=== PATIENT | female | born 1955 | race Caucasian/White ===

== ENCOUNTER 2022-03-06 14:32 | Outpatient (CLI) | payer MEDICARE ==
--- NOTE | 2022-03-16 09:49 | Mammography Report ---
BILATERAL DIGITAL SCREENING MAMMOGRAM 3D/2D: 03/06/2022 CLINICAL: Routine screening. No prior exams were available for comparison. Both breasts are almost entirely fatty (category a/<25% glandular tissue). There is a 0.9 cm oval equal density asymmetry in the right breast at 11 o'clock middle depth. No other significant masses, calcifications, or other findings are seen in either breast. IMPRESSION: INCOMPLETE: NEEDS ADDITIONAL IMAGING EVALUATION The 0.9 cm oval equal density asymmetry in the right breast is indeterminate. Additional views with possible ultrasound are recommended. Based on the Tyrer Cuzick model (a risk assessment model) the patients lifetime risk is 3.6% and her 10 year risk is 2.0%. According to the ACR, ACS, and NCCN guidelines, an annual breast MRI exam jennifer g with mammogram is recommended if the patients lifetime risk is 20% or greater. This exam was interpreted at Station ID: [id number]. NOTE: For mammograms, a report in lay terms will be sent to the patient. Approximately 15% of breast malignancies will not be visualized mammographically. In the management of a palpable breast mass, a negative mammogram must not discourage biopsy of a clinically suspicious lesion. Electronically Signed By: Nixon Echevarria M.D. aty/penrad:03/16/2022 08:08:37 ACR BI-RADS Category 0: Incomplete 3340F PARENCHYMAL PATTERN: (F) - The breast(s) demonstrate(s) diffuse fatty replacement. BI-RADS CATEGORY: (0) - 0 Mammo and [place] [id number] Immediate follow-up LATERALITY: (R)
== END 2022-03-06 14:33 | disposition home or self-care (01) ==
LOC: DI.N 14:32
PROVIDERS: ATTEND Nurse Practitioner Family
DX: Z12.31 Encounter for screening mammogram for malignant neoplasm of breast (principal); R92.8 Other abnormal and inconclusive findings on diagnostic imaging of breast

== ENCOUNTER 2022-04-04 10:40 | Outpatient (CLI) | payer MEDICARE ==
--- NOTE | 2022-04-05 12:13 | Ultrasound Report ---
LIMITED ULTRASOUND OF RIGHT BREAST: 04/04/2022 CLINICAL: Patient returns today to evaluate an asymmetry in the right breast. Comparison is made to exams dated: 04/04/2022 mammogram, 03/06/2022 mammogram - [facility], 10/20/2020 mammogram, and 10/20/2020 ultrasound - [facility]. Color flow and real-time ultrasound of the right breast 11 o'clock region were performed on the areas of interest. Taylor scale images of the real-time examination were reviewed. There is an ill-defined area of echogenic fibroglandular tissue in the right breast at 11 o'clock mid dle depth which correlates with mammography findings. IMPRESSION: BENIGN There is no sonographic evidence of malignancy. The area of echogenic fibroglandular tissue in the right breast is most consistent with fat necrosis and is benign. A 1 year screening mammogram is recommended. This exam was interpreted at Station ID: [id number]. Electronically Signed By: Veronica Comer M.D. lk/:04/04/2022 11:49:29 Ultrasound BI-RADS: 2 Benign BI-RADS CATEGORY: (2) - 2 RECOMMENDATION: (ANNUAL) - Recommend routine annual screening mammography. [id number] 1 year screening LATERALITY: (B)
--- NOTE | 2022-04-05 12:13 | Mammography Report ---
UNILATERAL RIGHT DIGITAL DIAGNOSTIC MAMMOGRAM 3D/2D: 04/04/2022 CLINICAL: Patient returns today to evaluate an asymmetry in the right breast. Comparison is made to exams dated: 03/06/2022 mammogram - [facility] and 10/20/2020 mammogram - [facility]. The right breast is almost entirely fatty (category a/<25% glandular tissue). The oval equal density asymmetry in the right breast at 11 o'clock middle depth is less prominent and decreased in size on additional views. No other significant masses or calcifications are seen in the breast. IMPRESSION: INCOMPLETE: NEEDS ADDITIONAL IMAGING EVALUATION The oval equal density asymmetry in the right breast is indeterminate. A targeted ultrasound of the right breast is recommended and will be performed immediately following this exam. Based on the Tyrer Cuzick model (a risk assessment model) the patients lifetime risk is 3.6% and her 10 year risk is 2.0%. According to the ACR, ACS, and NCCN guidelines, an annual breast MRI exam jennifer g with mammogram is recommended if the patients lifetime risk is 20% or greater. This exam was interpreted at Station ID: [id number]. NOTE: For mammograms, a report in lay terms will be sent to the patient. Approximately 15% of breast malignancies will not be visualized mammographically. In the management of a palpable breast mass, a negative mammogram must not discourage biopsy of a clinically suspicious lesion. Electronically Signed By: Veronica Comer M.D. lk/:04/04/2022 11:29:40 ACR BI-RADS Category 0: Incomplete 3340F PARENCHYMAL PATTERN: (F) - The breast(s) demonstrate(s) diffuse fatty replacement. BI-RADS CATEGORY: (0) - 0 Ultrasound [id number] Immediate follow-up LATERALITY: (B)
== END 2022-04-04 10:41 | disposition home or self-care (01) ==
LOC: DI 10:40
PROVIDERS: ATTEND Nurse Practitioner Family
DX: N63.11 Unspecified lump in the right breast, upper outer quadrant (principal)

== ENCOUNTER 2022-05-25 16:14 | Emergency (ER) | payer MEDICARE ==
[2022-05-25] MEDS ORDERED: HYDROmorphone 1 MG/ML CARPUJECT IVP STA ×3 (16:34→18:39)
[2022-05-25] MEDS ORDERED: ONDANSETRON 4 MG/2 ML VIAL IVP STA (16:52)
[2022-05-25] MEDS ORDERED: PANTOPRAZOLE 40 MG VIAL IVP STA (16:58)
--- NOTE | 2022-05-25 16:58 | ED Physician Documentation ---
History of Present Illness - Stated complaint Stated Complaint: ABD PX N/V/D - Chief complaint Chief Complaint: Abd Pain - Additonal information Additional information: 66-year-old female presents emergency department for evaluation of acute epigastric abdominal pain, n/v/d that began 4 days ago. She is crying moaning and writhing on the bed. States that 2 days ago she was seen at [facility] in [place] for similar. Reportedly underwent CT imaging with no findings found. History is difficult to obtain from patient due to clinical status. She does report a chronic pain syndrome for which she takes hydromorphone 4 mg 3 times daily. Intermittently here in the ER she lapses in and out of consciousness but reports that she is merely sleeping. Review of Systems Constitutional: denies: Fever, Chills GI: reports: Abdominal Pain, Nausea, Vomiting : reports: Reviewed and negative Skin: reports: Reviewed and negative PD PAST MEDICAL HISTORY - Allergies Allergies/Adverse Reactions: Allergies Allergy/AdvReac Type Severity Reaction Status Date / Time oxycodone Allergy Hives Verified 05/25/22 16:26 Penicillins Allergy Anaphylaxis Verified 05/25/22 16:25 PD ED PE NORMAL - General General: Alert and oriented X 3. No: No acute distress (Crying actively dry heaving) - HEENT HEENT: Atraumatic, Moist mucous membranes - Neck Neck: Supple, no meningeal sign, No adenopathy - Cardiac Cardiac: RRR, No murmur - Respiratory Respiratory: No respiratory distress, Clear bilaterally - Abdomen Abdomen: Normal bowel sounds, Soft. 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 Eye Opening: Spontaneous Motor: Obeys Commands Verbal: Oriented GCS Score: 15 PD ED PE EXPANDED - General General: Alert, No acute distress Results - Vitals Vitals: Vital Signs - 24 hr 05/25/22 05/25/22 05/25/22 16:23 16:26 18:26 Temperature 37.2 C 37.2 C Heart Rate 95 95 100 Respiratory 20 20 20 Rate Blood Pressure 111/87 H 111/87 H 112/88 H O2 Saturation 96 96 99 05/25/22 20:00 Temperature Heart Rate 100 Respiratory 18 Rate Blood Pressure 114/86 H O2 Saturation 100 Oxygen O2 Source Room air - Labs Labs: Laboratory Tests 05/25/22 05/25/22 05/25/22 17:21 17:21 19:37 WBC 14.7 H RBC 5.40 Hgb 14.2 Hct 44.0 MCV 81.5 MCH 26.3 L MCHC 32.3 RDW 13.1 Plt Count 436 MPV 10.1 Neut # (Auto) 12.1 H Lymph # (Auto) 1.8 [place] # (Auto) 0.6 Eos # (Auto) 0.0 Baso # (Auto) 0.1 Absolute Nucleated RBC 0.00 Nucleated RBC % 0.0 Sodium 132 L Potassium 2.8 L Chloride 95 L Carbon Dioxide 23 Anion Gap 14.0 H BUN 57 H Creatinine 1.9 H Estimated GFR (MDRD) 26 L Glucose 171 H Calcium 9.2 Total Bilirubin 0.5 AST 25 ALT 19 Alkaline Phosphatase 139 H Total Protein 8.3 H Albumin 4.7 Globulin 3.6 Albumin/Globulin Ratio 1.3 Lipase 28 Urine Color YELLOW Urine Clarity CLEAR Urine pH 6.0 Ur Specific [place] 1.025 Urine Protein 30 H Urine Glucose (UA) NEGATIVE Urine Ketones TRACE Urine Occult Blood TRACE-INTA Urine Nitrite NEGATIVE Urine Bilirubin NEGATIVE Urine Urobilinogen 0.2 (NORMAL) Ur Leukocyte Esterase NEGATIVE Urine RBC 0-5 Urine WBC 0-3 Ur Squamous Epith Cells FEW Squamous Urine Bacteria Few Ur Microscopic Review INDICATED Urine Culture Comments NOT INDICATED 05/25/22 21:12 WBC RBC Hgb Hct MCV MCH MCHC RDW Plt Count MPV Neut # (Auto) Lymph # (Auto) [place] # (Auto) Eos # (Auto) Baso # (Auto) Absolute Nucleated RBC Nucleated RBC % Sodium 132 L Potassium 3.7 Chloride 101 Carbon Dioxide 21 Anion Gap 10.0 BUN 49 H Creatinine 1.4 H Estimated GFR (MDRD) 37 L Glucose 132 H Calcium 8.6 Total Bilirubin 0.6 AST 21 ALT 15 Alkaline Phosphatase 110 Total Protein 6.8 Albumin 4.0 Globulin 2.8 Albumin/Globulin Ratio 1.4 Lipase 26 Urine Color Urine Clarity Urine pH Ur Specific [place] Urine Protein Urine Glucose (UA) Urine Ketones Urine Occult Blood Urine Nitrite Urine Bilirubin Urine Urobilinogen Ur Leukocyte Esterase Urine RBC Urine WBC Ur Squamous Epith Cells Urine Bacteria Ur Microscopic Review Urine Culture Comments - Rads (name of study) CT abd Radiology: Final report received (No evidence of bowel obstruction. No gross abnormal bowel wall thickening or mesenteric fat stranding. No free fluid or free air. Bibasilar dependent atelectasis. Cardiomegaly no pleural effusion. Prior cholecystectomy. Small hiatal hernia small umbilical hernia.) PD Medical Decision Making - ED course Complexity details: reviewed results, re-evaluated patient, considered differential, d/w patient ED course: 66-year-old female returns to the emergency department for evaluation of epigastric abdominal pain and nausea and vomiting. She was seen at an outside clinic for this 2 days ago. I was able to gain [facility] and saw that she was seen at [facility] in [place] for similar. At that time her labs showed a modest leukocytosis of 18,000 though it was suspected to be secondary to marginalization in the acute stress response. A CT of the abdomen was unremarkable. There were able to obtain symptom control with antiemetics and she was discharged home. She presents today with similar nausea vomiting diarrhea and epigastric abdominal pain. Initially the patient was writhing in pain very difficult to obtain history due to her condition. She is also very dehydrated and we had a difficult time obtaining IV lab draw or IV access. However subsequently we did get labs and it does show a white count of just under 13,000. This is a reduction from 2 days ago at an outside hospital. I was able to evaluate her BUN and creatinine and do note some mild acute kidney injury as well as hypokalemia which I think is consistent with dehydration. The patient was administered 2 L of crystalloid here in the ER. The patient did admit to cannabis use she last used about 4 days ago before the symptoms began. She does smoke pot with some regular frequency and reports that she has been told in the past that she could have cannabis hyperemesis syndrome. Initially we did give her some Dilaudid which was repeated to achieve pain control. Given the location of the pain in the epigastrium I suspect a gastritis and administered Protonix as well as Carafate. However in order to achieve appropriate antinausea success she was finally administered droperidol which markedly improved her symptoms and she was then tolerating sips of clear liquids and p.o. I did obtain a noncontrast CT of her abdomen and there were no acute findings seen. Nothing to suggest a bowel obstruction or acute appendicitis. Her Abdominal aorta was atherosclerotic but nothing to suggest dissection. Once symptom control was achieved the patient was markedly improved. She is tolerating sips of clear liquids. I did order a repeat blood chemistry to ensure that her acute kidney injury was trending in the right direction And her BUN and creatinine had started to improve. Her initial hypokalemia had also started to improve after she had been given 60 of potassium orally Patient was discharged home in stable condition. Emergent return precautions discussed Departure - Departure Disposition: Home, Self Care Clinical Impression: Acute kidney injury, Epigastric abdominal pain, Hypokalemia due to excessive gastrointestinal loss of potassium Nausea and vomiting Qualifiers: Vomiting type: unspecified Qualified Code(s): R11.2 - Nausea with vomiting, unspecified Condition: Stable Comments: Yolis garcia came to the emergency department with upper abdominal pain and uncontrolled nausea and vomiting. You were seen at an outside hospital for similar 2 days ago. I was able to access those care records and did not find anything of acute worry on those labs or that CT imaging. You do report that you use cannabis last on Sunday. I encourage you to consider the possibility of cannabis hyperemesis syndrome as a cause for your cyclic vomiting. Here in the ER today we did obtain some labs that showed a mild white blood cell count elevation though it is reduced from what it was 2 days ago in the other ER. You were modestly dehydrated because you had some elevation of your BUN and creatinine. Here in the ER we did give you 2 L of fluid and on repeat Your kidney function has started to improve though you are still dehydrated. You can continue to use the Reglan and Zofran at home for control of your nausea. Please continue to take all your usual medications. Over the next 24 hours and want you to sip clear liquids. I like you to follow-up with your primary care provider in the next week to have your labs rechecked to ensure that your BUN and creatinine have improved. If at any point you find that your symptoms are worsening please return i mmediately to the ER for a second evaluation.
[2022-05-25] MEDS ORDERED: SUCRALFATE 1 GM/10 ML UDC PO STA (17:00)
[2022-05-25 17:28] LABS: BASOPHILS # (AUTO) 0.1 10^3/uL (0.0-0.1); BASOPHILS % (AUTO) 0.3 %; EOSINOPHILS % (AUTO) 0.1 %; HGB - HEMOGLOBIN 14.2 g/dL (12.0-16.0); LYMPHOCYTES # (AUTO) 1.8 10^3/uL (1.5-3.5); LYMPHOCYTES % (AUTO) 12.6 %; MEAN CORPUSCULAR HEMOGLOBIN 26.3 pg (27.0-31.0); MEAN CORPUSCULAR HGB CONC 32.3 g/dL (32.0-36.0); MEAN CORPUSCULAR VOLUME 81.5 fL (81.0-99.0); MEAN PLATELET VOLUME 10.1 fL (7.9-10.8); MONOCYTES # (AUTO) 0.6 10^3/uL (0.0-1.0); MONOCYTES % (AUTO) 3.8 %; NEUTROPHILS # (AUTO) 12.1 10^3/uL (1.5-6.6); NEUTROPHILS % (AUTO) 82.7 %; PLT - PLATELET COUNT 436 10^3/uL (130-450); RED CELL DISTRIBUTION WIDTH 13.1 % (12.0-15.0); WHITE BLOOD COUNT 14.7 x10^3/uL (4.8-10.8)
[2022-05-25 17:39] LABS: ALBUMIN 4.7 g/dL (3.2-5.5); ALBUMIN/GLOBULIN RATIO 1.3 (1.0-2.2); BILIRUBIN,TOTAL 0.5 mg/dL (0.2-1.0); CALCIUM 9.2 mg/dL (8.5-10.3); CREATININE 1.9 mg/dL (0.4-1.0); POTASSIUM 2.8 mmol/L (3.5-5.0); TOTAL PROTEIN 8.3 g/dL (6.7-8.2)
[2022-05-25] MEDS ORDERED: SODIUM CHLORIDE 0.9% 1,000 ML IV STA ×2 (17:52)
[2022-05-25] MEDS ORDERED: POTASSIUM CHLORIDE 20 MEQ TABLET PO STA (17:53)
[2022-05-25] MEDS ORDERED: DROPERIDOL 5 MG/2 ML VIAL IVP STA (18:29)
--- NOTE | 2022-05-25 18:33 | CT Report ---
PROCEDURE: ABDOMEN/PELVIS WO INDICATIONS: n/v/d TECHNIQUE: After oral contrast ingestion, 5 mm thick sections acquired from the diaphragms to the symphysis. 5 mm coronal and sagittal reformats were then performed. For radiation dose reduction, the following w as used: automated exposure control, adjustment of mA and/or kV according to patient size. COMPARISON: None. FINDINGS: Image quality: Excellent. ABDOMEN: Lung bases: Mild bibasilar dependent atelectasis is seen. Heart size is enlarged, no pericardial effu roseann. Pacemaker leads are seen. Solid organs: Liver and spleen are normal in size. Gallbladder is surgically absent Pancreas is no rmal in contours. No adrenal nodules. Kidneys are normal in size, without hydronephrosis or nephrol ithiasis. Peritoneum and bowel: Small hiatal hernia is seen. No evidence of bowel obstruction. Oral contrast is seen in the ascending colon and sigmoid colon. No gastric or small bowel wall thickening. No gross c olonic wall thickening. No mesenteric fat stranding. No abscess collection. No free fluid of free air . Nodes and vessels: No retroperitoneal or mesenteric adenopathy by size criteria. Aorta and inferior vena cava are normal in caliber. Moderate atherosclerotic calcifications in the abdominal aorta is seen. Miscellaneous: Small umbilical hernia is seen containing fat only. PELVIS: Genitourinary: Bladder wall thickness is normal. Miscellaneous: No inguinal hernias or adenopathy. Bones: No suspicious bony lesions. No vertebral body compression fractures. Postsurgical changes a re noted in lower lumbar spine with prior fusion at L5-S1 level. IMPRESSION: 1. No evidence of bowel obstruction. No gross abnormal bowel wall thickening or mesenteric fat strand ing. No free fluid of free air. 2. Bibasilar dependent atelectasis. Cardiomegaly, no pericardial effusion. 3. Prior cholecystectomy. 4. Small hiatal hernia and small umbilical hernia as above. 5. Postsurgical changes in lower lumbar spine from L5-S1 fusion. Reviewed by: Urbano Schaefer MD on 05/25/2022 6:32 PM PST Approved by: Urbano Schaefer MD on 05/25/2022 6:32 PM PST Station ID: [id number]
[2022-05-25 19:57] LABS: BILIRUBIN,URINE NEGATIVE (NEGATIVE); GLUCOSE, URINE (UA) NEGATIVE (NEGATIVE); KETONES,URINE (UA) TRACE mg/dL (NEGATIVE); LEUKOCYTE ESTERASE, URINE NEGATIVE (NEGATIVE); NITRITE,URINE NEGATIVE (NEGATIVE); OCCULT BLOOD,URINE TRACE-INTA (NEGATIVE); PROTEIN,URINE 30 mg/dL (NEGATIVE); UROBILINOGEN,URINE 0.2 (NORMAL) E.U./dL (NORMAL)
[2022-05-25 20:01] LABS: CLARITY,URINE CLEAR (CLEAR)
[2022-05-25 20:10] LABS: BACTERIA,URINE Few /HPF (None Seen); RBC,URINE 0-5 /HPF (0-5); SQUAMOUS EPITHELIAL CELL,UR FEW Squamous (<= Few); WBC,URINE 0-3 /HPF (0-5)
[2022-05-25 21:32] LABS: ALBUMIN/GLOBULIN RATIO 1.4 (1.0-2.2); BILIRUBIN,TOTAL 0.6 mg/dL (0.2-1.0); CALCIUM 8.6 mg/dL (8.5-10.3); CREATININE 1.4 mg/dL (0.4-1.0); POTASSIUM 3.7 mmol/L (3.5-5.0); TOTAL PROTEIN 6.8 g/dL (6.7-8.2)
[2022-05-25 21:58] VITALS: BP 116/88
== END 2022-05-25 21:56 | disposition home or self-care (01) ==
LOC: ED 16:14
DX: N17.9 Acute kidney failure, unspecified (principal); R10.13 Epigastric pain; E87.6 Hypokalemia; E86.0 Dehydration; D72.829 Elevated white blood cell count, unspecified; R11.2 Nausea with vomiting, unspecified; G89.4 Chronic pain syndrome
CPT/HCPCS: 36415; 74176; 80053; 81001; 83690; 85025; 96361; 96374; 96375; 96376; 99283; 99285; A9270; J1170; 81003; 87086

== ENCOUNTER 2022-09-22 10:48 | Outpatient (CLI) | payer MEDICARE ==
--- NOTE | 2022-09-22 12:09 | SLEEP CARE CONSULTATION ---
Information from patient questionnaire entered by Madisyn Monroy. I have reviewed and concur with the information entered by Madisyn Monroy. This document represents the service I personally performed and the decisions made by me, Jennifer Salazar ARNP. History of Present Illness Service Date and Time: 09/22/2022 1048 Reason for Visit: New patient, Previously diagnosed sleep apnea, sleep apnea on CPAP therapy Chief Complaint: reports: Other (UPDATE SUPPLIES) Date of Onset: 20+YRS Usual bedtime: 130-2AM Time it takes to fall asleep: WITH IN AN HR OF TAKING BEDTIME MEDS Snores at night: Yes Observed to quit breathing while asleep: Yes Number of times waking at night: 3-5 Reasons for waking at night: reports: Pain, Bathroom, Other (UNKNOWN ) Toss, Turn, or Twitch while sleeping: Yes Recalls having dreams: No Usually gets out of bed at: 8AM-10AM Feels refreshed in the morning: No Morning headache: No Sleepy or fatigued during the day: Yes Ever fallen asleep while driving: No Takes day naps: Yes Dreams during day naps: Yes Prior sleep studies: Yes Year and Where: 04/21/2015 [facility] [place] Type of Sleep Study: Polysomnography Additional HPI information: SANG HERMOSILLO was previously diagnosed to have moderate, AHI 27, obstructive sleep apnea-hypopnea syndrome in a study dated 04/21/2015 through [facility] [place] and comes in today to establish care for CPAP therapy. - Parasomnia Symptoms Ever been unable to move upon waking from sleep: No Walks in sleep: No Talks in sleep: Yes Ever acted out dreams in sleep: No (don't know) Ever felt weak in the knees when startled or emotional: No Bothered by creepy, crawly, restless sensations in legs: Yes Problems with memory or concentration: Yes CPAP Compliance Data - Data Reviewed with Patient Average duration of nightly device use: 4 hour 54 minutes Compliance rate %: 53 (77/90 days used) Current pressure setting (cmH2O): 5-15 (avg 12.2) Average residual AHI: 1.9 Central apnea: 0.1 Obstructive apnea: 1.5 Hypopnea: 0.3 Average large leak: 0 Compliance data discussion: She has a Resmed Airsense 10, s/u 2/ 2016. She used to use [facility] in the past but is no longer getting supplies from them. She needs to get set up for supplies. She is using a Tushar Rahel View full face mask. Subjective Missed days of use due to: reports: other (does not sleep well) Patient concerns: reports: dry mouth, nose, throat (nightly), other (headgear stretched out; hard to get mask to seal). denies: aerophagia, mask discomfort, air blowing in eyes, mask leak noise, condensation in mask/hose, nasal congestion, epistaxis Observed to snore while using device: Yes (sometimes will wake herself up snoring) Current pressure setting perceived as: comfortable On therapy, patient: reports: sleeping better, awakening more refreshed, being more awake and alert during the day, more rested overall. 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 Patient is and lives in . Have you smoked in the past 12 months: No Quit date: 2016 Alcohol use: No Caffeine use: Yes Caffeine amount and frequency: 1-16OZ IN MORNING Family History Family history of sleep disordered breathing: No Family Hx Sleep Apnea: Mother: Snoring, Father: Snoring, Sibling: Snoring Allergies and Home Medications Known drug allergies: Yes (OXYCODONE, PNC, PERCOCET, LISINOPRIL, ATENOLOL, GARLIC ) Drug allergies reviewed: Yes Home medication list reviewed: Yes Allergy and home medication list: Allergies oxycodone Allergy (Verified 09/21/22 13:50) Hives Penicillins Allergy (Verified 09/21/22 13:50) Anaphylaxis Medications: Buprenorphine Tizanidine Trazadone Metoprolol Amlodipine Aspirin EC Montelukast Pravastatin Pantoprazole Pepto Bismol Vitamin D3 Ex Strength Tylenol, prn Metoclopramide prn Nitroglycerin prn Albuterol inhaler, prin Aleve, prn Review of Systems Cardiovascular: reports: high blood pressure Respiratory: reports: wheeze Gastrointestinal: reports: heartburn, nausea, vomitting, diarrhea, abdominal pain Urinary: reports: frequency Neurological: denies: headaches Psychiatric: reports: anxiety, depression Ear/Nose/Throat: reports: dry mouth/throat, tonsillectomy, wisdom teeth removed Endocrine: reports: sluggishness. denies: thyroid disease Musculoskeletal: reports: joint pain, back pain, mobility problems Immunologic: reports: sneezing, allergies to food or environment Physical Exam Vital signs obtained and entered by: MADISYN Irby MA Blood Pressure: 124/62 (LEFT ARM) Cuff size: regular Heart Rate: 59 O2 Saturation: 96 Height: 4 ft 10 in Weight: 178 lb Body Mass Index: 37.2 BMI Classification: Obese Neck circumference: 14 Heart: regular rate and rhythm Lungs: clear bilaterally Impression and Plan 1. Obstructive Sleep Apnea-Hypopnea Syndrome, moderate, with fair treatment compliance and good apnea control. On CPAP therapy, the patient has better sleep quality and is more rested overall. Her Resmed Airsense 10 was last updated in 2016. The patients CPAP is over 5 years old and of reasonable use. Thus, the CPAP will be updated. The new CPAPs also have a better humidity system which could assist control of patients dryness symptoms. A DWO prescription will be made. Compliance guidelines for new device and follow up discussed. Patient's apnea severity and rationale for treatment to reduce apnea, improve sleep quality and reduce cardiovascular and cerebrovascular events was reviewed. I also reviewed the benefit of consistent device use of CPAP for hypertension, gastric reflux, depression, anxiety and asthma. 2. Obesity, unspecified. Currently patients BMI is 37.2. Obesity increases the risk of apnea, CPAP pressure requirements and overall health risks especially cardiovascular and diabetes. Thus patient is advised to lose weight. * Continue auto CPAP pressure at 5-15 cmH2O * Update machine * Update supplies * Notify me if snoring with mask or feeling that the pressure is too much or too little * Attempt to lose weight * Call this office if any problems using CPAP * Return for follow up one month after obtaining new device, or sooner if concerns arise Counseling Topics: Spare mask, Weight loss health impact Visit Type: In Office Time Spent with Patient (minutes): 34 Provider Statement: I spent 100% of the Face to Face Visit with the patient with greater than 50% spent counseling the patient and coordination of care.
[2022-09-22 13:02] VITALS: BP 124/62
== END 2022-09-22 10:49 | disposition home or self-care (01) ==
LOC: SC 10:48
PROVIDERS: ATTEND Nurse Practitioner Family
DX: G47.33 Obstructive sleep apnea (adult) (pediatric) (principal); E66.9 Obesity, unspecified; Z68.37 Body mass index [BMI] 37.0-37.9, adult
CPT/HCPCS: 99203; G0463; 99212

== ENCOUNTER 2022-10-18 12:55 | Outpatient (CLI) | payer MEDICARE ==
[~2022-10-18 12:55] MED LIST: GADOBUTROL 7.5 MMOL/7.5 ML VIAL ONE
[2022-10-18 13:39] LABS: CREATININE 0.7 mg/dL (0.4-1.0)
--- NOTE | 2022-10-18 16:55 | MRI Report ---
PROCEDURE: LUMBAR SPINE W/WO INDICATIONS: LUMBAR RADICULOPATHY CONTRAST: gadavist 7ml TECHNIQUE: Noncontrast sagittal T1 spin echo and T2 fast spin echo, sagittal STIR, axial T1 and T2 fast spin ech o through the lumbar spine. In cases with scoliosis, additional coronal T2 fast spin echo may be per formed. After the administration of contrast, sagittal and axial T1 spin echo with fat saturation th rough the lumbar spine. COMPARISON: None. FINDINGS: Image quality: Excellent. Alignment and curvature: Bilateral L5 pars defects. Anterolisthesis of L5 on S1 measures 8 mm. Culinary Artist ior lateral shanti and pedicle screw fixation bilaterally at L5-S1. Marrow: Marrow is of normal overall signal. No acute vertebral body compression fractures. No susp icious marrow enhancement. Spinal cord: Conus medullaris terminates at the T12-L1 level. Visualized spinal cord demonstrates n ormal signal, without suspicious enhancement. Paraspinous soft tissues: No paravertebral masses or abnormal enhancement. T12-L1: Normal in appearance. L1-L2: Normal in appearance. L2-L3: Mild facet hypertrophy. No canal stenosis. Mild bilateral foraminal stenosis. L3-L4: Disc bulge. Facet and ligamentous hypertrophy. Mild canal stenosis. Mild to moderate left fo raminal stenosis. L4-L5: Disc bulge. Facet hypertrophy. Moderate canal stenosis. Moderate to severe bilateral foramin al narrowing with a mild degree of bilateral foraminal L4 nerve root impingement. L5-S1: Bilateral L5 pars defects. Anterolisthesis of L5 on S1 measures 8 mm. Posterior lateral shanti and pedicle screw fixation at L5-S1. Epidural lipomatosis contributes to at least moderate canal sten osis. There is probably no significant foraminal narrowing at this level. IMPRESSION: 1. Bilateral L5 pars defects with 8mm anterolisthesis of L5 on S1, status post posterior lateral shanti and pedicle screw fixation at L5-S1. 2. There is mild canal stenosis at L3-L4. There is moderate canal stenosis at L4-L5. Epidural lipomat osis contributes to moderate canal stenosis at L5-S1. 3. There is moderate to severe bilateral foraminal narrowing at L4-L5. Reviewed by: Marcell Miguel MD on 10/18/2022 4:54 PM PDT Approved by: Marcell Miguel MD on 10/18/2022 4:54 PM PDT Station ID: [id number]
[2022-10-18] MEDS ORDERED: GADOBUTROL 7.5 MMOL/7.5 ML VIAL IVP ONE (18:19)
== END 2022-10-18 12:56 | disposition home or self-care (01) ==
LOC: LAB 12:55
PROVIDERS: ATTEND Family Medicine
DX: M43.17 Spondylolisthesis, lumbosacral region (principal); M54.17 Radiculopathy, lumbosacral region; M48.061 Spinal stenosis, lumbar region without neurogenic claudication; M54.16 Radiculopathy, lumbar region; M48.07 Spinal stenosis, lumbosacral region; E88.2 Lipomatosis, not elsewhere classified
CPT/HCPCS: 36415; 72158; 82565; A9585

== ENCOUNTER 2022-11-10 13:31 | Outpatient (CLI) | payer MEDICARE ==
--- NOTE | 2022-11-10 15:21 | XRAY Report ---
PROCEDURE: Lumbar Spine Complete INDICATIONS: STANDING AP AND LATERAL WITH FEXION AND EXTENSION TECHNIQUE: 4 views of the lumbar spine were acquired. COMPARISON: MRI lumbar spine 10/18/2022 FINDINGS: Bones: 5 [id number] vertebrae are present. No vertebral body compression fractures. No suspi cious bony lesions. Grade 2 anterior spinal listhesis L4-5. Approximately 3 mm of translation noted between flexion and e xtension. L5-S1 interbody fusion with posterior shanti and screw instrumentation without change between flexion and extension. Soft tissues: Overlying bowel gas pattern is normal. Atherosclerotic vascular calcification without aneurysm. IMPRESSION: Grade 2 anterior spondylolisthesis L4-5 with approximately 3 mm of translation between flexion and ex tension, suggesting an element of instability. Instrumented L5-S1 interbody fusion. No evidence of hardware failure or loosening. Reviewed by: Sheldon Rebolledo MD on 11/10/2022 2:20 PM AARON Approved by: Sheldon Rebolledo MD on 11/10/2022 2:20 PM AARON Station ID: [id number]
== END 2022-11-10 13:32 | disposition home or self-care (01) ==
LOC: DI 13:31
PROVIDERS: ATTEND Neurological Surgery
DX: M43.16 Spondylolisthesis, lumbar region (principal); Z98.1 Arthrodesis status

== ENCOUNTER 2022-11-15 10:24 | Outpatient (CLI) | payer MEDICARE ==
--- NOTE | 2022-11-15 10:53 | SLEEP CARE CONSULTATION ---
Information from patient questionnaire entered by Madisyn Monroy. I have reviewed and concur with the information entered by Madisyn Monroy. This document represents the service I personally performed and the decisions made by , Jennifer Salazar ARNP. History of Present Illness Service Date and Time: 11/15/2022 1024 Previous diagnosis: Moderate, Obstructive Sleep Apnea-Hypopnea Syndrome AHI: 27 (in 2014) Reason for follow up: first compliance after device update Equipment type: CPAP (ResMed Airsense 11) Equipment obtained from: [employer] ([employer]) Mask style: Nasal Mask brand: Resmed (AirFit N20) Backup mask available: No (will keep old mask when replaced) Last cushion change: 1 month Prior sleep studies: Yes Year and Where: 04/21/2015 [facility] [place] Type of Sleep Study: Polysomnography HPI additional information: SANG HERMOSILLO was diagnosed to have moderate, AHI 27, obstructive sleep apnea- hypopnea syndrome and returned today for CPAP therapy first compliance after updating device follow-up. Sleep Study - Results Type of Sleep Study: Polysomnography Prior sleep studies: Yes Year and Where: 04/21/2015 [facility] [place] CPAP Compliance Data - Data Reviewed with Patient Average duration of nightly device use: 8 hours 10 minutes Compliance rate %: 98 (39/40 days used) Current pressure setting (cmH2O): 5-15 Average residual AHI: 2.6 Central apnea: 0.2 Obstructive apnea: 2.2 Average large leak: 0.2 LPM Subjective Patient concerns: reports: mask leak noise (sometimes), condensation in mask/hose, nasal congestion (sometimes, in morning), dry mouth, nose, throat (sometimes, dry mouth). denies: aerophagia, mask discomfort, air blowing in eyes, epistaxis Observed to snore while using device: No Current pressure setting perceived as: comfortable On therapy, patient: reports: sleeping better, awakening more refreshed, being more awake and alert during the day, more rested overall. denies: drowsiness while driving Initial [place] Sleepiness Scale score: 6 (09/21/22) Current [place] Sleepiness Scale score: 15 Allergies and Home Medications Known drug allergies: Yes (as listed) Drug allergies reviewed: Yes Home medication list reviewed: Yes (no changes) Allergy and home medication list: Allergies garlic Allergy (Verified 11/14/22 21:44) oxycodone Allergy (Verified 11/14/22 21:44) Hives Penicillins Allergy (Verified 11/14/22 21:44) Anaphylaxis atenolol Adverse Reaction (Verified 11/14/22 21:44) lisinopril Adverse Reaction (Verified 11/14/22 21:44) Review of Systems Review of systems same as previous: Yes (no changes) Physical Exam Vital signs obtained and entered by: Jennifer Newman NP Blood Pressure: 87/43 (took meds 1 hour ago (usually lower BP)) Cuff size: wrist (right) Heart Rate: 62 O2 Saturation: 95 Height: 4 ft 10 in Weight: 178 lb 3.2 oz Body Mass Index: 37.2 BMI Classification: Obese Impression and Plan 1. Obstructive Sleep Apnea-Hypopnea Syndrome, moderate, with good treatment compliance and good apnea control. On CPAP therapy, the patient has better sleep quality and is more rested overall. Her blood pressure was a little low today but she states she normally has a lower pressure. She states she took her medication about an hour ago. She denies any dizziness today but has had some recently. I advised her to monitor her blood pressure and contact her PCP if it continues to be low and she has a return of the dizziness. She voiced understanding. Patient has significant improvement of their sleep apnea and is satisfied with current CPAP therapy. Patient has been having some minor problems with condensation in the bottom of the mask. She also gets a little bit of dry mouth and nasal congestion in the morning occasionally. We plug-in her machine and her humidity is set at 4. She would like to try it at 3 to see if this reduces the condensation. We discussed her increasing it back up if her oral dryness worsens. She may also cover the tubing to reduce condensation. She voiced understanding. Patient's apnea severity and rationale for treatment to reduce apnea, improve sleep quality and reduce cardiovascular and cerebrovascular events was reviewed. I also reviewed the benefit of consistent device use of CPAP for hypertension, gastric reflux, depression, anxiety and asthma . 2. Obesity, unspecified. Currently patients BMI is 37.2. Obesity increases the risk of apnea, CPAP pressure requirements and overall health risks especially cardiovascular and diabetes. Thus patient is advised to lose weight. * Continue auto CPAP pressure at 5-15 cmH2O * Notify me if snoring with mask or feeling that the pressure is too much or too little * Attempt to lose weight * Call this office if any problems using CPAP * Return for follow up in 1 year, or sooner if concerns arise Counseling Topics: Spare mask, Weight loss health impact Visit Type: In Office Time Spent with Patient (minutes): 25 Provider Statement: I spent 100% of the Face to Face Visit with the patient with greater than 50% spent counseling the patient and coordination of care.
[2022-11-15 10:56] VITALS: BP 87/43
== END 2022-11-15 10:25 | disposition home or self-care (01) ==
LOC: SC 10:24
PROVIDERS: ATTEND Nurse Practitioner Family
DX: G47.33 Obstructive sleep apnea (adult) (pediatric) (principal); R03.1 Nonspecific low blood-pressure reading; E66.9 Obesity, unspecified; Z68.37 Body mass index [BMI] 37.0-37.9, adult
CPT/HCPCS: 99213; G0463; 99212

== ENCOUNTER 2022-11-23 11:52 | Outpatient (CLI) | payer MEDICARE ==
--- NOTE | 2022-11-23 14:49 | CT Report ---
PROCEDURE: LUMBAR SPINE WO INDICATIONS: SP SPINAL FUSION TECHNIQUE: Noncontrast 3 mm thick sections acquired from the T12 level to the sacrum. Sagittal and coronal refo rmats were constructed. For radiation dose reduction, the following was used: automated exposure co ntrol, adjustment of mA and/or kV according to patient size. COMPARISON: None. FINDINGS: Image quality: Excellent. Bones: There is normal bony alignment. No acute vertebral body compression fractures. No suspiciou s lytic or blastic bony lesions. Central spinal caliber is of normal overall caliber. No pars defec ts. T12-L1: No disc bulge. The foramina and central canal are patent. L1-L2: No disc bulge. The foramina and central canal are patent. L2-L3: Diffuse disc bulge. Ligamentum flavum hypertrophy. The facets are hypertrophic. Moderate bi lateral foraminal stenosis. The central canal has mild stenosis. L3-L4: Diffuse disc bulge. Ligamentum flavum hypertrophy. The facets are hypertrophic. Moderate rusty ateral foraminal stenosis. The central canal has moderate to severe central canal stenosis. L4-L5: Facet arthrosis with grade 1 anterolisthesis. Diffuse disc bulge. Ligamentum flavum hypertro phy. Moderate bilateral foraminal stenosis. L5-S1: Pedicular screw and shanti fixation at this level. Grade 1 anterolisthesis. The foramina are pa tent. Laminectomy at this level. Soft tissues: No retroperitoneal masses or hematomas. Visualized aorta is normal in caliber. IMPRESSION: 1. Postoperative changes of L4-5 fusion. Alignment is similar compared to a prior CT on 05/25/2022. 2. Multilevel foraminal stenosis. Reviewed by: Edson Wellington on 11/23/2022 2:48 PM PDT Approved by: Edson Wellington on 11/23/2022 2:48 PM PDT Station ID: [id number]
== END 2022-11-23 11:53 | disposition home or self-care (01) ==
LOC: DI 11:52
PROVIDERS: ATTEND Neurological Surgery
DX: M51.36 Other intervertebral disc degeneration, lumbar region (principal); M48.061 Spinal stenosis, lumbar region without neurogenic claudication; M47.816 Spondylosis without myelopathy or radiculopathy, lumbar region; M43.17 Spondylolisthesis, lumbosacral region; Z98.1 Arthrodesis status; M43.16 Spondylolisthesis, lumbar region

== ENCOUNTER 2023-03-29 11:04 | Outpatient (CLI) | payer MEDICARE ==
--- NOTE | 2023-03-30 10:27 | Mammography Report ---
BILATERAL DIGITAL SCREENING MAMMOGRAM 3D/2D: 03/29/2023 CLINICAL: Routine screening. Comparison is made to exams dated: 04/04/2022 mammogram, 03/06/2022 mammogram - [facility], and 10/20/2020 mammogram - [facility]. Both breasts are almost entirely fatty (category a/<25% glandular tissue). No significant masses, calcifications, or other findings are seen in either breast. There has been no significant interval change. IMPRESSION: NEGATIVE There is no mammographic evidence of malignancy. A 1 year screening mammogram is recommended. Based on the Tyrer Cuzick model (a risk assessment model) the patients lifetime risk is 3.4% and her 10 year risk is 2.0%. According to the ACR, ACS, and NCCN guidelines, an annual breast MRI exam jennifer g with mammogram is recommended if the patients lifetime risk is 20% or greater. This exam was interpreted at Station ID: [id number]. NOTE: For mammograms, a report in lay terms will be sent to the patient. Approximately 15% of breast malignancies will not be visualized mammographically. In the management of a palpable breast mass, a negative mammogram must not discourage biopsy of a clinically suspicious lesion. Electronically Signed By: Nixon [email or web address]/geoff:03/30/2023 07:25:48 letter sent: No_Letter ACR BI-RADS Category 1: Negative 3341F PARENCHYMAL PATTERN: (F) - The breast(s) demonstrate(s) diffuse fatty replacement. BI-RADS CATEGORY: (1) - 1 Mammogram [id number] 1 year screening LATERALITY: (B)
== END 2023-03-29 11:05 | disposition home or self-care (01) ==
LOC: DI 11:04
PROVIDERS: ATTEND Nurse Practitioner Family
DX: Z12.31 Encounter for screening mammogram for malignant neoplasm of breast (principal)

== ENCOUNTER 2023-04-02 00:01 | Outpatient (CLI) | payer MEDICARE | END 2023-04-02 00:02 | disposition critical access hospital (66) | LOC: EMS 00:01 | DX: R07.9 Chest pain, unspecified (principal) | CPT/HCPCS: A0425; A0429 ==

== ENCOUNTER 2023-04-02 00:08 | Emergency (ER) | payer MEDICARE ==
--- NOTE | 2023-04-02 00:36 | ED Physician Documentation ---
PD HPI CHEST PAIN - Stated complaint Stated Complaint: CP - Chief complaint Chief Complaint: Cardiac - History obtained from History obtained from: Patient - Additional information Additional information: HPI from patient. Patient c/o left-sided anterior chest pain with dizziness, onset at approximately 11 PM tonight while sitting on the toilet. She had mild dyspnea, no diaphoresis. Patient said she felt like she might pass out, and family member (in ED at bedside) who witnessed the event says patient appeared very pale. Symptoms lasted less than an hour, resolved by the time of this evaluation. There were no ameliorating nor exacerbating factors. Some symptoms are reminiscent of symptoms that patient says led to diagnosis of heart attack; however, she says she did not have any stents nor cardiac angiography/stents, and was told the problem was "brought on by stress" (per patient). After further discussion, it sounds like she is describing elevated troponin levels but no intervention (such as angiography and/or stents) Review of Systems Constitutional: reports: Reviewed and negative Cardiac: reports: Chest pain / pressure. denies: Palpitations, Pedal edema, Calf pain Respiratory: reports: Dyspnea GI: reports: Reviewed and negative Musculoskeletal: denies: Extremity swelling Neurologic: reports: Generalized weakness. denies: Focal weakness, Numbness, Headache PD PAST MEDICAL HISTORY - Past Medical History Past Medical History: Yes Cardiovascular: Hypertension Respiratory: COPD - Present Medications Home Medications: Ambulatory Orders Medication Instructions Recorded Confirmed Albuterol 1 amp INH Q6HR PRN 09/22/22 04/02/23 Bismuth Subsalicylate 2 tab PO DAILY 09/22/22 04/02/23 [Pepto-Bismol] Cholecalciferol (Vitamin D3) 1 cap PO DAILY 09/22/22 04/02/23 [Vitamin D3] Metoclopramide [Reglan] 10 mg PO PRN PRN 09/22/22 04/02/23 Metoprolol Succinate 100 mg PO BID 09/22/22 04/02/23 Montelukast [Singulair] 10 mg PO HS 09/22/22 04/02/23 Acetaminophen [Acetaminophen Extra 1,000 mg PO Q6HR PRN 04/02/23 04/02/23 Strength] Ascorbic Acid [Vitamin C] 2,000 mg PO DAILY 04/02/23 04/02/23 Biotin 5,000 mcg PO DAILY 04/02/23 04/02/23 Calcium Carbonate [Calcium] 1,200 mg PO HS 04/02/23 04/02/23 DULoxetine [Cymbalta] 60 mg PO HS 04/02/23 04/02/23 Ferrous Sulfate 325 mg PO DAILY 04/02/23 04/02/23 Magnesium 500 mg PO DAILY 04/02/23 04/02/23 Nitroglycerin [Nitrostat] 0.4 mg SL [id number] 04/02/23 04/02/23 Pantoprazole [Protonix] 40 mg PO BID 04/02/23 04/02/23 Pravastatin Sodium 20 mg PO HS 04/02/23 04/02/23 amLODIPine [Norvasc] 5 mg PO BID 04/02/23 04/02/23 buprenorphine HCL [Buprenorphine 12 mg SL BID 04/02/23 04/02/23 HCl] tiZANidine [Zanaflex] 4 mg PO Q8H 04/02/23 04/02/23 traZODone [Desyrel] 50 mg PO HS 04/02/23 04/02/23 - Allergies Allergies/Adverse Reactions: Allergies Allergy/AdvReac Type Severity Reaction Status Date / Time garlic Allergy Unknown Verified 04/02/23 00:24 oxycodone Allergy Hives Verified 04/02/23 00:24 Penicillins Allergy Anaphylaxis Verified 04/02/23 00:24 atenolol AdvReac Unknown Verified 04/02/23 00:24 lisinopril AdvReac Unknown Verified 04/02/23 00:24 PD ED PE NORMAL - Vitals Vital signs reviewed: Yes - General General: Alert and oriented X 3, No acute distress, Well developed/nourished - Neck Neck: Supple, no meningeal sign - Cardiac Cardiac: RRR, No murmur - Respiratory Respiratory: No respiratory distress, Clear bilaterally - Abdomen Abdomen: Soft, Non tender - Extremities Extremities: No edema Results - Vitals Vitals: Oxygen O2 Source Room air - EKG (time done) No standard instances EKG releavant findings:: EKG personally interpreted by author of this note. Relevant findings are: Rate: Rate (enter#) (77) Rhythm: NSR [place]: Normal Intervals: Normal AL QRS: Normal Ischemia: Normal ST segments - Labs Labs: Laboratory Tests 04/02/23 04/02/23 00:40 00:40 WBC 7.4 RBC 4.80 Hgb 12.8 Hct 41.1 MCV 85.6 MCH 26.7 L MCHC 31.1 L RDW 13.4 Plt Count 220 MPV 10.8 Neut # (Auto) 4.2 Lymph # (Auto) 2.3 [place] # (Auto) 0.7 Eos # (Auto) 0.2 Baso # (Auto) 0.0 Absolute Nucleated RBC 0.00 Nucleated RBC % 0.0 Sodium 139 Potassium 3.7 Chloride 103 Carbon Dioxide 29 Anion Gap 7.0 BUN 17 Creatinine 0.9 Estimated GFR (MDRD) 62 L Glucose 122 H Calcium 8.8 Total Bilirubin 0.3 AST 16 ALT 11 Alkaline Phosphatase 92 Troponin I High Sens 2.8 Total Protein 6.1 L Albumin 4.0 Globulin 2.1 Albumin/Globulin Ratio 1.9 Lipase < 10 L - Rads (name of study) chest xray Relevant Findings:: Prelim report reviewed, See rad report PD Medical Decision Making - ED course ED course: No concerning nor diagnostic findings on tonight's tests including EKG, CXR, blood tests. hs-cTn is normal. She remains asymptomatic during ED stay. Results d/w patient, return precautions discussed. Advised to follow up with PCP, next available appointment Departure - Departure Disposition: 01 Home, Self Care Clinical Impression: Chest pain Condition: Good Instructions: ED Chest Pain Atypical Unkn Cause Comments: There were no concerning nor diagnostic findings on tonight's tests, including the EKG, chest x-ray, and blood test. The blood tests included a cardiac enzyme blood test (troponin), and the result of this test was normal. Contact your primary care provider's office to arrange for next available appointment for reevaluation. 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 Forms: PCP List Discharge Date/Time: 04/02/23 03:20
[2023-04-02 00:55] LABS: BASOPHILS % (AUTO) 0.5 %; EOSINOPHILS # (AUTO) 0.2 10^3/uL (0.0-0.7); EOSINOPHILS % (AUTO) 3.2 %; HCT - HEMATOCRIT 41.1 % (37.0-47.0); HGB - HEMOGLOBIN 12.8 g/dL (12.0-16.0); LYMPHOCYTES # (AUTO) 2.3 10^3/uL (1.5-3.5); LYMPHOCYTES % (AUTO) 30.5 %; MEAN CORPUSCULAR HEMOGLOBIN 26.7 pg (27.0-31.0); MEAN CORPUSCULAR HGB CONC 31.1 g/dL (32.0-36.0); MEAN CORPUSCULAR VOLUME 85.6 fL (81.0-99.0); MEAN PLATELET VOLUME 10.8 fL (7.9-10.8); MONOCYTES # (AUTO) 0.7 10^3/uL (0.0-1.0); MONOCYTES % (AUTO) 9.3 %; NEUTROPHILS # (AUTO) 4.2 10^3/uL (1.5-6.6); NEUTROPHILS % (AUTO) 56.2 %; PLT - PLATELET COUNT 220 10^3/uL (130-450); RED CELL DISTRIBUTION WIDTH 13.4 % (12.0-15.0); WHITE BLOOD COUNT 7.4 x10^3/uL (4.8-10.8)
--- NOTE | 2023-04-02 01:01 | XRAY Report ---
PROCEDURE: Chest 1 View X-Ray INDICATIONS: Chest pain TECHNIQUE: One view of the chest was acquired. COMPARISON: None. FINDINGS: Surgical changes and devices: None. Lungs and pleura: No pleural effusions or pneumothorax. Lungs are clear. Mediastinum: Mediastinal contours appear normal. Heart size is normal. Bones and chest wall: No suspicious bony lesions. Overlying soft tissues appear unremarkable. IMPRESSION: No acute cardiopulmonary process. Reviewed by: Michelle Garcia MD on 04/02/2023 12:59 AM PDT Approved by: Michelle Garcia MD on 04/02/2023 12:59 AM PDT Station ID: [id number]
[2023-04-02 01:07] VITALS: O2SAT 91
[2023-04-02 01:34] LABS: ALBUMIN/GLOBULIN RATIO 1.9 (1.0-2.2); ALKALINE PHOSPHATASE 92 IU/L (42-121); ALT ALANINE AMINOTRANSFERASE 11 IU/L (10-60); AST ASPARTATE AMINOTRANSFERASE 16 IU/L (10-42); BILIRUBIN,TOTAL 0.3 mg/dL (0.2-1.0); BUN - BLOOD UREA NITROGEN 17 mg/dL (6-20); CALCIUM 8.8 mg/dL (8.5-10.3); CARBON DIOXIDE - CO2 29 mmol/L (21-32); CHLORIDE 103 mmol/L (101-111); CREATININE 0.9 mg/dL (0.6-1.3); GFR - MDRD 62 (>89); GLUCOSE 122 mg/dL (74-104); POTASSIUM 3.7 mmol/L (3.5-4.5); SODIUM 139 mmol/L (135-145); TOTAL PROTEIN 6.1 g/dL (6.4-8.9)
[2023-04-02 01:44] LABS: LIPASE < 10 U/L (11-82)
[2023-04-02 02:04] LABS: TROPONIN I HIGH SENSITIVITY 2.8 ng/L (2.3-14.8)
[2023-04-02 03:21] VITALS: BP 94/68
== END 2023-04-02 03:20 | disposition home or self-care (01) ==
LOC: EDUNIT# → ED 00:08
DX: R07.89 Other chest pain (principal); I10 Essential (primary) hypertension; J44.9 Chronic obstructive pulmonary disease, unspecified; Z79.899 Other long term (current) drug therapy
CPT/HCPCS: 36415; 80053; 83690; 84484; 85025; 93005; 99283; 99284

== ENCOUNTER 2023-04-15 19:30 | Outpatient (CLI) | payer MEDICARE | END 2023-04-15 19:31 | disposition critical access hospital (66) | LOC: EMS 19:30 | DX: R10.84 Generalized abdominal pain (principal) | CPT/HCPCS: A0425; A0429 ==

== ENCOUNTER 2023-04-15 19:35 | Emergency (ER) | payer MEDICARE ==
--- NOTE | 2023-04-15 19:45 | ED Physician Documentation ---
PD HPI ABD PAIN - Stated complaint Stated Complaint: ABD PAIN - Chief complaint Chief Complaint: Abd Pain - History obtained from History obtained from: Patient, EMS - History of Present Illness Timing - onset: How many hours ago (1), Today Timing - duration: Hours (1) Timing - details: Abrupt onset, Still present Quality: Cramping, Aching, Pain Location: RUQ, Periumbilical Radiation: No: Lower back, Upper back Improved by: No: Laying still, Vomiting Worsened by: Palpation. No: Moving Associated symptoms: Nausea, Vomiting. No: Fever Similar symptoms before: No diagnosis (similar episdoes in the past few times, without diagnosis.) Recently seen: Emergency Dept (few weeks ago for chest pain, without certain diagnosis.) Review of Systems Constitutional: denies: Fever Nose: denies: Rhinorrhea / runny nose, Congestion Throat: denies: Sore throat Respiratory: denies: Cough GI: reports: Abdominal Pain, Nausea Musculoskeletal: denies: Back pain Neurologic: reports: Generalized weakness. 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 HEENT: Tonsil/Adenoidectomy - Present Medications Home Medications: Ambulatory Orders Medication Instructions Recorded Confirmed Albuterol 1 amp INH Q6HR PRN 09/22/22 04/15/23 Bismuth Subsalicylate 2 tab PO DAILY 09/22/22 04/15/23 [Pepto-Bismol] Cholecalciferol (Vitamin D3) 1 cap PO DAILY 09/22/22 04/15/23 [Vitamin D3] Metoclopramide [Reglan] 10 mg PO PRN PRN 09/22/22 04/15/23 Metoprolol Succinate 100 mg PO BID 09/22/22 04/15/23 Montelukast [Singulair] 10 mg PO HS 09/22/22 04/15/23 Acetaminophen [Acetaminophen Extra 1,000 mg PO Q6HR PRN 04/02/23 04/15/23 Strength] Ascorbic Acid [Vitamin C] 2,000 mg PO DAILY 04/02/23 04/15/23 Biotin 5,000 mcg PO DAILY 04/02/23 04/15/23 Calcium Carbonate [Calcium] 1,200 mg PO HS 04/02/23 04/15/23 DULoxetine [Cymbalta] 60 mg PO HS 04/02/23 04/15/23 Ferrous Sulfate 325 mg PO DAILY 04/02/23 04/15/23 Magnesium 500 mg PO DAILY 04/02/23 04/15/23 Nitroglycerin [Nitrostat] 0.4 mg SL [id number] 04/02/23 04/15/23 Pantoprazole [Protonix] 40 mg PO BID 04/02/23 04/15/23 Pravastatin Sodium 20 mg PO HS 04/02/23 04/15/23 amLODIPine [Norvasc] 5 mg PO BID 04/02/23 04/15/23 buprenorphine HCL [Buprenorphine 12 mg SL BID 04/02/23 04/15/23 HCl] tiZANidine [Zanaflex] 4 mg PO Q8H 04/02/23 04/15/23 traZODone [Desyrel] 50 mg PO HS 04/02/23 04/15/23 Dicyclomine [Bentyl] 10 mg PO BID PRN #10 cap 04/15/23 Ondansetron Odt [Zofran] 4 mg TL Q6H PRN #10 tablet 04/15/23 - Allergies Allergies/Adverse Reactions: Allergies Allergy/AdvReac Type Severity Reaction Status Date / Time garlic Allergy Unknown Verified 04/15/23 19:46 oxycodone Allergy Hives Verified 04/15/23 19:46 Penicillins Allergy Anaphylaxis Verified 04/15/23 19:46 atenolol AdvReac Unknown Verified 04/15/23 19:46 lisinopril AdvReac Unknown Verified 04/15/23 19:46 - Social History Does the pt smoke?: No Smoking Status: Never smoker Does the pt drink ETOH?: No - Immunizations Immunizations are current?: Yes - POLST Patient has POLST: Yes PD ED PE NORMAL - Vitals Vital signs reviewed: Yes - General General: Alert and oriented X 3, Well developed/nourished, Other (appears in pain, moaning.) - Neck Neck: Supple, no meningeal sign, No adenopathy - Cardiac Cardiac: RRR, No murmur - Respiratory Respiratory: No respiratory distress, Clear bilaterally - Abdomen Abdomen: Soft, Non distended, No organomegaly, Other (elevated BMI. Has tenderness upper abd to palpation and percussion. She pushes my hand away due to discomfort. ) - Back Back: No CVA TTP - Derm Derm: Normal color, Warm and dry Results - Vitals Vitals: Vital Signs - 24 hr 04/15/23 04/15/23 04/15/23 19:35 21:29 23:00 Temperature 36.7 C Heart Rate 93 96 106 H Respiratory 22 16 18 Rate Blood Pressure 183/91 H 135/65 H 156/76 H O2 Saturation 100 96 94 Oxygen O2 Source Room air - Labs Labs: Laboratory Tests 04/15/23 04/15/23 04/15/23 19:46 20:12 22:15 WBC 15.2 H RBC 5.71 H Hgb 15.3 Hct 48.1 H MCV 84.2 MCH 26.8 L MCHC 31.8 L RDW 13.2 Plt Count 291 MPV 10.5 Neut # (Auto) 12.9 H Lymph # (Auto) 1.6 [place] # (Auto) 0.6 Eos # (Auto) 0.0 Baso # (Auto) 0.1 Absolute Nucleated RBC 0.00 Nucleated RBC % 0.0 Sodium Potassium Chloride Carbon Dioxide Anion Gap BUN Creatinine Estimated GFR (MDRD) Glucose Lactic Acid Calcium Magnesium Total Bilirubin AST ALT Alkaline Phosphatase Total Protein Albumin Globulin Albumin/Globulin Ratio Lipase Urine Color YELLOW Urine Clarity CLEAR Urine pH 7.0 Ur Specific [place] 1.015 Urine Protein 30 H Urine Glucose (UA) NEGATIVE Urine Ketones NEGATIVE Urine Occult Blood NEGATIVE Urine Nitrite NEGATIVE Urine Bilirubin NEGATIVE Urine Urobilinogen 0.2 (NORMAL) Ur Leukocyte Esterase NEGATIVE Urine RBC 0-5 Urine WBC 0-3 Ur Squamous Epith Cells FEW Squamous Urine Bacteria None Seen Urine Casts 3-5 Hyaline Casts Urine Mucus Few Strands Ur Microscopic Review INDICATED Urine Culture Comments NOT INDICATED Urine Opiates Screen NEGATIVE Ur Oxycodone Screen NEGATIVE Urine Methadone Screen NEGATIVE Ur Propoxyphene Screen NEGATIVE Ur Barbiturates Screen NEGATIVE Ur Tricyclics Screen NEGATIVE Ur Phencyclidine Scrn NEGATIVE Ur Amphetamine Screen NEGATIVE U Methamphetamines Scrn NEGATIVE U Benzodiazepines Scrn NEGATIVE Urine Cocaine Screen NEGATIVE U Cannabinoids Screen POSITIVE H Ethyl Alcohol 04/15/23 04/15/23 22:15 22:15 WBC RBC Hgb Hct MCV MCH MCHC RDW Plt Count MPV Neut # (Auto) Lymph # (Auto) [place] # (Auto) Eos # (Auto) Baso # (Auto) Absolute Nucleated RBC Nucleated RBC % Sodium 137 Potassium 3.2 L Chloride 99 L Carbon Dioxide 26 Anion Gap 12.0 BUN 12 Creatinine 0.7 Estimated GFR (MDRD) 83 L Glucose 164 H Lactic Acid 1.7 Calcium 9.3 Magnesium 1.7 Total Bilirubin 0.4 AST 23 ALT 15 Alkaline Phosphatase 129 H Total Protein 7.6 Albumin 5.1 Globulin 2.5 Albumin/Globulin Ratio 2.0 Lipase < 10 L Urine Color Urine Clarity Urine pH Ur Specific [place] Urine Protein Urine Glucose (UA) Urine Ketones Urine Occult Blood Urine Nitrite Urine Bilirubin Urine Urobilinogen Ur Leukocyte Esterase Urine RBC Urine WBC Ur Squamous Epith Cells Urine Bacteria Urine Casts Urine Mucus Ur Microscopic Review Urine Culture Comments Urine Opiates Screen Ur Oxycodone Screen Urine Methadone Screen Ur Propoxyphene Screen Ur Barbiturates Screen Ur Tricyclics Screen Ur Phencyclidine Scrn Ur Amphetamine Screen U Methamphetamines Scrn U Benzodiazepines Scrn Urine Cocaine Screen U Cannabinoids Screen Ethyl Alcohol < 10.0 - Rads (name of study) abd/pelvic CT Relevant Findings:: Prelim report reviewed (no acute process), EMP independent interpretation of test PD Medical Decision Making - ED course Complexity details: re-evaluated patient (pain improved with IV fluids, toradol, zofran and dilaudid to moderately better. Much more improved to about gone with inapsine and dilaudid. ), considered differential, d/w patient ED course: abrupt pain with vomiting and upper cramping pain. Moaning and crying. Labs were unremarkalbe and CT did not show acute process. Consider cannibis hyperemesis, gastroparesis, IBS, or other process. Departure - Departure Disposition: 01 Home, Self Care Clinical Impression: Acute abdominal pain, Nausea & vomiting Condition: Stable Record reviewed to determine appropriate education?: Yes Instructions: ED Nausea Vomiting Prescriptions: Dicyclomine [Bentyl] 10 mg PO BID PRN #10 cap PRN Reason: Abdominal Pain Ondansetron Odt [Zofran] 4 mg TL Q6H PRN #10 tablet PRN Reason: Nausea / Vomiting Comments: Your CT scan does not show any visible acute cause for your symptoms. Your blood test showed normal pancreatic and liver enzymes. Your electrolytes and blood sugar were okay. Urine test was without any signs of infection. At this point presumption for your symptoms could possibly be spasming of the intestines such as irritable bowel syndrome. Other terms for this can be gastroparesis. One of the causes can potentially be cannabis use that will sporadically cause an episode of abdominal pain and vomiting with intestinal spasms like this. It would be good to avoid cannabis use. Continue your other usual medicines. If you have subsequent episodes, he can try combination of ondansetron for nausea and dicyclomine for spasms and cramps and see if those help. Liquids only for the rest of this evening and liquids and bland food initially in the morning and progress diet to regular as able. Return as needed. Forms: PCP List Discharge Date/Time: 04/15/23 23:55
[2023-04-15 20:15] LABS: MUDS CUTOFF CONCENTRATIONS CUTOFF CONC BELOW:
[2023-04-15 20:18] LABS: BILIRUBIN,URINE NEGATIVE (NEGATIVE); GLUCOSE, URINE (UA) NEGATIVE (NEGATIVE); KETONES,URINE (UA) NEGATIVE (NEGATIVE); LEUKOCYTE ESTERASE, URINE NEGATIVE (NEGATIVE); NITRITE,URINE NEGATIVE (NEGATIVE); OCCULT BLOOD,URINE NEGATIVE (NEGATIVE); PROTEIN,URINE 30 mg/dL (NEGATIVE); UROBILINOGEN,URINE 0.2 (NORMAL) E.U./dL (NORMAL)
[2023-04-15 20:27] LABS: AMPHETAMINE SCREEN,URINE NEGATIVE (NEGATIVE); BARBITURATE SCREEN,UR NEGATIVE (NEGATIVE); BENZODIAZEPINES SCREEN, URINE NEGATIVE (NEGATIVE); COCAINE SCREEN URINE NEGATIVE (NEGATIVE); METHADONE SCREEN, URINE NEGATIVE (NEGATIVE); METHAMPHETAMINES SCREEN, URINE NEGATIVE (NEGATIVE); OPIATE SCREEN, URINE NEGATIVE (NEGATIVE); OXYCODONE SCREEN, URINE NEGATIVE (NEGATIVE); PROPOXYPHENE SCREEN, URINE NEGATIVE (NEGATIVE); THC CANNABINOID SCREEN, URINE POSITIVE (NEGATIVE); TRICYCLIC ANTIDEPRESSANT,URINE NEGATIVE (NEGATIVE)
[2023-04-15 20:27] LABS: CLARITY,URINE CLEAR (CLEAR)
[2023-04-15 20:29] LABS: BACTERIA,URINE None Seen /HPF (None Seen); RBC,URINE 0-5 /HPF (0-5); SQUAMOUS EPITHELIAL CELL,UR FEW Squamous (<= Few); WBC,URINE 0-3 /HPF (0-5)
[2023-04-15 20:30] LABS: CASTS, URINE 3-5 Hyaline Casts /LPF; MUCUS,URINE Few Strands
[2023-04-15] MEDS: ONDANSETRON 4 MG/2 ML VIAL IVP STA (20:39)
[2023-04-15] MEDS: KETOROLAC 15 MG/ML VIAL IVP STA (20:39)
[2023-04-15] MEDS: HYDROmorphone 1 MG/ML CARPUJECT IVP STA ×2 (21:29→21:51)
[2023-04-15] MEDS: SODIUM CHLORIDE 0.9% 1,000 ML IV STA (21:33)
--- NOTE | 2023-04-15 21:46 | CT Report ---
PROCEDURE: ABDOMEN/PELVIS WO INDICATIONS: onset abd pain this evening TECHNIQUE: A CT scan of the abdomen and pelvis was performed without the use of intravenous contrast. Images we re recorded and evaluated at appropriate window settings. Reformats: coronal and sagittal. For radiat ion dose reduction, the following was used: automated exposure control, adjustment of mA and/or kV ac cording to patient size. COMPARISON: None. FINDINGS: Image quality: Excellent. Lung bases and heart: Small hiatal hernia. Liver: No solid mass. Gallbladder and biliary tree: No radiopaque stones or wall thickening. No biliary dilation. Spleen: No splenomegaly. Pancreas: No pancreatic ductal dilation. Adrenals: No adrenal nodule. Kidneys and ureters: No hydronephrosis. No renal cystic lesion which requires follow up. No solid mas s. Bowel and peritoneum: No bowel distension. No pathologic free fluid. Lymph nodes: No central or retroperitoneal adenopathy. Vessels: No infrarenal aortic aneurysm. PELVIS Reproductive organs: Unremarkable. Bladder: No wall thickness, accounting for underdistention. Pelvic lymph nodes: No pelvic adenopathy by size criteria. Bones: No aggressive osseous abnormality. Other: No significant ventral or inguinal hernia. IMPRESSION: No hydronephrosis or obstructing renal stone. No findings to explain the patient's left upper quadran t pain. Reviewed by: Jackson Candelaria on 04/15/2023 9:45 PM [facility] [place] Approved by: Jackson Candelaria on 04/15/2023 9:45 PM [facility] [place] Station ID: [id number]
[2023-04-15] MEDS: DROPERIDOL 5 MG/2 ML VIAL IVP STA (21:49)
[2023-04-15 22:21] LABS: BASOPHILS # (AUTO) 0.1 10^3/uL (0.0-0.1); BASOPHILS % (AUTO) 0.5 %; EOSINOPHILS % (AUTO) 0.1 %; HCT - HEMATOCRIT 48.1 % (37.0-47.0); HGB - HEMOGLOBIN 15.3 g/dL (12.0-16.0); LYMPHOCYTES # (AUTO) 1.6 10^3/uL (1.5-3.5); LYMPHOCYTES % (AUTO) 10.7 %; MEAN CORPUSCULAR HEMOGLOBIN 26.8 pg (27.0-31.0); MEAN CORPUSCULAR HGB CONC 31.8 g/dL (32.0-36.0); MEAN CORPUSCULAR VOLUME 84.2 fL (81.0-99.0); MEAN PLATELET VOLUME 10.5 fL (7.9-10.8); MONOCYTES # (AUTO) 0.6 10^3/uL (0.0-1.0); MONOCYTES % (AUTO) 3.8 %; NEUTROPHILS # (AUTO) 12.9 10^3/uL (1.5-6.6); NEUTROPHILS % (AUTO) 84.5 %; PLT - PLATELET COUNT 291 10^3/uL (130-450); RED BLOOD COUNT 5.71 10^6/uL (4.20-5.40); RED CELL DISTRIBUTION WIDTH 13.2 % (12.0-15.0); WHITE BLOOD COUNT 15.2 x10^3/uL (4.8-10.8)
[2023-04-15 22:39] LABS: ALBUMIN 5.1 g/dL (3.2-5.5); ALKALINE PHOSPHATASE 129 IU/L (42-121); ALT ALANINE AMINOTRANSFERASE 15 IU/L (10-60); AST ASPARTATE AMINOTRANSFERASE 23 IU/L (10-42); BILIRUBIN,TOTAL 0.4 mg/dL (0.2-1.0); BUN - BLOOD UREA NITROGEN 12 mg/dL (6-20); CALCIUM 9.3 mg/dL (8.5-10.3); CARBON DIOXIDE - CO2 26 mmol/L (21-32); CHLORIDE 99 mmol/L (101-111); CREATININE 0.7 mg/dL (0.6-1.3); ETOH - ETHANOL < 10.0 mg/dL; GFR - MDRD 83 (>89); GLUCOSE 164 mg/dL (74-104); LIPASE < 10 U/L (11-82); MAGNESIUM 1.7 mg/dL (1.7-2.3); POTASSIUM 3.2 mmol/L (3.5-4.5); SODIUM 137 mmol/L (135-145); TOTAL PROTEIN 7.6 g/dL (6.4-8.9)
[2023-04-15 23:05] VITALS: BP 156/76; O2SAT 94
[2023-04-15] MEDS ORDERED: ONDANSETRON ODT 4 MG Prepack 2 TL PRN (23:36)
== END 2023-04-15 23:55 | disposition home or self-care (01) ==
LOC: EDUNIT# → EDBD → ED 19:35
DX: R10.11 Right upper quadrant pain (principal); R10.33 Periumbilical pain; R11.2 Nausea with vomiting, unspecified; I10 Essential (primary) hypertension; J44.9 Chronic obstructive pulmonary disease, unspecified; K21.9 Gastro-esophageal reflux disease without esophagitis; Z79.899 Other long term (current) drug therapy
CPT/HCPCS: 36415; 80053; 80306; 80320; 81001; 81003; 83605; 83690; 83735; 85025; 87086; 96374; 96375; 99284

== ENCOUNTER 2023-06-02 11:48 | Outpatient (CLI) | payer MEDICARE | END 2023-06-02 11:49 | disposition critical access hospital (66) | LOC: EMS 11:48 | DX: M54.9 Dorsalgia, unspecified (principal); R10.33 Periumbilical pain; R10.30 Lower abdominal pain, unspecified; R23.1 Pallor; R61 Generalized hyperhidrosis | CPT/HCPCS: A0425; A0429 ==

== ENCOUNTER 2023-06-02 12:10 | Inpatient (IN) | payer MEDICARE ==
[2023-06-02] MEDS ORDERED: SODIUM CHLORIDE 0.9% 1,000 ML IV STA ×3 (12:17→16:50)
[2023-06-02] MEDS ORDERED: metroNIDAZOLE 500 MG/100 ML 500 MG/100 ML BAG IV STA (12:18)
[2023-06-02] MEDS ORDERED: CEFEPIME 2 GM in SODIUM CHLORIDE 0.9% MINIBAG 100 ML IV STA (12:18)
--- NOTE | 2023-06-02 12:24 | ED Physician Documentation ---
History of Present Illness - Stated complaint Stated Complaint: BACK/ABD PX - Chief complaint Chief Complaint: Neuro - History obtained from History obtained from: Patient, EMS - History of Present Illness Timing: Today - Additonal information Additional information: Keyonna Grajeda is a 67-year-old female who is recently(05/30/23) had a surgery to implant a TENS unit into her back. She has chronic back pain. Today the ambulance was summoned to her home by her roommate when she became less responsive with severe abdominal pain. The room mate indicates that since the surgery she believes the patient has eaten nothing and had 4oz of fluid. Medics arrived to find the patient diaphoretic and in distress with pain as well as intermittent unresponsiveness. She had a blood pressure of 90 over palp in the field and she has been administered intravenous saline with improvement in her pressure.She is arousable to stimuli and she has abdominal pain on palpation of the abdomen. 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 HEENT: Tonsil/Adenoidectomy - Present Medications Home Medications: Ambulatory Orders Medication Instructions Recorded Confirmed Albuterol 1 amp INH Q6HR PRN 09/22/22 06/02/23 Bismuth Subsalicylate 2 tab PO DAILY 09/22/22 06/02/23 [Pepto-Bismol] Cholecalciferol (Vitamin D3) 1 cap PO DAILY 09/22/22 06/02/23 [Vitamin D3] Metoprolol Succinate 100 mg PO BID 09/22/22 06/02/23 Acetaminophen [Acetaminophen Extra 1,000 mg PO Q6HR PRN 04/02/23 06/02/23 Strength] Ascorbic Acid [Vitamin C] 2,000 mg PO DAILY 04/02/23 06/02/23 Biotin 5,000 mcg PO DAILY 04/02/23 06/02/23 Calcium Carbonate [Calcium] 1,200 mg PO HS 04/02/23 06/02/23 DULoxetine [Cymbalta] 30 mg PO BID 04/02/23 06/02/23 Ferrous Sulfate 325 mg PO DAILY 04/02/23 06/02/23 Magnesium 500 mg PO DAILY 04/02/23 06/02/23 Nitroglycerin [Nitrostat] 0.4 mg SL [id number] 04/02/23 06/02/23 Pravastatin Sodium 20 mg PO HS 04/02/23 06/02/23 amLODIPine [Norvasc] 5 mg PO BID 04/02/23 06/02/23 buprenorphine HCL [Buprenorphine 12 mg SL BID 04/02/23 06/02/23 HCl] tiZANidine [Zanaflex] 4 mg PO Q8H 04/02/23 06/02/23 traZODone [Desyrel] 50 mg PO HS 04/02/23 06/02/23 Dicyclomine [Bentyl] 10 mg PO BID PRN #10 cap 04/15/23 06/02/23 HYDROmorphone [Dilaudid] 4 mg PO Q8HR PRN 06/02/23 06/02/23 - Allergies Allergies/Adverse Reactions: Allergies Allergy/AdvReac Type Severity Reaction Status Date / Time garlic Allergy Unknown Verified 06/02/23 12:20 oxycodone Allergy Hives Verified 06/02/23 12:20 Penicillins Allergy Anaphylaxis Verified 06/02/23 12:20 atenolol AdvReac Unknown Verified 06/02/23 12:20 lisinopril AdvReac Unknown Verified 06/02/23 12:20 - Social History Does the pt smoke?: No Smoking Status: Never smoker Does the pt drink ETOH?: No - Immunizations Immunizations are current?: Yes - POLST Patient has POLST: Yes PD ED PE NORMAL - Vitals Vital signs reviewed: Yes (tachycardic and hypertensive ) - General General: Well developed/nourished, Other (eyes closed responds to forcing eyes open and able to speak and answer denies excessive narcotic use ) - HEENT HEENT: Atraumatic, PERRL, EOMI, Other (pupils are 4mm) - Neck Neck: Supple, no meningeal sign, No bony TTP - Cardiac Cardiac: No murmur, Other (tachy and regular to 135) - Respiratory Respiratory: No respiratory distress, Other (diminished breath sounds with rate of 20) - Abdomen Abdomen: Soft, Other (general tenderness awakens patient each time abdomen is touched) - Back Back: No CVA TTP, No spinal TTP, Other (There are sugical sites on the back that are bandaged, non-tender, without swelling or erythema. 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, No motor deficit, No sensory deficit, Normal speech Eye Opening: To Pain Motor: Obeys Commands Verbal: Oriented GCS Score: 13 Results - Vitals Vitals: Vital Signs - 24 hr 06/02/23 06/02/23 06/02/23 12:16 12:25 13:35 Temperature 36 C L Heart Rate 135 H 118 H 105 H Respiratory 15 14 10 L Rate Blood Pressure 160/80 H 160/81 H 161/95 H O2 Saturation 100 99 100 If not protocol 4 4 : Oxygen Flow, liters/minute 06/02/23 06/02/23 06/02/23 14:00 14:30 15:00 Temperature Heart Rate 102 H 100 103 H Respiratory 12 15 18 Rate Blood Pressure 146/81 H 154/86 H 165/90 H O2 Saturation 100 98 92 If not protocol 4 : Oxygen Flow, liters/minute 06/02/23 15:24 Temperature Heart Rate 99 Respiratory 12 Rate Blood Pressure O2 Saturation 92 If not protocol : Oxygen Flow, liters/minute Oxygen O2 Source Room air - EKG (time done) 1208 EKG releavant findings:: EKG personally interpreted by author of this note. Relevant findings are: Rate: Rate (enter#) (134) Rhythm: Sinus tachycardia, LAE Intervals: Prolonged QT (borderline) Compare to prior EKG: Changed from prior EKG (SPT 04/02/23 the rate has increased, the QT interval has increased and LAE has developed. ) Computer interpretation: Agree with computer - Labs Labs: Laboratory Tests 06/02/23 06/02/23 06/02/23 12:15 12:15 12:15 WBC 21.0 H RBC 5.73 H Hgb 15.7 Hct 46.9 MCV 81.8 MCH 27.4 MCHC 33.5 RDW 13.1 Plt Count 366 MPV 10.4 Neut # (Auto) 16.4 H Lymph # (Auto) 2.7 [place] # (Auto) 1.7 H Eos # (Auto) 0.0 Baso # (Auto) 0.1 Absolute Nucleated RBC 0.00 Nucleated RBC % 0.0 Manual Slide Review Indicated WBC Morphology Platelet Estimate NORMAL (130-450,000) Platelet Morphology NORMAL APPEARANCE RBC Morph Micro Appear NORMAL APPEARANCE Sodium 135 Potassium 2.5 L* Chloride 97 L Carbon Dioxide 24 Anion Gap 14.0 H BUN 48 H Creatinine 1.4 H Estimated GFR (MDRD) 37 L Glucose 163 H Lactic Acid < 0.2 L Calcium 9.1 Total Bilirubin 0.7 AST 22 ALT 14 Alkaline Phosphatase 101 Total Protein 6.6 Albumin 3.8 Globulin 2.8 Albumin/Globulin Ratio 1.4 Urine Color Urine Clarity Urine pH Ur Specific [place] Urine Protein Urine Glucose (UA) Urine Ketones Urine Occult Blood Urine Nitrite Urine Bilirubin Urine Urobilinogen Ur Leukocyte Esterase Urine RBC Urine WBC Ur Squamous Epith Cells Urine Bacteria Urine Casts Urine Culture Comments Nasal Adenovirus (PCR) Nasal B. parapertussis DNA (PCR) Nasal Coronavir 229E PCR Nasal Coronavir HKU1 PCR Nasal Coronavir NL63 PCR Nasal Coronavir OC43 PCR Nasal Enterovir/Rhinovir PCR Nasal Influenza B PCR Nasal Influenza A PCR Nasal Parainfluen 1 PCR Nasal Parainfluen 2 PCR Nasal Parainfluen 3 PCR Nasal Parainfluen 4 PCR Nasal RSV (PCR) Nasal B.pertussis DNA PCR Nasal C.pneumoniae (PCR) [place] Human Metapneumo PCR Nasal M.pneumoniae (PCR) Nasal SARS-CoV-2 (PCR) 06/02/23 06/02/23 14:00 14:52 WBC RBC Hgb Hct MCV MCH MCHC RDW Plt Count MPV Neut # (Auto) Lymph # (Auto) [place] # (Auto) Eos # (Auto) Baso # (Auto) Absolute Nucleated RBC Nucleated RBC % Manual Slide Review WBC Morphology Platelet Estimate Platelet Morphology RBC Morph Micro Appear Sodium Potassium Chloride Carbon Dioxide Anion Gap BUN Creatinine Estimated GFR (MDRD) Glucose Lactic Acid Calcium Total Bilirubin AST ALT Alkaline Phosphatase Total Protein Albumin Globulin Albumin/Globulin Ratio Urine Color YELLOW Urine Clarity CLEAR Urine pH 6.5 Ur Specific [place] 1.010 Urine Protein 100 H Urine Glucose (UA) NEGATIVE Urine Ketones TRACE Urine Occult Blood TRACE-INTA Urine Nitrite NEGATIVE Urine Bilirubin NEGATIVE Urine Urobilinogen 0.2 (NORMAL) Ur Leukocyte Esterase NEGATIVE Urine RBC 0-5 Urine WBC 0-3 Ur Squamous Epith Cells RARE Squamous Urine Bacteria Rare Urine Casts 0-2 Hyaline Casts Urine Culture Comments NOT INDICATED Nasal Adenovirus (PCR) NOT DETECTED Nasal B. parapertussis DNA (PCR) NOT DETECTED Nasal Coronavir 229E PCR NOT DETECTED Nasal Coronavir HKU1 PCR NOT DETECTED Nasal Coronavir NL63 PCR NOT DETECTED Nasal Coronavir OC43 PCR NOT DETECTED Nasal Enterovir/Rhinovir PCR NOT DETECTED Nasal Influenza B PCR NOT DETECTED Nasal Influenza A PCR NOT DETECTED Nasal Parainfluen 1 PCR NOT DETECTED Nasal Parainfluen 2 PCR NOT DETECTED Nasal Parainfluen 3 PCR NOT DETECTED Nasal Parainfluen 4 PCR NOT DETECTED Nasal RSV (PCR) NOT DETECTED Nasal B.pertussis DNA PCR NOT DETECTED Nasal C.pneumoniae (PCR) NOT DETECTED [place] Human Metapneumo PCR NOT DETECTED Nasal M.pneumoniae (PCR) NOT DETECTED Nasal SARS-CoV-2 (PCR) NOT DETECTED - Rads (name of study) CT ab pel with Relevant Findings:: Prelim report reviewed Chest Relevant Findings:: Prelim report reviewed (Impression mild to moderate interstitial prominence may represent infection or edema. Consider further future imaging surveillance to assess for resolution. Low lung volumes. Portable single view chest radiograph. These limit evaluation.), EMP independent interpretation of test, See rad report Procedures - IVC sono (time) 1218 Bedside IVC sono: IVC measures (cm) (0.53), IVC collapsed c insp (cm) (complete), Profound dehydration (est >3 liter deficit) 1549 Bedside IVC sono: IVC measures (cm) (0.72), Dehydration (est 2+ liter deficit) PD Medical Decision Making - ED course Complexity details: reviewed old records, reviewed results, re-evaluated patient, considered differential, d/w patient, d/w family Reviewed Lab Results: We reviewed a complete blood count showing a markedly elevated white blood cell count of 21,000. This value is higher than normal for the patient she has presented numerous times with elevated white blood cell count. Red blood cell count is elevated and likely represents a level of dehydration. Hemoglobin and hematocrit are at the upper end of normal again consistent with volume contraction neutrophils are 16.4% and elevated consistent with the possibility of infection. Chemistries were remarkable for a potassium low at 2.5 a BUN elevated at 48 and the patient has had similar values previously her creatinine running at 1.4 is elevated from her most recent and similar to a presentation 1 year ago. Lactate is low at 0.2 making sepsis less likely. Urinalysis shows some protein in the urine trace occult blood no indication for infection specific gravity 1.010 CT ab/pel with: Impression: Small hiatal hernia and wall thickening of the distal esophagus and proximal stomach, possibly infectious/inflammatory. Small calcifications versus clips. If there is further concern, consider endoscopic correlation. No hydronephrosis. Mild cortical thinning and heterogeneous cortical enhancement, sometimes seen with pyelonephritis. Correlate with urinalysis. This could also be artifact from adjacent metal. No acute small bowel obstruction or drainable abscess. An area of narrowing seen at the hepatic flexure possibly peristalsis most likely mass consider correlation with screening colonoscopic results. Other findings as above. ED course: 67-year-old Ryann Grajeda has recently had a procedure done to place a TENS unit onto her back. This is a subcutaneous procedure and does not involve penetration into the body cavity. There is no sign of infection or inflammation around the surgical site. The patient presented with acute abdominal pain was generally tender and a decreased level of consciousness. I was interrupted in the hallway by paramedics who were breathless and concerned about the patient who during their transport had decreased level of consciousness and developed hypotension. She had a heart rate of 135. We placed the patient onto a monitor and examined the patient. She was generally tender to the abdomen and moaned in pain. She was difficult to make a history with as she was intermittently unconscious. On examination we did discover that she was profoundly dehydrated and we began to administer intravenous fluid. Patient's heart rate came down to 100 she opened her eyes began to talk more freely. Her pain improved without specific medication intervention. We were able to get a history that the patient has not had anything to eat or drink since her surgery. She has been without fluids for almost 4 days and her laboratory studies appear to reflect this as does interrogation of the inferior vena cava with POCUS. This revealed a vessel of 5.3 mm consistent with a greater than 3 L deficit. We treated the patient initially as a potential sepsis with intra-abdominal source. She was administered cefepime and metronidazole. A Langley catheter was placed to IV lines were established and the patient was given intravenous potassium as well.Her level of consciousness improved markedly but she remained significantly dehydrated and admission for further hydration and nursing care is sought. Called day hospitalist at 1615 for admission and they were unable to break free for admission. Departure - Departure Disposition: [facility] DC/Xfer Clinical Impression: Acute abdominal pain, Dehydration, severe Forms: PCP List
[2023-06-02 12:44] LABS: BASOPHILS # (AUTO) 0.1 10^3/uL (0.0-0.1); BASOPHILS % (AUTO) 0.2 %; EOSINOPHILS % (AUTO) 0.1 %; HCT - HEMATOCRIT 46.9 % (37.0-47.0); HGB - HEMOGLOBIN 15.7 g/dL (12.0-16.0); LYMPHOCYTES # (AUTO) 2.7 10^3/uL (1.5-3.5); LYMPHOCYTES % (AUTO) 12.7 %; MEAN CORPUSCULAR HEMOGLOBIN 27.4 pg (27.0-31.0); MEAN CORPUSCULAR HGB CONC 33.5 g/dL (32.0-36.0); MEAN CORPUSCULAR VOLUME 81.8 fL (81.0-99.0); MEAN PLATELET VOLUME 10.4 fL (7.9-10.8); MONOCYTES # (AUTO) 1.7 10^3/uL (0.0-1.0); MONOCYTES % (AUTO) 8.2 %; NEUTROPHILS # (AUTO) 16.4 10^3/uL (1.5-6.6); PLT - PLATELET COUNT 366 10^3/uL (130-450); RED BLOOD COUNT 5.73 10^6/uL (4.20-5.40); RED CELL DISTRIBUTION WIDTH 13.1 % (12.0-15.0)
[2023-06-02 12:48] LABS: SLIDE REVIEW? Indicated
[2023-06-02 12:59] LABS: PLATELET ESTIMATE, MANUAL NORMAL (130-450,000) (NORMAL); PLATELET MORPHOLOGY NORMAL APPEARANCE (NORMAL); RBC MORPHOLOGY (MULTIPLE) NORMAL APPEARANCE (NORMAL)
[2023-06-02 13:01] LABS: ALBUMIN 3.8 g/dL (3.2-5.5)
[2023-06-02 13:11] LABS: ALBUMIN/GLOBULIN RATIO 1.4 (1.0-2.2); BILIRUBIN,TOTAL 0.7 mg/dL (0.2-1.0); CALCIUM 9.1 mg/dL (8.5-10.3); CREATININE 1.4 mg/dL (0.6-1.3); POTASSIUM 2.5 mmol/L (3.5-4.5); TOTAL PROTEIN 6.6 g/dL (6.4-8.9)
--- NOTE | 2023-06-02 13:43 | XRAY Report ---
PROCEDURE: Chest 1V INDICATIONS: Sepsis TECHNIQUE: One view of the chest was acquired. COMPARISON: 04/02/2023 FINDINGS: Surgical changes and devices: Partially seen neural stimulator leads Lungs and pleura: Mild to moderately prominent interstitium. Low lung volumes. No dense consolidatio n or pleural effusion. Mediastinum: Borderline heart size Bones and chest wall: There are degenerative changes. IMPRESSION: Mild to moderate interstitial prominence may represent infection or edema. Consider future imaging bills rveillance to assess for resolution. Low lung volumes. Portable single view chest radiograph. These limit evaluation. Reviewed by: Juan Carlos Lantigua MD on 06/02/2023 1:41 PM PST Approved by: Juan Carlos Lantigua MD on 06/02/2023 1:41 PM PST Station ID: [id number]
[2023-06-02] MEDS ORDERED: iohexoL-300 100 ML VIAL IVP ONE (13:47)
[2023-06-02 14:06] LABS: BILIRUBIN,URINE NEGATIVE (NEGATIVE); GLUCOSE, URINE (UA) NEGATIVE (NEGATIVE); KETONES,URINE (UA) TRACE mg/dL (NEGATIVE); LEUKOCYTE ESTERASE, URINE NEGATIVE (NEGATIVE); NITRITE,URINE NEGATIVE (NEGATIVE); OCCULT BLOOD,URINE TRACE-INTA (NEGATIVE); PH,URINE 6.5 PH (5.0-7.5); PROTEIN,URINE 100 mg/dL (NEGATIVE); UROBILINOGEN,URINE 0.2 (NORMAL) E.U./dL (NORMAL)
--- NOTE | 2023-06-02 14:07 | CT Report ---
PROCEDURE: ABDOMEN/PELVIS W INDICATIONS: diffuse tenderness decreased LOC CONTRAST: omni 300 100ml TECHNIQUE: After the administration of intravenous contrast, a CT scan of the abdomen and pelvis was performed. Images were recorded and evaluated at appropriate window settings. Reformats: coronal and sagittal. F or radiation dose reduction, the following was used: automated exposure control, adjustment of mA and /or kV according to patient size. COMPARISON: 04/15/2023 05/25/2022 FINDINGS: Image quality: Diagnostic, but degraded by metallic artifact Lower chest: Bibasilar atelectasis/scarring. No pleural effusions. Mild hiatal hernia and nonspecific mild distal esophageal wall thickening, consider endoscopic correlation if there is concern. There a re coronary calcifications. Liver: Unremarkable. Suspected focal fat adjacent to the falciform ligament. Gallbladder and biliary system: Gallbladder is absent. Mildly dilated biliary system likely related t o postcholecystectomy state. Pancreas: Mild to moderate parenchymal atrophy without ductal dilation Spleen: Nonenlarged. Possible hypoattenuating lesion centrally, small to characterize, possibly also in 2021. Consider follow-up if there is any history of malignancy. Adrenals: No discrete nodule Kidneys: Mild multifocal scarring/cortical narrowing. There may be heterogeneous areas of hypoattenua tion along the cortex. No hydronephrosis or obstructing calcified stone. Vessels and lymph nodes: The portal vein is diminutive. No abdominal aortic aneurysm. Atherosclerotic disease is present, overall moderate no pathologic lymph nodes by size criteria Bowel and peritoneum: Mild thickening of the proximal stomach. No small bowel obstruction. No drainab le abscess or pathologic ascites tortuous colon with a possible area of narrowing versus peristalsis at the hepatic flexure. Body wall: Unremarkable. Partially seen right back pump and intrathecal device. Pelvis: Bladder is unremarkable. The uterus is absent. Bones: No acute or suspicious osseous finding. Lumbosacral degenerative changes are seen. IMPRESSION: Small hiatal hernia and wall thickening of the distal esophagus and proximal stomach, possibly infect ious/inflammatory. Small calcifications versus clips. If there is further concern, consider endoscopi c correlation. No hydronephrosis. Mild cortical thinning and heterogeneous cortical enhancement, sometimes seen with pyelonephritis. Correlate with urinalysis. This could also be artifact from adjacent metal. No acute small bowel obstruction or drainable abscess. An area of narrowing is seen at the hepatic flexure, possibly peristalsis, most likely mass, consider correlation with screening colonoscopy results. Other findings as above. Reviewed by: Juan Carlos Lantigua MD on 06/02/2023 2:05 PM PST Approved by: Juan Carlos Lantigua MD on 06/02/2023 2:05 PM PST Station ID: [id number]
[2023-06-02 14:13] LABS: BACTERIA,URINE Rare /HPF (None Seen); CASTS, URINE 0-2 Hyaline Casts /LPF; CLARITY,URINE CLEAR (CLEAR); RBC,URINE 0-5 /HPF (0-5); SQUAMOUS EPITHELIAL CELL,UR RARE Squamous (<= Few); WBC,URINE 0-3 /HPF (0-5)
[2023-06-02] MEDS ORDERED: POTASSIUM CHLOR 10 MEQ/100 ML 10 MEQ/100 ML BAG IV ONE ×4 (15:41→23:28)
[2023-06-02 15:46] LABS: B. PARAPERTUSSIS- RESP PCR PAN NOT DETECTED; B. PERTUSSIS- RESP PCR PANEL NOT DETECTED; C. PNEUMONIAE- RESP PCR PANEL NOT DETECTED; CORONAVIRUS 229E-RESP PCR NOT DETECTED; CORONAVIRUS HKU1-RESP PCR NOT DETECTED; CORONAVIRUS NL63-RESP PCR NOT DETECTED; CORONAVIRUS OC43-RESP PCR NOT DETECTED; HUMAN METAPNEUMOVIRUS NOT DETECTED; INFLUENZA A- RESP PCR PANEL NOT DETECTED; INFLUENZA B - RESP PCR PANEL NOT DETECTED; M. PNEUMONIAE- RESP PCR PANEL NOT DETECTED; PARAINFLUENZA VIRUS 1 NOT DETECTED; PARAINFLUENZA VIRUS 2 NOT DETECTED; PARAINFLUENZA VIRUS 3 NOT DETECTED; PARAINFLUENZA VIRUS 4 NOT DETECTED; RHINOVIRUS/ENTEROVIRUS NOT DETECTED; RSV- RESP PCR PANEL NOT DETECTED; SARS-CoV-2 -RESP PCR PANEL NOT DETECTED
[2023-06-02] MEDS ORDERED: HYDROmorphone 1 MG/ML CARPUJECT IVP STA ×2 (16:55→21:11)
[2023-06-02] MEDS ORDERED: ONDANSETRON 4 MG/2 ML VIAL IVP STA (16:55)
[2023-06-02] MEDS ORDERED: MORPHINE 2 MG/ML CARPUJECT IVP PRN (20:25)
[2023-06-02] MEDS ORDERED: ONDANSETRON 4 MG/2 ML VIAL IVP PRN (20:25)
[2023-06-02] MEDS ORDERED: SODIUM CHLORIDE FLUSH 0.9% 10 ML SYRINGE IVP PRN (20:25)
[2023-06-02] MEDS ORDERED: DICYCLOMINE 10 MG CAPSULE PO PRN (20:36)
[2023-06-02] MEDS ORDERED: HYDROmorphone 2 MG TABLET PO PRN (20:36)
[2023-06-02] MEDS ORDERED: ALBUTEROL NEB 2.5 MG/3 ML INH PRN (20:36)
[2023-06-02] MEDS ORDERED: PRAVASTATIN 10 MG TABLET PO SCH (21:00)
[2023-06-02] MEDS ORDERED: NITROGLYCERIN SL 0.4 MG TABLET SL PRN (21:00)
[2023-06-02] MEDS: SODIUM CHLORIDE 0.9% 1,000 ML IV SCH (22:18)
[2023-06-02] MEDS: HEPARIN 5,000 UNIT/ML VIAL SUBQ SCH (22:26)
[2023-06-02] MEDS: METOPROLOL SUCCINATE 50 MG TABLET PO SCH (22:26)
[2023-06-02] MEDS: DULoxetine 30 MG CAPSULE PO SCH (22:27)
[2023-06-02] MEDS: traZODone 50 MG TABLET PO SCH (22:27)
[2023-06-02] MEDS: tiZANidine 4 MG TABLET PO SCH (22:27)
[2023-06-02] MEDS: amLODIPine 5 MG TABLET PO SCH (22:27)
--- NOTE | 2023-06-02 22:58 | HISTORY & PHYSICAL EXAMINATION ---
Chief Complaint - Chief Complaint Chief Complaint: Nausea,vomiting,abdominal pain History of Present Illness - Admitted From Admitted From:: ED - History Obtained From Records Reviewed: yes History obtained from: patient - History of Present Illness HPI Comment/Other: This is a 67yo female past medical history for chronic back pain,HTN who had a TENS unit placed on the 27 of this month chronically was on dilaudid presenting to the ED with chief complaint of intractable nausea,vomiting and abdominal pain. cannot hold anything this has been ongoing in the last day or two. Persistent of symptoms prompted her to seek medical attention therefore coming to the ED.No fever,no chills,no diarrhea,no constipation.In the ED he was noted to be dehydrated with hypokalemia,MILAGRO,low blood pressure,tachycardic. Patient received iv fluid resuscitation, antiemetic .her wbc were also elevated at 21k so was given iv abx for presumed infection. I evaluated pt on the floor using zoom assisted technology with nurse at bedside facilitating.Pt is comfortable saying she feels much better after fluids and abx in the ED.She is wake alert verbalizing appropriately. History - Past Medical History Cardiovascular: reports: Hypertension Respiratory: reports: COPD GI: reports: GERD Psych: reports: Depression MRSA Hx?: No - Past Surgical History General: reports: Appendectomy Ortho: reports: Knee replacement, Spine surgery /[employer]: reports: Hysterectomy HEENT: reports: Tonsil/Adenoidectomy - POLST Patient has POLST: Yes Meds/Allgy - Home Medications Home Medications: Ambulatory Orders Medication Instructions Recorded Confirmed Albuterol 1 amp INH Q6HR PRN 09/22/22 06/02/23 Bismuth Subsalicylate 2 tab PO DAILY 09/22/22 06/02/23 [Pepto-Bismol] Cholecalciferol (Vitamin D3) 1 cap PO DAILY 09/22/22 06/02/23 [Vitamin D3] Metoprolol Succinate 100 mg PO BID 09/22/22 06/02/23 Acetaminophen [Acetaminophen Extra 1,000 mg PO Q6HR PRN 04/02/23 06/02/23 Strength] Ascorbic Acid [Vitamin C] 2,000 mg PO DAILY 04/02/23 06/02/23 Biotin 5,000 mcg PO DAILY 04/02/23 06/02/23 Calcium Carbonate [Calcium] 1,200 mg PO HS 04/02/23 06/02/23 DULoxetine [Cymbalta] 30 mg PO BID 04/02/23 06/02/23 Ferrous Sulfate 325 mg PO DAILY 04/02/23 06/02/23 Magnesium 500 mg PO DAILY 04/02/23 06/02/23 Nitroglycerin [Nitrostat] 0.4 mg SL [id number] 04/02/23 06/02/23 Pravastatin Sodium 20 mg PO HS 04/02/23 06/02/23 amLODIPine [Norvasc] 5 mg PO BID 04/02/23 06/02/23 buprenorphine HCL [Buprenorphine 12 mg SL BID 04/02/23 06/02/23 HCl] tiZANidine [Zanaflex] 4 mg PO Q8H 04/02/23 06/02/23 traZODone [Desyrel] 50 mg PO HS 04/02/23 06/02/23 Dicyclomine [Bentyl] 10 mg PO BID PRN #10 cap 04/15/23 06/02/23 HYDROmorphone [Dilaudid] 4 mg PO Q8HR PRN 06/02/23 06/02/23 - Allergies Allergies/Adverse Reactions: Allergies Allergy/AdvReac Type Severity Reaction Status Date / Time garlic Allergy Unknown Verified 06/02/23 12:20 oxycodone Allergy Hives Verified 06/02/23 12:20 Penicillins Allergy Anaphylaxis Verified 06/02/23 12:20 atenolol AdvReac Unknown Verified 06/02/23 12:20 lisinopril AdvReac Unknown Verified 06/02/23 12:20 Prior Level of Functionality: independent Exam - Vital Signs Reviewed Vital Signs: Yes Vital Signs: Vital Signs x48h Temp Pulse Pulse Resp BP BP Pulse Ox 06/02/23 21:49 36.6 C 109 H 14 133/60 H 94 06/02/23 21:07 108 H 12 108/67 97 06/02/23 20:30 103 H 17 148/66 H 93 06/02/23 19:17 113 H 14 146/64 H 92 06/02/23 18:40 109 H 16 129/85 H 96 06/02/23 17:00 106 H 17 147/71 H 97 06/02/23 15:24 99 12 92 06/02/23 15:00 103 H 18 165/90 H 92 - Physical Exam General Appearance: positive: No acute distress, Alert Eyes Bilateral: positive: Normal inspection, PERRL, EOMI ENT: positive: ENT inspection nml (Tachycardic) Neck: positive: Nml inspection Respiratory: positive: Chest non-tender, No respiratory distress (clear) Cardiovascular: positive: Regular rate & rhythm (s1s2 tachycardic), No murmur, No gallop Abdomen: positive: Non-tender, No organomegaly, Nml bowel sounds, No distention Extremities: positive: Non-tender, Full ROM, Nml appearance Conclusion/Plan - Problem List (1) Acute abdominal pain Conclusion/Plan: Intractable nausea and vomiting MILAGRO Dehydration SIRS leukocytosis and Tachycardia Hypokalemia Morbid obesity Abdominal Pain Chronic back Pain S/P TENS unit placement will admit to [facility] under hospitalist service as inpatient Initiate iv fluids LR 125 ml/hr Replete potassium runs 20meq in LR Zofran 4mg iv q6hrs prn nausea/vomiting SIRS leukocytosis/tachycardia likely secondary to dehydration/vomiting empyric abx with flagy 500mg iv q8hrs ceftriaxone 1gm iv daily Resume home meds am labs continue out patient pain meds dilaudid as needed DVT prophylaxis heparin 500 q12 Anticipate LOS 2 days - Lab Results Fish Bones: 06/02/23 12:15 06/02/23 12:15 - EKG Results EKG Interpreted Independently: Yes
[2023-06-03] MEDS: metroNIDAZOLE 500 MG/100 ML 500 MG/100 ML BAG IV SCH ×3 (00:10→17:04)
[2023-06-03] MEDS: SODIUM CHLORIDE FLUSH 0.9% 10 ML SYRINGE IVP SCH ×3 (01:07→15:51)
[2023-06-03] MEDS: ACETAMINOPHEN 325 MG TABLET PO PRN ×4 (01:49→19:14)
[2023-06-03] MEDS: tiZANidine 4 MG TABLET PO SCH (04:33)
[2023-06-03] MEDS ORDERED: BISMUTH SUBSALICYLATE 262 MG PO SCH (09:00)
[2023-06-03] MEDS: HEPARIN 5,000 UNIT/ML VIAL SUBQ SCH ×2 (09:10→22:18)
[2023-06-03] MEDS: SODIUM CHLORIDE 0.9% 1,000 ML IV SCH ×3 (09:11→17:04)
[2023-06-03] MEDS: amLODIPine 5 MG TABLET PO SCH (09:12)
[2023-06-03] MEDS: METOPROLOL SUCCINATE 50 MG TABLET PO SCH (09:12)
[2023-06-03] MEDS: DULoxetine 30 MG CAPSULE PO SCH ×2 (09:12→22:54)
[2023-06-03] MEDS: cefTRIAXone 1 GM in SODIUM CHLORIDE 0.9% MINIBAG 100 ML IV SCH (10:19)
[2023-06-03] MEDS ORDERED: METOPROLOL SUCCINATE 50 MG TABLET PO SCH (11:11)
[2023-06-03] MEDS ORDERED: tiZANidine 4 MG TABLET PO SCH (11:12)
[2023-06-03] MEDS ORDERED: IPRATROPIUM/ALBUTEROL 3 ML NEB INH PRN (11:12)
[2023-06-03 11:48] LABS: CALCIUM 8.4 mg/dL (8.5-10.3); CREATININE 1.5 mg/dL (0.6-1.3); MAGNESIUM 1.4 mg/dL (1.7-2.3); POTASSIUM 2.7 mmol/L (3.5-4.5)
[2023-06-03] MEDS: POTASSIUM CHLOR 10 MEQ/100 ML 10 MEQ/100 ML BAG IV SCH ×4 (12:59→20:03)
[2023-06-03] MEDS ORDERED: SODIUM CHLORIDE 0.9% 1,000 ML IV ONE (14:11)
--- NOTE | 2023-06-03 14:53 | PROVIDER PROGRESS NOTE ---
Assessment/Plan - Problem List (1) Hypotension Assessment/Plan: BP as low as 60 mmHg today. This is multifactorail: from receiving all usual BP meds ordered to cont by Telemedicine doctor, from dehydration, from narcotic doses, and from possible septic shock. Her hgb was 15 at admission, which may have been from volume contraction, consistent with dehydration as a cause (all labs were reviewed). WBC was 21 and today is 12 Plan: Give 1000 cc saline bolus and monitor VS q2h. If no improvement, will transfer pt to ICU Will stop her BP meds Recheck lactic acid level Continue with maintenance IV fluids I will decrease her narcotic doses Will cont the empiric iv antibx (2) AMS (altered mental status) Assessment/Plan: I am seeing her during her hypotension and the patient is answering appropriately but with slurred speech and says that she feels "weird". AMS is also probably multifactorial: From her hypotension causing hypoperfusion and also from narcotic doses Plan: As in #1 I will also make Tizanidine prn spasms and not schedddduled (3) MILAGRO Due to volume depletion from vomiting Also she has bilat renal cortical thinning, so poss some intrinsic kidney dis creat has not improved yet with iv fluids. Creat was 1.4 yesterday and today 1.5 (all labs were reviewed) Plan: Avoid nephrotoxins Continue with maintenance fluids Follow BMP daily (4) Hypokalemia K was 2.5 yesterday, 2.7 today Probably low from losses in vomiting Plan: Replace with iv K riders Follow BMP daily (5) Hypomagnesemia Probably low from losses in vomiting Plan: Will replace with IV Mg Follow Mg daily (6) Chronic back Pain A per Hx. And she got a TENS unit implanted to manage that (7) Other mechanical complication of other implanted electronic stimulator of nervous system, subsequent encounter TENS uniot recently implanted Unsure is there coukd be a complication from that implant causu=ing the current problams Plan:We have no surgeon available whatsoever today ot tomorrow, to eval the site or give recom (8) Intractable N/V Her nausea and her abdominal pain have RESOLVED Possibly it was from receiving narcotics Plan: Continue with clear liquid diet and advance as tolerated Cont prn antiemetics Decrease narcotic doses - Current Meds Current Meds: Current Medications Generic Name Dose Route Start Last Admin Trade Name Freq PRN Reason Stop Dose Admin Acetaminophen 650 mg 06/02/23 20:25 06/03/23 13:00 Acetaminophen 325 Mg Tablet PO 650 mg Q4HR PRN Administration Pain 1 to 4, or Fever Duloxetine HCl 30 mg 06/02/23 21:00 06/03/23 09:12 Duloxetine 30 Mg Capsule PO Not Given BID ABRAHAM Heparin Sodium (Porcine) 5,000 unit 06/02/23 21:00 06/03/23 09:10 Heparin 5,000 Unit/Ml Vial SUBQ 5,000 unit BID ABRAHAM Administration Hydromorphone HCl 4 mg 06/02/23 20:36 06/03/23 05:47 Hydromorphone 2 Mg Tablet PO 4 mg Q8HR PRN Administration PAIN 1-4 Sodium Chloride 1,000 mls @ 100 mls/hr 06/02/23 21:00 06/03/23 09:17 Normal Saline 0.9% IV 100 mls/hr .Q10H ABRAHAM Administration Metronidazole 500 mg in 100 mls @ 100 mls/hr 06/03/23 00:00 06/03/23 10:19 Flagyl 500 Mg/100 Ml IV Infused Q8H ABRAHAM Infusion Ceftriaxone Sodium 1 gm/ 100 mls @ 200 mls/hr 06/03/23 09:00 06/03/23 10:51 Sodium Chloride IV Infused DAILY ABRAHAM Infusion Potassium Chloride 10 meq in 100 mls @ 100 mls/hr 06/03/23 13:00 06/03/23 12:59 Potassium Chloride IV 06/03/23 16:59 100 mls/hr Q1H ABRAHAM Administration Sodium Chloride 1,000 mls @ 999 mls/hr 06/03/23 14:11 06/03/23 14:24 Normal Saline 0.9% IV 06/03/23 15:11 999 mls/hr ONCE ONE Administration Pravastatin Sodium 20 mg 06/02/23 21:00 06/02/23 22:27 Pravastatin 10 Mg Tablet PO 20 mg HS ABRAHAM Administration Sodium Chloride 10 ml 06/03/23 01:00 06/03/23 09:12 Sodium Chloride Flush 0.9% 10 Ml Syringe IVP 10 ml 0100,0900,1700 ABRAHAM Administration Tizanidine HCl 4 mg 06/03/23 11:12 06/03/23 12:30 Tizanidine 4 Mg Tablet PO 4 mg Q8H ABRAHAM Administration Trazodone HCl 50 mg 06/02/23 21:00 06/02/23 22:27 Trazodone 50 Mg Tablet PO 50 mg HS ABRAHAM Administration - Lab Result Fish Bone Diagrams: 06/03/23 15:12 06/03/23 11:30 - Additional Planning My Orders: My Active Orders 06/03/23 11:11 Metoprolol Succinate [Toprol Xl] 100 mg PO BID 06/03/23 11:12 Nebulizer/MDI Tx. [RC] QID Resp Teach Nebulizer/MDI [RC] .ONCE Ipratropium/Albuterol [Duoneb] 3 ml INH Q4HR PRN tiZANidine [Zanaflex] 4 mg PO Q8H 06/03/23 12:58 C DIFF PCR Stat 06/03/23 13:00 Potassium Chlor 10 Meq/100 ml [Potassium Chloride] 10 meq in 100 ml IV Q1H 06/03/23 14:11 Sodium Chloride 0.9% [Normal Saline 0.9%] 1,000 ml IV ONCE 06/03/23 21:00 Buprenorphine HCl/Naloxone HCl [Suboxone 8-2 mg Tab] 1.5 tab SL BID 06/04/23 05:00 BMP - BASIC METABOLIC PANEL [CHEM] DAILYLAB CALCIUM [CHEM] DAILYLAB CBC - COMP BLD CT W/AUTO DIFF [HEME] DAILYLAB MAGNESIUM [CHEM] DAILYLAB PHOSPHORUS [CHEM] DAILYLAB 06/04/23 08:00 Ferrous Sulfate [Feosol] 325 mg PO DAILYWM 06/05/23 05:00 BMP - BASIC METABOLIC PANEL [CHEM] DAILYLAB CBC - COMP BLD CT W/AUTO DIFF [HEME] DAILYLAB 06/06/23 05:00 BMP - BASIC METABOLIC PANEL [CHEM] DAILYLAB CBC - COMP BLD CT W/AUTO DIFF [HEME] DAILYLAB Subjective - Subjective Patient Reports: Other (Feels dizzit=y, sleepy and "weird") Objective Vital Signs: Vital Signs - 24 hr 06/02/23 06/02/23 06/02/23 15:00 15:24 17:00 Temperature Heart Rate 103 H 99 106 H Heart Rate [ Brachial] Heart Rate [ Monitoring electrodes] Respiratory 18 12 17 Rate Blood Pressure 165/90 H 147/71 H Blood Pressure [Left Brachial artery] Blood Pressure [Right Brachial artery] O2 Saturation 92 92 97 If not protocol : Oxygen Flow, liters/minute 06/02/23 06/02/23 06/02/23 18:40 19:17 20:30 Temperature Heart Rate 109 H 113 H 103 H Heart Rate [ Brachial] Heart Rate [ Monitoring electrodes] Respiratory 16 14 17 Rate Blood Pressure 129/85 H 146/64 H 148/66 H Blood Pressure [Left Brachial artery] Blood Pressure [Right Brachial artery] O2 Saturation 96 92 93 If not protocol : Oxygen Flow, liters/minute 06/02/23 06/02/23 06/02/23 21:07 21:49 22:00 Temperature 36.6 C Heart Rate 108 H Heart Rate [ Brachial] Heart Rate [ 109 H Monitoring electrodes] Respiratory 12 14 Rate Blood Pressure 108/67 Blood Pressure [Left Brachial artery] Blood Pressure 133/60 H [Right Brachial artery] O2 Saturation 97 94 If not protocol 4 : Oxygen Flow, liters/minute 06/03/23 06/03/23 06/03/23 00:07 01:04 04:34 Temperature 36.3 C L 36.2 C L Heart Rate Heart Rate [ 82 81 85 Brachial] Heart Rate [ Monitoring electrodes] Respiratory 18 15 15 Rate Blood Pressure Blood Pressure [Left Brachial artery] Blood Pressure 76/36 L 83/46 L 91/55 L [Right Brachial artery] O2 Saturation 96 94 94 If not protocol : Oxygen Flow, liters/minute 06/03/23 06/03/23 06/03/23 05:45 08:00 13:00 Temperature 36.5 C 36.3 C L Heart Rate Heart Rate [ 70 79 66 Brachial] Heart Rate [ Monitoring electrodes] Respiratory 15 18 18 Rate Blood Pressure Blood Pressure 86/40 L [Left Brachial artery] Blood Pressure 103/69 88/39 L [Right Brachial artery] O2 Saturation 94 94 97 If not protocol : Oxygen Flow, liters/minute 06/03/23 06/03/23 06/03/23 14:22 14:39 14:40 Temperature 36.8 C Heart Rate Heart Rate [ 59 L 60 64 Brachial] Heart Rate [ Monitoring electrodes] Respiratory 14 16 14 Rate Blood Pressure Blood Pressure 76/39 L 76/41 L 73/43 L [Left Brachial artery] Blood Pressure [Right Brachial artery] O2 Saturation 92 99 98 If not protocol 2 : Oxygen Flow, liters/minute 06/03/23 14:47 Temperature Heart Rate Heart Rate [ 63 Brachial] Heart Rate [ Monitoring electrodes] Respiratory 14 Rate Blood Pressure Blood Pressure 81/41 L [Left Brachial artery] Blood Pressure [Right Brachial artery] O2 Saturation If not protocol : Oxygen Flow, liters/minute Oxygen O2 Source Nasal cannula Oxygen Flow Rate 2 I&O (Last 24 Hrs): Intake and Output Totals x24h 06/01/23 06/02/23 06/03/23 23:59 23:59 23:59 Intake Total 3400 3370 Output Total 2400 870 Balance 1000 2500 General: Mild distress (Feels "weird". Is in Trandelenburg) HEENT: Mucous membr. moist/pink Neck: Supple Neuro: Non Focal, Other (Lethargic) Cardiovascular: Regular rate Respiratory: No respiratory distress Abdomen: Soft, No tenderness Extremities: No clubbing, No edema - Results Results: Laboratory Results WBC 21.0 x10^3/uL (4.8-10.8) H 06/02/23 12:15 RBC 5.73 10^6/uL (4.20-5.40) H 06/02/23 12:15 Hgb 15.7 g/dL (12.0-16.0) 06/02/23 12:15 Hct 46.9 % (37.0-47.0) 06/02/23 12:15 MCV 81.8 fL (81.0-99.0) 06/02/23 12:15 MCH 27.4 pg (27.0-31.0) 06/02/23 12:15 MCHC 33.5 g/dL (32.0-36.0) 06/02/23 12:15 RDW 13.1 % (12.0-15.0) 06/02/23 12:15 Plt Count 366 10^3/uL (130-450) 06/02/23 12:15 MPV 10.4 fL (7.9-10.8) 06/02/23 12:15 Neut # (Auto) 16.4 10^3/uL (1.5-6.6) H 06/02/23 12:15 Lymph # (Auto) 2.7 10^3/uL (1.5-3.5) 06/02/23 12:15 [place] # (Auto) 1.7 10^3/uL (0.0-1.0) H 06/02/23 12:15 Eos # (Auto) 0.0 10^3/uL (0.0-0.7) 06/02/23 12:15 Baso # (Auto) 0.1 10^3/uL (0.0-0.1) 06/02/23 12:15 Absolute Nucleated RBC 0.00 x10^3/uL 06/02/23 12:15 Nucleated RBC % 0.0 /100WBC 06/02/23 12:15 Manual Slide Review Indicated 06/02/23 12:15 WBC Morphology (NORMAL) 06/02/23 12:15 Platelet Estimate NORMAL (130-450,000) (NORMAL) 06/02/23 12:15 Platelet Morphology NORMAL APPEARANCE (NORMAL) 06/02/23 12:15 RBC Morph Micro Appear NORMAL APPEARANCE (NORMAL) 06/02/23 12:15 Sodium 137 mmol/L (135-145) 06/03/23 11:30 Potassium 2.7 mmol/L (3.5-4.5) L 06/03/23 11:30 Chloride 102 mmol/L (101-111) 06/03/23 11:30 Carbon Dioxide 25 mmol/L (21-32) 06/03/23 11:30 Anion Gap 10.0 (6-13) 06/03/23 11:30 BUN 35 mg/dL (6-20) H 06/03/23 11:30 Creatinine 1.5 mg/dL (0.6-1.3) H 06/03/23 11:30 Estimated GFR (MDRD) 34 (>89) L 06/03/23 11:30 Glucose 92 mg/dL (74-104) 06/03/23 11:30 Lactic Acid < 0.2 mmol/L (0.5-2.2) L 06/02/23 12:15 Calcium 8.4 mg/dL (8.5-10.3) L 06/03/23 11:30 Magnesium 1.4 mg/dL (1.7-2.3) L 06/03/23 11:30 Total Bilirubin 0.7 mg/dL (0.2-1.0) 06/02/23 12:15 AST 22 IU/L (10-42) 06/02/23 12:15 ALT 14 IU/L (10-60) 06/02/23 12:15 Alkaline Phosphatase 101 IU/L (42-121) 06/02/23 12:15 Total Protein 6.6 g/dL (6.4-8.9) 06/02/23 12:15 Albumin 3.8 g/dL (3.2-5.5) 06/02/23 12:15 Globulin 2.8 g/dL (2.1-4.2) 06/02/23 12:15 Albumin/Globulin Ratio 1.4 (1.0-2.2) 06/02/23 12:15 Urine Color YELLOW 06/02/23 14:00 Urine Clarity CLEAR (CLEAR) 06/02/23 14:00 Urine pH 6.5 PH (5.0-7.5) 06/02/23 14:00 Ur Specific [place] 1.010 (1.002-1.030) 06/02/23 14:00 Urine Protein 100 mg/dL (NEGATIVE) H 06/02/23 14:00 Urine Glucose (UA) NEGATIVE mg/dL (NEGATIVE) 06/02/23 14:00 Urine Ketones TRACE mg/dL (NEGATIVE) 06/02/23 14:00 Urine Occult Blood TRACE-INTA (NEGATIVE) 06/02/23 14:00 Urine Nitrite NEGATIVE (NEGATIVE) 06/02/23 14:00 Urine Bilirubin NEGATIVE (NEGATIVE) 06/02/23 14:00 Urine Urobilinogen 0.2 (NORMAL) E.U./dL (NORMAL) 06/02/23 14:00 Ur Leukocyte Esterase NEGATIVE (NEGATIVE) 06/02/23 14:00 Urine RBC 0-5 /HPF (0-5) 06/02/23 14:00 Urine WBC 0-3 /HPF (0-5) 06/02/23 14:00 Ur Squamous Epith Cells RARE Squamous (<= Few) 06/02/23 14:00 Urine Bacteria Rare /HPF (None Seen) 06/02/23 14:00 Urine Casts 0-2 Hyaline Casts /LPF 06/02/23 14:00 Urine Culture Comments NOT INDICATED 06/02/23 14:00 Nasal Adenovirus (PCR) NOT DETECTED 06/02/23 14:52 Nasal B. parapertussis DNA (PCR) NOT DETECTED 06/02/23 14:52 Nasal Coronavir 229E PCR NOT DETECTED 06/02/23 14:52 Nasal Coronavir HKU1 PCR NOT DETECTED 06/02/23 14:52 Nasal Coronavir NL63 PCR NOT DETECTED 06/02/23 14:52 Nasal Coronavir OC43 PCR NOT DETECTED 06/02/23 14:52 Nasal Enterovir/Rhinovir PCR NOT DETECTED 06/02/23 14:52 Nasal Influenza B PCR NOT DETECTED 06/02/23 14:52 Nasal Influenza A PCR NOT DETECTED 06/02/23 14:52 Nasal Parainfluen 1 PCR NOT DETECTED 06/02/23 14:52 Nasal Parainfluen 2 PCR NOT DETECTED 06/02/23 14:52 Nasal Parainfluen 3 PCR NOT DETECTED 06/02/23 14:52 Nasal Parainfluen 4 PCR NOT DETECTED 06/02/23 14:52 Nasal RSV (PCR) NOT DETECTED 06/02/23 14:52 Nasal B.pertussis DNA PCR NOT DETECTED 06/02/23 14:52 Nasal C.pneumoniae (PCR) NOT DETECTED 06/02/23 14:52 [place] Human Metapneumo PCR NOT DETECTED 06/02/23 14:52 Nasal M.pneumoniae (PCR) NOT DETECTED 06/02/23 14:52 Nasal SARS-CoV-2 (PCR) NOT DETECTED 06/02/23 14:52
[2023-06-03] MEDS ORDERED: HYDROmorphone 2 MG TABLET PO PRN (15:05)
[2023-06-03 15:18] LABS: BASOPHILS % (AUTO) 0.1 %; EOSINOPHILS # (AUTO) 0.2 10^3/uL (0.0-0.7); EOSINOPHILS % (AUTO) 1.4 %; HCT - HEMATOCRIT 33.3 % (37.0-47.0); HGB - HEMOGLOBIN 10.6 g/dL (12.0-16.0); LYMPHOCYTES # (AUTO) 3.6 10^3/uL (1.5-3.5); LYMPHOCYTES % (AUTO) 29.9 %; MEAN CORPUSCULAR HEMOGLOBIN 27.7 pg (27.0-31.0); MEAN CORPUSCULAR HGB CONC 31.8 g/dL (32.0-36.0); MEAN CORPUSCULAR VOLUME 86.9 fL (81.0-99.0); MEAN PLATELET VOLUME 10.5 fL (7.9-10.8); MONOCYTES # (AUTO) 1.2 10^3/uL (0.0-1.0); MONOCYTES % (AUTO) 9.8 %; NEUTROPHILS % (AUTO) 58.3 %; PLT - PLATELET COUNT 186 10^3/uL (130-450); RED BLOOD COUNT 3.83 10^6/uL (4.20-5.40); RED CELL DISTRIBUTION WIDTH 13.4 % (12.0-15.0); WHITE BLOOD COUNT 12.1 x10^3/uL (4.8-10.8)
[2023-06-03] MEDS: SACCHAROMYCES BOULARDII 250 MG CAPSULE PO SCH (17:03)
[2023-06-03] MEDS: LOPERAMIDE 2 MG CAPSULE PO PRN (19:14)
[2023-06-03] MEDS: BUPRENORPHINE/NALOXONE 8-2 MG TAB SL SCH (22:07)
[2023-06-03] MEDS: traZODone 50 MG TABLET PO SCH (22:08)
[2023-06-04] MEDS: metroNIDAZOLE 500 MG/100 ML 500 MG/100 ML BAG IV SCH ×3 (00:42→16:26)
[2023-06-04] MEDS: SODIUM CHLORIDE FLUSH 0.9% 10 ML SYRINGE IVP SCH ×3 (00:43→17:48)
[2023-06-04] MEDS: ACETAMINOPHEN 325 MG TABLET PO PRN ×2 (00:43→17:47)
[2023-06-04] MEDS: tiZANidine 4 MG TABLET PO PRN (00:44)
[2023-06-04] MEDS: DULoxetine 30 MG CAPSULE PO SCH (01:40)
[2023-06-04] MEDS: LOPERAMIDE 2 MG CAPSULE PO PRN ×2 (02:20→09:04)
[2023-06-04] MEDS: SODIUM CHLORIDE 0.9% 1,000 ML IV SCH (02:22)
[2023-06-04 05:49] LABS: BASOPHILS % (AUTO) 0.2 %; EOSINOPHILS # (AUTO) 0.3 10^3/uL (0.0-0.7); EOSINOPHILS % (AUTO) 3.3 %; HCT - HEMATOCRIT 34.5 % (37.0-47.0); HGB - HEMOGLOBIN 11.3 g/dL (12.0-16.0); LYMPHOCYTES # (AUTO) 3.5 10^3/uL (1.5-3.5); LYMPHOCYTES % (AUTO) 40.1 %; MEAN CORPUSCULAR HEMOGLOBIN 28.3 pg (27.0-31.0); MEAN CORPUSCULAR HGB CONC 32.8 g/dL (32.0-36.0); MEAN CORPUSCULAR VOLUME 86.5 fL (81.0-99.0); MEAN PLATELET VOLUME 10.4 fL (7.9-10.8); MONOCYTES # (AUTO) 0.7 10^3/uL (0.0-1.0); MONOCYTES % (AUTO) 8.1 %; NEUTROPHILS # (AUTO) 4.2 10^3/uL (1.5-6.6); PLT - PLATELET COUNT 181 10^3/uL (130-450); RED BLOOD COUNT 3.99 10^6/uL (4.20-5.40); RED CELL DISTRIBUTION WIDTH 13.4 % (12.0-15.0); WHITE BLOOD COUNT 8.8 x10^3/uL (4.8-10.8)
[2023-06-04 06:17] LABS: CALCIUM 7.9 mg/dL (8.5-10.3); CREATININE 0.9 mg/dL (0.6-1.3); MAGNESIUM 1.4 mg/dL (1.7-2.3); PHOSPHORUS 3.6 mg/dL (2.5-5.0); POTASSIUM 3.1 mmol/L (3.5-4.5)
[2023-06-04] MEDS ORDERED: MAGNESIUM SULFATE 2 GRAM 2 GM/50 ML BAG IV ONE (08:48)
[2023-06-04] MEDS: FERROUS SULFATE 325 MG TABLET PO SCH (09:03)
[2023-06-04] MEDS: SACCHAROMYCES BOULARDII 250 MG CAPSULE PO SCH ×2 (09:04→17:45)
[2023-06-04] MEDS: cefTRIAXone 1 GM in SODIUM CHLORIDE 0.9% MINIBAG 100 ML IV SCH (09:12)
[2023-06-04] MEDS: POTASSIUM CHLOR 10 MEQ/100 ML 10 MEQ/100 ML BAG IV SCH ×3 (10:34→15:15)
--- NOTE | 2023-06-04 10:34 | ED Physician Documentation ---
ED Addendum - Addendum Addendum: 06/04/23 10:33 An addendum to the CT report from 1230 is done this morning by radiology. The addendum which is addended to the prior report reads hepatic flexure narrowing, more likely peristalsis and less likely mass. The initial reading suggested more likely of a mass. The addendum still recommends colonoscopic screening. The patient had been admitted and I will pass this on to the hospitalist.
[2023-06-04] MEDS: HEPARIN 5,000 UNIT/ML VIAL SUBQ SCH ×2 (11:39→21:36)
--- NOTE | 2023-06-04 13:21 | XRAY Report ---
PROCEDURE: Chest 1V INDICATIONS: F/U poss atelectasis vs infiltrate vs CHF, Hypoxia TECHNIQUE: One view of the chest was acquired. COMPARISON: 06/02/2023 FINDINGS: Surgical changes and devices: Mandible postoperative change is seen. There is a thoracic spine stimu lator. Lungs and pleura: No pleural effusions or pneumothorax. Lungs are clear. Mediastinum: Mediastinal contours appear normal. Heart size is normal. Microcalcification Bones and chest wall: No suspicious bony lesions. Age-appropriate degenerative changes are seen. Overlying soft tissues appear unremarkable. IMPRESSION: The lungs now appear clear, with resolution of the previously seen interstitial prominence. Postoperative and degenerative changes are seen. Reviewed by: Femi Suárez MD on 06/04/2023 12:20 PM [facility] Approved by: Femi Suárez MD on 06/04/2023 12:20 PM [facility] Station ID: [id number]
--- NOTE | 2023-06-04 13:54 | PROVIDER PROGRESS NOTE ---
Assessment/Plan - Problem List (1) Gastroenteritis Assessment/Plan: Her nausea is improving, she needed Zofran this am. She has not vomited, is toleratig her diet and her abdominal pain has resolved. Since 06/03/23, patient started having episodes of watery diarrhea. Sent for C. diff eval and came back (-) Her CT abd had shown some gastric wall thickening. The picture looks like she has gastroenteritis Plan: Will advance diet to minced and moist today. Cont prn antiemetics Cont Imodium as needed Anticipate DCh soon if she tolerates diet advancing and if she is not orthostatic I updated her room mate at bedside today (2) Hypokalemia K was 2.5 at adm>> 2.7>> 3.1 today (all labs were reviewed). Probably low from losses in vomiting Plan: Replace with iv K riders Follow BMP daily (3) Hypomagnesemia Mg 1.4 . Probably also low from losses in vomiting Plan: Will replace with IV Mg Follow Mg daily (4) Chronic back Pain A per Hx. And she got a TENS unit implanted several days ago at a different hospital, to manage that (5) Other mechanical complication of other implanted electronic stimulator of nervous system, subsequent encounter TENS unit recently implanted Unsure is there could be a complication from that implant causing the current problams Plan: We have no surgeon available whatsoever today to eval the site or give recommendations (6) MILAGRO RESOLVED Due to volume depletion from vomiting BUN/creat 48/1.4 at adm>> 35/1.5>> 19/0.9 today Plan: Avoid nephrotoxins Taper down maintenance fluids Follow BMP daily (7) Hx HTN Plan: Her BP meds will be resumed today at lower doses and staggered. (8) Hypotension RESOLVED BP was as low as 60 mmHg on 06/03. This was multifactorail: from receiving all usual BP meds ordered to cont by Telemedicine doctor, from dehydration, from narcotic doses, and we considered possible septic shock. She was in Trandelenburg, got a L of saline bolused and her BP meds all put on hold. I also decreased her narcotic doses. Today CXR was repeated to check if any (aspiration) pneumonia, and CXR was clear Plan: Decreasing maintenance IV fluids Will stop the empiric iv antibx Anticipate DCh soon if she is not orthostatic (9) AMS (altered mental status) Assessment/Plan: RESOLVED She had slurred speech and said that she felt "weird" during yesterday's hypotension, after getting BP meds, narcotics and scheduled Tizanidine I made Tizanidine prn spasms and not scheduled - Current Meds Current Meds: Current Medications Generic Name Dose Route Start Last Admin Trade Name Freq PRN Reason Stop Dose Admin Acetaminophen 650 mg 06/02/23 20:25 06/04/23 00:43 Acetaminophen 325 Mg Tablet PO 650 mg Q4HR PRN Administration Pain 1 to 4, or Fever Buprenorphine HCl 1.5 tab 06/03/23 21:00 06/03/23 22:07 Buprenorphine/Naloxone 8-2 Mg Tab SL 1.5 tab BID ABRAHAM Administration Ferrous Sulfate 325 mg 06/04/23 08:00 06/04/23 09:03 Ferrous Sulfate 325 Mg Tablet PO 325 mg DAILYWM ABRAHAM Administration Heparin Sodium (Porcine) 5,000 unit 06/02/23 21:00 06/04/23 11:39 Heparin 5,000 Unit/Ml Vial SUBQ 5,000 unit BID ABRAHAM Administration Hydromorphone HCl 2 mg 06/03/23 15:05 06/04/23 01:34 Hydromorphone 2 Mg Tablet PO 2 mg Q8HR PRN Administration Severe Pain (Level 7-10) Sodium Chloride 1,000 mls @ 100 mls/hr 06/02/23 21:00 06/04/23 02:22 Normal Saline 0.9% IV 100 mls/hr .Q10H ABRAHAM Administration Metronidazole 500 mg in 100 mls @ 100 mls/hr 06/03/23 00:00 06/04/23 10:27 Flagyl 500 Mg/100 Ml IV 06/04/23 23:00 Infused Q8H ABRAHAM Infusion Ceftriaxone Sodium 1 gm/ 100 mls @ 200 mls/hr 06/03/23 09:00 06/04/23 10:28 Sodium Chloride IV 06/04/23 23:00 Infused DAILY ABRAHAM Infusion Loperamide HCl 2 mg 06/03/23 16:11 06/04/23 09:04 Loperamide 2 Mg Capsule PO 2 mg QID PRN Administration Diarrhea Ondansetron HCl 4 mg 06/02/23 20:25 06/04/23 09:12 Ondansetron 4 Mg/2 Ml Vial IVP 4 mg Q6HR PRN Administration Nausea / Vomiting Saccharomyces Boulardii 250 mg 06/03/23 17:00 06/04/23 09:04 Saccharomyces Boulardii 250 Mg Capsule PO 250 mg BIDWM ABRAHAM Administration Sodium Chloride 10 ml 06/03/23 01:00 06/04/23 10:41 Sodium Chloride Flush 0.9% 10 Ml Syringe IVP 10 ml 0100,0900,1700 ABRAHAM Administration Tizanidine HCl 4 mg 06/03/23 15:05 06/04/23 00:44 Tizanidine 4 Mg Tablet PO 4 mg Q8H PRN Administration Spasms Trazodone HCl 50 mg 06/02/23 21:00 06/03/23 22:08 Trazodone 50 Mg Tablet PO 50 mg HS ABRAHAM Administration - Lab Result Fish Bone Diagrams: 06/04/23 05:41 06/04/23 05:41 - Additional Planning My Orders: My Active Orders 06/03/23 15:05 HYDROmorphone [Dilaudid] 2 mg PO Q8HR PRN tiZANidine [Zanaflex] 4 mg PO Q8H PRN 06/03/23 16:11 Loperamide [Imodium] 2 mg PO QID PRN 06/03/23 17:00 Saccharomyces Boulardii [Florastor] 250 mg PO BIDWM 06/03/23 21:00 Buprenorphine HCl/Naloxone HCl [Suboxone 8-2 mg Tab] 1.5 tab SL BID 06/04/23 08:00 Ferrous Sulfate [Feosol] 325 mg PO DAILYWM 06/04/23 14:00 Metoprolol Succinate [Toprol Xl] 50 mg PO ONCE ONE 06/04/23 Dinner DIET [Dysphagia - Minced and Moist] [DIET] 06/04/23 21:00 amLODIPine [Norvasc] 2.5 mg PO BID 06/05/23 05:00 BMP - BASIC METABOLIC PANEL [CHEM] DAILYLAB CBC - COMP BLD CT W/AUTO DIFF [HEME] DAILYLAB MAGNESIUM [CHEM] DAILYLAB 06/05/23 09:00 Magnesium [Magnesium] 500 mg PO DAILY 06/06/23 05:00 BMP - BASIC METABOLIC PANEL [CHEM] DAILYLAB CBC - COMP BLD CT W/AUTO DIFF [HEME] DAILYLAB Subjective - Subjective Patient Reports: Feeling Better, Resting Comfortably, Other (Had brief nausea this am, got Zofran) Objective Vital Signs: Vital Signs - 24 hr 06/03/23 06/03/23 06/03/23 14:22 14:39 14:40 Temperature 36.8 C Heart Rate [ 59 L 60 64 Brachial] Heart Rate [ Monitoring electrodes] Respiratory 14 16 14 Rate Blood Pressure 76/39 L 76/41 L 73/43 L [Left Brachial artery] Blood Pressure [Right Brachial artery] O2 Saturation 92 99 98 If not protocol 2 : Oxygen Flow, liters/minute 06/03/23 06/03/23 06/03/23 14:47 15:03 15:08 Temperature Heart Rate [ 63 Brachial] Heart Rate [ Monitoring electrodes] Respiratory 14 Rate Blood Pressure 81/41 L 84/43 L 90/48 L [Left Brachial artery] Blood Pressure [Right Brachial artery] O2 Saturation If not protocol : Oxygen Flow, liters/minute 06/03/23 06/03/23 06/03/23 17:00 19:09 19:16 Temperature 36.7 C 36.8 C Heart Rate [ 77 Brachial] Heart Rate [ 85 93 Monitoring electrodes] Respiratory 12 14 Rate Blood Pressure 92/56 L 86/46 L 91/46 L [Left Brachial artery] Blood Pressure [Right Brachial artery] O2 Saturation 95 94 If not protocol : Oxygen Flow, liters/minute 06/03/23 06/03/23 06/03/23 20:46 21:12 22:51 Temperature 36.8 C 36.9 C 36.7 C Heart Rate [ Brachial] Heart Rate [ 84 78 84 Monitoring electrodes] Respiratory 16 16 16 Rate Blood Pressure 110/59 L 114/66 118/66 [Left Brachial artery] Blood Pressure [Right Brachial artery] O2 Saturation 95 95 98 If not protocol : Oxygen Flow, liters/minute 06/04/23 06/04/23 06/04/23 00:39 03:39 05:22 Temperature 36.9 C 36.4 C L 36.5 C Heart Rate [ 92 75 70 Brachial] Heart Rate [ Monitoring electrodes] Respiratory 20 11 L 18 Rate Blood Pressure 128/73 [Left Brachial artery] Blood Pressure 150/71 H 84/34 L [Right Brachial artery] O2 Saturation 95 93 93 If not protocol : Oxygen Flow, liters/minute 06/04/23 06/04/23 06:50 09:40 Temperature 36.5 C 36.9 C Heart Rate [ 85 101 H Brachial] Heart Rate [ Monitoring electrodes] Respiratory 20 18 Rate Blood Pressure [Left Brachial artery] Blood Pressure 149/66 H 160/85 H [Right Brachial artery] O2 Saturation 93 95 If not protocol : Oxygen Flow, liters/minute Oxygen O2 Source Room air Oxygen Flow Rate 2 I&O (Last 24 Hrs): Intake and Output Totals x24h 06/02/23 06/03/23 06/04/23 23:59 23:59 23:59 Intake Total 3400 6008.333 2140 Output Total 2400 1670 2450 Balance 1000 4338.333 -310 General: Alert, Oriented x3, Other (Disheveled) HEENT: EOMI, Mucous membr. moist/pink Neck: Supple, No JVD Neuro: Alert, Non Focal Cardiovascular: Regular rate, No murmurs Respiratory: No respiratory distress, Rhonchi (R base ant) Abdomen: Normal bowel sounds, Soft, No tenderness, Other (Obese) Extremities: No clubbing, No edema, No tenderness/swelling - Results Results: Laboratory Results WBC 8.8 x10^3/uL (4.8-10.8) 06/04/23 05:41 RBC 3.99 10^6/uL (4.20-5.40) L 06/04/23 05:41 Hgb 11.3 g/dL (12.0-16.0) L 06/04/23 05:41 Hct 34.5 % (37.0-47.0) L 06/04/23 05:41 MCV 86.5 fL (81.0-99.0) 06/04/23 05:41 MCH 28.3 pg (27.0-31.0) 06/04/23 05:41 MCHC 32.8 g/dL (32.0-36.0) 06/04/23 05:41 RDW 13.4 % (12.0-15.0) 06/04/23 05:41 Plt Count 181 10^3/uL (130-450) 06/04/23 05:41 MPV 10.4 fL (7.9-10.8) 06/04/23 05:41 Neut # (Auto) 4.2 10^3/uL (1.5-6.6) 06/04/23 05:41 Lymph # (Auto) 3.5 10^3/uL (1.5-3.5) 06/04/23 05:41 [place] # (Auto) 0.7 10^3/uL (0.0-1.0) 06/04/23 05:41 Eos # (Auto) 0.3 10^3/uL (0.0-0.7) 06/04/23 05:41 Baso # (Auto) 0.0 10^3/uL (0.0-0.1) 06/04/23 05:41 Absolute Nucleated RBC 0.00 x10^3/uL 06/04/23 05:41 Nucleated RBC % 0.0 /100WBC 06/04/23 05:41 Manual Slide Review Indicated 06/02/23 12:15 WBC Morphology (NORMAL) 06/02/23 12:15 Platelet Estimate NORMAL (130-450,000) (NORMAL) 06/02/23 12:15 Platelet Morphology NORMAL APPEARANCE (NORMAL) 06/02/23 12:15 RBC Morph Micro Appear NORMAL APPEARANCE (NORMAL) 06/02/23 12:15 Sodium 142 mmol/L (135-145) 06/04/23 05:41 Potassium 3.1 mmol/L (3.5-4.5) L 06/04/23 05:41 Chloride 111 mmol/L (101-111) 06/04/23 05:41 Carbon Dioxide 23 mmol/L (21-32) 06/04/23 05:41 Anion Gap 8.0 (6-13) 06/04/23 05:41 BUN 19 mg/dL (6-20) 06/04/23 05:41 Creatinine 0.9 mg/dL (0.6-1.3) 06/04/23 05:41 Estimated GFR (MDRD) 62 (>89) L 06/04/23 05:41 Glucose 69 mg/dL (74-104) L 06/04/23 05:41 Lactic Acid 1.3 mmol/L (0.5-2.2) 06/03/23 15:12 Calcium 7.9 mg/dL (8.5-10.3) L 06/04/23 05:41 Phosphorus 3.6 mg/dL (2.5-5.0) 06/04/23 05:41 Magnesium 1.4 mg/dL (1.7-2.3) L 06/04/23 05:41 Total Bilirubin 0.7 mg/dL (0.2-1.0) 06/02/23 12:15 AST 22 IU/L (10-42) 06/02/23 12:15 ALT 14 IU/L (10-60) 06/02/23 12:15 Alkaline Phosphatase 101 IU/L (42-121) 06/02/23 12:15 Total Protein 6.6 g/dL (6.4-8.9) 06/02/23 12:15 Albumin 3.8 g/dL (3.2-5.5) 06/02/23 12:15 Globulin 2.8 g/dL (2.1-4.2) 06/02/23 12:15 Albumin/Globulin Ratio 1.4 (1.0-2.2) 06/02/23 12:15 Urine Color YELLOW 06/02/23 14:00 Urine Clarity CLEAR (CLEAR) 06/02/23 14:00 Urine pH 6.5 PH (5.0-7.5) 06/02/23 14:00 Ur Specific [place] 1.010 (1.002-1.030) 06/02/23 14:00 Urine Protein 100 mg/dL (NEGATIVE) H 06/02/23 14:00 Urine Glucose (UA) NEGATIVE mg/dL (NEGATIVE) 06/02/23 14:00 Urine Ketones TRACE mg/dL (NEGATIVE) 06/02/23 14:00 Urine Occult Blood TRACE-INTA (NEGATIVE) 06/02/23 14:00 Urine Nitrite NEGATIVE (NEGATIVE) 06/02/23 14:00 Urine Bilirubin NEGATIVE (NEGATIVE) 06/02/23 14:00 Urine Urobilinogen 0.2 (NORMAL) E.U./dL (NORMAL) 06/02/23 14:00 Ur Leukocyte Esterase NEGATIVE (NEGATIVE) 06/02/23 14:00 Urine RBC 0-5 /HPF (0-5) 06/02/23 14:00 Urine WBC 0-3 /HPF (0-5) 06/02/23 14:00 Ur Squamous Epith Cells RARE Squamous (<= Few) 06/02/23 14:00 Urine Bacteria Rare /HPF (None Seen) 06/02/23 14:00 Urine Casts 0-2 Hyaline Casts /LPF 06/02/23 14:00 Urine Culture Comments NOT INDICATED 06/02/23 14:00 Nasal Adenovirus (PCR) NOT DETECTED 06/02/23 14:52 Nasal B. parapertussis DNA (PCR) NOT DETECTED 06/02/23 14:52 Nasal Coronavir 229E PCR NOT DETECTED 06/02/23 14:52 Nasal Coronavir HKU1 PCR NOT DETECTED 06/02/23 14:52 Nasal Coronavir NL63 PCR NOT DETECTED 06/02/23 14:52 Nasal Coronavir OC43 PCR NOT DETECTED 06/02/23 14:52 Nasal Enterovir/Rhinovir PCR NOT DETECTED 06/02/23 14:52 Nasal Influenza B PCR NOT DETECTED 06/02/23 14:52 Nasal Influenza A PCR NOT DETECTED 06/02/23 14:52 Nasal Parainfluen 1 PCR NOT DETECTED 06/02/23 14:52 Nasal Parainfluen 2 PCR NOT DETECTED 06/02/23 14:52 Nasal Parainfluen 3 PCR NOT DETECTED 06/02/23 14:52 Nasal Parainfluen 4 PCR NOT DETECTED 06/02/23 14:52 Nasal RSV (PCR) NOT DETECTED 06/02/23 14:52 Nasal B.pertussis DNA PCR NOT DETECTED 06/02/23 14:52 Nasal C.pneumoniae (PCR) NOT DETECTED 06/02/23 14:52 [place] Human Metapneumo PCR NOT DETECTED 06/02/23 14:52 Nasal M.pneumoniae (PCR) NOT DETECTED 06/02/23 14:52 Nasal SARS-CoV-2 (PCR) NOT DETECTED 06/02/23 14:52 Stl C. diff Tox B Gene NEGATIVE (NEGATIVE) 06/03/23 12:58
[2023-06-04] MEDS ORDERED: METOPROLOL SUCCINATE 50 MG TABLET PO ONE (14:00)
[2023-06-04] MEDS ORDERED: SODIUM CHLORIDE 0.9% 1,000 ML IV SCH (15:41)
[2023-06-04] MEDS ORDERED: DULoxetine 60 MG CAPSULE PO SCH (21:00)
[2023-06-04] MEDS: traZODone 50 MG TABLET PO SCH (21:35)
[2023-06-04] MEDS: BUPRENORPHINE/NALOXONE 8-2 MG TAB SL SCH (21:35)
[2023-06-04] MEDS: amLODIPine 5 MG TABLET PO SCH (21:36)
[2023-06-05] MEDS: tiZANidine 4 MG TABLET PO PRN (02:26)
[2023-06-05] MEDS: SODIUM CHLORIDE FLUSH 0.9% 10 ML SYRINGE IVP SCH ×2 (02:27→08:28)
[2023-06-05] MEDS: ACETAMINOPHEN 325 MG TABLET PO PRN (03:54)
[2023-06-05 06:01] LABS: BASOPHILS % (AUTO) 0.4 %; EOSINOPHILS # (AUTO) 0.4 10^3/uL (0.0-0.7); EOSINOPHILS % (AUTO) 4.8 %; HCT - HEMATOCRIT 38.2 % (37.0-47.0); HGB - HEMOGLOBIN 12.5 g/dL (12.0-16.0); LYMPHOCYTES # (AUTO) 3.9 10^3/uL (1.5-3.5); LYMPHOCYTES % (AUTO) 46.8 %; MEAN CORPUSCULAR HEMOGLOBIN 27.9 pg (27.0-31.0); MEAN CORPUSCULAR HGB CONC 32.7 g/dL (32.0-36.0); MEAN CORPUSCULAR VOLUME 85.3 fL (81.0-99.0); MEAN PLATELET VOLUME 10.5 fL (7.9-10.8); MONOCYTES # (AUTO) 0.8 10^3/uL (0.0-1.0); MONOCYTES % (AUTO) 9.6 %; NEUTROPHILS # (AUTO) 3.2 10^3/uL (1.5-6.6); NEUTROPHILS % (AUTO) 37.7 %; PLT - PLATELET COUNT 207 10^3/uL (130-450); RED BLOOD COUNT 4.48 10^6/uL (4.20-5.40); RED CELL DISTRIBUTION WIDTH 13.4 % (12.0-15.0); WHITE BLOOD COUNT 8.4 x10^3/uL (4.8-10.8)
[2023-06-05 06:19] LABS: CALCIUM 8.6 mg/dL (8.5-10.3); CREATININE 0.8 mg/dL (0.6-1.3); MAGNESIUM 1.7 mg/dL (1.7-2.3); POTASSIUM 3.3 mmol/L (3.5-4.5)
[2023-06-05] MEDS: SACCHAROMYCES BOULARDII 250 MG CAPSULE PO SCH (08:23)
[2023-06-05] MEDS: amLODIPine 5 MG TABLET PO SCH (08:23)
[2023-06-05] MEDS: FERROUS SULFATE 325 MG TABLET PO SCH (08:23)
[2023-06-05] MEDS: BUPRENORPHINE/NALOXONE 8-2 MG TAB SL SCH (08:24)
[2023-06-05] MEDS: HEPARIN 5,000 UNIT/ML VIAL SUBQ SCH (08:28)
[2023-06-05] MEDS ORDERED: NON FORMULARY MED (Magnesium [Magnesium] 250 MG Tablet) PO SCH (09:00)
--- NOTE | 2023-06-05 11:10 | PHARMACY PROGRESS NOTE ---
- Best Possible Medication History Admit Date and Time: 06/02/232021 Processed by: Pharmacy Medication History completed: Yes Patient Interview: Pt unable to participate Secondary Source(s): Pharmacy records, Insurance records, Previous admit records As the person ultimately responsible for medication therapy, providers are able to order a medication from an existing home medication list in [facility] via the "Reconcile Routine" prior to Confirmation of that medication by naval surface fire support planner. Such practice is discouraged except when the physician, in their clinical judgment, deems that a medical need exists for a medication without regard to previous use.
--- NOTE | 2023-06-05 12:35 | Discharge Plan ---
Discharge Plan Problem Reviewed?: Yes Diet: Regular Activity Restrictions: Activity as Tolerated Shower Restrictions: No Driving Restrictions: No Assistance Devices: Walker No Smoking: If you smoke, Please STOP! Call for help. Disposition: 01 Home, Self Care Condition: Stable Prescriptions: Potassium Chloride 20 meq PO DAILY #450 ml Health Concerns: You have chronic back pain and you just had a TENS unit placed on May 30. You presented to the emergency room with intractable nausea and vomiting and generalized abdominal pain ever since you had a TENS unit placed. In the emergency room you were found to be very dehydrated with a low potassium, worse renal function, low blood pressure, and a fast heart rate. We were worried that you had an infection because your white cell count was elevated but, in retrospect, we think that your white cell count was elevated because you were severely dehydrated. You did not have a urinary tract infection. Your chest x- ray showed possible early pneumonia but her follow-up chest x-ray showed that that was not present. You responded very well to IV fluids, intravenous potassium, Zofran for nausea and vomiting. Your kidney function went to normal within 48 hours. And your white cell count went to normal within 48 hours. When we did a CAT scan of your abdomen we found you to have a small hiatal hernia. The vomiting had caused the lower part of your esophagus to get a little bit swollen. You have clips from previous surgery. Kidneys did not have blockages, your bowel did not have blockages or abscess. However you do have a small narrowing of the colon underneath your liver. We do not have a diagnosis for that. Plan of Treatment: Please see your primary care provider in follow-up.Your primary care provider may need to do a CBC and a BMP to make sure that your white cell count stayed normal. And that your potassium, kidneys remain normal. Wanted to things you may need to do to schedule colonoscopy to get that narrowing in the bowel that was seen. Care Goals: No change in overall goals. Assessment: Patient is alert, oriented to person place and time, will follow-up with primary care provider Follow-up with: Siobhan Wood ARNP [Primary Care Provider] -
--- NOTE | 2023-06-05 15:31 | DISCHARGE SUMMARY ---
"Discharge Summary Admit Date: 06/02/23 Discharge Date: 06/05/23 Discharging Provider: Queenie Mustafa MD Primary Care Provider: NIECY Carlin Code Status: Attempt Resuscitation Condition at Discharge: Stable Discharge Disposition: 01 Home, Self Care - DIAGNOSES Discharge Diagnoses with Status of Each Condition: 1. Intractable nausea and vomiting 2. Gastroenteritis 3. Hypokalemia 4. Hypomagnesemia 5. Chronic back pain 6. Other mechanical complication of other implanted electronic stimulator of nervous system, subsequent encounter 7. Acute kidney injury 8. Hypertension history 9. Hypotension 10. Altered mental status 11. Obstructive sleep apnea on CPAP 12. Abnormal colon on CT abdomen and pelvis - HPI History of Present Illness: This is a 67yo female past medical history for chronic back pain,HTN who had a TENS unit placed on the 27 of this month chronically was on dilaudid presenting to the ED with chief complaint of intractable nausea,vomiting and abdominal pain. cannot hold anything this has been ongoing in the last day or two. Persistent of symptoms prompted her to seek medical attention therefore coming to the ED.No fever,no chills,no diarrhea,no constipation.In the ED he was noted to be dehydrated with hypokalemia,MILAGRO,low blood pressure,tachycardic. Patient received iv fluid resuscitation, antiemetic .her wbc were also elevated at 21k so was given iv abx for presumed infection. I evaluated pt on the floor using zoom assisted technology with nurse at bedside facilitating.Pt is comfortable saying she feels much better after fluids and abx in the ED.She is wake alert verbalizing appropriately. - Past Medical History Cardiovascular: reports: Hypertension Respiratory: reports: COPD GI: reports: GERD Psych: reports: Depression MRSA Hx?: No - Past Surgical History General: reports: Appendectomy Ortho: reports: Knee replacement, Spine surgery /HISTORICAL MANUSCRIPTS CURATOR: reports: Hysterectomy HEENT: reports: Tonsil/Adenoidectomy - CONSULTS | PROCEDURES Procedures: 2 chest x-rays. The first chest x-ray had possible atelectasis or early infection with aspiration. Second chest x-ray showed complete resolution of previous abnormalities. CT of abdomen and pelvis with bibasilar atelectasis. And absent gallbladder. Mild to moderate atrophy of the pancreas. Possible hypoattenuating lesion in the spleen but also seen 2021. Consider follow-up if there is a history of malignancy. The kidneys had multifocal scarring and cortical narrowing. Mild thickening of the distal esophagus and proximal stomach. No abscess or obstruction. Right back pump and intrathecal device. Small hiatal hernia. Small narrowing is seen at the hepatic flexure possibly peristalsis less likely a mass. Regardless consider correlation with screening colonoscopy. Blood cultures from June 02 without growth - HOSPITAL COURSE Hospital Course: The overall impression was that of a severely dehydrated female due to intractable nausea and vomiting. It is not quite clear what set off the intractable nausea and vomiting. It was associated with a TENS unit. The jessica ent says that she gets very quickly dehydrated whenever she gets sick. We were worried about infection because of an elevated white cell count but in retrospect we think this was demargination. She did get empiric antibiotic therapy for possible aspiration pneumonitis but that resolved quite quickly on chest x-ray. Within 48 hours intractable vomiting had gone. She was able to keep food down. She still had mild nausea on June 04 but was gone by June 05. She did not have any further diarrhea after 2 days. Labs were normal. We do note that she had an abnormal hepatic flexure narrowing on CT and may need outpatient follow-up for that. She has now been able to keep food down for 24 hours. She feels stable enough to go home. I explained to her that she should see her primary care provider in follow-up in the next 1 to 2 weeks to get the BMP and CBC. Consider getting a colonoscopy. I explained to her that I will be sending her home on liquid potassium for the next 30 days. She is not able to take capsules or extended release formulations because of the dicyclomine, and previous gastric surgery. She is due to follow-up with her neurologist for the TENS unit in the next week as well. Discharge exam had a temperature of 36.6. Heart rate 82. Blood pressure 142/80. Orthostatics were done and supine blood pressure 124/71 with a pulse of 85. Sitting was 101/73 with a pulse of 87. Standing was 124/78 with a pulse of 96. Respirations were 18. 95% on room air. She is a 4 foot 10 female who is in no acute distress. She has bilateral arcus senilis with the left eye having considerably more arcus. Comfortable. Normal conversation. No increased respiratory effort. 74 kg. Protuberant abdomen. Nontender. Normal bowel sounds. Extremities with minimal edema. She is able to stand on her own and walk on her own. Patient is discharged in stable condition. Greater than 30 minutes was spent coordinating discharge This document was made in part using voice recognition software. While efforts are made to proofread this document, sound alike and grammatical errors may occur. - ALLERGIES Allergies/Adverse Reactions: Allergies Allergy/AdvReac Type Severity Reaction Status Date / Time garlic Allergy Unknown Verified 06/02/23 12:20 oxycodone Allergy Hives Verified 06/02/23 12:20 Penicillins Allergy Anaphylaxis Verified 06/02/23 12:20 atenolol AdvReac Unknown Verified 06/02/23 12:20 lisinopril AdvReac Unknown Verified 06/02/23 12:20 - MEDICATIONS Home Medications: Ambulatory Orders Medication Instructions Recorded Confirmed Bismuth Subsalicylate 2 tab PO DAILY 09/22/22 06/02/23 [Pepto-Bismol] Cholecalciferol (Vitamin D3) 1 cap PO DAILY 09/22/22 06/02/23 [Vitamin D3] Ascorbic Acid [Vitamin C] 2,000 mg PO DAILY 04/02/23 06/02/23 Biotin 5,000 mcg PO DAILY 04/02/23 06/02/23 Calcium Carbonate [Calcium] 1,200 mg PO HS 04/02/23 06/02/23 DULoxetine [Cymbalta] 30 mg PO BID 04/02/23 06/02/23 Ferrous Sulfate 325 mg PO DAILY 04/02/23 06/02/23 Magnesium 500 mg PO DAILY 04/02/23 06/02/23 Nitroglycerin [Nitrostat] 0.4 mg SL [id number] 04/02/23 06/02/23 Pravastatin Sodium 20 mg PO HS 04/02/23 06/02/23 amLODIPine [Norvasc] 5 mg PO BID 04/02/23 06/02/23 buprenorphine HCL [Buprenorphine 12 mg SL BID 04/02/23 06/02/23 HCl] tiZANidine [Zanaflex] 4 mg PO Q8H 04/02/23 06/02/23 traZODone [Desyrel] 50 mg PO HS 04/02/23 06/02/23 Dicyclomine [Bentyl] 10 mg PO BID PRN #10 cap 04/15/23 06/02/23 HYDROmorphone [Dilaudid] 4 mg PO Q8HR PRN 06/02/23 06/02/23 Metoprolol Tartrate [Lopressor] 100 mg PO BID 06/05/23 06/05/23 Montelukast Sodium 10 mg PO QPM 06/05/23 06/05/23 Potassium Chloride 20 meq PO DAILY #450 ml 06/05/23 - LABS Result Diagrams: 06/05/23 05:51 06/05/23 05:51"
[2023-06-05 15:44] VITALS: BP 142/80; O2SAT 95
== END 2023-06-05 16:30 | disposition home or self-care (01) | DRG 641 ==
LOC: EDUNIT# → ED 12:10 → SUPCPDRO 12:10 → MS2 20:22
PROVIDERS: ADMIT Internal Medicine; ATTEND Specialist
DX: E86.0 Dehydration (principal); R10.84 Generalized abdominal pain; D72.829 Elevated white blood cell count, unspecified; N17.9 Acute kidney failure, unspecified; T85.199A Other mechanical complication of other implanted electronic stimulator of nervous system, initial encounter; R00.0 Tachycardia, unspecified; R94.31 Abnormal electrocardiogram [ECG] [EKG]; R65.10 Systemic inflammatory response syndrome (SIRS) of non-infectious origin without acute organ dysfunction; K52.9 Noninfective gastroenteritis and colitis, unspecified; Z11.52 Encounter for screening for COVID-19; E87.6 Hypokalemia; E83.42 Hypomagnesemia; G89.29 Other chronic pain; M54.9 Dorsalgia, unspecified; I10 Essential (primary) hypertension; I95.9 Hypotension, unspecified; R41.82 Altered mental status, unspecified; G47.33 Obstructive sleep apnea (adult) (pediatric); R93.3 Abnormal findings on diagnostic imaging of other parts of digestive tract; J44.9 Chronic obstructive pulmonary disease, unspecified; K21.9 Gastro-esophageal reflux disease without esophagitis; F32.A Depression, unspecified; E66.01 Morbid (severe) obesity due to excess calories; Z79.899 Other long term (current) drug therapy; Z90.49 Acquired absence of other specified parts of digestive tract; Z90.710 Acquired absence of both cervix and uterus; Z96.659 Presence of unspecified artificial knee joint
CPT/HCPCS: 36415; 71045; 74177; 80048; 80053; 81001; 83605; 83735; 84100; 85025; 87040; 87493; 87633; 93005; 96361; 96365; 96368; 96375; 97166; 97530; 99285; A9270; J1170; Q9967; 87086

== ENCOUNTER 2023-06-29 13:07 | Outpatient (CLI) | payer MEDICARE | END 2023-06-29 23:59 | disposition critical access hospital (66) | LOC: EMS 13:07 | DX: R07.9 Chest pain, unspecified (principal); R11.2 Nausea with vomiting, unspecified | CPT/HCPCS: A0425; A0429 ==

== ENCOUNTER 2023-06-29 13:38 | Emergency (ER) | payer MEDICARE ==
[~2023-06-29 13:38] MED LIST changes: -GADOBUTROL 7.5 MMOL/7.5 ML VIAL ONE; +iohexoL-300 100 ML VIAL IVP ONE
[2023-06-29] MEDS ORDERED: ONDANSETRON 4 MG/2 ML VIAL IVP STA (13:59)
[2023-06-29] MEDS ORDERED: HYDROmorphone 1 MG/ML CARPUJECT IVP STA ×2 (13:59→14:24)
[2023-06-29] MEDS ORDERED: NITROGLYCERIN SL 0.4 MG TABLET SL STA (13:59)
--- NOTE | 2023-06-29 14:00 | ED Physician Documentation ---
PD HPI CHEST PAIN - Stated complaint Stated Complaint: CP - Chief complaint Chief Complaint: Cardiac - History obtained from History obtained from: Patient - Additional information Additional information: 67-year-old woman who says she has had 2 heart attacks in the past due to stress, and has a history of hypertension developed severe substernal chest pressure about an hour ago while at rest. She is short of breath and dizzy with it. She does not radiate to the back. Came in by ambulance and reportedly prehospital EKG was unremarkable. No medication administered and route. She does have chronic pain and buprenorphine is with her meds, she says she has not taken it in 2 weeks. 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: Hysterectomy HEENT: Tonsil/Adenoidectomy - Present Medications Home Medications: Ambulatory Orders Medication Instructions Recorded Confirmed DULoxetine [Cymbalta] 30 mg PO BID 04/02/23 06/29/23 Nitroglycerin [Nitrostat] 0.4 mg SL [id number] 04/02/23 06/29/23 Pravastatin Sodium 20 mg PO HS 04/02/23 06/29/23 amLODIPine [Norvasc] 5 mg PO BID 04/02/23 06/29/23 tiZANidine [Zanaflex] 4 mg PO Q8H 04/02/23 06/29/23 traZODone [Desyrel] 50 mg PO HS 04/02/23 06/29/23 Metoprolol Tartrate [Lopressor] 100 mg PO BID 06/05/23 06/29/23 HYDROcod/ACETAM 5/325 [[place] 5/325] 1 - 2 tab PO Q6H PRN #10 tablet 06/29/23 - Allergies Allergies/Adverse Reactions: Allergies Allergy/AdvReac Type Severity Reaction Status Date / Time garlic Allergy Unknown Verified 06/29/23 13:52 oxycodone Allergy Hives Verified 06/29/23 13:52 Penicillins Allergy Anaphylaxis Verified 06/29/23 13:52 atenolol AdvReac Unknown Verified 06/29/23 13:52 lisinopril AdvReac Unknown Verified 06/29/23 13:52 - Social History Does the pt smoke?: No Smoking Status: Never smoker Does the pt drink ETOH?: No Does the pt have substance abuse?: No - Immunizations Immunizations are current?: Yes - POLST Patient has POLST: Yes PD ED PE NORMAL - Vitals Vital signs reviewed: Yes - General General: Alert and oriented X 3, Other (She appears to be in severe pain due to chest pain) - HEENT HEENT: PERRL, EOMI - Neck Neck: Supple, no meningeal sign, No bony TTP - Cardiac Cardiac: RRR, No murmur - Respiratory Respiratory: No respiratory distress, Clear bilaterally - Abdomen Abdomen: Non tender - Extremities Extremities: No edema, No calf tenderness / cord - Neuro Neuro: Alert and oriented X 3, Normal speech Results - Vitals Vitals: Vital Signs - 24 hr 06/29/23 06/29/23 06/29/23 13:45 14:21 14:51 Temperature 36.8 C Heart Rate 88 91 98 Respiratory 20 20 18 Rate Blood Pressure 163/82 H 147/89 H 197/89 H O2 Saturation 97 97 94 If not protocol : Oxygen Flow, liters/minute 06/29/23 06/29/23 06/29/23 15:00 15:30 16:00 Temperature Heart Rate 102 H 101 H 97 Respiratory 20 15 15 Rate Blood Pressure 197/99 H 212/103 H 168/81 H O2 Saturation 97 97 95 If not protocol 2 : Oxygen Flow, liters/minute 06/29/23 06/29/23 16:30 17:00 Temperature Heart Rate 98 99 Respiratory 16 18 Rate Blood Pressure 173/87 H 172/77 H O2 Saturation 95 97 If not protocol : Oxygen Flow, liters/minute Oxygen O2 Source Room air - EKG (time done) 1410 EKG releavant findings:: EKG personally interpreted by author of this note. Relevant findings are: Rate: Rate (enter#) (89) Rhythm: NSR [place]: Normal Intervals: Normal [place] QRS: Normal Ischemia: Normal ST segments Computer interpretation: Agree with computer - Labs Labs: Laboratory Tests 06/29/23 06/29/23 06/29/23 14:20 14:20 16:21 WBC 17.9 H RBC 5.37 Hgb 15.4 Hct 49.1 H MCV 91.4 MCH 28.7 MCHC 31.4 L RDW 13.1 Plt Count 347 MPV 10.0 Neut # (Auto) 14.0 H Lymph # (Auto) 2.5 [place] # (Auto) 0.9 Eos # (Auto) 0.3 Baso # (Auto) 0.1 Absolute Nucleated RBC 0.00 Nucleated RBC % 0.0 Sodium 137 Potassium 3.9 Chloride 102 Carbon Dioxide 22 Anion Gap 13.0 BUN 19 Creatinine 0.8 Estimated GFR (MDRD) 71 L Glucose 160 H Calcium 9.7 Total Bilirubin 0.4 AST 18 ALT 15 Alkaline Phosphatase 100 Troponin I High Sens 3.7 3.7 Total Protein 7.2 Albumin 4.3 Globulin 2.9 Albumin/Globulin Ratio 1.5 Lipase < 10 L - Rads (name of study) CT angiography of the chest showing moderate proximal left subclavian artery stenosis and severe coronary calcification and a small hiatal hernia. Relevant Findings:: Final report received, EMP independent interpretation of test PD Medical Decision Making - ED course ED course: 67-year-old woman looking like she is in very severe pain from chest pain, pain is really out of proportion to examination. Her EKG was nonischemic and initial troponin negative. She does have nonspecific leukocytosis and an unremarkable CMP otherwise. Her troponin was rechecked after 2 hours and was not changed at all. She did not get much relief from narcotics, but had good relief after droperidol IV for her pain. Because of the severity of her pain CT angiography was done without acute vascular abnormality. She was told about the incidental findings (coronary calcifications, subclavian stenosis, and recurrent hiatal hernia noting she had a Cali approximately 4 years ago). And she will follow- up with her primary care physician for these. Departure - Departure Disposition: 01 Home, Self Care Clinical Impression: Chest pain Condition: Good Instructions: ED Chest Pain NonCardiac Prescriptions: HYDROcod/ACETAM 5/325 [[place] 5/325] 1 - 2 tab PO Q6H PRN #10 tablet PRN Reason: Pain Comments: You are seen today for terrible chest pain but thankfully no serious cause was identified. You have a small recurrent hiatal hernia which may be contributing, but heart testing, specifically troponins and EKG were without signs of heart attack and the CAT scan was without sign of a severe vascular issue such as aortic dissection. They did notice that you have some tightening in the artery going to your left shoulder and calcium in your coronary arteries which puts you at risk for heart attack in the future, but again there is no sign of anything like that now. Follow-up with your doctor who should reevaluate you and also consider sending you to a vascular surgeon for evaluation given the tightening in that artery in your shoulder, and may want to send you to GI regarding the recurrent hiatal hernia. Return for new or worsening symptoms. I sent your prescription electronically to [facility] in [place]. I am prescribing a short course of narcotic pain medication for you. These are potentially dangerous and addictive medications that should be used carefully. These medications may constipate you. Take an qpyi-jug-rjgelme stool softener (docusate) twice daily with plenty of water while taking these medications. If you go 24 hours without a bowel movement, take axsw-ola-[id number] miralax, per package instructions. Do not drink or drive while taking these medications. If you received narcotic or sedating medications while in the emergency department, do not drive for 24 hours. Store this medication in a safe, secure place and out of reach of children. It is a violation of federal law to give or sell this medication to another person or to use in a manner other than prescribed. The ED will not refill narcotic prescriptions, including prescriptions lost or stolen. To dispose of unwanted medications: 1. [facility] provides a drop box for medication in pill form only (no liquids) 8:00 am to 4:30 p.m. Sunday-Sunday in the lobby of the [facility], [address] [place] [address]. Empty pills into ziplock bag before disposal. Call [phone] for information. 2.[employer] is a free service available to all [facility] residents. Go to [email or web address] Note that many narcotic pain relievers also contain Tylenol/acetaminophen. Please ensure that your total dose of acetaminophen from all sources does not exceed 3 g (3000 mg) per day. Forms: PCP List
[2023-06-29 14:32] LABS: BASOPHILS # (AUTO) 0.1 10^3/uL (0.0-0.1); BASOPHILS % (AUTO) 0.5 %; EOSINOPHILS # (AUTO) 0.3 10^3/uL (0.0-0.7); EOSINOPHILS % (AUTO) 1.5 %; HCT - HEMATOCRIT 49.1 % (37.0-47.0); HGB - HEMOGLOBIN 15.4 g/dL (12.0-16.0); LYMPHOCYTES # (AUTO) 2.5 10^3/uL (1.5-3.5); MEAN CORPUSCULAR HEMOGLOBIN 28.7 pg (27.0-31.0); MEAN CORPUSCULAR HGB CONC 31.4 g/dL (32.0-36.0); MEAN CORPUSCULAR VOLUME 91.4 fL (81.0-99.0); MONOCYTES # (AUTO) 0.9 10^3/uL (0.0-1.0); NEUTROPHILS % (AUTO) 78.4 %; PLT - PLATELET COUNT 347 10^3/uL (130-450); RED BLOOD COUNT 5.37 10^6/uL (4.20-5.40); RED CELL DISTRIBUTION WIDTH 13.1 % (12.0-15.0); WHITE BLOOD COUNT 17.9 x10^3/uL (4.8-10.8)
[2023-06-29 14:54] LABS: TROPONIN I HIGH SENSITIVITY 3.7 ng/L (2.3-14.8)
[2023-06-29 15:13] LABS: ALBUMIN 4.3 g/dL (3.2-5.5); ALBUMIN/GLOBULIN RATIO 1.5 (1.0-2.2); ALKALINE PHOSPHATASE 100 IU/L (42-121); ALT ALANINE AMINOTRANSFERASE 15 IU/L (10-60); AST ASPARTATE AMINOTRANSFERASE 18 IU/L (10-42); BILIRUBIN,TOTAL 0.4 mg/dL (0.2-1.0); BUN - BLOOD UREA NITROGEN 19 mg/dL (6-20); CALCIUM 9.7 mg/dL (8.5-10.3); CARBON DIOXIDE - CO2 22 mmol/L (21-32); CHLORIDE 102 mmol/L (101-111); CREATININE 0.8 mg/dL (0.6-1.3); GFR - MDRD 71 (>89); GLUCOSE 160 mg/dL (74-104); POTASSIUM 3.9 mmol/L (3.5-4.5); SODIUM 137 mmol/L (135-145); TOTAL PROTEIN 7.2 g/dL (6.4-8.9)
[2023-06-29 15:15] LABS: LIPASE < 10 U/L (11-82)
--- NOTE | 2023-06-29 15:16 | XRAY Report ---
PROCEDURE: Chest 1V INDICATIONS: Chest pain TECHNIQUE: One view of the chest was acquired. COMPARISON: None. FINDINGS: Surgical changes and devices: None. Lungs and pleura: No pleural effusions or pneumothorax. Lungs are clear. Mediastinum: Mediastinal contours appear normal. Heart size is normal. Bones and chest wall: No suspicious bony lesions. Overlying soft tissues appear unremarkable. IMPRESSION: No acute cardiopulmonary process. Reviewed by: Junior Bowman MD on 06/29/2023 3:15 PM PST Approved by: Junior Bowman MD on 06/29/2023 3:15 PM PST Station ID: [id number]
[2023-06-29] MEDS ORDERED: DROPERIDOL 5 MG/2 ML VIAL IVP STA (15:17)
[2023-06-29] MEDS ORDERED: iohexoL-300 100 ML VIAL ONE (15:21)
--- NOTE | 2023-06-29 16:10 | CT Report ---
PROCEDURE: Angio Chest INDICATIONS: Chest pain, aorta protocol CONTRAST: 80ml omni 300 TECHNIQUE: After the administration of intravenous contrast, 2 mm axial images were acquired from the pulmonary apices to the posterior costophrenic angles during the arterial phase. In addition, 1 mm lung kernel and 5 mm soft tissue kernel reconstructions were performed. 3-dimensional coronal oblique maximum int ensity projection (MIP) reformats, 8 mm axial MIP, and 5 mm coronal and sagittal MPR reformats were t hen performed through the thorax. For radiation dose reduction, the following was used: automated exp osure control, adjustment of mA and/or kV according to patient size. COMPARISON: None. FINDINGS: Image quality: Excellent. Large vessels: No filling defects within the opacified pulmonary arteries, accounting for motion and contrast timing. No evidence of acute aortic syndrome or aortic aneurysm. Normal caliber thoracic ao rta without dissection.There is moderate proximal left subclavian stenotic disease, mixture of soft a nd hard plaque, proximal to the origin of the left vertebral artery. Thoracic aorta is of normal sam dania. Lungs and pleura: No consolidation. No pleural effusions. No pneumothorax. No suspicious pulmonary n odules which require follow up. Mediastinum: Heart size is normal. No pericardial effusion. Severe coronary artery calcifications. Sm all hiatal hernia. No mediastinal adenopathy by size criteria. Chest wall and lower neck: Thyroid is unremarkable. No axillary or supraclavicular adenopathy by size . Bones: No aggressive osseous abnormality. Upper Abdomen: Gallbladder is surgically absent.. IMPRESSION: 1. Normal caliber thoracic aorta without dissection. 2. Moderate proximal left subclavian artery stenotic disease. 3. Severe coronary artery calcifications. 4. No pulmonary emboli. 5. No acute pulmonary process. 6. Small hiatal hernia. Reviewed by: Marcell Miguel MD on 06/29/2023 4:08 PM PST Approved by: Marcell Miguel MD on 06/29/2023 4:08 PM PST Station ID: [id number]
[2023-06-29 17:13] VITALS: BP 172/77; O2SAT 97
== END 2023-06-29 17:16 | disposition home or self-care (01) ==
LOC: EDUNIT# → ED 13:38
DX: R07.9 Chest pain, unspecified (principal); I10 Essential (primary) hypertension; Z86.79 Personal history of other diseases of the circulatory system
CPT/HCPCS: 36415; 71045; 71275; 80053; 83690; 84484; 85025; 93005; 96374; 96375; 99284; A9270; J1170; Q9967

== ENCOUNTER 2023-07-04 01:15 | Emergency (ER) | payer MEDICARE ==
[2023-07-04 01:48] LABS: BASOPHILS % (AUTO) 0.2 %; EOSINOPHILS # (AUTO) 0.1 10^3/uL (0.0-0.7); EOSINOPHILS % (AUTO) 0.4 %; HCT - HEMATOCRIT 48.9 % (37.0-47.0); HGB - HEMOGLOBIN 16.9 g/dL (12.0-16.0); LYMPHOCYTES # (AUTO) 2.4 10^3/uL (1.5-3.5); LYMPHOCYTES % (AUTO) 15.3 %; MEAN CORPUSCULAR HEMOGLOBIN 28.8 pg (27.0-31.0); MEAN CORPUSCULAR HGB CONC 34.6 g/dL (32.0-36.0); MEAN CORPUSCULAR VOLUME 83.4 fL (81.0-99.0); MEAN PLATELET VOLUME 9.9 fL (7.9-10.8); MONOCYTES # (AUTO) 0.5 10^3/uL (0.0-1.0); NEUTROPHILS # (AUTO) 12.7 10^3/uL (1.5-6.6); NEUTROPHILS % (AUTO) 80.7 %; PLT - PLATELET COUNT 453 10^3/uL (130-450); RED BLOOD COUNT 5.86 10^6/uL (4.20-5.40); RED CELL DISTRIBUTION WIDTH 12.1 % (12.0-15.0); WHITE BLOOD COUNT 15.8 x10^3/uL (4.8-10.8)
[2023-07-04] MEDS: DROPERIDOL 5 MG/2 ML VIAL IVP STA (02:05)
[2023-07-04 02:06] LABS: ALBUMIN 4.9 g/dL (3.2-5.5); ALBUMIN/GLOBULIN RATIO 1.5 (1.0-2.2); BILIRUBIN,TOTAL 0.6 mg/dL (0.2-1.0); CALCIUM 10.4 mg/dL (8.5-10.3); CREATININE 1.2 mg/dL (0.6-1.3); TOTAL PROTEIN 8.2 g/dL (6.4-8.9)
[2023-07-04 02:11] LABS: TROPONIN I HIGH SENSITIVITY 24.9 ng/L (2.3-14.8)
[2023-07-04] MEDS ORDERED: SODIUM CHLORIDE 0.9% 1,000 ML IV STA (02:12)
[2023-07-04] MEDS: HYDROmorphone 1 MG/ML CARPUJECT IM STA (02:24)
[2023-07-04] MEDS: ONDANSETRON ODT 4 MG TABLET TL STA (02:24)
--- NOTE | 2023-07-04 03:06 | ED Physician Documentation ---
History of Present Illness - Stated complaint Stated Complaint: ABD PX - Chief complaint Chief Complaint: Abd Pain - History obtained from History obtained from: Patient - Additonal information Additional information: Patient is a 67-year-old female with a history of hiatal hernia presenting for evaluation of left upper quadrant pain with associated nausea and dry heaving starting around 5 or 6 PM. Patient states that it started after eating a peanut butter sandwich and this feels like her hernia pain. She was seen here a few days ago for chest pain with a workup to include a CT angio to rule out dissection which was unremarkable and given a prescription for oxycodone. She reports taking the oxycodone at home without any improvement. Patient reports have a long history of abdominal symptoms that she attributes to needing her hernia repaired. She has had a prior Cali fundoplication. Reports having 1 loose stool today. Denies recent cannabis use. Denies alcohol use. Pain is sharp. Nothing makes it better or worse. 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: Hysterectomy HEENT: Tonsil/Adenoidectomy - Present Medications Home Medications: Ambulatory Orders Medication Instructions Recorded Confirmed DULoxetine [Cymbalta] 30 mg PO BID 04/02/23 06/29/23 Nitroglycerin [Nitrostat] 0.4 mg SL [id number] 04/02/23 06/29/23 Pravastatin Sodium 20 mg PO HS 04/02/23 06/29/23 amLODIPine [Norvasc] 5 mg PO BID 04/02/23 06/29/23 tiZANidine [Zanaflex] 4 mg PO Q8H 04/02/23 06/29/23 traZODone [Desyrel] 50 mg PO HS 04/02/23 06/29/23 Metoprolol Tartrate [Lopressor] 100 mg PO BID 06/05/23 06/29/23 HYDROcod/ACETAM 5/325 [[place] 5/325] 1 - 2 tab PO Q6H PRN #10 tablet 06/29/23 - Allergies Allergies/Adverse Reactions: Allergies Allergy/AdvReac Type Severity Reaction Status Date / Time garlic Allergy Unknown Verified 07/04/23 01:27 oxycodone Allergy Hives Verified 07/04/23 01:27 Penicillins Allergy Anaphylaxis Verified 07/04/23 01:27 atenolol AdvReac Unknown Verified 07/04/23 01:27 lisinopril AdvReac Unknown Verified 07/04/23 01:27 - Social History Does the pt smoke?: No Smoking Status: Never smoker Does the pt drink ETOH?: No Does the pt have substance abuse?: No - Immunizations Immunizations are current?: Yes - POLST Patient has POLST: Yes PD ED PE NORMAL - General General: Alert and oriented X 3, Well developed/nourished, Other (Groaning in pain and holding her abdomen) - HEENT HEENT: Atraumatic, Moist mucous membranes, Pharynx benign - Neck Neck: Supple, no meningeal sign - Cardiac Cardiac: RRR, Strong equal pulses - Respiratory Respiratory: No respiratory distress, Clear bilaterally - Abdomen Abdomen: Normal bowel sounds, Soft, Non distended, Other (Left upper quadrant And epigastric tenderness) - Derm Derm: Warm and dry - Neuro Neuro: Normal speech Results - Vitals Vitals: Vital Signs - 24 hr 07/04/23 07/04/23 07/04/23 01:21 03:27 05:00 Temperature 36.8 C Heart Rate 120 H 77 75 Respiratory 15 16 16 Rate Blood Pressure 133/101 H 103/69 109/63 O2 Saturation 96 97 97 Oxygen O2 Source Room air - EKG (time done) 0214 EKG releavant findings:: EKG personally interpreted by author of this note. Relevant findings are: Rate 94, normal sinus rhythm, no STEMI, QTc 486 - Labs Labs: Laboratory Tests 07/04/23 07/04/23 07/04/23 01:45 01:45 03:09 WBC 15.8 H RBC 5.86 H Hgb 16.9 H Hct 48.9 H MCV 83.4 MCH 28.8 MCHC 34.6 RDW 12.1 Plt Count 453 H MPV 9.9 Neut # (Auto) 12.7 H Lymph # (Auto) 2.4 [place] # (Auto) 0.5 Eos # (Auto) 0.1 Baso # (Auto) 0.0 Absolute Nucleated RBC 0.00 Nucleated RBC % 0.0 Sodium 133 L Potassium 4.0 Chloride 94 L Carbon Dioxide 24 Anion Gap 15.0 H BUN 42 H Creatinine 1.2 Estimated GFR (MDRD) 45 L Glucose 176 H Calcium 10.4 H Total Bilirubin 0.6 AST 20 ALT 17 Alkaline Phosphatase 120 Troponin I High Sens 24.9 H* 27.3 H* Total Protein 8.2 Albumin 4.9 Globulin 3.3 Albumin/Globulin Ratio 1.5 Lipase 11 PD Medical Decision Making - ED course Complexity details: reviewed results, re-evaluated patient, d/w patient ED course: Patient is a 67-year-old female presenting for evaluation of upper abdominal pain with associated nausea. Patient has had prior presentations to this ER and 2 other hospitals was similar complaints. Labs including CBC, chemistries, troponin were obtained and reviewed. Labs significant for mild leukocytosis of 15,000 which is improved from labs a few days ago. Mild elevation in troponin of 24. States she has not had chest pain today That the pain is localized to the upper abdomen. EKG is reviewed and nonischemic. Chest x-ray which I reviewed is negative for consolidation or signs of free air. Patient received droperidol with significant improvement in her symptoms. She did not require any further medications for her symptoms. Repeat troponin was obtained and without significant increase Therefore I feel ACS is unlikely As her symptoms have been ongoing for hours. CT scan of the abdomen and pelvis was also ordered. Patient was difficult IV access and so it was done without contrast and without any acute findings. I did review prior presentations here as well as through the [facility] system and notes indicate no Significant pathology or etiology for her symptoms found with workups.Patient counseled on need for close follow-up with PCP as well as her GI doctor. She is advised on concerning symptoms to return for. She is ambulatory at discharge. 0245 - Reports her pain is much better. Denies having chest pain. States that the pain today was only in the abdomen. States she was here a few days ago and did have chest pain at that time. Understands plan for repeat troponin. 0459 - Continues to rest comfortably since receiving droperidol. Reviewed testing including troponins as well as CT scan results. Patient is feeling better and would like to go home. She understands the importance of close follow-up. Departure - Departure Disposition: Home, Self Care Clinical Impression: Upper abdominal pain Condition: Stable Instructions: ED Abdominal Pain Female Non-Specific Abdominal Pain Follow-Up: ROSITA DURAN MD [Physician No Access] - Comments: Please have close follow-up with your primary care provider regarding your recent symptoms as well as your GI doctor. Please make sure you are drinking enough fluids and staying hydrated. Return to the emergency department with any recurrent or worsening symptoms. Forms: PCP List Discharge Date/Time: 07/04/23 05:20
[2023-07-04] MEDS ORDERED: iohexoL-300 100 ML VIAL ONE (03:55)
[2023-07-04 05:13] VITALS: BP 109/63; O2SAT 97
--- NOTE | 2023-07-04 09:45 | XRAY Report ---
PROCEDURE: Chest 1V INDICATIONS: Chest pain TECHNIQUE: One view of the chest was acquired. COMPARISON: X-ray chest 06/29/2023. FINDINGS: Surgical changes and devices: Neural stimulator leads project over the thoracic spine. Lungs and pleura: No pleural effusions or pneumothorax. Small amount of fluid seen in the right raina r fissure Mediastinum: Mediastinal contours appear normal. Heart size is normal. Bones and chest wall: No suspicious bony lesions. Overlying soft tissues appear unremarkable. IMPRESSION: Small amount of pleural fluid now seen in the right minor fissure Otherwise normal acute cardiopulmonary process. Reviewed by: Lamont Mclean MD on 07/04/2023 9:44 AM PST Approved by: Lamont Mclean MD on 07/04/2023 9:44 AM PST Station ID: [id number]
--- NOTE | 2023-07-04 10:14 | CT Report ---
PROCEDURE: Abdomen/Pelvis WO INDICATIONS: L sided abd pain TECHNIQUE: A CT scan of the abdomen and pelvis was performed without the use of intravenous contrast. Images we re recorded and evaluated at appropriate window settings. Reformats: coronal and sagittal. For radiat ion dose reduction, the following was used: automated exposure control, adjustment of mA and/or kV ac cording to patient size. COMPARISON: 06/02/2023 FINDINGS: Image quality: Diagnostic Lower chest: Basal scarring/atelectasis. Partially visualized intrathecal device, probably terminatin g within the thoracic thecal sac. Probable coronary and annular heart calcifications. Small hiatal hernia and fluid-filled distal esophagus, with postsurgical changes Liver: Unremarkable Gallbladder and biliary system: Absent, nondilated for postcholecystectomy state Pancreas: Mild to moderate atrophy Spleen: Nonenlarged Adrenals: No discrete nodule Kidneys: Mildly atrophic parenchyma. No contour deforming mass or hydronephrosis Vessels and lymph nodes: Atherosclerotic calcifications without abdominal aortic aneurysm. No patholo gic lymphadenopathy by size criteria. Bowel and peritoneum: No evidence of small bowel obstruction. No discrete mass or inflammatory change s. No pathologic ascites or abscess identified. Solid organs and other findings are not well evaluated on noncontrast CT. Body wall: Unremarkable. Right lower quadrant indeterminate subcutaneous nodule, possibly from medica tion injection, correlate with exam. Pelvis: Bladder is unremarkable. The uterus is absent. Bones: No acute or suspicious osseous finding. Lumbosacral degenerative changes. IMPRESSION: Limited noncontrast CT. No acute or significant abdominopelvic abnormality. Other findings as above. Agree with preliminary report. Reviewed by: Juan Carlos Lantigua MD on 07/04/2023 10:13 AM [facility] Approved by: Juan Carlos Lantigua MD on 07/04/2023 10:13 AM [facility] Station ID: [id number]
== END 2023-07-04 05:20 | disposition home or self-care (01) ==
LOC: EDUNIT# → ED 01:15
DX: R10.12 Left upper quadrant pain (principal); I10 Essential (primary) hypertension; J44.9 Chronic obstructive pulmonary disease, unspecified; Z79.899 Other long term (current) drug therapy
CPT/HCPCS: 36415; 80053; 83690; 84484; 85025; 93005; 96374; 99283

== ENCOUNTER 2023-07-08 11:53 | Outpatient (CLI) | payer MEDICARE | END 2023-07-08 23:59 | disposition critical access hospital (66) | LOC: EMS 11:53 | DX: R10.84 Generalized abdominal pain (principal); R10.817 Generalized abdominal tenderness; R11.0 Nausea | CPT/HCPCS: A0425; A0429 ==

== ENCOUNTER 2023-07-08 12:02 | Emergency (ER) | payer MEDICARE ==
--- NOTE | 2023-07-08 13:48 | ED Physician Documentation ---
PD HPI ABD PAIN - Stated complaint Stated Complaint: DIZZY/NAUSEA/WEAK - Chief complaint Chief Complaint: Abd Pain - History obtained from History obtained from: Patient - Additional information Additional information: Patient is a 67-year-old female with a history of a hiatal hernia presenting for evaluation of upper abdominal pain. Patient reports having recurrent episodes of the symptoms that she attributes to her hiatal hernia. She is awaiting referral back to a surgeon to discuss having her hernia repaired. She has had a prior [place] fundoplication. She reports nausea but no vomiting. She has been seen here twice recently with similar symptoms and states that the only thing that helps is the droperidol that she has received. On her first presentation she was given a prescription for pain medication which she states does not really help her. She reports having 2 episodes of loose stools today. No blood in emesis or stools. No fever, chest pain, shortness of air. Review of Systems Constitutional: denies: Fever Cardiac: denies: Chest pain / pressure Respiratory: denies: Dyspnea GI: reports: Abdominal Pain, Nausea. denies: Vomiting, Bloody / black stool : denies: Dysuria PD PAST MEDICAL HISTORY - Past Medical History Cardiovascular: Hypertension Respiratory: COPD Neuro: None GI: GERD, Hiatal hernia HEENT: None Psych: Depression - Past Surgical History Past Surgical History: Yes General: Appendectomy Ortho: Knee replacement, Spine surgery /GRID [employer]KER: Hysterectomy HEENT: Tonsil/Adenoidectomy - Present Medications Home Medications: Ambulatory Orders Medication Instructions Recorded Confirmed DULoxetine [Cymbalta] 30 mg PO BID 04/02/23 06/29/23 Nitroglycerin [Nitrostat] 0.4 mg SL [id number] 04/02/23 06/29/23 Pravastatin Sodium 20 mg PO HS 04/02/23 06/29/23 amLODIPine [Norvasc] 5 mg PO BID 04/02/23 06/29/23 tiZANidine [Zanaflex] 4 mg PO Q8H 04/02/23 06/29/23 traZODone [Desyrel] 50 mg PO HS 04/02/23 06/29/23 Metoprolol Tartrate [Lopressor] 100 mg PO BID 06/05/23 06/29/23 HYDROcod/ACETAM 5/325 [Pacoima 5/325] 1 - 2 tab PO Q6H PRN #10 tablet 06/29/23 Ondansetron Odt [Zofran] 4 mg TL Q6H PRN #10 tablet 07/08/23 - Allergies Allergies/Adverse Reactions: Allergies Allergy/AdvReac Type Severity Reaction Status Date / Time garlic Allergy Unknown Verified 07/08/23 12:08 oxycodone Allergy Hives Verified 07/08/23 12:08 Penicillins Allergy Anaphylaxis Verified 07/08/23 12:08 atenolol AdvReac Unknown Verified 07/08/23 12:08 lisinopril AdvReac Unknown Verified 07/08/23 12:08 - Social History Does the pt smoke?: No Smoking Status: Never smoker Does the pt drink ETOH?: No Does the pt have substance abuse?: No - Immunizations Immunizations are current?: Yes - POLST Patient has POLST: Yes PD ED PE NORMAL - General General: Alert and oriented X 3, No acute distress, Well developed/nourished - HEENT HEENT: Atraumatic, Moist mucous membranes, Pharynx benign - Neck Neck: Supple, no meningeal sign - Cardiac Cardiac: Other (Tachycardic, regular rhythm) - Respiratory Respiratory: No respiratory distress, Clear bilaterally - Abdomen Abdomen: Normal bowel sounds, Soft, Non distended, Other (Mild epigastric tenderness) - Derm Derm: Warm and dry - Neuro Neuro: Normal speech Results - Vitals Vitals: Vital Signs - 24 hr 07/08/23 07/08/23 07/08/23 12:03 12:11 14:07 Temperature 36.6 C Heart Rate 128 H 115 H Respiratory 18 16 Rate Blood Pressure 160/97 H 115/98 H O2 Saturation 100 98 07/08/23 15:25 Temperature Heart Rate 92 Respiratory 16 Rate Blood Pressure 118/88 H O2 Saturation 98 Oxygen O2 Source Room air - EKG (time done) 1246 EKG releavant findings:: EKG personally interpreted by author of this note. Relevant findings are: Rate 116, sinus tachycardia, no STEMI, QTc 471 - Labs Labs: Laboratory Tests 07/08/23 07/08/23 13:53 13:53 WBC 18.5 H RBC 5.41 H Hgb 15.4 Hct 44.8 MCV 82.8 MCH 28.5 MCHC 34.4 RDW 12.1 Plt Count 446 MPV 9.9 Neut # (Auto) 12.3 H Lymph # (Auto) 4.6 H [place] # (Auto) 1.4 H Eos # (Auto) 0.0 Baso # (Auto) 0.1 Absolute Nucleated RBC 0.00 Nucleated RBC % 0.0 Sodium 133 L Potassium 4.0 Chloride 96 L Carbon Dioxide 23 Anion Gap 14.0 H BUN 25 H Creatinine 1.1 Estimated GFR (MDRD) 49 L Glucose 130 H Calcium 9.8 Total Bilirubin 0.8 AST 21 ALT 18 Alkaline Phosphatase 103 Total Protein 6.7 Albumin 4.2 Globulin 2.5 Albumin/Globulin Ratio 1.7 Lipase < 10 L PD Medical Decision Making - ED course Complexity details: reviewed results, re-evaluated patient, d/w patient ED course: Patient is a 67-year-old female with a history of hiatal hernia presenting for evaluation of epigastric abdominal pain with nausea. She has had recent ED presentations with similar symptoms over the course of the last 2 weeks. Additionally on review of her history she has had prior presentations over the years for this. Actually just saw her a few nights ago with a workup to include labs and a CT scan. She received droperidol during that visit and reported feeling significant improvement. Labs were ordered including CBC and chemistries. Patient is very difficult for IV access. No success for IVs despite attempts by multiple nurses and by other ED physician on duty at this time using u/s. Labs were able to be obtained. Patient initially was tachycardic but afebrile. Had mild tenderness on exam. Labs with leukocytosis of 18,000 which is similar to prior labs that have been obtained. Do suspect some element of dehydration as chloride is low at 96 but also improved from a few days ago. Patient received IM droperidol with improvement in her symptoms. She was able to tolerate p.o. and repeat abdominal exam is benign. I did offer to again look for an IV with an ultrasound So that we could give IV fluids and continue to reevaluate but she reports she is feeling better and would like to go home. She understands importance of close follow-up with her GI doctor. She denies that she has used cannabis recently but has already been advised to not use any cannabis. Patient counseled on concerning symptoms to return for. 1450 - Patient is resting more comfortably after droperidol. Repeat abdominal exam is benign. I have offered to try to start an IV which patient declines as number of people Had already attempted IV start without success. She is wanting to try a p.o. challenge. Departure - Departure Disposition: 01 Home, Self Care Clinical Impression: Upper abdominal pain, Nausea & vomiting, Leukocytosis Condition: Stable Instructions: ED Nausea Vomiting, ED Epigastric Pain [facility] Follow-Up: ROSITA DURAN MD [Physician No Access] - Prescriptions: Ondansetron Odt [Zofran] 4 mg TL Q6H PRN #10 tablet PRN Reason: Nausea / Vomiting Comments: You need close follow-up with your GI doctor regarding your symptoms. I have sent a prescription for an antinausea medication to [facility] pharmacy. Please continue to stay hydrated with small amounts of fluids frequently. Return to the emergency department with any worsening. Forms: PCP List Discharge Date/Time: 07/08/23 15:50
[2023-07-08 14:00] LABS: BASOPHILS # (AUTO) 0.1 10^3/uL (0.0-0.1); BASOPHILS % (AUTO) 0.3 %; EOSINOPHILS % (AUTO) 0.2 %; HCT - HEMATOCRIT 44.8 % (37.0-47.0); HGB - HEMOGLOBIN 15.4 g/dL (12.0-16.0); LYMPHOCYTES # (AUTO) 4.6 10^3/uL (1.5-3.5); LYMPHOCYTES % (AUTO) 24.8 %; MEAN CORPUSCULAR HEMOGLOBIN 28.5 pg (27.0-31.0); MEAN CORPUSCULAR HGB CONC 34.4 g/dL (32.0-36.0); MEAN CORPUSCULAR VOLUME 82.8 fL (81.0-99.0); MEAN PLATELET VOLUME 9.9 fL (7.9-10.8); MONOCYTES # (AUTO) 1.4 10^3/uL (0.0-1.0); MONOCYTES % (AUTO) 7.4 %; NEUTROPHILS # (AUTO) 12.3 10^3/uL (1.5-6.6); NEUTROPHILS % (AUTO) 66.5 %; PLT - PLATELET COUNT 446 10^3/uL (130-450); RED BLOOD COUNT 5.41 10^6/uL (4.20-5.40); RED CELL DISTRIBUTION WIDTH 12.1 % (12.0-15.0); WHITE BLOOD COUNT 18.5 x10^3/uL (4.8-10.8)
[2023-07-08] MEDS: DROPERIDOL 5 MG/2 ML VIAL IM STA (14:09)
[2023-07-08] MEDS: SODIUM CHLORIDE 0.9% 1,000 ML IV STA (14:12)
[2023-07-08] MEDS: DROPERIDOL 5 MG/2 ML VIAL IVP STA (14:12)
[2023-07-08 14:24] VITALS: O2SAT 98
[2023-07-08 14:34] LABS: ALBUMIN 4.2 g/dL (3.2-5.5); ALBUMIN/GLOBULIN RATIO 1.7 (1.0-2.2); ALKALINE PHOSPHATASE 103 IU/L (42-121); ALT ALANINE AMINOTRANSFERASE 18 IU/L (10-60); AST ASPARTATE AMINOTRANSFERASE 21 IU/L (10-42); BILIRUBIN,TOTAL 0.8 mg/dL (0.2-1.0); BUN - BLOOD UREA NITROGEN 25 mg/dL (6-20); CALCIUM 9.8 mg/dL (8.5-10.3); CARBON DIOXIDE - CO2 23 mmol/L (21-32); CHLORIDE 96 mmol/L (101-111); CREATININE 1.1 mg/dL (0.6-1.3); GFR - MDRD 49 (>89); GLUCOSE 130 mg/dL (74-104); LIPASE < 10 U/L (11-82); SODIUM 133 mmol/L (135-145); TOTAL PROTEIN 6.7 g/dL (6.4-8.9)
[2023-07-08 15:26] VITALS: BP 118/88
== END 2023-07-08 15:50 | disposition home or self-care (01) ==
LOC: ED 12:02
DX: R10.10 Upper abdominal pain, unspecified (principal); R11.2 Nausea with vomiting, unspecified; D72.829 Elevated white blood cell count, unspecified; I10 Essential (primary) hypertension
CPT/HCPCS: 36415; 80053; 83690; 85025; 93005; 96374; 99284

== ENCOUNTER 2023-07-09 13:45 | Outpatient (CLI) | payer MEDICARE | END 2023-07-09 13:46 | disposition critical access hospital (66) | LOC: EMS 13:45 | DX: R10.12 Left upper quadrant pain (principal); K44.9 Diaphragmatic hernia without obstruction or gangrene | CPT/HCPCS: A0425; A0429 ==

== ENCOUNTER 2023-07-09 13:51 | Emergency (ER) | payer MEDICARE ==
--- NOTE | 2023-07-09 14:14 | ED Physician Documentation ---
PD HPI ABD PAIN - Stated complaint Stated Complaint: L SIDE ABD PX - Chief complaint Chief Complaint: Abd Pain - History obtained from History obtained from: Patient - History of Present Illness Pain level max: 9 Pain level now: 9 Quality: Aching, Sharp, Pain Associated symptoms: Nausea. No: Fever, Vomiting, Hematemesis, Diarrhea, Constipation, Melena, Hematochezia, Dysuria Recently seen: Not recently seen - Additional information Additional information: Patient is a 67-year-old female who states that she has chronic abdominal pain. Ongoing for the past several months. Has been seen here several times for same with normal laboratory testing and normal CT scans. She states the pain started again today. She states she has a history of a hiatal hernia. She states that she uses marijuana daily but quit several weeks ago. No diarrhea or constipation. No fevers. No chills. Nothing makes it better or worse. She states that she has sharp aching pain on the left side of her abdomen. She refused an IV with EMS. When asked if anything makes it better or worse she states "everything" to both questions. She is unable to elaborate any further. Review of Systems Constitutional: denies: Fever, Chills Respiratory: denies: Dyspnea, Cough GI: reports: Nausea. 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 HEENT: Tonsil/Adenoidectomy - Present Medications Home Medications: Ambulatory Orders Medication Instructions Recorded Confirmed DULoxetine [Cymbalta] 30 mg PO BID 04/02/23 06/29/23 Nitroglycerin [Nitrostat] 0.4 mg SL [id number] 04/02/23 06/29/23 Pravastatin Sodium 20 mg PO HS 04/02/23 06/29/23 amLODIPine [Norvasc] 5 mg PO BID 04/02/23 06/29/23 tiZANidine [Zanaflex] 4 mg PO Q8H 04/02/23 06/29/23 traZODone [Desyrel] 50 mg PO HS 04/02/23 06/29/23 Metoprolol Tartrate [Lopressor] 100 mg PO BID 06/05/23 06/29/23 HYDROcod/ACETAM 5/325 [[place] 5/325] 1 - 2 tab PO Q6H PRN #10 tablet 06/29/23 Ondansetron Odt [Zofran] 4 mg TL Q6H PRN #10 tablet 07/08/23 haloperidoL [Haloperidol] 5 mg PO BID PRN #14 tablet 07/09/23 - Allergies Allergies/Adverse Reactions: Allergies Allergy/AdvReac Type Severity Reaction Status Date / Time garlic Allergy Unknown Verified 07/09/23 14:07 oxycodone Allergy Hives Verified 07/09/23 14:07 Penicillins Allergy Anaphylaxis Verified 07/09/23 14:07 atenolol AdvReac Unknown Verified 07/09/23 14:07 lisinopril AdvReac Unknown Verified 07/09/23 14:07 - Social History Does the pt smoke?: No Smoking Status: Never smoker Does the pt drink ETOH?: No Does the pt have substance abuse?: No - Immunizations Immunizations are current?: Yes - POLST Patient has POLST: Yes PD ED PE NORMAL - Vitals Vital signs reviewed: Yes - General General: Alert and oriented X 3, No acute distress - HEENT HEENT: Moist mucous membranes - Neck Neck: Supple, no meningeal sign - Cardiac Cardiac: RRR - Respiratory Respiratory: No respiratory distress, Clear bilaterally - Abdomen Abdomen: Soft, Non tender, Non distended - Back Back: No CVA TTP, No spinal TTP - Derm Derm: Warm and dry - Neuro Neuro: Alert and oriented X 3 - Psych Psych: Normal mood, Normal affect Results - Vitals Vitals: Vital Signs - 24 hr 07/09/23 07/09/23 14:07 15:45 Temperature 36.8 C Heart Rate 118 H 74 Respiratory 24 18 Rate Blood Pressure 161/91 H 94/41 L O2 Saturation 98 99 Oxygen O2 Source Room air - Labs Labs: Laboratory Tests 07/09/23 07/09/23 14:34 14:34 WBC 16.5 H RBC 5.30 Hgb 15.0 Hct 44.2 MCV 83.4 MCH 28.3 MCHC 33.9 RDW 12.1 Plt Count 437 MPV 10.1 Neut # (Auto) 12.1 H Lymph # (Auto) 3.0 [place] # (Auto) 1.3 H Eos # (Auto) 0.0 Baso # (Auto) 0.1 Absolute Nucleated RBC 0.00 Nucleated RBC % 0.0 Sodium 129 L Potassium 3.8 Chloride 91 L Carbon Dioxide 23 Anion Gap 15.0 H BUN 32 H Creatinine 1.5 H Estimated GFR (MDRD) 34 L Glucose 161 H Calcium 9.7 Total Bilirubin 0.9 AST 25 ALT 16 Alkaline Phosphatase 99 Total Protein 6.8 Albumin 4.4 Globulin 2.4 Albumin/Globulin Ratio 1.8 Lipase 20 PD Medical Decision Making - ED course Complexity details: reviewed results, re-evaluated patient, considered differential, d/w patient, d/w family ED course: 67-year-old female with abdominal pain, vomiting. She received droperidol and a dose of Dilaudid. Symptoms fully resolved. She has a very difficult IV stick. She declines an IV at this time. She drank approximately 1 L of water without any difficulty. She does have signs of dehydration, but states she will increase her fluid intake at home. Unclear etiology of her symptoms but seems to respond well to droperidol, possible cannabinoid hyperemesis syndrome? We will trial her on haloperidol for home. It was discussed that this is an antipsychotic medication but does work well for cannabinoid hyperemesis as well. Patient is fully asymptomatic at the time of discharge. Abdomen is soft, nontender nondistended on serial exam. Patient counseled regarding signs and symptoms for which I believe and urgent re-evaluation would be necessary. Patient with good understanding of and agreement to plan and is comfortable going home at this time This document was made in part using voice recognition software. While efforts are made to proofread this document, sound alike and grammatical errors may occur. Her white blood cell count is improved from prior. Has mild hyponatremia mild elevated anion gap and mild elevated creatinine from baseline. Suspect these should all improve with increased fluid intake and cessation of her abdominal pain, nausea and vomiting. Departure - Departure Disposition: Home, Self Care Clinical Impression: Dehydration Abdominal pain Qualifiers: Abdominal location: generalized Qualified Code(s): R10.84 - Generalized abdominal pain Vomiting Qualifiers: Vomiting type: unspecified Nausea presence: with nausea Qualified Code(s): R11.2 - Nausea with vomiting, unspecified Condition: Good Instructions: ED Nausea Vomiting Follow-Up: your,doctor in 1 week [Other] Prescriptions: haloperidoL [Haloperidol] 5 mg PO BID PRN #14 tablet PRN Reason: vomiting/abd pain Comments: As we discussed the haloperidol is structurally similar to the droperidol that seems to work for your pain and vomiting. Therefore we will trial you on haloperidol as needed at home. Please follow-up with your doctor for further care and please return if you worsen. Please make sure you are drinking plenty of water at home. Your prescription was sent to [facility] in [place] Forms: PCP List Discharge Date/Time: 07/09/23 16:21
[2023-07-09] MEDS: HYDROmorphone 1 MG/ML CARPUJECT IM STA (14:21)
[2023-07-09] MEDS: DROPERIDOL 5 MG/2 ML VIAL IM STA (14:21)
[2023-07-09 14:42] LABS: BASOPHILS # (AUTO) 0.1 10^3/uL (0.0-0.1); BASOPHILS % (AUTO) 0.5 %; EOSINOPHILS % (AUTO) 0.1 %; HCT - HEMATOCRIT 44.2 % (37.0-47.0); MEAN CORPUSCULAR HEMOGLOBIN 28.3 pg (27.0-31.0); MEAN CORPUSCULAR HGB CONC 33.9 g/dL (32.0-36.0); MEAN CORPUSCULAR VOLUME 83.4 fL (81.0-99.0); MEAN PLATELET VOLUME 10.1 fL (7.9-10.8); MONOCYTES # (AUTO) 1.3 10^3/uL (0.0-1.0); MONOCYTES % (AUTO) 7.7 %; NEUTROPHILS # (AUTO) 12.1 10^3/uL (1.5-6.6); PLT - PLATELET COUNT 437 10^3/uL (130-450); RED CELL DISTRIBUTION WIDTH 12.1 % (12.0-15.0); WHITE BLOOD COUNT 16.5 x10^3/uL (4.8-10.8)
[2023-07-09 15:07] LABS: ALBUMIN 4.4 g/dL (3.2-5.5); ALBUMIN/GLOBULIN RATIO 1.8 (1.0-2.2); BILIRUBIN,TOTAL 0.9 mg/dL (0.2-1.0); CALCIUM 9.7 mg/dL (8.5-10.3); CREATININE 1.5 mg/dL (0.6-1.3); POTASSIUM 3.8 mmol/L (3.5-4.5); TOTAL PROTEIN 6.8 g/dL (6.4-8.9)
[2023-07-09] MEDS ORDERED: SODIUM CHLORIDE 0.9% 2,000 ML IV STA (15:08)
[2023-07-09 15:54] VITALS: BP 94/41; O2SAT 99
== END 2023-07-09 16:21 | disposition home or self-care (01) ==
LOC: EDUNIT# → ED 13:51
DX: R10.84 Generalized abdominal pain (principal); E86.0 Dehydration; R11.2 Nausea with vomiting, unspecified; I10 Essential (primary) hypertension
CPT/HCPCS: 36415; 80053; 83690; 85025; 96372; 99283; 99284; J1170

== ENCOUNTER 2023-07-13 03:15 | Outpatient (CLI) | payer MEDICARE | END 2023-07-13 23:59 | disposition left against medical advice (07) | LOC: EMS 03:15 | DX: M25.512 Pain in left shoulder (principal); M54.9 Dorsalgia, unspecified ==

== ENCOUNTER 2023-07-20 18:20 | Outpatient (CLI) | payer MEDICARE | END 2023-07-20 23:59 | disposition critical access hospital (66) | LOC: EMS 18:20 | DX: R10.11 Right upper quadrant pain (principal); R10.13 Epigastric pain; R11.0 Nausea; K44.9 Diaphragmatic hernia without obstruction or gangrene | CPT/HCPCS: A0425; A0429 ==

== ENCOUNTER 2023-07-20 18:41 | Emergency (ER) | payer MEDICARE ==
--- NOTE | 2023-07-20 19:16 | ED Physician Documentation ---
History of Present Illness - Stated complaint Stated Complaint: ABD PAIN, HERNIA PAIN, N/V - Chief complaint Chief Complaint: General - Additonal information Additional information: 67-year-old female presents emergency department today for severe abdominal pain. Patient is screaming out and is hard to get a complete history from her. She has had over 5 ER visits for the same thing. When asked if she is ever had this happen before she says yes she has a history of hiatal hernia that was diagnosed about 2 years ago but she has not been able to follow-up with In that period of time for further evaluation to see if this warrants any intervention or surgical management. From previous ER visit patient does endorse and daily marijuana use. Patient also endorses that she currently has COVID and has been having fevers and chills at home because of the COVID. PD PAST MEDICAL HISTORY - Past Medical History Past Medical History: Yes Cardiovascular: Hypertension Respiratory: COPD Neuro: None GI: GERD, Hiatal hernia HEENT: None Psych: Depression - Past Surgical History Past Surgical History: Yes General: Appendectomy Ortho: Knee replacement, Spine surgery /[employer]: Hysterectomy HEENT: Tonsil/Adenoidectomy - Present Medications Home Medications: Ambulatory Orders Medication Instructions Recorded Confirmed DULoxetine [Cymbalta] 30 mg PO BID 04/02/23 06/29/23 Nitroglycerin [Nitrostat] 0.4 mg SL [id number] 04/02/23 06/29/23 Pravastatin Sodium 20 mg PO HS 04/02/23 06/29/23 amLODIPine [Norvasc] 5 mg PO BID 04/02/23 06/29/23 tiZANidine [Zanaflex] 4 mg PO Q8H 04/02/23 06/29/23 traZODone [Desyrel] 50 mg PO HS 04/02/23 06/29/23 Metoprolol Tartrate [Lopressor] 100 mg PO BID 06/05/23 06/29/23 HYDROcod/ACETAM 5/325 [[place] 5/325] 1 - 2 tab PO Q6H PRN #10 tablet 06/29/23 Ondansetron Odt [Zofran] 4 mg TL Q6H PRN #10 tablet 07/08/23 haloperidoL [Haloperidol] 5 mg PO BID PRN #14 tablet 07/09/23 Ciprofloxacin HCl [Cipro] 500 mg PO BID 6 Days #12 tablet 07/20/23 - Allergies Allergies/Adverse Reactions: Allergies Allergy/AdvReac Type Severity Reaction Status Date / Time oxycodone Allergy Severe Hives Verified 07/20/23 18:49 Penicillins Allergy Severe Anaphylaxis Verified 07/20/23 18:49 garlic Allergy Unknown Verified 07/20/23 18:49 atenolol AdvReac Unknown Verified 07/20/23 18:49 lisinopril AdvReac Unknown Verified 07/20/23 18:49 - Social History Does the pt smoke?: No Smoking Status: Never smoker Does the pt drink ETOH?: No ETOH Use: None Does the pt have substance abuse?: No - Immunizations Immunizations are current?: Yes - POLST Patient has POLST: Yes PD ED PE NORMAL - Vitals Vital signs reviewed: Yes - General General: Alert and oriented X 3, No acute distress, Other (Pt yelling out in pain) - Cardiac Cardiac: RRR, Strong equal pulses - Abdomen Abdomen: Other (mid epigastric tenderness, pt would not allow a complete abdominal exam) - Back Back: Other (Left CVA tenderness) - Derm Derm: Normal color, Warm and dry, No rash - Extremities Extremities: No deformity, No edema - Psych Psych: Normal mood Results - Vitals Vitals: Vital Signs - 24 hr 07/20/23 07/20/23 18:49 20:53 Temperature 37.7 C Heart Rate 108 H 123 H Respiratory 13 18 Rate Blood Pressure 213/99 H O2 Saturation 100 98 Oxygen O2 Source Room air - Labs Labs: Laboratory Tests 07/20/23 07/20/23 07/20/23 19:41 19:41 21:04 WBC 23.9 H RBC 5.00 Hgb 14.2 Hct 42.2 MCV 84.4 MCH 28.4 MCHC 33.6 RDW 12.0 Plt Count 439 MPV 9.7 Neut # (Auto) 17.7 H Lymph # (Auto) 4.2 H [place] # (Auto) 1.4 H Eos # (Auto) 0.3 Baso # (Auto) 0.1 Absolute Nucleated RBC 0.00 Band Neuts % (Manual) Not Reportable Abnorm Lymph % (Manual) Not Reportable Nucleated RBC % 0.0 Neutrophils # (Manual) Not Reportable Lymphocytes # (Manual) Not Reportable Monocytes # (Manual) Not Reportable Eosinophils # (Manual) Not Reportable Basophils # (Manual) Not Reportable Differential Comment MANUAL=AUTO DIFF WBC Morphology 1+ HYPERSEG NEUT Platelet Estimate NORMAL (130-450,000) Platelet Morphology NORMAL APPEARANCE RBC Morph Micro Appear NORMAL APPEARANCE Sodium 134 L Potassium 3.6 Chloride 98 L Carbon Dioxide 22 Anion Gap 14.0 H BUN 15 Creatinine 1.0 Estimated GFR (MDRD) 55 L Glucose 150 H Calcium 10.1 Magnesium 1.7 Total Bilirubin 0.5 AST 19 ALT 15 Alkaline Phosphatase 113 Troponin I High Sens 8.5 Total Protein 7.8 Albumin 4.6 Globulin 3.2 Albumin/Globulin Ratio 1.4 Lipase < 10 L Urine Color YELLOW Urine Clarity CLEAR Urine pH 7.5 Ur Specific [place] 1.015 Urine Protein NEGATIVE Urine Glucose (UA) 100 H Urine Ketones NEGATIVE Urine Occult Blood NEGATIVE Urine Nitrite NEGATIVE Urine Bilirubin NEGATIVE Urine Urobilinogen 0.2 (NORMAL) Ur Leukocyte Esterase TRACE H Urine RBC 0-5 Urine WBC 4-5 Ur Squamous Epith Cells FEW Squamous Urine Crystals 0-2 Calcium Oxalate Urine Bacteria Rare Ur Microscopic Review INDICATED Urine Culture Comments INDICATED PD Medical Decision Making - ED course ED course: 67-year-old female coming into the emergency department for recurrent abdominal pain. Patient says that this happened before. She is also complaining of pain that is radiating to her back. She says that she has not been smoking cannabis for at least a year now although urine from about 4 months ago was positive for cannabis.Unfortunately we were not able to complete a CT as she blew multiple IVs. Pursuing CT without con for now for further evaluation of her abdominal pain. Urinalysis is positive for leukocytes given that she has left CVA tenderness we will treat this for now as a pyelonephritis. Report given to Dr. Valdez Will evaluate the CT scan and update the patient of the results and take over patient's care due to change of shift. Of note patient's white count is trending up,White count today is 23, last ER visit it was found to be 16 which was very recent. Departure - Departure Prescriptions: Ciprofloxacin HCl [Cipro] 500 mg PO BID 6 Days #12 tablet Forms: PCP List
[2023-07-20] MEDS ORDERED: iohexoL-300 100 ML VIAL ONE (19:19)
[2023-07-20] MEDS: DROPERIDOL 5 MG/2 ML VIAL IVP STA (19:37)
[2023-07-20 19:50] LABS: BASOPHILS # (AUTO) 0.1 10^3/uL (0.0-0.1); BASOPHILS % (AUTO) 0.5 %; EOSINOPHILS # (AUTO) 0.3 10^3/uL (0.0-0.7); EOSINOPHILS % (AUTO) 1.3 %; HCT - HEMATOCRIT 42.2 % (37.0-47.0); HGB - HEMOGLOBIN 14.2 g/dL (12.0-16.0); LYMPHOCYTES # (AUTO) 4.2 10^3/uL (1.5-3.5); LYMPHOCYTES % (AUTO) 17.5 %; MEAN CORPUSCULAR HEMOGLOBIN 28.4 pg (27.0-31.0); MEAN CORPUSCULAR HGB CONC 33.6 g/dL (32.0-36.0); MEAN CORPUSCULAR VOLUME 84.4 fL (81.0-99.0); MEAN PLATELET VOLUME 9.7 fL (7.9-10.8); MONOCYTES # (AUTO) 1.4 10^3/uL (0.0-1.0); MONOCYTES % (AUTO) 5.8 %; NEUTROPHILS # (AUTO) 17.7 10^3/uL (1.5-6.6); NEUTROPHILS % (AUTO) 74.1 %; PLT - PLATELET COUNT 439 10^3/uL (130-450); WHITE BLOOD COUNT 23.9 x10^3/uL (4.8-10.8)
[2023-07-20 20:10] LABS: ALBUMIN 4.6 g/dL (3.2-5.5); ALBUMIN/GLOBULIN RATIO 1.4 (1.0-2.2); ALKALINE PHOSPHATASE 113 IU/L (42-121); ALT ALANINE AMINOTRANSFERASE 15 IU/L (10-60); AST ASPARTATE AMINOTRANSFERASE 19 IU/L (10-42); BILIRUBIN,TOTAL 0.5 mg/dL (0.2-1.0); BUN - BLOOD UREA NITROGEN 15 mg/dL (6-20); CALCIUM 10.1 mg/dL (8.5-10.3); CARBON DIOXIDE - CO2 22 mmol/L (21-32); CHLORIDE 98 mmol/L (101-111); GFR - MDRD 55 (>89); GLUCOSE 150 mg/dL (74-104); MAGNESIUM 1.7 mg/dL (1.7-2.3); POTASSIUM 3.6 mmol/L (3.5-4.5); SODIUM 134 mmol/L (135-145); TOTAL PROTEIN 7.8 g/dL (6.4-8.9)
[2023-07-20 20:11] LABS: TROPONIN I HIGH SENSITIVITY 8.5 ng/L (2.3-14.8)
[2023-07-20] MEDS: HYDROmorphone 0.5 MG/0.5 ML SYRINGE IVP STA ×2 (20:29→21:32)
[2023-07-20 20:47] LABS: LIPASE < 10 U/L (11-82)
[2023-07-20 20:56] LABS: PLATELET ESTIMATE, MANUAL NORMAL (130-450,000) (NORMAL); PLATELET MORPHOLOGY NORMAL APPEARANCE (NORMAL); RBC MORPHOLOGY (MULTIPLE) NORMAL APPEARANCE (NORMAL)
[2023-07-20 20:57] LABS: DIFFERENTIAL COMMENT MANUAL=AUTO DIFF; WBC MORPHOLOGY (MULTIPLE) 1+ HYPERSEG NEUT (NORMAL)
[2023-07-20 21:15] LABS: BILIRUBIN,URINE NEGATIVE (NEGATIVE); GLUCOSE, URINE (UA) 100 mg/dL (NEGATIVE); KETONES,URINE (UA) NEGATIVE (NEGATIVE); LEUKOCYTE ESTERASE, URINE TRACE (NEGATIVE); NITRITE,URINE NEGATIVE (NEGATIVE); OCCULT BLOOD,URINE NEGATIVE (NEGATIVE); PH,URINE 7.5 PH (5.0-7.5); PROTEIN,URINE NEGATIVE (NEGATIVE); UROBILINOGEN,URINE 0.2 (NORMAL) E.U./dL (NORMAL)
[2023-07-20 21:22] LABS: CLARITY,URINE CLEAR (CLEAR)
[2023-07-20 21:30] LABS: BACTERIA,URINE Rare /HPF (None Seen); CRYSTALS,URINE 0-2 Calcium Oxalate /LPF; RBC,URINE 0-5 /HPF (0-5); SQUAMOUS EPITHELIAL CELL,UR FEW Squamous (<= Few)
[2023-07-20] MEDS: CIPROFLOXACIN 250 MG TABLET PO STA (22:08)
[2023-07-20] MEDS: HYDROmorphone 0.5 MG/0.5 ML SYRINGE IM STA (22:08)
[2023-07-20 22:38] LABS: AMPHETAMINE SCREEN,URINE NEGATIVE (NEGATIVE); BARBITURATE SCREEN,UR NEGATIVE (NEGATIVE); BENZODIAZEPINES SCREEN, URINE NEGATIVE (NEGATIVE); BUPRENORPHINE SCREEN, URINE NEGATIVE (NEGATIVE); COCAINE SCREEN URINE NEGATIVE (NEGATIVE); METHADONE SCREEN, URINE NEGATIVE (NEGATIVE); METHAMPHETAMINES SCREEN, URINE NEGATIVE (NEGATIVE); OPIATE SCREEN, URINE NEGATIVE (NEGATIVE); OXYCODONE SCREEN, URINE NEGATIVE (NEGATIVE); THC CANNABINOID SCREEN, URINE NEGATIVE (NEGATIVE); TRICYCLIC ANTIDEPRESSANT,URINE NEGATIVE (NEGATIVE)
--- NOTE | 2023-07-20 23:29 | ED Physician Documentation ---
ED Addendum - Addendum Addendum: 07/21/23 03:53 Patient endorsed to me by Dr. Valdez at 11pm shift change. Patient required one dose of SL suboxone for pain control and subsequently rested overnight while awaiting CT results. CT chest/ap shows no acute findings of concern. Her leukocytosis and symptoms may be attributable to active covid infection. symptoms well controlled therefore plan to dc home. Return precautions given. Disposition home Impression 1. nausea and vomiting 2. abdominal pain condition stable 07/21/23 03:55
[2023-07-20] MEDS: ONDANSETRON 4 MG/2 ML VIAL IVP STA (23:51)
[2023-07-21] MEDS: BUPRENORPHINE/NALOXONE 8-2 MG TAB SL STA (00:11)
--- NOTE | 2023-07-21 02:46 | CT Report ---
PROCEDURE: Chest WO INDICATIONS: abdominal pain TECHNIQUE: A CT scan of the chest was performed. Intravenous contrast media was not administered. Images were re corded and evaluated at appropriate window settings. Reformats: axial MIP of the chest, coronal and s agittal. For radiation dose reduction, the following was used: automated exposure control, adjustment of mA and/or kV according to patient size. COMPARISON: Concurrently acquired CT abdomen without contrast 07/20/2023. FINDINGS: Image quality: Diagnostic. Chest wall and lower neck: No thyroid nodule which requires sonographic follow up. No axillary or sup raclavicular adenopathy by size. Lungs and pleura: No consolidation. No pleural effusions. No pneumothorax. No suspicious pulmonary n odules which require follow up. Coronary artery calcifications/stones. Mediastinum: Heart size is normal. No pericardial effusion. No large vessel abnormality. No mediastin al adenopathy by size criteria. Moderate hiatal hernia. Bones: No acute or suspicious osseous abnormality. Upper Abdomen: Please see separately dictated CT abdomen without contrast obtained concurrently 2023. IMPRESSION: No acute cardiopulmonary process. Small hiatal hernia. Coronary artery calcifications. Please see separately dictated CT abdomen without contrast for abdominal findings. Reviewed by: Edel Morel MD on 07/21/2023 2:44 AM PST Approved by: Edel Morel MD on 07/21/2023 2:44 AM PST Station ID: [email or web address]
--- NOTE | 2023-07-21 02:51 | CT Report ---
PROCEDURE: Abdomen WO INDICATIONS: abdominal pain CONTRAST: None TECHNIQUE: After the administration of oral contrast, 5 mm thick sections acquired from the diaphragms to the il iac crests. 5 mm coronal and sagittal reformats were then performed. For radiation dose reduction, the following was used: automated exposure control, adjustment of mA and/or kV according to patient size. COMPARISON: Concurrently acquired CT chest without contrast 07/20/2023, CT abdomen pelvis without con trast 07/04/2023 FINDINGS: Image quality: Excellent. Lung bases: Lung bases are clear. Heart size is normal. Solid organs: Liver and spleen are normal in size. Gallbladder is surgically absent Pancreas is no rmal in contours. No discrete adrenal nodules. Both kidneys are normal in size, without hydronephro sis or nephrolithiasis. Peritoneum and bowel: Moderate hiatal hernia with post surgical changes. Bowel loops demonstrate norm al wall thickness and caliber. No free fluid or air. Nodes and vessels: No retroperitoneal or mesenteric adenopathy by size criteria. Aorta and inferior vena cava are normal in size. Dense aorta biiliac vascular calcifications. Bones: No suspicious bony lesions. No vertebral body compression fractures. Partially visualized l umbar spinal fusion hardware. Miscellaneous: No ventral hernias. Thoracic epidural spinal stimulator. IMPRESSION: Limited noncontrast CT. No acute or significant abdominal abnormality. Additional findings as above. Reviewed by: Edel Morel MD on 07/21/2023 2:49 AM PST Approved by: Edel Morel MD on 07/21/2023 2:49 AM PST Station ID: [email or web address]
[2023-07-21 04:07] VITALS: BP 104/57
[2023-07-21 04:16] VITALS: O2SAT 96
== END 2023-07-21 04:25 | disposition home or self-care (01) ==
LOC: EDUNIT# → ED 18:41
DX: R10.9 Unspecified abdominal pain (principal); R11.2 Nausea with vomiting, unspecified; D72.829 Elevated white blood cell count, unspecified; U07.1 COVID-19; I10 Essential (primary) hypertension; J44.9 Chronic obstructive pulmonary disease, unspecified; Z79.899 Other long term (current) drug therapy
CPT/HCPCS: 36415; 71250; 74150; 80053; 80306; 81001; 83690; 83735; 84484; 85025; 87040; 87086; 96372; 96374; 96375; 99283; 99284; A9270; J1170; 81003

== ENCOUNTER 2023-07-25 12:31 | Outpatient (CLI) | payer MEDICARE | END 2023-07-25 12:32 | disposition critical access hospital (66) | LOC: EMS 12:31 | DX: R51.9 Headache, unspecified (principal); W18.39XA Other fall on same level, initial encounter; Y92.89 Other specified places as the place of occurrence of the external cause; R42 Dizziness and giddiness; I95.9 Hypotension, unspecified | CPT/HCPCS: A0425; A0427 ==

== ENCOUNTER 2023-07-25 12:37 | Emergency (ER) | payer MEDICARE ==
[2023-07-25 13:02] VITALS: BP 90/53; O2SAT 96
--- NOTE | 2023-07-25 13:17 | ED Physician Documentation ---
PD HPI SYNCOPE - Stated complaint Stated Complaint: DIZZY/FALL - Chief complaint Chief Complaint: Neuro - History obtained from History obtained from: Patient, Friend, EMS (Medics noted pt blood pressure low at 80s systolic on their initial arrival, improved readily with time and some IV fluids.) - History of Present Illness Witnessed: Witnessed Timing - onset: Today Duration: Seconds Preceding symptoms: Nausea / vomiting, Light headed (briefly lightheaded then fainted and fell backward, striking back of head. Brief LOC. Some headache. Has been feeling intermittently lightheaded for weeks or more. Also vertigo dizziness at times. Not at the same time. Pt did not feel vertigo prior to syncope today, but did feel dimmed vision.). No: Headache, Chest pain, Abdominal pain Associated symptoms: No: Seizure, Chest pain Contributing factors: Just stood up. 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 denies: Abdominal Pain, Vomiting, Diarrhea Neurologic: reports: Headache, Head injury. 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 HEENT: Tonsil/Adenoidectomy - Present Medications Home Medications: Ambulatory Orders Medication Instructions Recorded Confirmed DULoxetine [Cymbalta] 30 mg PO BID 04/02/23 07/25/23 Nitroglycerin [Nitrostat] 0.4 mg SL [id number] 04/02/23 07/25/23 Pravastatin Sodium 20 mg PO HS 04/02/23 07/25/23 amLODIPine [Norvasc] 5 mg PO BID 04/02/23 07/25/23 tiZANidine [Zanaflex] 4 mg PO Q8H 04/02/23 07/25/23 traZODone [Desyrel] 50 mg PO HS 04/02/23 07/25/23 Metoprolol Tartrate [Lopressor] 100 mg PO BID 06/05/23 07/25/23 haloperidoL [Haloperidol] 5 mg PO BID PRN #14 tablet 07/09/23 07/25/23 Meclizine HCl [Motion Sickness] 25 mg PO Q6H PRN #30 tablet 07/25/23 dexAMETHasone [Decadron] 4 mg PO DAILY #5 tablet 07/25/23 - Allergies Allergies/Adverse Reactions: Allergies Allergy/AdvReac Type Severity Reaction Status Date / Time oxycodone Allergy Severe Hives Verified 07/25/23 12:54 Penicillins Allergy Severe Anaphylaxis Verified 07/25/23 12:54 garlic Allergy Unknown Verified 07/25/23 12:54 atenolol AdvReac Unknown Verified 07/25/23 12:54 lisinopril AdvReac Unknown Verified 07/25/23 12:54 - Social History Does the pt smoke?: No Smoking Status: Never smoker Does the pt drink ETOH?: No Does the pt have substance abuse?: No - Immunizations Immunizations are current?: Yes - POLST Patient has POLST: Yes PD ED PE NORMAL - Vitals Vital signs reviewed: Yes (initial BP in ED low at 90/53. Improved with some IV fluids here. ) - General General: Alert and oriented X 3, No acute distress, Well developed/nourished - HEENT HEENT: Other (some tenderness back of head. ) - Neck Neck: Supple, no meningeal sign, No adenopathy - Cardiac Cardiac: RRR, No murmur - Respiratory Respiratory: No respiratory distress, Clear bilaterally - Abdomen Abdomen: Soft, Non tender - Derm Derm: Normal color, Warm and dry - Neuro Neuro: Alert and oriented X 3, transplant case manager 2-12 intact, No motor deficit, No sensory deficit Results - Vitals Vitals: Vital Signs - 24 hr 07/25/23 12:50 Temperature 36.4 C L Heart Rate 65 Respiratory 12 Rate Blood Pressure 90/53 L O2 Saturation 96 Oxygen O2 Source Room air - EKG (time done) 13:07 EKG releavant findings:: EKG personally interpreted by author of this note. Relevant findings are: Rate: Rate (enter#) (62) Rhythm: NSR [place]: Normal Intervals: Normal [place] QRS: Normal Ischemia: Normal ST segments, ST elevation c/w repol (minimal elevations diffusely. Similar to 07/13/23.). No: ST elevation c/w ischemia, ST depression - Labs Labs: Laboratory Tests 07/25/23 07/25/23 07/25/23 13:38 13:38 13:38 WBC 8.0 RBC 3.64 L Hgb 10.6 L Hct 32.8 L MCV 90.1 MCH 29.1 MCHC 32.3 RDW 12.6 Plt Count 260 MPV 9.5 Neut # (Auto) 4.2 Lymph # (Auto) 2.8 [place] # (Auto) 0.7 Eos # (Auto) 0.3 Baso # (Auto) 0.0 Absolute Nucleated RBC 0.00 Nucleated RBC % 0.0 Sodium 132 L Potassium 4.7 H Chloride 98 L Carbon Dioxide 29 Anion Gap 5.0 L BUN 21 H Creatinine 0.9 Estimated GFR (MDRD) 62 L Glucose 112 H Calcium 8.8 Magnesium 1.8 Total Bilirubin 0.2 AST 12 ALT 9 L Alkaline Phosphatase 90 Troponin I High Sens 3.3 Total Protein 5.8 L Albumin 3.4 Globulin 2.4 Albumin/Globulin Ratio 1.4 Lipase < 10 L - Rads (name of study) head CT Relevant Findings:: Prelim report reviewed, EMP independent interpretation of test chest xray Relevant Findings:: EMP independent interpretation of test (no signs of CHF, infiltates, PTX.) PD Medical Decision Making - ED course Complexity details: reviewed results (10.6 blood count and chemistries. Negative troponin. Normal ECG compared to recent one of 07/13/23.), re-evaluated patient (feeling okay still here in ED. ), considered differential (Patient has had intermittent lightheaded with near syncope/syncope. Has had prior ED visits. Also with positional vertigo at times. ), d/w patient Departure - Departure Disposition: 01 Home, Self Care Clinical Impression: Transient hypotension, Syncope and collapse, Intermittent vertigo Condition: Stable Record reviewed to determine appropriate education?: Yes Instructions: ED Vertigo Unspecified, ED Dizziness Syncope Fainting W Pre Prescriptions: dexAMETHasone [Decadron] 4 mg PO DAILY #5 tablet Meclizine HCl [Motion Sickness] 25 mg PO Q6H PRN #30 tablet PRN Reason: Vertigo Comments: Your basic labs did not show any obvious abnormalities to account for your lightheadedness such as anemia or low blood sugar or electrolyte problems. No signs of heart attack based on blood test called troponin. Your head CT scan did not show any acute abnormalities such as bleeding tumors or swelling. Regarding the vertigo at times, I would consider some steroid anti-inflammatory and also meclizine twice daily for the next several days and then as needed for the vertigo presuming likely some inner ear inflammation. Regarding the lightheaded episode and fainting, your blood pressure was transiently low. Make sure to stay well-hydrated. I would have you use hold or stop your amlodipine for now and continue other medications. See how you do. If you keep having lightheadedness, talk with your primary care and they may want to lower your metoprolol as well. Return as needed. I sent prescriptions to the [facility] pharmacy. Forms: PCP List Discharge Date/Time: 07/25/23 16:18
--- NOTE | 2023-07-25 13:42 | XRAY Report ---
PROCEDURE: Chest 1V INDICATIONS: Chest pain TECHNIQUE: One view of the chest was acquired. COMPARISON: None. FINDINGS: Surgical changes and devices: None. Lungs and pleura: No pleural effusions or pneumothorax. Lungs are clear. Mediastinum: Mediastinal contours appear normal. Heart size is mildly prominent. Bones and chest wall: No suspicious bony lesions. Overlying soft tissues appear unremarkable. IMPRESSION: No acute cardiopulmonary process. Reviewed by: Leyla Romero MD on 07/25/2023 1:40 PM PST Approved by: Leyla Romero MD on 07/25/2023 1:40 PM [facility] Station ID: [id number]
[2023-07-25 13:43] LABS: BASOPHILS % (AUTO) 0.5 %; EOSINOPHILS # (AUTO) 0.3 10^3/uL (0.0-0.7); EOSINOPHILS % (AUTO) 3.5 %; HCT - HEMATOCRIT 32.8 % (37.0-47.0); HGB - HEMOGLOBIN 10.6 g/dL (12.0-16.0); LYMPHOCYTES # (AUTO) 2.8 10^3/uL (1.5-3.5); LYMPHOCYTES % (AUTO) 34.7 %; MEAN CORPUSCULAR HEMOGLOBIN 29.1 pg (27.0-31.0); MEAN CORPUSCULAR HGB CONC 32.3 g/dL (32.0-36.0); MEAN CORPUSCULAR VOLUME 90.1 fL (81.0-99.0); MEAN PLATELET VOLUME 9.5 fL (7.9-10.8); MONOCYTES # (AUTO) 0.7 10^3/uL (0.0-1.0); MONOCYTES % (AUTO) 8.9 %; NEUTROPHILS # (AUTO) 4.2 10^3/uL (1.5-6.6); NEUTROPHILS % (AUTO) 51.9 %; PLT - PLATELET COUNT 260 10^3/uL (130-450); RED BLOOD COUNT 3.64 10^6/uL (4.20-5.40); RED CELL DISTRIBUTION WIDTH 12.6 % (12.0-15.0)
[2023-07-25 14:09] LABS: ALBUMIN 3.4 g/dL (3.2-5.5); ALBUMIN/GLOBULIN RATIO 1.4 (1.0-2.2); ALKALINE PHOSPHATASE 90 IU/L (42-121); ALT ALANINE AMINOTRANSFERASE 9 IU/L (10-60); AST ASPARTATE AMINOTRANSFERASE 12 IU/L (10-42); BILIRUBIN,TOTAL 0.2 mg/dL (0.2-1.0); BUN - BLOOD UREA NITROGEN 21 mg/dL (6-20); CALCIUM 8.8 mg/dL (8.5-10.3); CARBON DIOXIDE - CO2 29 mmol/L (21-32); CHLORIDE 98 mmol/L (101-111); CREATININE 0.9 mg/dL (0.6-1.3); GFR - MDRD 62 (>89); GLUCOSE 112 mg/dL (74-104); POTASSIUM 4.7 mmol/L (3.5-4.5); SODIUM 132 mmol/L (135-145); TOTAL PROTEIN 5.8 g/dL (6.4-8.9)
[2023-07-25 14:16] LABS: TROPONIN I HIGH SENSITIVITY 3.3 ng/L (2.3-14.8)
[2023-07-25 14:22] LABS: LIPASE < 10 U/L (11-82)
[2023-07-25] MEDS: SODIUM CHLORIDE 0.9% 1,000 ML IV STA (14:22)
--- NOTE | 2023-07-25 15:44 | CT Report ---
PROCEDURE: Head WO INDICATIONS: fall, struck head, dizzy TECHNIQUE: Noncontrast 4.5 mm thick angled axial sections acquired from the foramen magnum to the vertex. For r adiation dose reduction, the following was used: automated exposure control, adjustment of mA and/or kV according to patient size. COMPARISON: None. FINDINGS: Image quality: Excellent. CSF spaces: Basal cisterns are patent. No extra-axial fluid collections. Ventricles are normal in size and shape. Brain: No midline shift. No intracranial masses or hemorrhage. Taylor-white matter interface is norm al. Skull and face: Calvarium and visualized facial bones are intact, without suspicious lesions. Sinuses: Visualized sinuses and mastoids are clear. IMPRESSION: No acute intracranial pathology. Reviewed by: Michelle Garcia MD on 07/25/2023 3:43 PM PST Approved by: Michelle Garcia MD on 07/25/2023 3:43 PM PST Station ID: [id number]
== END 2023-07-25 16:18 | disposition home or self-care (01) ==
LOC: EDUNIT# → ED 12:37
DX: R55 Syncope and collapse (principal); R42 Dizziness and giddiness; I95.89 Other hypotension; I10 Essential (primary) hypertension; J44.9 Chronic obstructive pulmonary disease, unspecified; Z79.899 Other long term (current) drug therapy
CPT/HCPCS: 36415; 80053; 83690; 83735; 84484; 85025; 93005; 96360; 99284

== ENCOUNTER 2023-09-25 18:14 | Outpatient (CLI) | payer MEDICARE | END 2023-09-25 23:59 | disposition EMS.NT | LOC: EMS 18:14 | DX: M79.89 Other specified soft tissue disorders (principal) ==

== ENCOUNTER 2023-10-25 12:46 | Outpatient (CLI) | payer MEDICARE ==
[2023-10-25 12:59] LABS: BASOPHILS # (AUTO) 0.1 10^3/uL (0.0-0.1); BASOPHILS % (AUTO) 0.9 %; EOSINOPHILS # (AUTO) 0.9 10^3/uL (0.0-0.7); EOSINOPHILS % (AUTO) 10.5 %; HCT - HEMATOCRIT 40.9 % (37.0-47.0); HGB - HEMOGLOBIN 12.8 g/dL (12.0-16.0); LYMPHOCYTES # (AUTO) 3.1 10^3/uL (1.5-3.5); LYMPHOCYTES % (AUTO) 38.4 %; MEAN CORPUSCULAR HEMOGLOBIN 28.4 pg (27.0-31.0); MEAN CORPUSCULAR HGB CONC 31.3 g/dL (32.0-36.0); MEAN CORPUSCULAR VOLUME 90.9 fL (81.0-99.0); MEAN PLATELET VOLUME 9.7 fL (7.9-10.8); MONOCYTES # (AUTO) 0.7 10^3/uL (0.0-1.0); MONOCYTES % (AUTO) 8.9 %; NEUTROPHILS # (AUTO) 3.4 10^3/uL (1.5-6.6); NEUTROPHILS % (AUTO) 41.2 %; PLT - PLATELET COUNT 269 10^3/uL (130-450); RED CELL DISTRIBUTION WIDTH 12.4 % (12.0-15.0); WHITE BLOOD COUNT 8.1 x10^3/uL (4.8-10.8)
[2023-10-25 13:12] LABS: CALCIUM 9.4 mg/dL (8.5-10.3); POTASSIUM 3.7 mmol/L (3.5-4.5)
== END 2023-10-25 12:47 | disposition home or self-care (01) ==
LOC: LAB 12:46
PROVIDERS: ATTEND Registered Nurse
DX: R42 Dizziness and giddiness (principal)
CPT/HCPCS: 36415; 80048; 85025

== ENCOUNTER 2023-11-21 16:50 | Outpatient (CLI) | payer MEDICARE | END 2023-11-21 16:51 | disposition critical access hospital (66) | LOC: EMS 16:50 | DX: R10.84 Generalized abdominal pain (principal); R11.10 Vomiting, unspecified | CPT/HCPCS: A0425; A0429 ==

== ENCOUNTER 2023-11-21 16:57 | Inpatient (IN) | payer MEDICARE ==
--- NOTE | 2023-11-21 17:09 | ED Physician Documentation ---
History of Present Illness - Stated complaint Stated Complaint: ABD PX - Chief complaint Chief Complaint: Abd Pain - History obtained from History obtained from: Patient, EMS - History of Present Illness Timing: Today Pain level max: 10 Pain level now: 9 - Additonal information Additional information: Patient is a 68-year-old female with years of chronic abdominal pain. She states that the pain worsened again today. She states she has a hiatal hernia and "something else". Nothing makes the pain better or worse. Did not receive any pain medication with EMS. She states that the pain is coming and "waves". She states that it when it spikes it is a 10 out of 10. No nausea or vomiting. No constipation. No fevers. No chills. No recent travel. Pain is epigastric and left upper quadrant. Patient states that she has had some diarrhea, she states that occasionally she has had diarrhea over the years. No blood in the stool. Review of Systems Constitutional: denies: Fever, Chills GI: reports: Diarrhea. 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 HEENT: Tonsil/Adenoidectomy - Present Medications Home Medications: Ambulatory Orders Medication Instructions Recorded Confirmed DULoxetine [Cymbalta] 30 mg PO BID 04/02/23 07/25/23 Nitroglycerin [Nitrostat] 0.4 mg SL [id number] 04/02/23 07/25/23 Pravastatin Sodium 20 mg PO HS 04/02/23 07/25/23 amLODIPine [Norvasc] 5 mg PO BID 04/02/23 07/25/23 tiZANidine [Zanaflex] 4 mg PO Q8H 04/02/23 07/25/23 traZODone [Desyrel] 50 mg PO HS 04/02/23 07/25/23 Metoprolol Tartrate [Lopressor] 100 mg PO BID 06/05/23 07/25/23 haloperidoL [Haloperidol] 5 mg PO BID PRN #14 tablet 07/09/23 07/25/23 Meclizine HCl [Motion Sickness] 25 mg PO Q6H PRN #30 tablet 07/25/23 dexAMETHasone [Decadron] 4 mg PO DAILY #5 tablet 07/25/23 - Allergies Allergies/Adverse Reactions: Allergies Allergy/AdvReac Type Severity Reaction Status Date / Time oxycodone Allergy Severe Hives Verified 11/21/23 17:10 Penicillins Allergy Severe Anaphylaxis Verified 11/21/23 17:10 garlic Allergy Unknown Verified 11/21/23 17:10 atenolol AdvReac Unknown Verified 11/21/23 17:10 lisinopril AdvReac Unknown Verified 11/21/23 17:10 - Social History Does the pt smoke?: No Smoking Status: Never smoker Does the pt drink ETOH?: No Does the pt have substance abuse?: No - Immunizations Immunizations are current?: Yes - POLST Patient has POLST: Yes PD ED PE NORMAL - Vitals Vital signs reviewed: Yes - General General: Alert and oriented X 3, No acute distress - HEENT HEENT: Moist mucous membranes - Neck Neck: Supple, no meningeal sign - Cardiac Cardiac: RRR, Strong equal pulses - Respiratory Respiratory: No respiratory distress, Clear bilaterally - Abdomen Abdomen: Soft, Non distended, Other (Tender to palpation epigastric and left upper quadrant. No peritoneal signs.) - Back Back: No CVA TTP - Derm Derm: Warm and dry - Neuro Neuro: Alert and oriented X 3 Results - Vitals Vitals: Vital Signs - 24 hr 11/21/23 11/21/23 11/21/23 17:01 17:05 17:07 Temperature 36.1 C L 35.4 C L Heart Rate 82 89 Respiratory 26 H 16 Rate Blood Pressure 213/117 H O2 Saturation 100 100 If not protocol : Oxygen Flow, liters/minute 11/21/23 11/21/23 11/21/23 17:09 17:23 17:24 Temperature Heart Rate 103 H 88 Respiratory 26 H 12 16 Rate Blood Pressure 241/108 H O2 Saturation 100 100 If not protocol : Oxygen Flow, liters/minute 11/21/23 11/21/23 11/21/23 17:31 18:18 20:00 Temperature Heart Rate 70 84 88 Respiratory 16 16 12 Rate Blood Pressure 239/114 H O2 Saturation 100 100 100 If not protocol 3 3 2 : Oxygen Flow, liters/minute 11/21/23 11/21/23 11/21/23 21:17 21:37 21:54 Temperature Heart Rate 124 H 146 H 152 H Respiratory 14 18 16 Rate Blood Pressure 163/130 H 198/144 H 198/144 H O2 Saturation 99 97 100 If not protocol : Oxygen Flow, liters/minute 11/21/23 22:14 Temperature Heart Rate 101 H Respiratory 22 Rate Blood Pressure 195/108 H O2 Saturation 100 If not protocol : Oxygen Flow, liters/minute Oxygen O2 Source Room air Oxygen Flow Rate 3 - Labs Labs: Laboratory Tests 11/21/23 11/21/23 11/21/23 17:15 17:15 20:02 WBC 19.0 H RBC 6.06 H Hgb 17.2 H Hct 50.3 H MCV 83.0 MCH 28.4 MCHC 34.2 RDW 12.5 Plt Count 371 MPV 9.8 Neut # (Auto) 13.9 H Lymph # (Auto) 3.7 H [place] # (Auto) 1.0 Eos # (Auto) 0.2 Baso # (Auto) 0.1 Absolute Nucleated RBC 0.00 Nucleated RBC % 0.0 Sodium 139 Potassium 3.2 L Chloride 97 L Carbon Dioxide 24 Anion Gap 18.0 H BUN 16 Creatinine 1.0 Estimated GFR (MDRD) 55 L Glucose 170 H Calcium 10.8 H Total Bilirubin 0.6 AST 16 ALT 8 L Alkaline Phosphatase 92 Total Protein 8.3 Albumin 5.0 Globulin 3.3 Albumin/Globulin Ratio 1.5 Lipase 22 Urine Color YELLOW Urine Clarity CLEAR Urine pH 8.0 H Ur Specific [place] 1.025 Urine Protein >=300 H Urine Glucose (UA) 100 H Urine Ketones NEGATIVE Urine Occult Blood SMALL H Urine Nitrite NEGATIVE Urine Bilirubin NEGATIVE Urine Urobilinogen 0.2 (NORMAL) Ur Leukocyte Esterase NEGATIVE Urine RBC 0-5 Urine WBC 0-3 Ur Squamous Epith Cells NONE SEEN Urine Bacteria None Seen Ur Microscopic Review INDICATED Urine Culture Comments NOT INDICATED - Rads (name of study) CT abdomen pelvis Relevant Findings:: Final report received, See rad report PD Medical Decision Making - ED course Complexity details: reviewed results, re-evaluated patient, considered differential, d/w patient ED course: 68-year-old female with abdominal pain, she was a very difficult IV start, multiple failed attempts, she only had a 24-gauge IV from EMS. She was given IV fluids through this IV, a CT scan was ordered but the 24-gauge is not large enough to use for contrast. Anesthesia was consulted and came and placed an IV in her internal jugular. This CT scan shows a diffuse colitis. She had a large episode of diarrhea here that smelled consistent with C. difficile. Stool sample was sent. Suspect that she has C. difficile colitis. Given her elevated white blood cell count, would treat this as potentially severe. She was very hypertensive initially, this blood pressure came down with IV pain medication. She also had her heart rate spiked to approximately 150 bpm in the emergency department, appeared to be sinus tachycardia on the engine monitor. Given 10 mg of diltiazem and heart rate returned to normal. She is signed out to the oncoming emergency department physician awaiting C. difficile results. I suspect that if this is positive she will need to be admitted and placed on oral fidaxomicin. Patient signed out to Dr. Townsend for further care. Please see her note for this patient. This document was made in part using voice recognition software. While efforts are made to proofread this document, sound alike and grammatical errors may occur. Departure - Departure Clinical Impression: Colitis, Dehydration Abdominal pain Qualifiers: Abdominal location: unspecified location Qualified Code(s): R10.9 - Unspecified abdominal pain Condition: Stable Forms: PCP List
[2023-11-21] MEDS: HYDROmorphone 1 MG/ML CARPUJECT IVP STA ×2 (17:13→20:25)
[2023-11-21] MEDS: DROPERIDOL 5 MG/2 ML VIAL IVP STA (17:13)
[2023-11-21] MEDS: SODIUM CHLORIDE 0.9% 1,000 ML IV STA ×4 (17:14→22:57)
[2023-11-21 17:18] LABS: BASOPHILS # (AUTO) 0.1 10^3/uL (0.0-0.1); BASOPHILS % (AUTO) 0.4 %; EOSINOPHILS # (AUTO) 0.2 10^3/uL (0.0-0.7); EOSINOPHILS % (AUTO) 0.9 %; HCT - HEMATOCRIT 50.3 % (37.0-47.0); HGB - HEMOGLOBIN 17.2 g/dL (12.0-16.0); LYMPHOCYTES # (AUTO) 3.7 10^3/uL (1.5-3.5); LYMPHOCYTES % (AUTO) 19.3 %; MEAN CORPUSCULAR HEMOGLOBIN 28.4 pg (27.0-31.0); MEAN CORPUSCULAR HGB CONC 34.2 g/dL (32.0-36.0); MEAN PLATELET VOLUME 9.8 fL (7.9-10.8); MONOCYTES % (AUTO) 5.4 %; NEUTROPHILS # (AUTO) 13.9 10^3/uL (1.5-6.6); NEUTROPHILS % (AUTO) 73.4 %; PLT - PLATELET COUNT 371 10^3/uL (130-450); RED BLOOD COUNT 6.06 10^6/uL (4.20-5.40); RED CELL DISTRIBUTION WIDTH 12.5 % (12.0-15.0)
[2023-11-21 17:37] LABS: ALBUMIN/GLOBULIN RATIO 1.5 (1.0-2.2); BILIRUBIN,TOTAL 0.6 mg/dL (0.2-1.0); CALCIUM 10.8 mg/dL (8.5-10.3); POTASSIUM 3.2 mmol/L (3.5-4.5); TOTAL PROTEIN 8.3 g/dL (6.4-8.9)
[2023-11-21] MEDS ORDERED: iohexoL-300 100 ML VIAL ONE ×2 (18:06→18:42)
--- NOTE | 2023-11-21 20:52 | CONSULTATION NOTE ---
Consultation Report: Consulted for IV access. Scanned multiple sites including upper arms for basilic/brachial vein. There were not any suitable veins to access and were easily collapsible. Scanned her neck for EJ and none were identified. Her right IJ was identified and collapses with inspiration. Discussed with Dr. Fuentes and offered to place triple lumen but he did not want to do that at this time. Opted for large bore IV placed in the IJ. #18G 2.25 catheter placed to right IJ under sterile conditions with US. Patient tolerated well. Line aspirates and flushes with ease.
[2023-11-21] MEDS: iohexoL-300 100 ML VIAL IVP ONE (21:13)
[2023-11-21 21:21] LABS: BILIRUBIN,URINE NEGATIVE (NEGATIVE); GLUCOSE, URINE (UA) 100 mg/dL (NEGATIVE); KETONES,URINE (UA) NEGATIVE (NEGATIVE); LEUKOCYTE ESTERASE, URINE NEGATIVE (NEGATIVE); NITRITE,URINE NEGATIVE (NEGATIVE); OCCULT BLOOD,URINE SMALL (NEGATIVE); PROTEIN,URINE >=300 mg/dL (NEGATIVE); UROBILINOGEN,URINE 0.2 (NORMAL) E.U./dL (NORMAL)
[2023-11-21 21:24] LABS: CLARITY,URINE CLEAR (CLEAR)
--- NOTE | 2023-11-21 21:24 | CT Report ---
PROCEDURE: Abdomen/Pelvis W INDICATIONS: diffuse abd pain CONTRAST: 100 ML OMNI 300 TECHNIQUE: After the administration of intravenous contrast, a CT scan of the abdomen and pelvis was performed. Images were recorded and evaluated at appropriate window settings. Reformats: coronal and sagittal. F or radiation dose reduction, the following was used: automated exposure control, adjustment of mA and /or kV according to patient size. COMPARISON: 07/20/2023. FINDINGS: Image quality: Diagnostic. Lower chest: Bibasilar atelectasis. Small hiatal hernia. Small amount of layering fluid in the distal esophagus likely related to gastroesophageal reflux. No significant wall thickening of the esophagus . Heart size is normal. Atherosclerotic calcification of the coronary arteries. Liver: Hepatic steatosis. Gallbladder: Surgically absent. Biliary tree: No intrahepatic or extrahepatic dilation, accounting for age and post cholecystectomy. Spleen: No splenomegaly. Pancreas: No pancreatic ductal dilation. Adrenals: No adrenal nodule. Kidneys and ureters: No hydronephrosis. No renal cystic lesion which requires follow up. No solid mas s. Bilateral renal cortical scarring. Stomach, bowel and peritoneum: No gastric or small bowel dilation. Diffuse wall thickening of the col on noted from the ascending colon to the rectum. No significant mesenteric stranding.. No pathologic free fluid. Lymph nodes: No central or retroperitoneal adenopathy. Vessels: No infrarenal aortic aneurysm. Patent portal vein. PELVIS Reproductive organs: Uterus is not visualized and presumably surgically absent. Bladder: No abnormal wall thickening, accounting for underdistention. Pelvic lymph nodes: No pelvic adenopathy by size criteria. Bones: No aggressive osseous abnormality. Other: No significant ventral or inguinal hernia. Right posterior lower back neurostimulator device w ith electrodes extending into the thoracic spine. IMPRESSION: Findings consistent with pancolitis either infectious or inflammatory in etiology. Other chronic findings as above Reviewed by: Nixon Kerns MD on 11/21/2023 9:23 PM PDT Approved by: Nixon Kerns MD on 11/21/2023 9:23 PM PDT Station ID: [id number]
[2023-11-21 21:37] LABS: BACTERIA,URINE None Seen /HPF (None Seen); RBC,URINE 0-5 /HPF (0-5); SQUAMOUS EPITHELIAL CELL,UR NONE SEEN (<= Few); WBC,URINE 0-3 /HPF (0-5)
[2023-11-21] MEDS: diltiaZEM INJ 5 MG/ML VIAL IVP STA ×2 (21:48→23:44)
[2023-11-21] MEDS: metroNIDAZOLE 500 MG/100 ML 500 MG/100 ML BAG IV ONE (23:59)
--- NOTE | 2023-11-21 23:59 | HISTORY & PHYSICAL EXAMINATION ---
Chief Complaint - Chief Complaint Chief Complaint: Abdominal pain History of Present Illness - Admitted From Admitted From:: ER - History Obtained From Records Reviewed: Yes History obtained from: Patient, chart, staff Exam Limitations: Virtual exam - History of Present Illness HPI Comment/Other: H&P was conducted via video remotely, using Access Cart. [place] is in [place] Physician is in [place]. No one is at bedside. 68 yo F with PMH of Chronic Abdominal pain, GERD, H. Hernia s/p repair, COPD, HTN, Depression presented to the ER with c/o 2 day h/o abdominal pain, N/V,diarrhea. Pt has had chronic epigastric and LUQ abdominal pain x 10 years. Yesterday, she began to have loose stools. Today, at 9AM, she began to have wors e abdominal pain with Nausea/vomiting. No recent travel. No known sick contacts. No unusual foods. Pt has had about 7 BMs since yesterday: runny, brown, no blood. She does have chronic black BMs d/t taking Peptobismal. She has vomited about 6x since this AM: no bloody or black emeses, looks like spit. Pt ate a piece of toast this morning prior to N/V; has not been able to tolerate PO food or drink since then. Abdo pain: epigastric, LUQ, intermittent, feels like her chronic pain but worse, 10/10. +subj F/C. +Dysuria, +lower back/flank pain. No CP/SOB/cough. In the ER, BP 213/117, HR 152-101, WBC 19, K 3.2, Glc 170, U/A: +glc, CDiff neg. CT Abdo/Pelvis: Pancolitis IV access was difficult, so Anesthesiologist was consulted and RI Central line placed. Pt was given IVF, Diltiazem 10 mg IV x 2, Droperidol, Hydromorphone 1 mg IV x 2, Cipro/Flagyl IV in the ER. 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: reports: None : reports: None HEENT: reports: None Psych: reports: Depression Musculoskeletal: reports: None Derm: reports: None MRSA Hx?: No - Past Surgical History General: reports: Appendectomy Ortho: reports: Knee replacement, Spine surgery /SUPERVISOR CARTOGRAPHY: reports: Hysterectomy HEENT: reports: Tonsil/Adenoidectomy - POLST Patient has POLST: Yes Meds/Allgy - Home Medications Home Medications: Ambulatory Orders Medication Instructions Recorded Confirmed DULoxetine [Cymbalta] 30 mg PO BID 04/02/23 07/25/23 Nitroglycerin [Nitrostat] 0.4 mg SL [id number] 04/02/23 07/25/23 Pravastatin Sodium 20 mg PO HS 04/02/23 07/25/23 amLODIPine [Norvasc] 5 mg PO BID 04/02/23 07/25/23 tiZANidine [Zanaflex] 4 mg PO Q8H 04/02/23 07/25/23 traZODone [Desyrel] 50 mg PO HS 04/02/23 07/25/23 Metoprolol Tartrate [Lopressor] 100 mg PO BID 06/05/23 07/25/23 haloperidoL [Haloperidol] 5 mg PO BID PRN #14 tablet 07/09/23 07/25/23 Meclizine HCl [Motion Sickness] 25 mg PO Q6H PRN #30 tablet 07/25/23 dexAMETHasone [Decadron] 4 mg PO DAILY #5 tablet 07/25/23 - Allergies Allergies/Adverse Reactions: Allergies Allergy/AdvReac Type Severity Reaction Status Date / Time oxycodone Allergy Severe Hives Verified 11/21/23 17:10 Penicillins Allergy Severe Anaphylaxis Verified 11/21/23 17:10 garlic Allergy Unknown Verified 11/21/23 17:10 atenolol AdvReac Unknown Verified 11/21/23 17:10 lisinopril AdvReac Unknown Verified 11/21/23 17:10 Review of Systems - All Other Systems All Other Systems: reports: Reviewed and negative Exam - Vital Signs Reviewed Vital Signs: Yes Vital Signs: Vital Signs x48h Temp Pulse Resp BP Pulse Ox O2 Flow Rate 11/21/23 23:55 138 H 24 202/126 H 100 11/21/23 23:30 151 H 16 202/126 H 100 11/21/23 23:05 121 H 14 197/109 H 100 11/21/23 22:14 101 H 22 195/108 H 100 11/21/23 21:54 152 H 16 198/144 H 100 11/21/23 21:37 146 H 18 198/144 H 97 11/21/23 21:17 124 H 14 163/130 H 99 11/21/23 20:00 88 12 239/114 H 100 2 11/21/23 18:18 84 16 100 3 11/21/23 17:31 70 16 100 3 11/21/23 17:24 88 16 241/108 H 100 11/21/23 17:23 103 H 12 100 11/21/23 17:09 26 H 11/21/23 17:07 89 16 100 11/21/23 17:05 35.4 C L 82 26 H 213/117 H 100 11/21/23 17:01 36.1 C L - Physical Exam General Appearance: positive: No acute distress, Alert Eyes Bilateral: positive: EOMI, No scleral icterus ENT: positive: Dry mucous membranes Respiratory: positive: Other (Access cart stethoscope not working; per ER Provider: CTA B/L) Cardiovascular: positive: Other (Access cart stethoscope not working; per ER Provider: RR, Tachy, no murmurs) Abdomen: positive: Other (per ER Provider: non-distended, Soft, mild TTP epigastric and LUQ, no R/G) Extremities: positive: Other (per ER Provider: moves all extrem, no edema) Neurologic/Psychiatric: positive: Oriented x3, Mood/affect nml, Other (per ER P rovider: NFD) Conclusion/Plan - Problem List (1) Colitis Conclusion/Plan: Acute Colitis Abdominal pain, acute on chronic Nausea/Vomiting Diarrhea Tachycardia Leukocytosis -HR 152-101, WBC 19, CDiff neg, stool culture pending -CT Abdo/Pelvis: Pancolitis -IV access was difficult, so Anesthesiologist was consulted and RIJ Central line placed. -Pt was given IVF, Diltiazem 10 mg IV x 2, Droperidol, Hydromorphone 1 mg IV x 2, Cipro/Flagyl IV in the ER. -admit to [facility] with tele -IVF -clear liquid diet; advance as tolerated -anti-emetics PRN -F/U stool culture -continue Cipro/Flagyl -check Lactic acid and FOB stool Hypokalemia -K 3.2 -supplement now and PRN Hyperglycemia Glucosuria -Glc 170, U/A: +glc -check Hgba1c Hypertension HLD -BP 213/117 -continue home medications: Norvasc, Lopressor, NTG, statin -med rec not available yet; med rec when available GERD s/p H. Hernia s/p repair -Protonix Depression Chronic pain -continue home medications: Duloxetine, Tizanidine, Trazodone -med rec not available yet; med rec when available VTE Prophylaxis: Lovenox Code Status: D/W pt; she is Full Code ~Liz Gil MD Hospitalist - Lab Results Lab results reviewed: Yes Fish Bones: 11/21/23 17:15 11/21/23 17:15
--- NOTE | 2023-11-22 | ED Physician Documentation ---
ED Addendum - Addendum Addendum: 11/21/23 23:59 Patient endorsed to me by Dr. Fuentes awaiting C. difficile test. C. difficile negative therefore I started her on Cipro and Flagyl and admitted her for infectious colitis. Disposition admit Impression 1 sepsis 2 fernandes-colitis 3 abdominal pain Condition fair
[2023-11-22] MEDS: CIPROFLOXACIN 400 MG/200 ML 400 MG/200 ML BAG IV STA (00:57)
[2023-11-22] MEDS ORDERED: SODIUM CHLORIDE 0.9% 1,000 ML IV SCH (01:00)
[2023-11-22] MEDS: HYDROmorphone 0.5 MG/0.5 ML SYRINGE IVP PRN (01:49)
[2023-11-22] MEDS: hydrALAZINE INJ 20 MG/ML VIAL IVP PRN (01:49)
[2023-11-22] MEDS: SODIUM CHLORIDE FLUSH 0.9% 10 ML SYRINGE IVP SCH (01:50)
[2023-11-22] MEDS: SODIUM CHLORIDE 0.9% 1,000 ML IV SCH (01:51)
[2023-11-22] MEDS: POTASSIUM CHLORIDE 20 MEQ TABLET PO STA (01:51)
[2023-11-22] MEDS: ONDANSETRON ODT 4 MG TABLET TL PRN (02:28)
--- NOTE | 2023-11-22 04:16 | PROVIDER PROGRESS NOTE ---
Corn Cutter Note - Corn Cutter Note Corn Cutter Note: RN paged "Follow UP on Patient's HR Dx. Colitis. New admit Patient's HR has been elevated. It now sustaining in the 160s. EKG was done. Will upload. Patient received diltiaZEM 10 mg twice before coming to the floor. It was not effective. She needs diltiaZEm trip. Can we transfer to ICU please. Thank you." Ekg reviewed and noted report of SVTs unfortunately unable to be at bedside to attempt adenosine for SVTs opting instead to rate control with amiodarone continue tele. Manju Rivera
[2023-11-22] MEDS: AMIODARONE 150 MG/100 ML 100 ML IV ONE (04:47)
[2023-11-22] MEDS: AMIODARONE 360 MG/200 ML 200 ML IV ONE (05:05)
[2023-11-22] MEDS: AMIODARONE 150 MG/3 ML VIAL IVP STA (05:17)
[2023-11-22] MEDS ORDERED: ADENOSINE 6 MG/2 ML VIAL IVP ONE (07:54)
[2023-11-22] MEDS: ADENOSINE 6 MG/2 ML VIAL IVP STA ×3 (09:31→10:10)
[2023-11-22] MEDS ORDERED: METOPROLOL 5 MG/5 ML VIAL IVP ONE ×3 (09:32→21:19)
[2023-11-22] MEDS: METOPROLOL 5 MG/5 ML VIAL IVP SCH (09:34)
[2023-11-22] MEDS: metroNIDAZOLE 500 MG/100 ML 500 MG/100 ML BAG IV SCH (09:48)
[2023-11-22] MEDS: PANTOPRAZOLE 40 MG VIAL IV SCH (09:48)
[2023-11-22] MEDS: ENOXAPARIN 40 MG/0.4 ML SYRINGE SUBQ SCH (09:50)
[2023-11-22] MEDS: METOPROLOL TARTRATE 25 MG TABLET PO ONE ×2 (09:50→11:10)
[2023-11-22 09:56] LABS: BASOPHILS % (AUTO) 0.4 %; EOSINOPHILS % (AUTO) 0.3 %; HCT - HEMATOCRIT 59.9 % (37.0-47.0); HGB - HEMOGLOBIN 19.2 g/dL (12.0-16.0); LYMPHOCYTES % (AUTO) 9.8 %; MEAN CORPUSCULAR HEMOGLOBIN 28.1 pg (27.0-31.0); MEAN CORPUSCULAR HGB CONC 32.1 g/dL (32.0-36.0); MEAN CORPUSCULAR VOLUME 87.7 fL (81.0-99.0); MONOCYTES % (AUTO) 5.8 %; NEUTROPHILS % (AUTO) 81.8 %; PLT - PLATELET COUNT 423 10^3/uL (130-450); RED BLOOD COUNT 6.83 10^6/uL (4.20-5.40); RED CELL DISTRIBUTION WIDTH 14.1 % (12.0-15.0); WHITE BLOOD COUNT 30.1 x10^3/uL (4.8-10.8)
--- NOTE | 2023-11-22 09:56 | PROCEDURE REPORT ---
Hospitalist Procedure Note - Procedure Note Procedure Note: Date of Procedure: 11/22/2023 Procedure: Left Internal Jugular Central Line Placement. Consent: Patient gave verbal consent prior to procedure. Procedure deemed emergent due to the fact that patient in supraventrilular tachycardia with mild/moderate alteration of consiousness with tachycardia in the 150-160 range. Formal consent was obtained from the patient postprocedure. Procedure: Patient was placed in Trendelenburg. Ultrasound guidance was used to identify the left intrajugular vein. The patient was prepped and draped using sterile technique. The skin and underlying tissue was anesthetized with lidocaine prior to initiation of procedure. A large bore needle was then inserted into the skin under ultrasound guidance and advanced until the left internal jugular vein was cannulated. A wire was passed through the needle and advanced into the left internal jugular vein. The needle was removed and a roula was made in the skin using a scalpel to allow passage of the dilator. The dilator was inserted over the wire and hubbed at the skin. The dilator was removed and the triple-lumen catheter was inserted over the wire and hubbed at the skin. The wire was removed and the triple-lumen catheter was sutured into place. A dressing was p laced over the central line using sterile technique. A chest x-ray was obtained postprocedure which revealed that the tip of the central line was at the cavoatrial junction. Using sterile technique, the dressing was removed and the central venous catheter was retracted approximately 4 cm. The central venous catheter was sutured in place and a new sterile dressing was placed over the central venous catheter. There were no complications. Diagnosis: 1. Supraventricular tachycardia
--- NOTE | 2023-11-22 10:02 | XRAY Report ---
PROCEDURE: Chest for Line Placement INDICATIONS: Left IJ placement TECHNIQUE: One view of the chest was acquired. COMPARISON: Chest x-ray 07/25/2023. FINDINGS: Surgical changes and devices: Left IJ central venous catheter projects at the cavoatrial junction. T horacic spine neurostimulator lead. Lungs and pleura: No pleural effusions or pneumothorax. Lungs are clear. Mediastinum: Mediastinal contours appear normal. Heart size is normal. Bones and chest wall: No suspicious bony lesions. Overlying soft tissues appear unremarkable. IMPRESSION: No acute cardiopulmonary process. Left IJ central venous catheter tip projects over the cavoatrial junction. Reviewed by: Sharee Abarca MD, PhD on 11/22/2023 10:01 AM PDT Approved by: Sharee Abarca MD, PhD on 11/22/2023 10:01 AM PDT Station ID: [id number]
[2023-11-22 10:06] LABS: ABNORMAL LYMPHS % (MANUAL) 0 %; CALCIUM 9.3 mg/dL (8.5-10.3); CREATININE 1.4 mg/dL (0.6-1.3); MAGNESIUM 1.6 mg/dL (1.7-2.3); POTASSIUM 3.9 mmol/L (3.5-4.5); SLIDE REVIEW? Indicated
[2023-11-22 10:21] LABS: BAND NEUTROPHILS % (MANUAL) 2 %; EOSINOPHILS # (MANUAL) 0.3 10^3/uL (0-0.7); LYMPHOCYTES % (MANUAL) 8 %; MONOCYTES # (MANUAL) 0.9 10^3/uL (0.0-1.0); MYELOCYTES % (MANUAL) 1 %; NEUTROPHILS # (MANUAL) 25.6 10^3/uL (1.5-6.6); RBC MORPHOLOGY (MULTIPLE) 2+ ANISOCYTOSIS (NORMAL); REACTIVE LYMPHS % (MANUAL) 2 %
[2023-11-22 10:22] LABS: DIFFERENTIAL COMMENT MANUAL DIFFERENTIAL
[2023-11-22] MEDS ORDERED: AMIODARONE 360 MG/200 ML 200 ML IV SCH (10:35)
[2023-11-22 10:47] LABS: CALCIUM, IONIZED 1.19 mmol/L (1.15-1.33); VBG PH 7.201 (7.31-7.41)
[2023-11-22] MEDS: MAGNESIUM OXIDE 400 MG TABLET PO ONE (10:47)
[2023-11-22] MEDS: POTASSIUM CHLORIDE 20 MEQ TABLET PO ONE ×2 (10:47→15:52)
--- NOTE | 2023-11-22 11:42 | PHARMACY PROGRESS NOTE ---
- Best Possible Medication History Admit Date and Time: 11/22/23 0035 Processed by: Pharmacy Medications reviewed in ED?: No Medication History completed: Yes Patient Interview: Completed Secondary Source(s): Pharmacy records, Insurance records As the person ultimately responsible for medication therapy, providers are able to order a medication from an existing home medication list in [facility] via the "Reconcile Routine" prior to Confirmation of that medication by production support developer. Such practice is discouraged except when the physician, in their clinical judgment, deems that a medical need exists for a medication without regard to previous use.
[2023-11-22] MEDS: LACTATED RINGERS 1,000 ML IV ONE (11:57)
--- NOTE | 2023-11-22 12:17 | PROVIDER PROGRESS NOTE ---
Subjective - Prog Note Date Prog Note Date: 11/22/23 Prog Note Time: 12:11 - Subjective Pt reports feeling: No change Subjective: Did not improve overnight. Her abdomen is painful and she does not feel well overall. She has been seen by cardiology and gastroenterology as an outpatient at [facility]. She thinks that maybe she has had colitis in the past. She thinks that maybe she should be on medication for this. When questioned more closely it comes to light that she is supposed to be on and has been taking a proton pump inhibitor. She once again affirms that she thinks she has had colitis but does not know what the treatment should have been for that. She knows that she has had a colonoscopy in the past few years. I am able to review her [facility] records on her phone and I see mention of a colonoscopy in 2021 that showed colon polyps. The note itself is not available. She had an EGD done about a month ago showing some esophagitis, negative for H. pylori and again continues to take proton pump inhibitors. She is starting to have some mild chest discomfort this AM with tachycardia. Current Medications - Current Medications Current Medications: Medications Acetaminophen (Acetaminophen 325 Mg Tablet) 650 mg PO Q4HR PRN PRN Reason: Pain 1 to 4, or Fever Last Admin: 11/22/23 13:11 Dose: 650 mg Ciprofloxacin (Cipro 400 Mg/200 Ml) 400 mg in 200 mls @ 200 mls/hr IV Q12H [facility] Last Admin: 11/22/23 13:08 Dose: 200 mls/hr Enoxaparin Sodium (Enoxaparin 40 Mg/0.4 Ml Syringe) 40 mg SUBQ DAILY [facility] Last Admin: 11/22/23 09:50 Dose: 40 mg Hydromorphone HCl (Hydromorphone 0.5 Mg/0.5 Ml Syringe) 0.5 mg IVP Q4HR PRN PRN Reason: Severe Pain (Level 7-10) Last Admin: 11/22/23 09:48 Dose: 0.5 mg Lactated Ringer's (Lr) 1,000 mls @ 100 mls/hr IV .Q10H [facility] Last Admin: 11/22/23 13:08 Dose: 100 mls/hr Metoprolol Tartrate (Metoprolol Tartrate 50 Mg Tablet) 50 mg PO BID [facility] Metronidazole (Flagyl 500 Mg/100 Ml) 500 mg in 100 mls @ 100 mls/hr IV Q8H [facility] Last Admin: 11/22/23 10:48 Dose: Infused Ondansetron HCl (Ondansetron Odt 4 Mg Tablet) 4 mg TL Q6HR PRN PRN Reason: Nausea / Vomiting Last Admin: 11/22/23 02:28 Dose: 4 mg Pantoprazole Sodium (Pantoprazole 40 Mg Vial) 40 mg IV DAILY [facility] Last Admin: 11/22/23 09:48 Dose: 40 mg Prochlorperazine Edisylate (Prochlorperazine 10 Mg/2 Ml Vial) 10 mg IVP Q6HR PRN PRN Reason: Nausea / Vomiting Trazodone HCl (Trazodone 50 Mg Tablet) 50 mg PO HS [facility] Objective - Vital Signs/Intake & Output Vital Signs: Vital Signs x48h Temp Pulse Resp BP BP Pulse Ox 11/22/23 11:10 163/88 H 11/22/23 11:00 105 H 20 191/82 H 94 11/22/23 10:22 113 H 24 145/122 H 95 11/22/23 10:00 103 H 25 H 163/93 H 94 11/22/23 09:50 179/108 H 11/22/23 09:48 104 H 21 179/108 H 94 11/22/23 09:46 102 H 21 165/94 H 92 11/22/23 09:44 102 H 19 180/102 H 93 11/22/23 09:42 103 H 22 182/105 H 91 L 11/22/23 09:40 108 H 22 173/104 H 92 11/22/23 09:38 115 H 22 176/87 H 91 L 11/22/23 09:36 138 H 20 190/100 H 95 11/22/23 09:34 157 H 22 192/114 H 94 11/22/23 09:32 150 H 26 H 189/111 H 94 11/22/23 09:30 36.7 C 160 H 26 H 177/118 H 96 11/22/23 09:29 160 H 20 160/118 H 96 11/22/23 09:20 156 H 26 H 141/101 H 100 11/22/23 09:15 157 H 21 133/91 H 11/22/23 09:10 157 H 24 174/104 H 92 11/22/23 09:05 155 H 24 171/112 H 95 11/22/23 09:00 156 H 28 H 162/97 H 96 11/22/23 08:55 151 H 26 H 164/107 H 96 11/22/23 08:52 152 H 27 H 165/104 H 94 11/22/23 08:50 148 H 26 H 157/103 H 11/22/23 08:48 147 H 23 148/94 H 90 L 11/22/23 08:46 149 H 26 H 160/94 H 92 11/22/23 08:44 153 H 25 H 150/95 H 86 L 11/22/23 08:42 154 H 25 H 168/109 H 95 11/22/23 08:40 156 H 25 H 173/111 H 95 11/22/23 08:38 156 H 21 166/115 H 95 11/22/23 08:36 155 H 18 170/112 H 100 11/22/23 08:34 151 H 19 174/111 H 100 11/22/23 08:32 151 H 19 167/108 H 97 11/22/23 08:30 148 H 22 150/109 H 95 11/22/23 08:28 145 H 21 143/93 H 98 11/22/23 08:26 149 H 21 152/85 H 100 11/22/23 08:24 152 H 20 169/106 H 100 11/22/23 08:22 153 H 19 172/112 H 100 11/22/23 08:20 155 H 21 178/110 H 99 11/22/23 08:18 157 H 19 173/113 H 81 L 11/22/23 08:16 159 H 18 167/112 H 94 11/22/23 08:14 158 H 21 170/106 H 91 L 11/22/23 08:12 152 H 19 94/52 L 98 11/22/23 08:10 152 H 24 50/41 L 97 11/22/23 08:08 151 H 21 47/37 L 98 11/22/23 08:06 145 H 21 55/21 L 100 11/22/23 08:04 150 H 21 65/49 L 97 11/22/23 07:54 146 H 23 157/95 H 100 11/22/23 07:52 143 H 22 158/102 H 100 11/22/23 07:50 149 H 19 148/91 H 99 11/22/23 07:47 152 H 26 H 132/96 H 100 11/22/23 07:45 147 H 28 H 109/44 L 98 11/22/23 07:42 146 H 23 165/90 H 99 11/22/23 07:39 146 H 19 159/90 H 99 11/22/23 07:00 149 H 21 152/94 H 98 11/22/23 06:00 153 H 24 144/83 H 99 11/22/23 05:26 134 H 24 144/85 H 96 11/22/23 05:00 36.5 C 144 H 21 163/101 H 99 11/22/23 04:48 160 H 159/90 H Intake & Output: Intake & Output 11/19/23 11/20/23 11/21/23 11/22/23 23:59 23:59 23:59 23:59 Intake Total 3000 880 Output Total 1500 0 Balance 1500 880 - Objective General Appearance: positive: Mild distress Eyes Bilateral: positive: Normal inspection ENT: positive: ENT inspection nml Neck: positive: Nml inspection, No JVD, Trachea midline Respiratory: positive: No respiratory distress, Breath sounds nml. negative: Wheezes, Rales Cardiovascular: positive: Tachycardia (SVT) Abdomen: positive: Nml bowel sounds, Tenderness (diffuse, mild), Abnml bowel sounds. negative: Guarding, Rebound Back: positive: Nml inspection Skin: positive: Color nml Extremities: positive: Non-tender, Full ROM, Nml appearance Neurologic/Psychiatric: positive: Oriented x3 - Lab Results Fish Bones: 11/22/23 09:46 11/22/23 14:06 Other Labs: Lab Results x24hrs 11/22/23 11/22/23 11/22/23 Range/Units 09:58 09:46 09:46 WBC (4.8-10.8) x10^3/uL RBC (4.20-5.40) 10^6/uL Hgb (12.0-16.0) g/dL Hct (37.0-47.0) % MCV (81.0-99.0) fL MCH (27.0-31.0) pg MCHC (32.0-36.0) g/dL RDW (12.0-15.0) % Plt Count (130-450) 10^3/uL MPV (7.9-10.8) fL Neut # (Auto) (1.5-6.6) 10^3/uL Lymph # (Auto) (1.5-3.5) 10^3/uL [place] # (Auto) (0.0-1.0) 10^3/uL Eos # (Auto) (0.0-0.7) 10^3/uL Baso # (Auto) (0.0-0.1) 10^3/uL Absolute Nucleated RBC x10^3/uL Total Counted Band Neuts % (Manual) (0 - 10) % Reactive Lymphs % (Man) % Abnorm Lymph % (Manual) % Myelocytes % ( - 0) % Nucleated RBC % /100WBC Neutrophils # (Manual) (1.5-6.6) 10^3/uL Lymphocytes # (Manual) (1.5-3.5) 10^3/uL Monocytes # (Manual) (0.0-1.0) 10^3/uL Eosinophils # (Manual) (0-0.7) 10^3/uL Basophils # (Manual) (0-0.1) 10^3/uL Differential Comment Manual Slide Review RBC Morph Micro Appear (NORMAL) VBG pH 7.201 L (7.31-7.41) Ionized Calcium 1.19 (1.15-1.33) mmol/L Sodium (135-145) mmol/L Potassium (3.5-4.5) mmol/L Chloride (101-111) mmol/L Carbon Dioxide (21-32) mmol/L Anion Gap (6-13) BUN (6-20) mg/dL Creatinine (0.6-1.3) mg/dL Estimated GFR (MDRD) (>89) Glucose (74-104) mg/dL Lactic Acid 4.4 H* (0.5-2.2) mmol/L Calcium (8.5-10.3) mg/dL Phosphorus 5.3 H (2.5-5.0) mg/dL Magnesium (1.7-2.3) mg/dL Total Bilirubin (0.2-1.0) mg/dL AST (10-42) IU/L ALT (10-60) IU/L Alkaline Phosphatase (42-121) IU/L Troponin I High Sens (2.3-14.8) ng/L Total Protein (6.4-8.9) g/dL Albumin (3.2-5.5) g/dL Globulin (2.1-4.2) g/dL Albumin/Globulin Ratio (1.0-2.2) Lipase (11-82) U/L Urine Color Urine Clarity (CLEAR) Urine pH (5.0-7.5) PH Ur Specific [place] (1.002-1.030) Urine Protein (NEGATIVE) mg/dL Urine Glucose (UA) (NEGATIVE) mg/dL Urine Ketones (NEGATIVE) mg/dL Urine Occult Blood (NEGATIVE) Urine Nitrite (NEGATIVE) Urine Bilirubin (NEGATIVE) Urine Urobilinogen (NORMAL) E.U./dL Ur Leukocyte Esterase (NEGATIVE) Urine RBC (0-5) /HPF Urine WBC (0-5) /HPF Ur Squamous Epith Cells (<= Few) Urine Bacteria (None Seen) /HPF Ur Microscopic Review Urine Culture Comments Stl C. diff Tox B Gene (NEGATIVE) 11/22/23 11/22/23 11/22/23 Range/Units 09:46 09:46 09:46 WBC 30.1 H (4.8-10.8) x10^3/uL RBC 6.83 H (4.20-5.40) 10^6/uL Hgb 19.2 H (12.0-16.0) g/dL Hct 59.9 H (37.0-47.0) % MCV 87.7 (81.0-99.0) fL MCH 28.1 (27.0-31.0) pg MCHC 32.1 (32.0-36.0) g/dL RDW 14.1 (12.0-15.0) % Plt Count 423 (130-450) 10^3/uL MPV 10.0 (7.9-10.8) fL Neut # (Auto) Not Reportable (1.5-6.6) 10^3/uL Lymph # (Auto) Not Reportable (1.5-3.5) 10^3/uL [place] # (Auto) Not Reportable (0.0-1.0) 10^3/uL Eos # (Auto) Not Reportable (0.0-0.7) 10^3/uL Baso # (Auto) Not Reportable (0.0-0.1) 10^3/uL Absolute Nucleated RBC Not Reportable x10^3/uL Total Counted 100 Band Neuts % (Manual) 2 (0 - 10) % Reactive Lymphs % (Man) 2 % Abnorm Lymph % (Manual) 0 % Myelocytes % 1 H ( - 0) % Nucleated RBC % Not Reportable /100WBC Neutrophils # (Manual) 25.6 H (1.5-6.6) 10^3/uL Lymphocytes # (Manual) 3.0 (1.5-3.5) 10^3/uL Monocytes # (Manual) 0.9 (0.0-1.0) 10^3/uL Eosinophils # (Manual) 0.3 (0-0.7) 10^3/uL Basophils # (Manual) 0.0 (0-0.1) 10^3/uL Differential Comment MANUAL DIFFERENTIAL Manual Slide Review Indicated RBC Morph Micro Appear 2+ ANISOCYTOSIS (NORMAL) VBG pH (7.31-7.41) Ionized Calcium (1.15-1.33) mmol/L Sodium 137 (135-145) mmol/L Potassium 3.9 (3.5-4.5) mmol/L Chloride 104 (101-111) mmol/L Carbon Dioxide 19 L (21-32) mmol/L Anion Gap 14.0 H (6-13) BUN 22 H (6-20) mg/dL Creatinine 1.4 H (0.6-1.3) mg/dL Estimated GFR (MDRD) 37 L (>89) Glucose 200 H (74-104) mg/dL Lactic Acid (0.5-2.2) mmol/L Calcium 9.3 (8.5-10.3) mg/dL Phosphorus (2.5-5.0) mg/dL Magnesium 1.6 L (1.7-2.3) mg/dL Total Bilirubin (0.2-1.0) mg/dL AST (10-42) IU/L ALT (10-60) IU/L Alkaline Phosphatase (42-121) IU/L Troponin I High Sens 136.2 H* (2.3-14.8) ng/L Total Protein (6.4-8.9) g/dL Albumin (3.2-5.5) g/dL Globulin (2.1-4.2) g/dL Albumin/Globulin Ratio (1.0-2.2) Lipase (11-82) U/L Urine Color Urine Clarity (CLEAR) Urine pH (5.0-7.5) PH Ur Specific [place] (1.002-1.030) Urine Protein (NEGATIVE) mg/dL Urine Glucose (UA) (NEGATIVE) mg/dL Urine Ketones (NEGATIVE) mg/dL Urine Occult Blood (NEGATIVE) Urine Nitrite (NEGATIVE) Urine Bilirubin (NEGATIVE) Urine Urobilinogen (NORMAL) E.U./dL Ur Leukocyte Esterase (NEGATIVE) Urine RBC (0-5) /HPF Urine WBC (0-5) /HPF Ur Squamous Epith Cells (<= Few) Urine Bacteria (None Seen) /HPF Ur Microscopic Review Urine Culture Comments Stl C. diff Tox B Gene (NEGATIVE) 11/21/23 11/21/23 11/21/23 Range/Units 20:10 20:02 17:15 WBC (4.8-10.8) x10^3/uL RBC (4.20-5.40) 10^6/uL Hgb (12.0-16.0) g/dL Hct (37.0-47.0) % MCV (81.0-99.0) fL MCH (27.0-31.0) pg MCHC (32.0-36.0) g/dL RDW (12.0-15.0) % Plt Count (130-450) 10^3/uL MPV (7.9-10.8) fL Neut # (Auto) (1.5-6.6) 10^3/uL Lymph # (Auto) (1.5-3.5) 10^3/uL [place] # (Auto) (0.0-1.0) 10^3/uL Eos # (Auto) (0.0-0.7) 10^3/uL Baso # (Auto) (0.0-0.1) 10^3/uL Absolute Nucleated RBC x10^3/uL Total Counted Band Neuts % (Manual) (0 - 10) % Reactive Lymphs % (Man) % Abnorm Lymph % (Manual) % Myelocytes % ( - 0) % Nucleated RBC % /100WBC Neutrophils # (Manual) (1.5-6.6) 10^3/uL Lymphocytes # (Manual) (1.5-3.5) 10^3/uL Monocytes # (Manual) (0.0-1.0) 10^3/uL Eosinophils # (Manual) (0-0.7) 10^3/uL Basophils # (Manual) (0-0.1) 10^3/uL Differential Comment Manual Slide Review RBC Morph Micro Appear (NORMAL) VBG pH (7.31-7.41) Ionized Calcium (1.15-1.33) mmol/L Sodium 139 (135-145) mmol/L Potassium 3.2 L (3.5-4.5) mmol/L Chloride 97 L (101-111) mmol/L Carbon Dioxide 24 (21-32) mmol/L Anion Gap 18.0 H (6-13) BUN 16 (6-20) mg/dL Creatinine 1.0 (0.6-1.3) mg/dL Estimated GFR (MDRD) 55 L (>89) Glucose 170 H (74-104) mg/dL Lactic Acid (0.5-2.2) mmol/L Calcium 10.8 H (8.5-10.3) mg/dL Phosphorus (2.5-5.0) mg/dL Magnesium (1.7-2.3) mg/dL Total Bilirubin 0.6 (0.2-1.0) mg/dL AST 16 (10-42) IU/L ALT 8 L (10-60) IU/L Alkaline Phosphatase 92 (42-121) IU/L Troponin I High Sens (2.3-14.8) ng/L Total Protein 8.3 (6.4-8.9) g/dL Albumin 5.0 (3.2-5.5) g/dL Globulin 3.3 (2.1-4.2) g/dL Albumin/Globulin Ratio 1.5 (1.0-2.2) Lipase 22 (11-82) U/L Urine Color YELLOW Urine Clarity CLEAR (CLEAR) Urine pH 8.0 H (5.0-7.5) PH Ur Specific [place] 1.025 (1.002-1.030) Urine Protein >=300 H (NEGATIVE) mg/dL Urine Glucose (UA) 100 H (NEGATIVE) mg/dL Urine Ketones NEGATIVE (NEGATIVE) mg/dL Urine Occult Blood SMALL H (NEGATIVE) Urine Nitrite NEGATIVE (NEGATIVE) Urine Bilirubin NEGATIVE (NEGATIVE) Urine Urobilinogen 0.2 (NORMAL) (NORMAL) E.U./dL Ur Leukocyte Esterase NEGATIVE (NEGATIVE) Urine RBC 0-5 (0-5) /HPF Urine WBC 0-3 (0-5) /HPF Ur Squamous Epith Cells NONE SEEN (<= Few) Urine Bacteria None Seen (None Seen) /HPF Ur Microscopic Review INDICATED Urine Culture Comments NOT INDICATED Stl C. diff Tox B Gene NEGATIVE (NEGATIVE) 11/21/23 Range/Units 17:15 WBC 19.0 H (4.8-10.8) x10^3/uL RBC 6.06 H (4.20-5.40) 10^6/uL Hgb 17.2 H (12.0-16.0) g/dL Hct 50.3 H (37.0-47.0) % MCV 83.0 (81.0-99.0) fL MCH 28.4 (27.0-31.0) pg MCHC 34.2 (32.0-36.0) g/dL RDW 12.5 (12.0-15.0) % Plt Count 371 (130-450) 10^3/uL MPV 9.8 (7.9-10.8) fL Neut # (Auto) 13.9 H (1.5-6.6) 10^3/uL Lymph # (Auto) 3.7 H (1.5-3.5) 10^3/uL [place] # (Auto) 1.0 (0.0-1.0) 10^3/uL Eos # (Auto) 0.2 (0.0-0.7) 10^3/uL Baso # (Auto) 0.1 (0.0-0.1) 10^3/uL Absolute Nucleated RBC 0.00 x10^3/uL Total Counted Band Neuts % (Manual) (0 - 10) % Reactive Lymphs % (Man) % Abnorm Lymph % (Manual) % Myelocytes % ( - 0) % Nucleated RBC % 0.0 /100WBC Neutrophils # (Manual) (1.5-6.6) 10^3/uL Lymphocytes # (Manual) (1.5-3.5) 10^3/uL Monocytes # (Manual) (0.0-1.0) 10^3/uL Eosinophils # (Manual) (0-0.7) 10^3/uL Basophils # (Manual) (0-0.1) 10^3/uL Differential Comment Manual Slide Review RBC Morph Micro Appear (NORMAL) VBG pH (7.31-7.41) Ionized Calcium (1.15-1.33) mmol/L Sodium (135-145) mmol/L Potassium (3.5-4.5) mmol/L Chloride (101-111) mmol/L Carbon Dioxide (21-32) mmol/L Anion Gap (6-13) BUN (6-20) mg/dL Creatinine (0.6-1.3) mg/dL Estimated GFR (MDRD) (>89) Glucose (74-104) mg/dL Lactic Acid (0.5-2.2) mmol/L Calcium (8.5-10.3) mg/dL Phosphorus (2.5-5.0) mg/dL Magnesium (1.7-2.3) mg/dL Total Bilirubin (0.2-1.0) mg/dL AST (10-42) IU/L ALT (10-60) IU/L Alkaline Phosphatase (42-121) IU/L Troponin I High Sens (2.3-14.8) ng/L Total Protein (6.4-8.9) g/dL Albumin (3.2-5.5) g/dL Globulin (2.1-4.2) g/dL Albumin/Globulin Ratio (1.0-2.2) Lipase (11-82) U/L Urine Color Urine Clarity (CLEAR) Urine pH (5.0-7.5) PH Ur Specific [place] (1.002-1.030) Urine Protein (NEGATIVE) mg/dL Urine Glucose (UA) (NEGATIVE) mg/dL Urine Ketones (NEGATIVE) mg/dL Urine Occult Blood (NEGATIVE) Urine Nitrite (NEGATIVE) Urine Bilirubin (NEGATIVE) Urine Urobilinogen (NORMAL) E.U./dL Ur Leukocyte Esterase (NEGATIVE) Urine RBC (0-5) /HPF Urine WBC (0-5) /HPF Ur Squamous Epith Cells (<= Few) Urine Bacteria (None Seen) /HPF Ur Microscopic Review Urine Culture Comments Stl C. diff Tox B Gene (NEGATIVE) - Diagnostic Imaging Diagnostic Imaging Results: positive: Final report reviewed Diagnostic Imaging Comments: CT abdomen pelvis: Consistent with pancolitis either infectious or i nflammatory in etiology. ABX Reporting Has patient been on IV antibiotics over the past 48 hours?: Yes Sepsis Event Note (H) - Evaluation Possible source of Sepsis: positive: GI tract/intra-abdominal - Sepsis Criteria Sepsis Criteria: Recorded Heart Rate greater than 90 bpm, WBC count greater than 12,000 or less than 4000, Metabolic: lactate > 2 mmol/L Assessment/Plan - Problem List (1) SVT (supraventricular tachycardia) Impression: Her heart rate has been in the 150s all night. EKG shows supraventricular tachycardia with a rate of 159. This was done at 0035 She has an external jugular line in place and has been loaded with amiodarone. the line does not currently appear to be working. She has no IV access. Please see Dr Bacon's note for placement of left IJ central line and administration of adenosine. Her heart rate did not significantly respond to adenosine or vagal maneuvers. Her tachycardia did resolve with administration of metoprolol 5 mg IV x 3 and she was given oral metoprolol this morning. She seems to remember something like this happening in the past when she was sick and wound up in the hospital. She has been taking her medications at home. troponin. 136.[address] elevation on monitor. She had some mild chest discomfort when her rate was in the 150's. now resolved. Will give 50 mg metoprolol po this evening, got 50mg po this AM in addition to her IV metoprolol. (2) Colitis Impression: WBC count significantly increased today to 30.1 from 19.0 at admit. I have r equested records from [facility]. 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 I was able to look through her [facility] records on her phone. There is mention of a colonoscopy in 2021. I do not have that procedure note. However it is said that there were polyps found, no mention of colitis. There is no diagnosis listed in the chart of colitis at [facility]. She was admitted to [facility] in 2015 and 2019 and states that maybe 1 of those times she was diagnosed with colitis. She states she has never been on medications for this aside from a PPI for her upper abdominal discomfort. Possibly the increased leukocytosis is related to stress overnight from her arrhythmia. Her abdomen is tender, not particularly distended, not tympanic. Lactate was not tested at admit. it is 4.4 this AM. repeat pending. When questioned she says she has no family history of ulcerative colitis or Crohn's disease. Reviewing the gastroenterology office visits that are on her phone., it seems th at she has some chronic abdominal pain. She takes Pepto-Bismol [id number] quite regularly. (3) Hypokalemia Impression: 3.2 on admit, repleted overnight, now 3.9. Mag is low at 1.6. repleted per ICU protocol. (4) Hyperglycemia Impression: A1C 5.6%. Likely just stress related to her acute illness. no outpatient dx of DM. (5) Hypertension Impression: hypertensive in ED to the 200's. She has imrpoved overnight. no hypotension. (6) GERD (gastroesophageal reflux disease) Impression: seen on recent EGD. PPI was ordered with outpatient meds.
[2023-11-22 12:35] LABS: ESTIMATED AVERAGE GLUCOSE 114 mg/dL (70-100); HEMOGLOBIN A1c% 5.6 % (4.27-6.07)
[2023-11-22] MEDS: CIPROFLOXACIN 400 MG/200 ML 400 MG/200 ML BAG IV SCH (13:08)
[2023-11-22] MEDS: LACTATED RINGERS 1,000 ML IV SCH (13:08)
[2023-11-22] MEDS: ACETAMINOPHEN 325 MG TABLET PO PRN (13:11)
[2023-11-22 14:44] LABS: MAGNESIUM 1.4 mg/dL (1.7-2.3); POTASSIUM 3.7 mmol/L (3.5-4.5)
[2023-11-22] MEDS: MAGNESIUM SULFATE 2 GRAM 2 GM/50 ML BAG IV SCH (15:52)
--- NOTE | 2023-11-22 16:55 | PROVIDER PROGRESS NOTE ---
Assessment/Plan - Problem List (1) SVT (supraventricular tachycardia) Assessment/Plan: Comments: Called to patient's bedside for supraventricular tachycardia. Upon review of chart, it appears that patient has been in supraventricular tachycardia since approximately 2100 on November 21, 2023. During the night, several doses of diltiazem were given intravenously. Amiodarone was initiated early this morni ng. Upon arrival at bedside, patient continued on amiodarone infusion with no change in blood pressure. Prior to giving adenosine, it was reported that the line was functional. 6 mg of adenosine was given through the same line with no change in heart rate. Blood was not able to be withdrawn from this IV and it was felt that it was nonfunctional. Amiodarone was discontinued. An attempt was made to place a peripheral intravenous catheter with no success and the decision was made to insert a central line emergently given the fact that patient has been in supraventricular tachycardia for approximately 9 hours. A central line was placed and placement was confirmed with a chest x-ray. Patient received 6 mg of adenosine through the central line with a mild decrease in blood pressure. The 6 mg did not appear to have any significant effect. 12 mg of adenosine was given and heart rate decreased from the 150 range to 100 for a brief period of time and then increased once again to the [id number] range. Patient then received 5 mg of metoprolol intravenously x 3 doses over 10-15 minutes. Metoprolol improved heart rate significantly and decreased from [id number] range to [id number]. The patient takes 100 mg metoprolol twice daily as an outpatient and treatment was initiated with p.o. metoprolol at 25 mg. The patient tolerated this dose well and another 25 mg was given approximately 1 hour later.The dose was then increased to 50 mg twice daily. Patient had supraventricular tachycardia for approximately 9 hours without response to treatment with diltiazem or amiodarone. It is my opinion that that is highly likely that venous catheter placed into the left external or internal jugular vein was not functional. Patient responded well after placement of the central line and medications given through the central line. Overnight, creatinine has increased from 1.0-1.4, high-sensitivity troponin obtained at approximately 10 AM was 136 and lactate obtained at 10 AM is 4.4. The etiology of patient's acute kidney injury, increased lactate and elevated troponin may be multifactorial but also likely to be secondary to prolonged tachycardia with a persistent heart rate in the 150 range for 9 hours. Plan: Titrate metoprolol as tolerated. Critical care time spent reviewing the chart, ordering medications, examining patient and time spent at the bedside was a total time 32 minutes excluding procedure time. (2) Sepsis Assessment/Plan: Patient meets borderline criteria for sepsis with a national early warning score of 6. Continue to monitor. (3) Colitis Assessment/Plan: Continue treatment with ciprofloxacin and metronidazole. (4) Hypertension Assessment/Plan: Continue metoprolol and increase as tolerated. (5) Hypomagnesemia Assessment/Plan: Replacement (6) MILAGRO (acute kidney injury) Assessment/Plan: Patient given bolus of lactated Ringer's and placed on maintenance fluid. Continue to monitor. Critical care time spent reviewing the chart, ordering medications, examining patient and time spent at the bedside was a total time 32 minutes excluding p rocedure time. - Current Meds Current Meds: Current Medications Generic Name Dose Route Start Last Admin Trade Name Freq PRN Reason Stop Dose Admin Acetaminophen 650 mg 11/22/23 00:35 11/22/23 13:11 Acetaminophen 325 Mg Tablet PO 650 mg Q4HR PRN Administration Pain 1 to 4, or Fever Enoxaparin Sodium 40 mg 11/22/23 09:00 11/22/23 09:50 Enoxaparin 40 Mg/0.4 Ml Syringe SUBQ 40 mg DAILY ABRAHAM Administration Hydromorphone HCl 0.5 mg 11/22/23 01:24 11/22/23 14:07 Hydromorphone 0.5 Mg/0.5 Ml Syringe IVP 0.5 mg Q4HR PRN Administration Severe Pain (Level 7-10) Ciprofloxacin 400 mg in 200 mls @ 200 mls/hr 11/22/23 13:00 11/22/23 14:08 Cipro 400 Mg/200 Ml IV Infused Q12H ABRAHAM Infusion Metronidazole 500 mg in 100 mls @ 100 mls/hr 11/22/23 08:00 11/22/23 15:53 Flagyl 500 Mg/100 Ml IV 100 mls/hr Q8H ABRAHAM Administration Lactated Ringer's 1,000 mls @ 100 mls/hr 11/22/23 12:00 11/22/23 13:08 Lr IV 100 mls/hr .Q10H ABRAHAM Administration Magnesium Sulfate 2 gm in 50 mls @ 50 mls/hr 11/22/23 15:00 11/22/23 15:52 Magnesium Sulfate IV 11/22/23 16:59 50 mls/hr Q1H ABRAHAM Administration Protocol Ondansetron HCl 4 mg 11/22/23 00:35 11/22/23 02:28 Ondansetron Odt 4 Mg Tablet TL 4 mg Q6HR PRN Administration Nausea / Vomiting Pantoprazole Sodium 40 mg 11/22/23 09:00 11/22/23 09:48 Pantoprazole 40 Mg Vial IV 40 mg DAILY ABRAHAM Administration Sodium Chloride 10 ml 11/22/23 01:00 11/22/23 15:53 Sodium Chloride Flush 0.9% 10 Ml Syringe IVP 10 ml 0100,0900,1700 ABRAHAM Administration - Lab Result Fish Bone Diagrams: 11/22/23 09:46 11/22/23 14:06 - Additional Planning My Orders: My Active Orders 11/22/23 15:00 Magnesium Sulfate 2 Gram [Magnesium Sulfate] 2 gm in 50 ml IV Q1H 11/22/23 21:00 Metoprolol Tartrate [Lopressor] 50 mg PO BID Subjective - Subjective Patient Reports: Other (Called to patient bedside for supraventricular tachycardia.) Objective Vital Signs: Vital Signs - 24 hr 11/21/23 11/21/23 11/21/23 17:01 17:05 17:07 Temperature 36.1 C L 35.4 C L Heart Rate 82 89 Heart Rate [ Brachial] Respiratory 26 H 16 Rate Blood Pressure 213/117 H Blood Pressure [Right Brachial artery] O2 Saturation 100 100 If not protocol : Oxygen Flow, liters/minute 11/21/23 11/21/23 11/21/23 17:09 17:23 17:24 Temperature Heart Rate 103 H 88 Heart Rate [ Brachial] Respiratory 26 H 12 16 Rate Blood Pressure 241/108 H Blood Pressure [Right Brachial artery] O2 Saturation 100 100 If not protocol : Oxygen Flow, liters/minute 11/21/23 11/21/23 11/21/23 17:31 18:18 20:00 Temperature Heart Rate 70 84 88 Heart Rate [ Brachial] Respiratory 16 16 12 Rate Blood Pressure 239/114 H Blood Pressure [Right Brachial artery] O2 Saturation 100 100 100 If not protocol 3 3 2 : Oxygen Flow, liters/minute 11/21/23 11/21/23 11/21/23 21:17 21:37 21:54 Temperature Heart Rate 124 H 146 H 152 H Heart Rate [ Brachial] Respiratory 14 18 16 Rate Blood Pressure 163/130 H 198/144 H 198/144 H Blood Pressure [Right Brachial artery] O2 Saturation 99 97 100 If not protocol : Oxygen Flow, liters/minute 11/21/23 11/21/23 11/21/23 22:14 23:05 23:30 Temperature Heart Rate 101 H 121 H 151 H Heart Rate [ Brachial] Respiratory 22 14 16 Rate Blood Pressure 195/108 H 197/109 H 202/126 H Blood Pressure [Right Brachial artery] O2 Saturation 100 100 100 If not protocol : Oxygen Flow, liters/minute 11/21/23 11/22/23 11/22/23 23:55 00:30 01:45 Temperature 36.7 C Heart Rate 138 H 137 H Heart Rate [ 141 H Brachial] Respiratory 24 23 22 Rate Blood Pressure 202/126 H 187/108 H Blood Pressure 228/138 H [Right Brachial artery] O2 Saturation 100 100 97 If not protocol : Oxygen Flow, liters/minute 11/22/23 11/22/23 11/22/23 01:49 01:58 02:03 Temperature Heart Rate Heart Rate [ 136 H Brachial] Respiratory Rate Blood Pressure 228/138 H Blood Pressure 196/111 H 158/91 H [Right Brachial artery] O2 Saturation If not protocol : Oxygen Flow, liters/minute 11/22/23 11/22/23 11/22/23 02:08 02:17 02:28 Temperature Heart Rate Heart Rate [ 135 H 140 H Brachial] Respiratory Rate Blood Pressure 140/79 H Blood Pressure 133/74 H 140/79 H [Right Brachial artery] O2 Saturation If not protocol : Oxygen Flow, liters/minute 11/22/23 11/22/23 11/22/23 02:32 02:47 04:48 Temperature Heart Rate Heart Rate [ 142 H 143 H 160 H Brachial] Respiratory Rate Blood Pressure Blood Pressure 151/90 H 147/92 H 159/90 H [Right Brachial artery] O2 Saturation If not protocol : Oxygen Flow, liters/minute 11/22/23 11/22/23 11/22/23 05:00 05:26 06:00 Temperature 36.5 C Heart Rate Heart Rate [ 144 H 134 H 153 H Brachial] Respiratory 21 24 24 Rate Blood Pressure Blood Pressure 163/101 H 144/85 H 144/83 H [Right Brachial artery] O2 Saturation 99 96 99 If not protocol : Oxygen Flow, liters/minute 11/22/23 11/22/23 11/22/23 07:00 07:39 07:42 Temperature Heart Rate Heart Rate [ 149 H 146 H 146 H Brachial] Respiratory 21 19 23 Rate Blood Pressure Blood Pressure 152/94 H 159/90 H 165/90 H [Right Brachial artery] O2 Saturation 98 99 99 If not protocol : Oxygen Flow, liters/minute 11/22/23 11/22/23 11/22/23 07:45 07:47 07:50 Temperature Heart Rate Heart Rate [ 147 H 152 H 149 H Brachial] Respiratory 28 H 26 H 19 Rate Blood Pressure Blood Pressure 109/44 L 132/96 H 148/91 H [Right Brachial artery] O2 Saturation 98 100 99 If not protocol : Oxygen Flow, liters/minute 11/22/23 11/22/23 11/22/23 07:52 07:54 08:04 Temperature Heart Rate Heart Rate [ 143 H 146 H 150 H Brachial] Respiratory 22 23 21 Rate Blood Pressure Blood Pressure 158/102 H 157/95 H 65/49 L [Right Brachial artery] O2 Saturation 100 100 97 If not protocol : Oxygen Flow, liters/minute 11/22/23 11/22/23 11/22/23 08:06 08:08 08:10 Temperature Heart Rate Heart Rate [ 145 H 151 H 152 H Brachial] Respiratory 21 21 24 Rate Blood Pressure Blood Pressure 55/21 L 47/37 L 50/41 L [Right Brachial artery] O2 Saturation 100 98 97 If not protocol : Oxygen Flow, liters/minute 11/22/23 11/22/23 11/22/23 08:12 08:14 08:16 Temperature Heart Rate Heart Rate [ 152 H 158 H 159 H Brachial] Respiratory 19 21 18 Rate Blood Pressure Blood Pressure 94/52 L 170/106 H 167/112 H [Right Brachial artery] O2 Saturation 98 91 L 94 If not protocol : Oxygen Flow, liters/minute 11/22/23 11/22/23 11/22/23 08:18 08:20 08:22 Temperature Heart Rate Heart Rate [ 157 H 155 H 153 H Brachial] Respiratory 19 21 19 Rate Blood Pressure Blood Pressure 173/113 H 178/110 H 172/112 H [Right Brachial artery] O2 Saturation 81 L 99 100 If not protocol : Oxygen Flow, liters/minute 11/22/23 11/22/23 11/22/23 08:24 08:26 08:28 Temperature Heart Rate Heart Rate [ 152 H 149 H 145 H Brachial] Respiratory 20 21 21 Rate Blood Pressure Blood Pressure 169/106 H 152/85 H 143/93 H [Right Brachial artery] O2 Saturation 100 100 98 If not protocol : Oxygen Flow, liters/minute 11/22/23 11/22/23 11/22/23 08:30 08:32 08:34 Temperature Heart Rate Heart Rate [ 148 H 151 H 151 H Brachial] Respiratory 22 19 19 Rate Blood Pressure Blood Pressure 150/109 H 167/108 H 174/111 H [Right Brachial artery] O2 Saturation 95 97 100 If not protocol : Oxygen Flow, liters/minute 11/22/23 11/22/23 11/22/23 08:36 08:38 08:40 Temperature Heart Rate Heart Rate [ 155 H 156 H 156 H Brachial] Respiratory 18 21 25 H Rate Blood Pressure Blood Pressure 170/112 H 166/115 H 173/111 H [Right Brachial artery] O2 Saturation 100 95 95 If not protocol : Oxygen Flow, liters/minute 11/22/23 11/22/23 11/22/23 08:42 08:44 08:46 Temperature Heart Rate Heart Rate [ 154 H 153 H 149 H Brachial] Respiratory 25 H 25 H 26 H Rate Blood Pressure Blood Pressure 168/109 H 150/95 H 160/94 H [Right Brachial artery] O2 Saturation 95 86 L 92 If not protocol : Oxygen Flow, liters/minute 11/22/23 11/22/23 11/22/23 08:48 08:50 08:52 Temperature Heart Rate Heart Rate [ 147 H 148 H 152 H Brachial] Respiratory 23 26 H 27 H Rate Blood Pressure Blood Pressure 148/94 H 157/103 H 165/104 H [Right Brachial artery] O2 Saturation 90 L 94 If not protocol : Oxygen Flow, liters/minute 11/22/23 11/22/23 11/22/23 08:55 09:00 09:05 Temperature Heart Rate Heart Rate [ 151 H 156 H 155 H Brachial] Respiratory 26 H 28 H 24 Rate Blood Pressure Blood Pressure 164/107 H 162/97 H 171/112 H [Right Brachial artery] O2 Saturation 96 96 95 If not protocol : Oxygen Flow, liters/minute 11/22/23 11/22/23 11/22/23 09:10 09:15 09:20 Temperature Heart Rate Heart Rate [ 157 H 157 H 156 H Brachial] Respiratory 24 21 26 H Rate Blood Pressure Blood Pressure 174/104 H 133/91 H 141/101 H [Right Brachial artery] O2 Saturation 92 100 If not protocol : Oxygen Flow, liters/minute 11/22/23 11/22/23 11/22/23 09:29 09:30 09:32 Temperature 36.7 C Heart Rate Heart Rate [ 160 H 160 H 150 H Brachial] Respiratory 20 26 H 26 H Rate Blood Pressure Blood Pressure 160/118 H 177/118 H 189/111 H [Right Brachial artery] O2 Saturation 96 96 94 If not protocol : Oxygen Flow, liters/minute 11/22/23 11/22/23 11/22/23 09:34 09:36 09:38 Temperature Heart Rate Heart Rate [ 157 H 138 H 115 H Brachial] Respiratory 22 20 22 Rate Blood Pressure Blood Pressure 192/114 H 190/100 H 176/87 H [Right Brachial artery] O2 Saturation 94 95 91 L If not protocol : Oxygen Flow, liters/minute 11/22/23 11/22/23 11/22/23 09:40 09:42 09:44 Temperature Heart Rate Heart Rate [ 108 H 103 H 102 H Brachial] Respiratory 22 22 19 Rate Blood Pressure Blood Pressure 173/104 H 182/105 H 180/102 H [Right Brachial artery] O2 Saturation 92 91 L 93 If not protocol : Oxygen Flow, liters/minute 11/22/23 11/22/23 11/22/23 09:46 09:48 09:50 Temperature Heart Rate Heart Rate [ 102 H 104 H Brachial] Respiratory 21 21 Rate Blood Pressure 179/108 H Blood Pressure 165/94 H 179/108 H [Right Brachial artery] O2 Saturation 92 94 If not protocol : Oxygen Flow, liters/minute 11/22/23 11/22/23 11/22/23 10:00 10:22 11:00 Temperature Heart Rate Heart Rate [ 103 H 113 H 105 H Brachial] Respiratory 25 H 24 20 Rate Blood Pressure Blood Pressure 163/93 H 145/122 H 191/82 H [Right Brachial artery] O2 Saturation 94 95 94 If not protocol : Oxygen Flow, liters/minute 11/22/23 11/22/23 11/22/23 11:10 12:00 13:00 Temperature Heart Rate Heart Rate [ 82 84 Brachial] Respiratory 20 16 Rate Blood Pressure 163/88 H Blood Pressure 161/77 H 90/65 [Right Brachial artery] O2 Saturation 97 98 If not protocol : Oxygen Flow, liters/minute 11/22/23 11/22/23 11/22/23 14:00 15:00 16:00 Temperature 36.8 C Heart Rate Heart Rate [ 97 91 89 Brachial] Respiratory 19 16 17 Rate Blood Pressure Blood Pressure 197/96 H 133/68 H 164/85 H [Right Brachial artery] O2 Saturation 96 98 98 If not protocol : Oxygen Flow, liters/minute Oxygen O2 Source Room air Oxygen Flow Rate 3 I&O (Last 24 Hrs): Intake and Output Totals x24h 11/20/23 11/21/23 11/22/23 23:59 23:59 23:59 Intake Total 3000 1180 Output Total 1500 650 Balance 1500 530 General: Alert, Oriented x3, No acute distress HEENT: Atraumatic Neck: Supple, No JVD Neuro: Non Focal Cardiovascular: Other (Positive S1-S2 no extra heart sounds.) Respiratory: Other (Good air exchange in all lung musa no wheezing no crackles) Abdomen: Other (Hypoactive bowel sounds. Soft nontender to palpation in all 4 quadrants.) - Results Results: Laboratory Results WBC 30.1 x10^3/uL (4.8-10.8) H 11/22/23 09:46 RBC 6.83 10^6/uL (4.20-5.40) H 11/22/23 09:46 Hgb 19.2 g/dL (12.0-16.0) H 11/22/23 09:46 Hct 59.9 % (37.0-47.0) H 11/22/23 09:46 MCV 87.7 fL (81.0-99.0) 11/22/23 09:46 MCH 28.1 pg (27.0-31.0) 11/22/23 09:46 MCHC 32.1 g/dL (32.0-36.0) 11/22/23 09:46 RDW 14.1 % (12.0-15.0) 11/22/23 09:46 Plt Count 423 10^3/uL (130-450) 11/22/23 09:46 MPV 10.0 fL (7.9-10.8) 11/22/23 09:46 Neut # (Auto) Not Reportable 11/22/23 09:46 Lymph # (Auto) Not Reportable 11/22/23 09:46 [place] # (Auto) Not Reportable 11/22/23 09:46 Eos # (Auto) Not Reportable 11/22/23 09:46 Baso # (Auto) Not Reportable 11/22/23 09:46 Absolute Nucleated RBC Not Reportable 11/22/23 09:46 Total Counted 100 11/22/23 09:46 Band Neuts % (Manual) 2 % (0-10) 11/22/23 09:46 Reactive Lymphs % (Man) 2 % 11/22/23 09:46 Abnorm Lymph % (Manual) 0 % 11/22/23 09:46 Myelocytes % 1 % (-0) H 11/22/23 09:46 Nucleated RBC % Not Reportable 11/22/23 09:46 Neutrophils # (Manual) 25.6 10^3/uL (1.5-6.6) H 11/22/23 09:46 Lymphocytes # (Manual) 3.0 10^3/uL (1.5-3.5) 11/22/23 09:46 Monocytes # (Manual) 0.9 10^3/uL (0.0-1.0) 11/22/23 09:46 Eosinophils # (Manual) 0.3 10^3/uL (0-0.7) 11/22/23 09:46 Basophils # (Manual) 0.0 10^3/uL (0-0.1) 11/22/23 09:46 Differential Comment MANUAL DIFFERENTIAL 11/22/23 09:46 Manual Slide Review Indicated 11/22/23 09:46 RBC Morph Micro Appear 2+ ANISOCYTOSIS (NORMAL) 11/22/23 09:46 VBG pH 7.201 (7.31-7.41) L 11/22/23 09:46 Ionized Calcium 1.19 mmol/L (1.15-1.33) 11/22/23 09:46 Sodium 137 mmol/L (135-145) 11/22/23 09:46 Potassium 3.7 mmol/L (3.5-4.5) 11/22/23 14:06 Chloride 104 mmol/L (101-111) 11/22/23 09:46 Carbon Dioxide 19 mmol/L (21-32) L 11/22/23 09:46 Anion Gap 14.0 (6-13) H 11/22/23 09:46 BUN 22 mg/dL (6-20) H 11/22/23 09:46 Creatinine 1.4 mg/dL (0.6-1.3) H 11/22/23 09:46 Estimated GFR (MDRD) 37 (>89) L 11/22/23 09:46 Glucose 200 mg/dL (74-104) H 11/22/23 09:46 Estimat Average Glucose 114 mg/dL (70-100) H 11/22/23 09:46 Hemoglobin A1c % 5.6 % (4.27-6.07) 11/22/23 09:46 Lactic Acid 4.4 mmol/L (0.5-2.2) H* 11/22/23 09:58 Calcium 9.3 mg/dL (8.5-10.3) 11/22/23 09:46 Phosphorus 5.3 mg/dL (2.5-5.0) H 11/22/23 09:46 Magnesium 1.4 mg/dL (1.7-2.3) L 11/22/23 14:06 Total Bilirubin 0.6 mg/dL (0.2-1.0) 11/21/23 17:15 AST 16 IU/L (10-42) 11/21/23 17:15 ALT 8 IU/L (10-60) L 11/21/23 17:15 Alkaline Phosphatase 92 IU/L (42-121) 11/21/23 17:15 Troponin I High Sens 154.4 ng/L (2.3-14.8) H* 11/22/23 14:06 Total Protein 8.3 g/dL (6.4-8.9) 11/21/23 17:15 Albumin 5.0 g/dL (3.2-5.5) 11/21/23 17:15 Globulin 3.3 g/dL (2.1-4.2) 11/21/23 17:15 Albumin/Globulin Ratio 1.5 (1.0-2.2) 11/21/23 17:15 Lipase 22 U/L (11-82) 11/21/23 17:15 Urine Color YELLOW 11/21/23 20:02 Urine Clarity CLEAR (CLEAR) 11/21/23 20:02 Urine pH 8.0 PH (5.0-7.5) H 11/21/23 20:02 Ur Specific [place] 1.025 (1.002-1.030) 11/21/23 20:02 Urine Protein >=300 mg/dL (NEGATIVE) H 11/21/23 20:02 Urine Glucose (UA) 100 mg/dL (NEGATIVE) H 11/21/23 20:02 Urine Ketones NEGATIVE mg/dL (NEGATIVE) 11/21/23 20:02 Urine Occult Blood SMALL (NEGATIVE) H 11/21/23 20:02 Urine Nitrite NEGATIVE (NEGATIVE) 11/21/23 20:02 Urine Bilirubin NEGATIVE (NEGATIVE) 11/21/23 20:02 Urine Urobilinogen 0.2 (NORMAL) E.U./dL (NORMAL) 11/21/23 20:02 Ur Leukocyte Esterase NEGATIVE (NEGATIVE) 11/21/23 20:02 Urine RBC 0-5 /HPF (0-5) 11/21/23 20:02 Urine WBC 0-3 /HPF (0-5) 11/21/23 20:02 Ur Squamous Epith Cells NONE SEEN (<= Few) 11/21/23 20:02 Urine Bacteria None Seen /HPF (None Seen) 11/21/23 20:02 Ur Microscopic Review INDICATED 11/21/23 20:02 Urine Culture Comments NOT INDICATED 11/21/23 20:02 Nasal Screen MRSA (PCR) NEGATIVE (NEGATIVE) 11/22/23 05:12 Stl C. diff Tox B Gene NEGATIVE (NEGATIVE) 11/21/23 20:10 Sepsis Event Note (H) - Evaluation Possible source of Sepsis: positive: GI tract/intra-abdominal - Sepsis Criteria Sepsis Criteria: Recorded Heart Rate greater than 90 bpm, WBC count greater than 12,000 or less than 4000, Metabolic: lactate > 2 mmol/L
[2023-11-22] MEDS: METOPROLOL TARTRATE 50 MG TABLET PO SCH (20:46)
[2023-11-22] MEDS: ONDANSETRON 4 MG/2 ML VIAL IVP PRN (20:46)
[2023-11-22] MEDS: traZODone 50 MG TABLET PO SCH (21:06)
[2023-11-22] MEDS: METOPROLOL 5 MG/5 ML VIAL IVP PRN (21:21)
[2023-11-22 22:31] LABS: MAGNESIUM 2.5 mg/dL (1.7-2.3); POTASSIUM 3.8 mmol/L (3.5-4.5)
[2023-11-23] MEDS: hydrALAZINE INJ 20 MG/ML VIAL IVP PRN
[2023-11-23] MEDS: POTASSIUM CHLORIDE 20 MEQ TABLET PO ONE ×2 (00:06→08:26)
[2023-11-23] MEDS: PROCHLORPERAZINE 10 MG/2 ML VIAL IVP PRN (00:23)
--- NOTE | 2023-11-23 01:25 | PROVIDER PROGRESS NOTE ---
Bar Staff Note - Bar Staff Note Bar Staff Note: RN paged "Hi again Dr Gil, Updates for pt Link, Beba Hydralazine was given, latest BP still elevated at 182/73 HR is creeping up again at 120s o2 sat 94% room air Just gave another dose of dilaudid for her chest pain, but not complaining of SOB. can you call me? thanks" spoke with RN. patient's vitals indicating progression back into SVT. no echo available. A: known SVT on EKG. difficult to manage. persistent tachycardia despite metoprolol. concurrent hypertension P: labetalol gtt. Manju Akers DO Sound
[2023-11-23] MEDS ORDERED: LABETALOL 20 MG/4 ML SYRINGE IVP ONE (01:52)
[2023-11-23] MEDS: LABETALOL VIAL 200 MG in SODIUM CHLORIDE 0.9% 160 ML IV SCH (01:56)
[2023-11-23 05:47] LABS: BASOPHILS % (AUTO) 0.1 %; EOSINOPHILS # (AUTO) 0.1 10^3/uL (0.0-0.7); EOSINOPHILS % (AUTO) 0.3 %; HCT - HEMATOCRIT 41.3 % (37.0-47.0); HGB - HEMOGLOBIN 13.7 g/dL (12.0-16.0); LYMPHOCYTES # (AUTO) 2.3 10^3/uL (1.5-3.5); LYMPHOCYTES % (AUTO) 10.4 %; MEAN CORPUSCULAR HEMOGLOBIN 28.8 pg (27.0-31.0); MEAN CORPUSCULAR HGB CONC 33.2 g/dL (32.0-36.0); MEAN CORPUSCULAR VOLUME 86.9 fL (81.0-99.0); MONOCYTES % (AUTO) 8.7 %; NEUTROPHILS % (AUTO) 79.8 %; PLT - PLATELET COUNT 220 10^3/uL (130-450); RED BLOOD COUNT 4.75 10^6/uL (4.20-5.40); RED CELL DISTRIBUTION WIDTH 13.5 % (12.0-15.0); WHITE BLOOD COUNT 22.5 x10^3/uL (4.8-10.8)
[2023-11-23 05:59] LABS: MAGNESIUM 2.2 mg/dL (1.7-2.3)
[2023-11-23 06:05] LABS: CALCIUM 8.5 mg/dL (8.5-10.3); CREATININE 0.9 mg/dL (0.6-1.3); POTASSIUM 3.9 mmol/L (3.5-4.5)
[2023-11-23 06:08] LABS: CALCIUM, IONIZED 1.17 mmol/L (1.15-1.33); VBG PH 7.336 (7.31-7.41)
[2023-11-23 06:19] LABS: DIFFERENTIAL COMMENT MANUAL=AUTO DIFF
[2023-11-23] MEDS: METOPROLOL TARTRATE 50 MG TABLET PO SCH (08:25)
[2023-11-23] MEDS: DULoxetine 30 MG CAPSULE PO SCH (08:26)
--- NOTE | 2023-11-23 10:04 | Discharge Plan ---
Discharge Plan Problem Reviewed?: Yes Disposition: Home, Self Care Condition: Fair Diet: Cardiac Activity Restrictions: No Restrictions Shower Restrictions: No Driving Restrictions: No Weight Bearing: Full Weight Health Concerns: You were admitted to the hospital with selling of your lips. It is felt this is a reaction to Lisinopril. At this point the swelling is improving. The lisinopril should be stopped. I am calling in amlodipine to your pharmacy. You should follow up with your primary care provider in 1 week No Smoking: If you smoke, Please STOP! Call for help.
[2023-11-23] MEDS: amLODIPine 5 MG TABLET PO SCH (13:15)
--- NOTE | 2023-11-23 13:21 | PROVIDER PROGRESS NOTE ---
Subjective - Prog Note Date Prog Note Date: 11/23/23 Prog Note Time: 13:20 - Subjective Pt reports feeling: No change Subjective: The patient is a 68-year-old female who was admitted to the hospital with acute colitis. She has had issues with refractory SVT. Overnight her heart rate was elevated as well as her blood pressure and she was started on a labetalol drip. This was changed this morning and she has been changed back to p.o. metoprolol. When I went to see her today she was sleeping. She was arousable but somewhat lethargic. She tells me that she is having abdominal pain and that it is not any better. She denies fever or shaking chills. She said that she had some chest discomfort overnight that was relieved with some IV Dilaudid. She points to the epigastric area when describing her pain. She states that she is nauseated this morning. She has continued abdominal pain. She has not had a bowel movement. She denies any urinary complaints Current Medications - Current Medications Current Medications: Tylenol 650 mg p.o. every 4 hours as needed pain or fever Amlodipine 5 mg daily Cipro 400 mg IV every 12 hours Duloxetine 60 mg daily Lovenox 40 mg daily Hydralazine 10 mg IV every 6 hours as needed elevated blood pressure Dilaudid 0.5 mg IV every 4 hours as needed severe pain Dilaudid 0.2 mg IV every 4 hours as needed moderate pain Metoprolol tartrate 100 mg p.o. twice daily Flagyl 500 mg IV every 8 hours Ondansetron ODT 4 mg every 6 hours as needed nausea vomiting Ondansetron 4 mg IV every 6 hours as needed nausea Protonix 40 mg p.o. daily Prochlorperazine 10 mg IV every 6 hours as needed nausea and vomiting Trazodone 50 mg p.o. nightly Objective - Vital Signs/Intake & Output Vital Signs: Vital Signs x48h Temp Pulse Resp BP BP Pulse Ox 11/23/23 13:00 112 H 16 154/65 H 96 11/23/23 11:41 98.1 C H 115 H 12 124/43 L 124/43 L 96 11/23/23 11:14 181/75 H 11/23/23 11:00 120 H 17 181/75 H 94 11/23/23 10:00 116 H 17 172/75 H 93 11/23/23 09:00 109 H 18 165/74 H 96 11/23/23 08:25 164/66 H 11/23/23 08:10 36.6 C 11/23/23 08:00 108 H 18 164/66 H 95 11/23/23 07:01 99 15 124/57 L 94 11/23/23 06:08 95 16 100/48 L 92 Intake & Output: Intake & Output 11/20/23 11/21/23 11/22/23 11/23/23 23:59 23:59 23:59 23:59 Intake Total 3000 3380 1632.833 Output Total 1500 950 700 Balance 1500 2430 932.833 - Objective General Appearance: positive: Lethargic (The patient is somewhat lethargic. She appears to be in a mild amount of pain and appears to look acutely ill), Other Eyes Bilateral: positive: Normal inspection, PERRL ENT: positive: ENT inspection nml Neck: positive: Nml inspection Cardiovascular: positive: Regular rate & rhythm, No murmur, No gallop. negati ve: Friction rub Abdomen: positive: Other (The patient has diffuse tenderness to palpation. No rebound or rigidity. She does have a mild amount of guarding. Positive bowel sounds) Skin: positive: Color nml, No rash, Warm, Dry Extremities: positive: Non-tender, Full ROM Neurologic/Psychiatric: positive: Oriented x3, CN's nml (2-12) - Lab Results Fish Bones: 11/23/23 05:08 11/23/23 11:41 Other Labs: Lab Results x24hrs 11/23/23 11/23/23 11/23/23 Range/Units 11:41 11:41 11:41 WBC (4.8-10.8) x10^3/uL RBC (4.20-5.40) 10^6/uL Hgb (12.0-16.0) g/dL Hct (37.0-47.0) % MCV (81.0-99.0) fL MCH (27.0-31.0) pg MCHC (32.0-36.0) g/dL RDW (12.0-15.0) % Plt Count (130-450) 10^3/uL MPV (7.9-10.8) fL Neut # (Auto) (1.5-6.6) 10^3/uL Lymph # (Auto) (1.5-3.5) 10^3/uL Wilson # (Auto) (0.0-1.0) 10^3/uL Eos # (Auto) (0.0-0.7) 10^3/uL Baso # (Auto) (0.0-0.1) 10^3/uL Absolute Nucleated RBC x10^3/uL Band Neuts % (Manual) Abnorm Lymph % (Manual) Nucleated RBC % /100WBC Neutrophils # (Manual) Lymphocytes # (Manual) Monocytes # (Manual) Eosinophils # (Manual) Basophils # (Manual) Differential Comment VBG pH (7.31-7.41) Ionized Calcium (1.15-1.33) mmol/L Sodium (135-145) mmol/L Potassium 4.3 (3.5-4.5) mmol/L Chloride (101-111) mmol/L Carbon Dioxide (21-32) mmol/L Anion Gap (6-13) BUN (6-20) mg/dL Creatinine (0.6-1.3) mg/dL Estimated GFR (MDRD) (>89) Glucose (74-104) mg/dL Lactic Acid 2.3 H (0.5-2.2) mmol/L Calcium (8.5-10.3) mg/dL Phosphorus (2.5-5.0) mg/dL Magnesium (1.7-2.3) mg/dL Troponin I High Sens (2.3-14.8) ng/L Procalcitonin Immunoas 0.68 H (<0.5) ng/mL Nasal Screen MRSA (PCR) (NEGATIVE) 11/23/23 11/23/23 11/23/23 Range/Units 08:28 05:08 05:08 WBC (4.8-10.8) x10^3/uL RBC (4.20-5.40) 10^6/uL Hgb (12.0-16.0) g/dL Hct (37.0-47.0) % MCV (81.0-99.0) fL MCH (27.0-31.0) pg MCHC (32.0-36.0) g/dL RDW (12.0-15.0) % Plt Count (130-450) 10^3/uL MPV (7.9-10.8) fL Neut # (Auto) (1.5-6.6) 10^3/uL Lymph # (Auto) (1.5-3.5) 10^3/uL Wilson # (Auto) (0.0-1.0) 10^3/uL Eos # (Auto) (0.0-0.7) 10^3/uL Baso # (Auto) (0.0-0.1) 10^3/uL Absolute Nucleated RBC x10^3/uL Band Neuts % (Manual) Abnorm Lymph % (Manual) Nucleated RBC % /100WBC Neutrophils # (Manual) Lymphocytes # (Manual) Monocytes # (Manual) Eosinophils # (Manual) Basophils # (Manual) Differential Comment VBG pH 7.336 (7.31-7.41) Ionized Calcium 1.17 (1.15-1.33) mmol/L Sodium (135-145) mmol/L Potassium (3.5-4.5) mmol/L Chloride (101-111) mmol/L Carbon Dioxide (21-32) mmol/L Anion Gap (6-13) BUN (6-20) mg/dL Creatinine (0.6-1.3) mg/dL Estimated GFR (MDRD) (>89) Glucose (74-104) mg/dL Lactic Acid (0.5-2.2) mmol/L Calcium (8.5-10.3) mg/dL Phosphorus 3.3 (2.5-5.0) mg/dL Magnesium (1.7-2.3) mg/dL Troponin I High Sens 119.4 H* (2.3-14.8) ng/L Procalcitonin Immunoas (<0.5) ng/mL Nasal Screen MRSA (PCR) (NEGATIVE) 11/23/23 11/23/23 11/22/23 Range/Units 05:08 05:08 22:16 WBC 22.5 H (4.8-10.8) x10^3/uL RBC 4.75 (4.20-5.40) 10^6/uL Hgb 13.7 (12.0-16.0) g/dL Hct 41.3 (37.0-47.0) % MCV 86.9 (81.0-99.0) fL MCH 28.8 (27.0-31.0) pg MCHC 33.2 (32.0-36.0) g/dL RDW 13.5 (12.0-15.0) % Plt Count 220 (130-450) 10^3/uL MPV 10.0 (7.9-10.8) fL Neut # (Auto) 18.0 H (1.5-6.6) 10^3/uL Lymph # (Auto) 2.3 (1.5-3.5) 10^3/uL Wilson # (Auto) 2.0 H (0.0-1.0) 10^3/uL Eos # (Auto) 0.1 (0.0-0.7) 10^3/uL Baso # (Auto) 0.0 (0.0-0.1) 10^3/uL Absolute Nucleated RBC 0.00 x10^3/uL Band Neuts % (Manual) Not Reportable Abnorm Lymph % (Manual) Not Reportable Nucleated RBC % 0.0 /100WBC Neutrophils # (Manual) Not Reportable Lymphocytes # (Manual) Not Reportable Monocytes # (Manual) Not Reportable Eosinophils # (Manual) Not Reportable Basophils # (Manual) Not Reportable Differential Comment MANUAL=AUTO DIFF VBG pH (7.31-7.41) Ionized Calcium (1.15-1.33) mmol/L Sodium 136 (135-145) mmol/L Potassium 3.9 (3.5-4.5) mmol/L Chloride 104 (101-111) mmol/L Carbon Dioxide 26 (21-32) mmol/L Anion Gap 6.0 (6-13) BUN 21 H (6-20) mg/dL Creatinine 0.9 (0.6-1.3) mg/dL Estimated GFR (MDRD) 62 L (>89) Glucose 123 H (74-104) mg/dL Lactic Acid (0.5-2.2) mmol/L Calcium 8.5 (8.5-10.3) mg/dL Phosphorus (2.5-5.0) mg/dL Magnesium 2.2 (1.7-2.3) mg/dL Troponin I High Sens 130.2 H* (2.3-14.8) ng/L Procalcitonin Immunoas (<0.5) ng/mL Nasal Screen MRSA (PCR) (NEGATIVE) 11/22/23 11/22/23 11/22/23 Range/Units 22:16 14:27 14:06 WBC (4.8-10.8) x10^3/uL RBC (4.20-5.40) 10^6/uL Hgb (12.0-16.0) g/dL Hct (37.0-47.0) % MCV (81.0-99.0) fL MCH (27.0-31.0) pg MCHC (32.0-36.0) g/dL RDW (12.0-15.0) % Plt Count (130-450) 10^3/uL MPV (7.9-10.8) fL Neut # (Auto) (1.5-6.6) 10^3/uL Lymph # (Auto) (1.5-3.5) 10^3/uL Wilson # (Auto) (0.0-1.0) 10^3/uL Eos # (Auto) (0.0-0.7) 10^3/uL Baso # (Auto) (0.0-0.1) 10^3/uL Absolute Nucleated RBC x10^3/uL Band Neuts % (Manual) Abnorm Lymph % (Manual) Nucleated RBC % /100WBC Neutrophils # (Manual) Lymphocytes # (Manual) Monocytes # (Manual) Eosinophils # (Manual) Basophils # (Manual) Differential Comment VBG pH (7.31-7.41) Ionized Calcium (1.15-1.33) mmol/L Sodium (135-145) mmol/L Potassium 3.8 3.7 (3.5-4.5) mmol/L Chloride (101-111) mmol/L Carbon Dioxide (21-32) mmol/L Anion Gap (6-13) BUN (6-20) mg/dL Creatinine (0.6-1.3) mg/dL Estimated GFR (MDRD) (>89) Glucose (74-104) mg/dL Lactic Acid 2.6 H (0.5-2.2) mmol/L Calcium (8.5-10.3) mg/dL Phosphorus (2.5-5.0) mg/dL Magnesium 2.5 H 1.4 L (1.7-2.3) mg/dL Troponin I High Sens (2.3-14.8) ng/L Procalcitonin Immunoas (<0.5) ng/mL Nasal Screen MRSA (PCR) (NEGATIVE) 11/22/23 11/22/23 Range/Units 14:06 05:12 WBC (4.8-10.8) x10^3/uL RBC (4.20-5.40) 10^6/uL Hgb (12.0-16.0) g/dL Hct (37.0-47.0) % MCV (81.0-99.0) fL MCH (27.0-31.0) pg MCHC (32.0-36.0) g/dL RDW (12.0-15.0) % Plt Count (130-450) 10^3/uL MPV (7.9-10.8) fL Neut # (Auto) (1.5-6.6) 10^3/uL Lymph # (Auto) (1.5-3.5) 10^3/uL Wilson # (Auto) (0.0-1.0) 10^3/uL Eos # (Auto) (0.0-0.7) 10^3/uL Baso # (Auto) (0.0-0.1) 10^3/uL Absolute Nucleated RBC x10^3/uL Band Neuts % (Manual) Abnorm Lymph % (Manual) Nucleated RBC % /100WBC Neutrophils # (Manual) Lymphocytes # (Manual) Monocytes # (Manual) Eosinophils # (Manual) Basophils # (Manual) Differential Comment VBG pH (7.31-7.41) Ionized Calcium (1.15-1.33) mmol/L Sodium (135-145) mmol/L Potassium (3.5-4.5) mmol/L Chloride (101-111) mmol/L Carbon Dioxide (21-32) mmol/L Anion Gap (6-13) BUN (6-20) mg/dL Creatinine (0.6-1.3) mg/dL Estimated GFR (MDRD) (>89) Glucose (74-104) mg/dL Lactic Acid (0.5-2.2) mmol/L Calcium (8.5-10.3) mg/dL Phosphorus (2.5-5.0) mg/dL Magnesium (1.7-2.3) mg/dL Troponin I High Sens 154.4 H* (2.3-14.8) ng/L Procalcitonin Immunoas (<0.5) ng/mL Nasal Screen MRSA (PCR) NEGATIVE (NEGATIVE) ABX Reporting Has patient been on IV antibiotics over the past 48 hours?: Yes Sepsis Event Note (H) - Evaluation Current Stage of Sepsis: Sepsis Possible source of Sepsis: positive: GI tract/intra-abdominal - Sepsis Criteria Sepsis Criteria: Recorded Heart Rate greater than 90 bpm, Recorded Respiratory Rate greater than 20, WBC count greater than 12,000 or less than 4000, Metabolic: lactate > 2 mmol/L Assessment/Plan - Problem List (1) Sepsis Impression: After reviewing the chart I do believe the patient had evidence of sepsis at the time of admission. She had a markedly elevated white blood cell count. She has an MILAGRO with a creatinine of 1.4 (1 sofa point). She had oxygen saturations documented as low as 90% on room air with a PF ratio less than 300. (2 sofa point). Sofa score is 3. In addition she had a lactic acidosis and an elevated procalcitonin. She has underlying colitis. The patient is slowly improving with treatment. Creatinine has improved. Lactic acidosis has improved as well. Continue IV antibiotics that will be outlined below. (2) Colitis Impression: The patient will continue IV Cipro and Flagyl. Her white blood cell count yesterday was 30,000. It is improved down to 22,000 today. The patient has quite a bit of abdominal pain still. Continue to monitor quite closely. She will be started on a clear liquid diet today. (3) MILAGRO (acute kidney injury) Impression: Secondary to sepsis. Resolved (4) Non-ischemic myocardial injury (non-traumatic) Impression: The patient had elevated troponins that are flat. This appears to be nonischemic and likely is related to her acute illness. (5) SVT (supraventricular tachycardia) Impression: The patient was treated with multiple agents to include amiodarone, adenosine and labetalol. Overnight she was placed on labetalol drip which was stopped this morning. She has been transition to metoprolol tartrate 100 mg p.o. twice daily. She will remain on telemetry. her tachycardia is likely driven by her sepsis (6) Lactic acidosis Impression: Secondary to sepsis. Improved (7) Hypertensive urgency Impression: The patient has had markedly elevated blood pressures. She has IV labetalol and IV hydralazine available as needed. (8) Chest pain Impression: The patient did complain of some chest pain last night but after talking to her I feel like this is likely gastrointestinal in nature. Her pain is mainly located in the epigastric area. Troponins are trending downwards. No further workup unless she develops further symptoms (9) Positive blood culture Impression: The patient had 1 out of 2 blood cultures positive for coagulase-negative staph. This is likely a contaminant. Will repeat blood cultures today to confirm. (10) GERD (gastroesophageal reflux disease) Impression: Continue 40 mg of Protonix daily (11) Hypomagnesemia Impression: Repleted and resolved. Currently her magnesium level is 2.2. Will try to keep her magnesium level above 2.0 in light of her tachycardia. (12) Hypokalemia Impression: Repleted and resolved. Current potassium level is 4.3. Will keep her potassium above 4.0 again in light of her tachycardia. (13) Hyperlipidemia Impression: She will resume her home medication at discharge. Time spent: 35 minutes
[2023-11-23] MEDS: HYDROmorphone 0.5 MG/0.5 ML SYRINGE IVP ONE (17:50)
--- NOTE | 2023-11-23 22:14 | PROVIDER PROGRESS NOTE ---
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 Pt received metoprolol PO 100mg at 19:45 Pt has been sustaining around 120's since last metoprolol PO dose given." continue to monitor considering day team stopped labetalol gtt. if worsening HR, then consider restart labetalol gtt. Manju Rivera
[2023-11-24] MEDS: METOPROLOL 5 MG/5 ML VIAL IVP PRN
[2023-11-24] MEDS: SODIUM CHLORIDE FLUSH 0.9% 10 ML SYRINGE IVP PRN (03:53)
[2023-11-24 04:44] LABS: BASOPHILS % (AUTO) 0.1 %; EOSINOPHILS % (AUTO) 0.1 %; HCT - HEMATOCRIT 32.8 % (37.0-47.0); HGB - HEMOGLOBIN 10.4 g/dL (12.0-16.0); LYMPHOCYTES # (AUTO) 3.4 10^3/uL (1.5-3.5); MEAN CORPUSCULAR HEMOGLOBIN 28.5 pg (27.0-31.0); MEAN CORPUSCULAR HGB CONC 31.7 g/dL (32.0-36.0); MEAN CORPUSCULAR VOLUME 89.9 fL (81.0-99.0); MEAN PLATELET VOLUME 10.4 fL (7.9-10.8); MONOCYTES # (AUTO) 1.4 10^3/uL (0.0-1.0); MONOCYTES % (AUTO) 8.5 %; NEUTROPHILS # (AUTO) 12.1 10^3/uL (1.5-6.6); NEUTROPHILS % (AUTO) 70.9 %; PLT - PLATELET COUNT 174 10^3/uL (130-450); RED BLOOD COUNT 3.65 10^6/uL (4.20-5.40); RED CELL DISTRIBUTION WIDTH 13.7 % (12.0-15.0)
[2023-11-24 04:53] LABS: CALCIUM, IONIZED 1.13 mmol/L (1.15-1.33); VBG PH 7.39 (7.31-7.41)
[2023-11-24 05:00] LABS: CALCIUM 8.7 mg/dL (8.5-10.3); CREATININE 0.8 mg/dL (0.6-1.3); MAGNESIUM 1.8 mg/dL (1.7-2.3); POTASSIUM 3.3 mmol/L (3.5-4.5)
[2023-11-24] MEDS: PANTOPRAZOLE 40 MG TABLET PO SCH (06:05)
[2023-11-24] MEDS: POTASSIUM CHLORIDE 20 MEQ TABLET PO SCH (06:05)
[2023-11-24] MEDS ORDERED: POTASSIUM CHLOR 10 MEQ/100 ML 10 MEQ/100 ML BAG IV SCH (08:00)
[2023-11-24] MEDS: HYDROmorphone 0.5 MG/0.5 ML SYRINGE IVP PRN ×2 (08:15→13:37)
--- NOTE | 2023-11-24 09:02 | PROVIDER PROGRESS NOTE ---
Subjective - Prog Note Date Prog Note Date: 11/24/23 Prog Note Time: 09:00 - Subjective Pt reports feeling: Improved Subjective: The patient is sitting up in her bed eating her clear liquid diet this morning. She states that she is feeling much better today. Her abdominal pain is improving and she feels a little stronger. She did have some episodes with tachycardia overnight with heart rate sustaining in the 120s. At the time of my visit her heart rate was about 110. She said that she has had some issues off and on with tachycardia in the outpatient setting. She also says she follows with cardiology regarding extremely difficult to control blood pressure that is either way too high or way too low. She tells me that she feels like she is getting back to normal. She denies fever or chills. No chest pain or heart palpitations. Nausea is improved. Abdominal pain is improved. She has not yet had a bowel movement. No urinary complaints Current Medications - Current Medications Current Medications: Tylenol 650 mg p.o. every 4 hours as needed pain or fever Cipro 400 mg IV every 12 hours Duloxetine 60 mg daily Lovenox 40 mg daily Hydralazine 10 mg IV every 6 hours as needed elevated blood pressure Dilaudid 0.5 mg IV every 4 hours as needed severe pain Dilaudid 0.2 mg IV every 4 hours as needed moderate pain Metoprolol tartrate 125 mg p.o. twice daily Flagyl 500 mg IV every 8 hours Ondansetron ODT 4 mg every 6 hours as needed nausea vomiting Ondansetron 4 mg IV every 6 hours as needed nausea Protonix 40 mg p.o. daily Prochlorperazine 10 mg IV every 6 hours as needed nausea and vomiting Trazodone 50 mg p.o. nightly Objective - Vital Signs/Intake & Output Reviewed Vital Signs: Yes Vital Signs: Vital Signs x48h Temp Pulse Resp BP BP Pulse Ox O2 Flow Rate 11/24/23 08:05 167/68 H 11/24/23 08:00 119 H 23 167/68 H 95 2 11/24/23 07:49 37.1 C 11/24/23 07:02 112 H 15 145/66 H 97 2 11/24/23 06:17 109 H 16 130/60 97 2 11/24/23 05:11 105 H 15 122/58 L 96 2 11/24/23 04:24 107 H 18 111/80 97 2 11/24/23 03:03 99 17 97/49 L 96 2 11/24/23 02:02 105 H 16 111/47 L 95 2 11/24/23 01:00 108 H 15 135/55 H 95 2 Intake & Output: Intake & Output 11/21/23 11/22/23 11/23/23 11/24/23 23:59 23:59 23:59 23:59 Intake Total 3000 3380 3529.833 1400 Output Total 8476 615 0748 550 Balance 1500 2430 1129.833 850 - Objective General Appearance: positive: No acute distress, Alert Eyes Bilateral: positive: Normal inspection, PERRL ENT: positive: ENT inspection nml Neck: positive: Nml inspection Respiratory: positive: Chest non-tender, No respiratory distress, Breath sounds nml Cardiovascular: positive: No murmur, No gallop, Tachycardia. negative: Friction rub Abdomen: positive: Non-tender, No organomegaly, Nml bowel sounds Skin: positive: Color nml, No rash, Warm, Dry Extremities: positive: Non-tender, Full ROM Neurologic/Psychiatric: positive: Oriented x3, CN's nml (2-12) - Lab Results Fish Bones: 11/24/23 04:04 11/24/23 04:04 Other Labs: Lab Results x24hrs 11/24/23 11/24/23 11/24/23 Range/Units 04:04 04:04 04:04 WBC (4.8-10.8) x10^3/uL RBC (4.20-5.40) 10^6/uL Hgb (12.0-16.0) g/dL Hct (37.0-47.0) % MCV (81.0-99.0) fL MCH (27.0-31.0) pg MCHC (32.0-36.0) g/dL RDW (12.0-15.0) % Plt Count (130-450) 10^3/uL MPV (7.9-10.8) fL Neut # (Auto) (1.5-6.6) 10^3/uL Lymph # (Auto) (1.5-3.5) 10^3/uL [place] # (Auto) (0.0-1.0) 10^3/uL Eos # (Auto) (0.0-0.7) 10^3/uL Baso # (Auto) (0.0-0.1) 10^3/uL Absolute Nucleated RBC x10^3/uL Nucleated RBC % /100WBC VBG pH 7.390 (7.31-7.41) Ionized Calcium 1.13 L (1.15-1.33) mmol/L Sodium 138 (135-145) mmol/L Potassium 3.3 L (3.5-4.5) mmol/L Chloride 104 (101-111) mmol/L Carbon Dioxide 30 (21-32) mmol/L Anion Gap 4.0 L (6-13) BUN 13 (6-20) mg/dL Creatinine 0.8 (0.6-1.3) mg/dL Estimated GFR (MDRD) 71 L (>89) Glucose 97 (74-104) mg/dL Lactic Acid (0.5-2.2) mmol/L Calcium 8.7 (8.5-10.3) mg/dL Phosphorus 2.9 (2.5-5.0) mg/dL Magnesium 1.8 (1.7-2.3) mg/dL Troponin I High Sens (2.3-14.8) ng/L Procalcitonin Immunoas (<0.5) ng/mL 11/24/23 11/23/23 11/23/23 Range/Units 04:04 11:41 11:41 WBC 17.0 H (4.8-10.8) x10^3/uL RBC 3.65 L (4.20-5.40) 10^6/uL Hgb 10.4 L (12.0-16.0) g/dL Hct 32.8 L (37.0-47.0) % MCV 89.9 (81.0-99.0) fL MCH 28.5 (27.0-31.0) pg MCHC 31.7 L (32.0-36.0) g/dL RDW 13.7 (12.0-15.0) % Plt Count 174 (130-450) 10^3/uL MPV 10.4 (7.9-10.8) fL Neut # (Auto) 12.1 H (1.5-6.6) 10^3/uL Lymph # (Auto) 3.4 (1.5-3.5) 10^3/uL [place] # (Auto) 1.4 H (0.0-1.0) 10^3/uL Eos # (Auto) 0.0 (0.0-0.7) 10^3/uL Baso # (Auto) 0.0 (0.0-0.1) 10^3/uL Absolute Nucleated RBC 0.00 x10^3/uL Nucleated RBC % 0.0 /100WBC VBG pH (7.31-7.41) Ionized Calcium (1.15-1.33) mmol/L Sodium (135-145) mmol/L Potassium (3.5-4.5) mmol/L Chloride (101-111) mmol/L Carbon Dioxide (21-32) mmol/L Anion Gap (6-13) BUN (6-20) mg/dL Creatinine (0.6-1.3) mg/dL Estimated GFR (MDRD) (>89) Glucose (74-104) mg/dL Lactic Acid 2.3 H (0.5-2.2) mmol/L Calcium (8.5-10.3) mg/dL Phosphorus (2.5-5.0) mg/dL Magnesium (1.7-2.3) mg/dL Troponin I High Sens (2.3-14.8) ng/L Procalcitonin Immunoas 0.68 H (<0.5) ng/mL 11/23/23 11/23/23 Range/Units 11:41 08:28 WBC (4.8-10.8) x10^3/uL RBC (4.20-5.40) 10^6/uL Hgb (12.0-16.0) g/dL Hct (37.0-47.0) % MCV (81.0-99.0) fL MCH (27.0-31.0) pg MCHC (32.0-36.0) g/dL RDW (12.0-15.0) % Plt Count (130-450) 10^3/uL MPV (7.9-10.8) fL Neut # (Auto) (1.5-6.6) 10^3/uL Lymph # (Auto) (1.5-3.5) 10^3/uL [place] # (Auto) (0.0-1.0) 10^3/uL Eos # (Auto) (0.0-0.7) 10^3/uL Baso # (Auto) (0.0-0.1) 10^3/uL Absolute Nucleated RBC x10^3/uL Nucleated RBC % /100WBC VBG pH (7.31-7.41) Ionized Calcium (1.15-1.33) mmol/L Sodium (135-145) mmol/L Potassium 4.3 (3.5-4.5) mmol/L Chloride (101-111) mmol/L Carbon Dioxide (21-32) mmol/L Anion Gap (6-13) BUN (6-20) mg/dL Creatinine (0.6-1.3) mg/dL Estimated GFR (MDRD) (>89) Glucose (74-104) mg/dL Lactic Acid (0.5-2.2) mmol/L Calcium (8.5-10.3) mg/dL Phosphorus (2.5-5.0) mg/dL Magnesium (1.7-2.3) mg/dL Troponin I High Sens 119.4 H* (2.3-14.8) ng/L Procalcitonin Immunoas (<0.5) ng/mL ABX Reporting Has patient been on IV antibiotics over the past 48 hours?: Yes Sepsis Event Note (H) - Evaluation Current Stage of Sepsis: Sepsis Possible source of Sepsis: positive: GI tract/intra-abdominal - Sepsis Criteria Sepsis Criteria: Recorded Heart Rate greater than 90 bpm, Recorded Respiratory Rate greater than 20, WBC count greater than 12,000 or less than 4000, Metabolic: lactate > 2 mmol/L Assessment/Plan - Problem List (1) Sepsis Impression: Improving. White blood cell count is down to 17,000 today. Creatinine has improved. Continue antibiotics as outlined below. (2) Colitis Impression: Continue IV Cipro and Flagyl for now. If she tolerates her diet today we will consider transitioning her over to an oral regimen tomorrow. She will need a total of 14 days of treatment (3) MILAGRO (acute kidney injury) Impression: Secondary to sepsis. Resolved (4) Non-ischemic myocardial injury (non-traumatic) Impression: Troponins were mildly elevated but flat. At this point this appears to be nonischemic in nature. 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 Echocardiogram has been ordered but apparently is not available at this time. (5) SVT (supraventricular tachycardia) Impression: The patient had heart rate sustaining in the 120s overnight. I am increasing her metoprolol to tartrate to 125 mg twice daily. Continue telemetry for now. (6) Lactic acidosis Impression: Secondary to sepsis. Improving (7) Hypertensive urgency Impression: The patient has a history of volatile blood pressures. However when they adjust her blood pressure medications she oftentimes has hypotension. Yesterday she was started on amlodipine which will be held today. Her metoprolol tartrate will be increased to 125 mg twice daily. (8) Chest pain Impression: This appears to be gastrointestinal in nature. She described it more as an epigastric pain. In any event this is resolved. (9) Positive blood culture Impression: Gram stain was positive for coagulase-negative staph. However final cultures were negative. No further work (10) GERD (gastroesophageal reflux disease) Impression: Continue 40 mg of Protonix daily (11) Hypomagnesemia Impression: Magnesium is on the low side of normal at 1.8. Will try to get her level up above 2 and will replete with IV magnesium sulfate today. (12) Hypokalemia Impression: Potassium is low today and will replete with IV potassium chloride. The goal would be to keep her potassium level above 4 point (13) Hyperlipidemia Impression: She will resume her home medication at discharge. Time spent: 35 minutes
[2023-11-24] MEDS: METOPROLOL TARTRATE 25 MG TABLET PO SCH (09:20)
[2023-11-24] MEDS ORDERED: HYDROmorphone 1 MG/ML CARPUJECT IVP PRN (09:22)
[2023-11-24] MEDS ORDERED: HYDROmorphone 0.5 MG/0.5 ML SYRINGE IVP PRN ×2 (09:22→09:24)
[2023-11-24] MEDS ORDERED: oxyCODONE 5 MG TABLET PO PRN (09:23)
[2023-11-24] MEDS: HYDROmorphone 0.5 MG/0.5 ML SYRINGE IVP ONE (09:35)
[2023-11-24] MEDS: MAGNESIUM SULFATE 3 GM in SODIUM CHLORIDE 0.9% 50 ML IV ONE (09:41)
[2023-11-24] MEDS: METOPROLOL TARTRATE 50 MG TABLET PO SCH (20:14)
[2023-11-25 04:36] LABS: BASOPHILS % (AUTO) 0.2 %; EOSINOPHILS # (AUTO) 0.1 10^3/uL (0.0-0.7); EOSINOPHILS % (AUTO) 0.5 %; HCT - HEMATOCRIT 33.9 % (37.0-47.0); HGB - HEMOGLOBIN 10.7 g/dL (12.0-16.0); LYMPHOCYTES # (AUTO) 2.2 10^3/uL (1.5-3.5); LYMPHOCYTES % (AUTO) 17.9 %; MEAN CORPUSCULAR HGB CONC 31.6 g/dL (32.0-36.0); MEAN CORPUSCULAR VOLUME 88.7 fL (81.0-99.0); MONOCYTES # (AUTO) 1.2 10^3/uL (0.0-1.0); MONOCYTES % (AUTO) 9.5 %; NEUTROPHILS # (AUTO) 8.9 10^3/uL (1.5-6.6); NEUTROPHILS % (AUTO) 71.4 %; PLT - PLATELET COUNT 181 10^3/uL (130-450); RED BLOOD COUNT 3.82 10^6/uL (4.20-5.40); RED CELL DISTRIBUTION WIDTH 13.5 % (12.0-15.0); WHITE BLOOD COUNT 12.5 x10^3/uL (4.8-10.8)
[2023-11-25 04:53] LABS: ALBUMIN 3.6 g/dL (3.2-5.5); CALCIUM 8.8 mg/dL (8.5-10.3); CREATININE 0.7 mg/dL (0.6-1.3); MAGNESIUM 1.8 mg/dL (1.7-2.3); PHOSPHORUS 3.4 mg/dL (2.5-5.0); POTASSIUM 2.8 mmol/L (3.5-4.5)
[2023-11-25] MEDS: POTASSIUM CHLOR 10 MEQ/100 ML 10 MEQ/100 ML BAG IV SCH (07:52)
[2023-11-25] MEDS: MAGNESIUM SULFATE 2 GRAM 2 GM/50 ML BAG IV ONE (07:52)
--- NOTE | 2023-11-25 08:37 | PROVIDER PROGRESS NOTE ---
Subjective - Prog Note Date Prog Note Date: 11/25/23 Prog Note Time: 08:35 - Subjective Pt reports feeling: No change Subjective: The patient is sleeping this morning but was easily arousable. She says that she is feeling fine this morning and is not having any pain. Yesterday every time she tried to eat anything she had severe crampy abdominal pain requiring parenteral narcotics. She is a little scared to eat. She says that she is not having any abdominal pain when she is not eating. She denies fever or shaking chills. No chest pain or heart palpitations. She is no longer having any nausea or vomiting. She has severe abdominal pain when she eats. She is passing gas but has not had a bowel movement in several days. She has no urinary complaints Current Medications - Current Medications Current Medications: Tylenol 650 mg p.o. every 4 hours as needed pain or fever Cipro 400 mg IV every 12 hours Duloxetine 60 mg daily Lovenox 40 mg daily Hydralazine 10 mg IV every 6 hours as needed elevated blood pressure Dilaudid 0.5 mg IV every 4 hours as needed severe pain Dilaudid 0.2 mg IV every 4 hours as needed moderate pain Metoprolol tartrate 125 mg p.o. twice daily Flagyl 500 mg IV every 8 hours Ondansetron ODT 4 mg every 6 hours as needed nausea vomiting Ondansetron 4 mg IV every 6 hours as needed nausea Protonix 40 mg p.o. daily Prochlorperazine 10 mg IV every 6 hours as needed nausea and vomiting Trazodone 50 mg p.o. nightly Objective - Vital Signs/Intake & Output Reviewed Vital Signs: Yes Vital Signs: Vital Signs x48h Temp Pulse Pulse Resp BP BP Pulse Ox 11/25/23 08:25 163/81 H 11/25/23 08:24 163/81 H 11/25/23 08:21 36.6 C 113 H 18 163/81 H 95 11/25/23 05:10 36.4 C L 104 H 20 138/67 H 96 Intake & Output: Intake & Output 11/22/23 11/23/23 11/24/23 11/25/23 23:59 23:59 23:59 23:59 Intake Total 3380 3529.833 3952.667 1420 Output Total 950 2400 2250 3650 Balance 2430 4080.370 8100.271 -2578 - Objective General Appearance: positive: No acute distress, Alert Eyes Bilateral: positive: Normal inspection ENT: positive: ENT inspection nml Neck: positive: Nml inspection Respiratory: positive: Chest non-tender, No respiratory distress, Breath sounds nml Cardiovascular: positive: Regular rate & rhythm, No murmur, No gallop. negative: Friction rub Abdomen: positive: Non-tender, No organomegaly, Nml bowel sounds Skin: positive: Color nml, No rash, Warm, Dry Extremities: positive: Non-tender, Full ROM, Nml appearance Neurologic/Psychiatric: positive: Oriented x3, CN's nml (2-12) - Lab Results Fish Bones: 11/25/23 04:20 11/25/23 04:20 Other Labs: Lab Results x24hrs 11/25/23 11/25/23 Range/Units 04:20 04:20 WBC 12.5 H (4.8-10.8) x10^3/uL RBC 3.82 L (4.20-5.40) 10^6/uL Hgb 10.7 L (12.0-16.0) g/dL Hct 33.9 L (37.0-47.0) % MCV 88.7 (81.0-99.0) fL MCH 28.0 (27.0-31.0) pg MCHC 31.6 L (32.0-36.0) g/dL RDW 13.5 (12.0-15.0) % Plt Count 181 (130-450) 10^3/uL MPV 10.0 (7.9-10.8) fL Neut # (Auto) 8.9 H (1.5-6.6) 10^3/uL Lymph # (Auto) 2.2 (1.5-3.5) 10^3/uL [place] # (Auto) 1.2 H (0.0-1.0) 10^3/uL Eos # (Auto) 0.1 (0.0-0.7) 10^3/uL Baso # (Auto) 0.0 (0.0-0.1) 10^3/uL Absolute Nucleated RBC 0.00 x10^3/uL Nucleated RBC % 0.0 /100WBC Sodium 138 (135-145) mmol/L Potassium 2.8 L (3.5-4.5) mmol/L Chloride 97 L (101-111) mmol/L Carbon Dioxide 34 H (21-32) mmol/L Anion Gap 7.0 (6-13) BUN 6 (6-20) mg/dL Creatinine 0.7 (0.6-1.3) mg/dL Estimated GFR (MDRD) 83 L (>89) Glucose 102 (74-104) mg/dL Calcium 8.8 (8.5-10.3) mg/dL Phosphorus 3.4 (2.5-5.0) mg/dL Magnesium 1.8 (1.7-2.3) mg/dL Albumin 3.6 (3.2-5.5) g/dL ABX Reporting Has patient been on IV antibiotics over the past 48 hours?: Yes Sepsis Event Note (H) - Evaluation Current Stage of Sepsis: Sepsis Possible source of Sepsis: positive: GI tract/intra-abdominal - Sepsis Criteria Sepsis Criteria: Recorded Heart Rate greater than 90 bpm, Recorded Respiratory Rate greater than 20, WBC count greater than 12,000 or less than 4000, Metabolic: lactate > 2 mmol/L Assessment/Plan - Problem List (1) Sepsis Impression: Present on admission secondary to underlying colitis. Resolving (2) Colitis Impression: The patient's white blood cell count is down to 12.5 today. Abdominal pain is improved except for when she eats. Yesterday she was having severe crampy abdominal pain 9 out of 10 in severity after eating clear liquids. Continue to try to advance her diet and monitor closely. (3) MILAGRO (acute kidney injury) Impression: Secondary to sepsis. Resolved (4) Non-ischemic myocardial injury (non-traumatic) Impression: Secondary to sepsis. No further workup unless she develops further symptoms. 2D echocardiogram has been ordered but is not available at this time. She could have this performed as an outpatient (5) SVT (supraventricular tachycardia) Impression: Much improved. Continue metoprolol tartrate 125 mg twice daily. (6) Lactic acidosis Impression: Secondary to sepsis and colitis. Improved (7) Hypertensive urgency Impression: Much improved. Continue metoprolol tartrate 125 mg twice daily (8) Chest pain Impression: [place] to be gastrointestinal in nature. Resolved. 2D echocardiogram has been ordered. (9) Positive blood culture Impression: [place] to be a contaminant. No further workup (10) GERD (gastroesophageal reflux disease) Impression: Continue Protonix 40 mg daily (11) Hypomagnesemia Impression: Magnesium is 1.8. Will supplement with IV magnesium sulfate today to try to get her magnesium level above 2 in light of her tachyarrhythmias (12) Hypokalemia Impression: Potassium level is 2.8 today. She will receive IV potassium chloride today and she will have a chemistry panel checked in the morning. (13) Hyperlipidemia Impression: She will resume her home medication at discharge Time spent: 35 minutes
[2023-11-25] MEDS: CYCLOBENZAPRINE 10 MG TABLET PO PRN (16:35)
[2023-11-25 20:31] LABS: ESTIMATED AVERAGE GLUCOSE 111 mg/dL (70-100); HEMOGLOBIN A1c% 5.5 % (4.27-6.07)
[2023-11-25] MEDS: METOPROLOL 5 MG/5 ML VIAL IVP STA (22:44)
[2023-11-25 23:11] LABS: ALBUMIN 4.3 g/dL (3.2-5.5); ALBUMIN/GLOBULIN RATIO 1.9 (1.0-2.2); BILIRUBIN,TOTAL 0.7 mg/dL (0.2-1.0); CALCIUM 9.7 mg/dL (8.5-10.3); CREATININE 0.6 mg/dL (0.6-1.3); MAGNESIUM 1.9 mg/dL (1.7-2.3); POTASSIUM 2.8 mmol/L (3.5-4.5); TOTAL PROTEIN 6.6 g/dL (6.4-8.9)
[2023-11-26 04:57] LABS: BASOPHILS % (AUTO) 0.2 %; EOSINOPHILS # (AUTO) 0.1 10^3/uL (0.0-0.7); EOSINOPHILS % (AUTO) 0.6 %; HCT - HEMATOCRIT 40.4 % (37.0-47.0); HGB - HEMOGLOBIN 13.4 g/dL (12.0-16.0); LYMPHOCYTES # (AUTO) 2.9 10^3/uL (1.5-3.5); MEAN CORPUSCULAR HEMOGLOBIN 29.1 pg (27.0-31.0); MEAN CORPUSCULAR HGB CONC 33.2 g/dL (32.0-36.0); MEAN CORPUSCULAR VOLUME 87.6 fL (81.0-99.0); MEAN PLATELET VOLUME 10.3 fL (7.9-10.8); MONOCYTES # (AUTO) 1.4 10^3/uL (0.0-1.0); MONOCYTES % (AUTO) 10.8 %; NEUTROPHILS # (AUTO) 8.1 10^3/uL (1.5-6.6); NEUTROPHILS % (AUTO) 64.9 %; PLT - PLATELET COUNT 274 10^3/uL (130-450); RED BLOOD COUNT 4.61 10^6/uL (4.20-5.40); RED CELL DISTRIBUTION WIDTH 13.3 % (12.0-15.0); WHITE BLOOD COUNT 12.5 x10^3/uL (4.8-10.8)
[2023-11-26 05:15] LABS: MAGNESIUM 1.8 mg/dL (1.7-2.3); PHOSPHORUS 3.1 mg/dL (2.5-5.0)
[2023-11-26 05:22] LABS: CALCIUM 9.4 mg/dL (8.5-10.3); CREATININE 0.7 mg/dL (0.6-1.3); POTASSIUM 2.5 mmol/L (3.5-4.5)
--- NOTE | 2023-11-26 08:19 | PROVIDER PROGRESS NOTE ---
Subjective - Prog Note Date Prog Note Date: 11/26/23 Prog Note Time: 08:20 - Subjective Pt reports feeling: Improved Subjective: The patient is sitting up in her bed. She is awake alert and looks as if she is feeling better this morning. She tells me that she was able to eat last night without having severe pain. She is feeling quite a bit better today. She denies fever or shaking chills. No chest pain or heart palpitations. She is not having any more nausea. No vomiting. Abdominal pain is only mild after eating and she is having no pain at rest. She is having a little bit of back pain that is adequately controlled with Flexeril. She has not yet had a bowel movement today but she is passing gas. She has no urinary complaints Current Medications - Current Medications Current Medications: Tylenol 650 mg p.o. every 4 hours as needed pain or fever Cipro 400 mg IV every 12 hours Duloxetine 60 mg daily Lovenox 40 mg daily Hydralazine 10 mg IV every 6 hours as needed elevated blood pressure Dilaudid 0.5 mg IV every 4 hours as needed severe pain Dilaudid 0.2 mg IV every 4 hours as needed moderate pain Metoprolol tartrate 125 mg p.o. twice daily Flagyl 500 mg IV every 8 hours Ondansetron ODT 4 mg every 6 hours as needed nausea vomiting Ondansetron 4 mg IV every 6 hours as needed nausea Protonix 40 mg p.o. daily Prochlorperazine 10 mg IV every 6 hours as needed nausea and vomiting Trazodone 50 mg p.o. nightly Objective - Vital Signs/Intake & Output Vital Signs: Vital Signs x48h Temp Pulse Pulse Resp BP BP Pulse Ox 11/26/23 07:37 36.8 C 137 H 18 199/115 H 95 11/26/23 06:14 166/78 H 11/26/23 06:08 36.8 C 109 H 18 163/112 H 96 11/26/23 00:55 176/96 H Intake & Output: Intake & Output 11/23/23 11/24/23 11/25/23 11/26/23 23:59 23:59 23:59 23:59 Intake Total 3529.833 3952.667 4658.333 371.667 Output Total 2400 2250 3650 Balance 6517.935 5425.667 1008.333 371.667 - Objective General Appearance: positive: No acute distress, Alert Eyes Bilateral: positive: Normal inspection ENT: positive: ENT inspection nml Neck: positive: Nml inspection Respiratory: positive: Chest non-tender, No respiratory distress, Breath sounds nml Cardiovascular: positive: Regular rate & rhythm, No murmur, No gallop. negative: Friction rub Abdomen: positive: Non-tender, No organomegaly, Nml bowel sounds Skin: positive: Color nml, No rash, Warm, Dry Extremities: positive: Non-tender, Full ROM - Lab Results Fish Bones: 11/26/23 04:26 11/26/23 04:26 Other Labs: Lab Results x24hrs 11/26/23 11/26/23 11/25/23 Range/Units 04:26 04:26 10:47 WBC 12.5 H (4.8-10.8) x10^3/uL RBC 4.61 (4.20-5.40) 10^6/uL Hgb 13.4 (12.0-16.0) g/dL Hct 40.4 (37.0-47.0) % MCV 87.6 (81.0-99.0) fL MCH 29.1 (27.0-31.0) pg MCHC 33.2 (32.0-36.0) g/dL RDW 13.3 (12.0-15.0) % Plt Count 274 (130-450) 10^3/uL MPV 10.3 (7.9-10.8) fL Neut # (Auto) 8.1 H (1.5-6.6) 10^3/uL Lymph # (Auto) 2.9 (1.5-3.5) 10^3/uL [place] # (Auto) 1.4 H (0.0-1.0) 10^3/uL Eos # (Auto) 0.1 (0.0-0.7) 10^3/uL Baso # (Auto) 0.0 (0.0-0.1) 10^3/uL Absolute Nucleated RBC 0.00 x10^3/uL Nucleated RBC % 0.0 /100WBC Sodium 135 136 (135-145) mmol/L Potassium 2.5 L* 2.8 L (3.5-4.5) mmol/L Chloride 94 L 94 L (101-111) mmol/L Carbon Dioxide 32 33 H (21-32) mmol/L Anion Gap 9.0 9.0 (6-13) BUN 8 6 (6-20) mg/dL Creatinine 0.7 0.6 (0.6-1.3) mg/dL Estimated GFR (MDRD) 83 L 99 (>89) Glucose 104 143 H (74-104) mg/dL Estimat Average Glucose (70-100) mg/dL Hemoglobin A1c % (4.27-6.07) % Calcium 9.4 9.7 (8.5-10.3) mg/dL Phosphorus 3.1 (2.5-5.0) mg/dL Magnesium 1.8 1.9 (1.7-2.3) mg/dL Total Bilirubin 0.7 (0.2-1.0) mg/dL AST 19 (10-42) IU/L ALT 10 (10-60) IU/L Alkaline Phosphatase 68 (42-121) IU/L Total Protein 6.6 (6.4-8.9) g/dL Albumin 4.0 4.3 (3.2-5.5) g/dL Globulin 2.3 (2.1-4.2) g/dL Albumin/Globulin Ratio 1.9 (1.0-2.2) 11/25/23 Range/Units 04:20 WBC (4.8-10.8) x10^3/uL RBC (4.20-5.40) 10^6/uL Hgb (12.0-16.0) g/dL Hct (37.0-47.0) % MCV (81.0-99.0) fL MCH (27.0-31.0) pg MCHC (32.0-36.0) g/dL RDW (12.0-15.0) % Plt Count (130-450) 10^3/uL MPV (7.9-10.8) fL Neut # (Auto) (1.5-6.6) 10^3/uL Lymph # (Auto) (1.5-3.5) 10^3/uL [place] # (Auto) (0.0-1.0) 10^3/uL Eos # (Auto) (0.0-0.7) 10^3/uL Baso # (Auto) (0.0-0.1) 10^3/uL Absolute Nucleated RBC x10^3/uL Nucleated RBC % /100WBC Sodium (135-145) mmol/L Potassium (3.5-4.5) mmol/L Chloride (101-111) mmol/L Carbon Dioxide (21-32) mmol/L Anion Gap (6-13) BUN (6-20) mg/dL Creatinine (0.6-1.3) mg/dL Estimated GFR (MDRD) (>89) Glucose (74-104) mg/dL Estimat Average Glucose 111 H (70-100) mg/dL Hemoglobin A1c % 5.5 (4.27-6.07) % Calcium (8.5-10.3) mg/dL Phosphorus (2.5-5.0) mg/dL Magnesium (1.7-2.3) mg/dL Total Bilirubin (0.2-1.0) mg/dL AST (10-42) IU/L ALT (10-60) IU/L Alkaline Phosphatase (42-121) IU/L Total Protein (6.4-8.9) g/dL Albumin (3.2-5.5) g/dL Globulin (2.1-4.2) g/dL Albumin/Globulin Ratio (1.0-2.2) ABX Reporting Has patient been on IV antibiotics over the past 48 hours?: Yes Sepsis Event Note (H) - Evaluation Current Stage of Sepsis: Sepsis Possible source of Sepsis: positive: GI tract/intra-abdominal - Sepsis Criteria Sepsis Criteria: Recorded Heart Rate greater than 90 bpm, Recorded Respiratory Rate greater than 20, WBC count greater than 12,000 or less than 4000, Metabolic: lactate > 2 mmol/L Assessment/Plan - Problem List (1) Sepsis Impression: The patient had evidence of sepsis was present at the time of admission. Her sepsis symptoms are resolving. (2) Colitis Impression: Today is day #5 of IV Cipro and Flagyl. Will change the patient over to an oral regimen today. She will need to complete 14 days of treatment. Today we are going to advance her diet. Her IV fluids will be stopped. With tentative plans for discharge tomorrow. (3) [place] (acute kidney injury) Impression: Secondary to sepsis. Resolved (4) Non-ischemic myocardial injury (non-traumatic) Impression: Secondary to sepsis. She initially was having some chest discomfort but this was felt to be gastrointestinal in nature. She has a follow-up appointment already scheduled with her resident care coordinator at discharge. A 2D echocardiogram has been ordered but we have not had it available at this facility. This will need to be done as an outpatient. (5) SVT (supraventricular tachycardia) Impression: Improved. Continue increased dose of metoprolol tartrate 125 mg twice daily (6) Lactic acidosis Impression: Secondary to sepsis. Improving (7) Hypertensive urgency Impression: The patient has very difficult to control blood pressures and her resident care coordinator is working on this. Blood pressures are quite elevated this morning but she has not yet had her blood pressure medications. Continue current dosing of metoprolol to tartrate 125 mg twice daily. (8) Chest pain Impression: Gastrointestinal in nature. Resolved (9) Positive blood culture Impression: 1 out of 2 blood cultures positive for coagulase-negative staph. This is felt to be a contaminant. No further workup (10) GERD (gastroesophageal reflux disease) Impression: Continue Protonix 40 mg daily (11) Hypomagnesemia Impression: Resolved. Her level is on the low side of normal. Will replete with 2 g of IV magnesium sulfate today. (12) Hypokalemia Impression: The patient's potassium remains significantly low. 2.5 today. Will give her 80 mill equivalents of IV potassium today and check a chemistry panel in the morning (13) Hyperlipidemia Impression: She will resume her home medication at discharge. Disposition: The patient has remained in the hospital greater than 96 hours. This was due to inability to advance her diet and significant electrolyte abnormalities. The patient is doing much better and is tolerating her diet today. She still has some severe hypokalemia and is going to require parenteral replacement of her potassium today. I am tentatively planning discharge for tomorrow Time spent: 35 minutes
[2023-11-26] MEDS: POTASSIUM CHLOR 10 MEQ/100 ML 10 MEQ/100 ML BAG IV SCH (08:29)
[2023-11-26] MEDS: MAGNESIUM SULFATE 2 GRAM 2 GM/50 ML BAG IV ONE (08:54)
[2023-11-26] MEDS: CIPROFLOXACIN 250 MG TABLET PO SCH (09:49)
[2023-11-26] MEDS: metroNIDAZOLE 250 MG TABLET PO SCH (11:45)
[2023-11-26] MEDS: SODIUM CHLORIDE 0.9% 500 ML IV ONE (17:08)
[2023-11-26] MEDS: MULTIVITAMIN W/MINERALS TABLET PO SCH (17:18)
[2023-11-27 05:32] LABS: BASOPHILS % (AUTO) 0.3 %; EOSINOPHILS % (AUTO) 3.6 %; HCT - HEMATOCRIT 38.9 % (37.0-47.0); HGB - HEMOGLOBIN 12.7 g/dL (12.0-16.0); LYMPHOCYTES % (AUTO) 37.8 %; MEAN CORPUSCULAR HEMOGLOBIN 28.4 pg (27.0-31.0); MEAN CORPUSCULAR HGB CONC 32.6 g/dL (32.0-36.0); MEAN PLATELET VOLUME 10.3 fL (7.9-10.8); MONOCYTES % (AUTO) 13.1 %; NEUTROPHILS % (AUTO) 44.6 %; PLT - PLATELET COUNT 312 10^3/uL (130-450); RED BLOOD COUNT 4.47 10^6/uL (4.20-5.40); RED CELL DISTRIBUTION WIDTH 13.4 % (12.0-15.0); WHITE BLOOD COUNT 14.3 x10^3/uL (4.8-10.8)
[2023-11-27 05:52] LABS: ABNORMAL LYMPHS % (MANUAL) 0 %; BAND NEUTROPHILS % (MANUAL) 0 %
[2023-11-27 05:54] LABS: ALBUMIN 3.8 g/dL (3.2-5.5); CALCIUM 9.2 mg/dL (8.5-10.3); CREATININE 0.9 mg/dL (0.6-1.3); MAGNESIUM 1.9 mg/dL (1.7-2.3); PHOSPHORUS 4.5 mg/dL (2.5-5.0); POTASSIUM 2.9 mmol/L (3.5-4.5)
[2023-11-27 06:17] LABS: DIFFERENTIAL COMMENT MANUAL DIFFERENTIAL; EOSINOPHILS # (MANUAL) 0.3 10^3/uL (0-0.7); LYMPHOCYTES # (MANUAL) 7.2 10^3/uL (1.5-3.5); LYMPHOCYTES % (MANUAL) 50 %; MONOCYTES # (MANUAL) 1.6 10^3/uL (0.0-1.0); NEUTROPHILS # (MANUAL) 5.3 10^3/uL (1.5-6.6); PLATELET ESTIMATE, MANUAL NORMAL (130-450,000) (NORMAL); RBC MORPHOLOGY (MULTIPLE) NORMAL APPEARANCE (NORMAL)
[2023-11-27] MEDS ORDERED: POTASSIUM CHLORIDE INJ 80 MEQ in SODIUM CHLORIDE 0.9% 500 ML IV ONE (07:14)
[2023-11-27] MEDS: ACETAMINOPHEN 500 MG TABLET PO SCH (07:48)
[2023-11-27] MEDS: MAGNESIUM SULFATE 2 GRAM 2 GM/50 ML BAG IV ONE (07:50)
--- NOTE | 2023-11-27 08:09 | PROVIDER PROGRESS NOTE ---
Subjective - Prog Note Date Prog Note Date: 11/27/23 Prog Note Time: 08:10 - Subjective Pt reports feeling: Improved Subjective: Yesterday afternoon while working with physical therapy and Occupational Therapy the patient had a significant drop in her blood pressure and had a syncopal episode that lasted a few seconds. After this she was somewhat somnolent and tired. When I saw the patient this morning she is resting in her bed. She says that she feels much better today. I discussed the case with Dr. Mcmanus and he is recom mended that we hold some of the patient's sedating medications today and get her up and have her be more active. She also continues to have severe hypokalemia requiring parenteral replacement. Today she denies fever or chills. No chest pain or heart palpitations. She has had no nausea or vomiting. She is having little bit of abdominal pain. She complains of back pain. She apparently has a spinal stimulator and is going to ask her roommate to bring in the supplies to charge it. The patient has not had a bowel movement today. No urinary complaints Current Medications - Current Medications Current Medications: Tylenol 650 mg p.o. every 4 hours as needed pain or fever Cipro 400 mg IV every 12 hours Duloxetine 60 mg daily Lovenox 40 mg daily Hydralazine 10 mg IV every 6 hours as needed elevated blood pressure Dilaudid 0.5 mg IV every 4 hours as needed severe pain Dilaudid 0.2 mg IV every 4 hours as needed moderate pain Metoprolol tartrate 100 mg p.o. twice daily Flagyl 500 mg IV every 8 hours Ondansetron ODT 4 mg every 6 hours as needed nausea vomiting Ondansetron 4 mg IV every 6 hours as needed nausea Protonix 40 mg p.o. daily Prochlorperazine 10 mg IV every 6 hours as needed nausea and vomiting Trazodone 50 mg p.o. nightly Objective - Vital Signs/Intake & Output Reviewed Vital Signs: Yes Vital Signs: Vital Signs x48h Temp Pulse Resp BP Pulse Ox 11/27/23 03:52 36.6 C 108 H 20 124/77 96 11/27/23 01:33 104 H 121/75 Intake & Output: Intake & Output 11/24/23 11/25/23 11/26/23 11/27/23 23:59 23:59 23:59 23:59 Intake Total 3952.667 4658.333 3039.333 Output Total 2250 7330 950 250 Balance 7605.010 4500.333 2089.333 -250 - Objective General Appearance: positive: No acute distress, Alert Eyes Bilateral: positive: Normal inspection ENT: positive: ENT inspection nml Neck: positive: Nml inspection Respiratory: positive: Chest non-tender, No respiratory distress, Breath sounds nml Cardiovascular: positive: Regular rate & rhythm, No murmur, No gallop, Tachycardia. negative: Friction rub Abdomen: positive: No organomegaly, Nml bowel sounds, Tenderness (Mild tenderness to palpation diffusely especially in the left lower quadrant.) Skin: positive: Color nml, No rash, Warm, Dry Extremities: positive: Non-tender Neurologic/Psychiatric: positive: Oriented x3, CN's nml (2-12) - Lab Results Fish Bones: 11/27/23 04:50 11/27/23 04:50 Other Labs: Lab Results x24hrs 11/27/23 11/27/23 11/26/23 Range/Units 04:50 04:50 15:45 WBC 14.3 H (4.8-10.8) x10^3/uL RBC 4.47 (4.20-5.40) 10^6/uL Hgb 12.7 (12.0-16.0) g/dL Hct 38.9 (37.0-47.0) % MCV 87.0 (81.0-99.0) fL MCH 28.4 (27.0-31.0) pg MCHC 32.6 (32.0-36.0) g/dL RDW 13.4 (12.0-15.0) % Plt Count 312 (130-450) 10^3/uL MPV 10.3 (7.9-10.8) fL Neut # (Auto) Not Reportable Lymph # (Auto) Not Reportable [place] # (Auto) Not Reportable Eos # (Auto) Not Reportable Baso # (Auto) Not Reportable Absolute Nucleated RBC Not Reportable Total Counted 100 Band Neuts % (Manual) 0 (0 - 10) % Abnorm Lymph % (Manual) 0 % Nucleated RBC % Not Reportable Neutrophils # (Manual) 5.3 (1.5-6.6) 10^3/uL Lymphocytes # (Manual) 7.2 H (1.5-3.5) 10^3/uL Monocytes # (Manual) 1.6 H (0.0-1.0) 10^3/uL Eosinophils # (Manual) 0.3 (0-0.7) 10^3/uL Basophils # (Manual) 0.0 (0-0.1) 10^3/uL Differential Comment MANUAL DIFFERENTIAL Platelet Estimate NORMAL (130-450,000) (NORMAL) RBC Morph Micro Appear NORMAL APPEARANCE (NORMAL) Sodium 137 (135-145) mmol/L Potassium 2.9 L (3.5-4.5) mmol/L Chloride 99 L (101-111) mmol/L Carbon Dioxide 31 (21-32) mmol/L Anion Gap 7.0 (6-13) BUN 15 (6-20) mg/dL Creatinine 0.9 (0.6-1.3) mg/dL Estimated GFR (MDRD) 62 L (>89) Glucose 106 H (74-104) mg/dL POC Whole Bld Glucose 127 H (70 - 100) mg/dL Calcium 9.2 (8.5-10.3) mg/dL Phosphorus 4.5 (2.5-5.0) mg/dL Magnesium 1.9 (1.7-2.3) mg/dL Albumin 3.8 (3.2-5.5) g/dL ABX Reporting Has patient been on IV antibiotics over the past 48 hours?: No Sepsis Event Note (H) - Evaluation Current Stage of Sepsis: Sepsis Possible source of Sepsis: positive: GI tract/intra-abdominal - Sepsis Criteria Sepsis Criteria: Recorded Heart Rate greater than 90 bpm, Recorded Respiratory Rate greater than 20, WBC count greater than 12,000 or less than 4000, M etabolic: lactate > 2 mmol/L Assessment/Plan - Problem List (1) Sepsis Impression: Improving. (2) Colitis Impression: The patient is still somewhat tender to palpation. White blood cell count stefanie from 12,000-14,000. Her IV antibiotics were stopped yesterday and she was put on p.o. Cipro and Flagyl. Will continue the oral antibiotics today and check a CBC in the morning (3) Syncope due to orthostatic hypotension Impression: Yesterday the patient had a syncopal episode and was quite orthostatic. Will check orthostatic vital signs every 6 hours today. She is encouraged to eat and drink well. Blood pressure this morning is quite high. This is a difficult situation and she has had syncopal episodes as an outpatient due to orthostasis at home. She does have cardiology follow-up. She may need a tilt table test as an outpatient to rule out postural orthostatic tachycardia syndrome (4) [place] (acute kidney injury) Impression: Secondary to sepsis. Resolved (5) Non-ischemic myocardial injury (non-traumatic) Impression: The patient has had an echocardiogram which was unremarkable. No wall motion abnormalities were noted. She has a passenger flagman that she follows up with as an outpatient. (6) SVT (supraventricular tachycardia) Impression: Patient is somewhat tachycardic still. Continue metoprolol to tartrate 100 mg twice daily. (7) Lactic acidosis Impression: Improving (8) Hypertensive urgency Impression: The patient continues to have volatile blood pressures. Continue IV hydralazine as needed. She also will continue metoprolol to tartrate 100 mg twice daily (9) Chest pain Impression: Resolved. Likely GI in nature (10) Positive blood culture Impression: 1 out of 2 blood cultures positive for coagulase-negative staph felt to be a contaminant. No further workup (11) GERD (gastroesophageal reflux disease) Impression: Continue Protonix 40 mg daily (12) Hypomagnesemia Impression: Her level is 1.9 today. Will give her 2 more grams of IV magnesium sulfate today. (13) Hypokalemia Impression: The patient is still quite hypokalemic. Will give her 80 mill equivalents of IV potassium again today. She will have a chemistry panel in the morning (14) Hyperlipidemia Impression: She will resume her home medication at discharge Disposition: Unfortunately we are unable to discharge patient from the hospital. She had a syncopal episode yesterday with significant orthostasis. We are going to monitor her with orthostatic vital signs overnight. Her electrolytes are going to be repleted today with IV potassium and IV magnesium. We will get physical therapy and Occupational Therapy to see her again and the tentative plan is now for discharge tomorrow. At this point it is not safe to discharge the patient from the hospital Time spent: 35 minutes
[2023-11-27] MEDS: POTASSIUM CHLOR 10 MEQ/100 ML 10 MEQ/100 ML BAG IV SCH (09:02)
[2023-11-27] MEDS: POTASSIUM CHLORIDE 20 MEQ TABLET PO SCH (11:59)
[2023-11-28 06:14] LABS: BASOPHILS % (AUTO) 0.3 %; EOSINOPHILS # (AUTO) 0.4 10^3/uL (0.0-0.7); EOSINOPHILS % (AUTO) 2.9 %; HCT - HEMATOCRIT 40.9 % (37.0-47.0); LYMPHOCYTES # (AUTO) 4.8 10^3/uL (1.5-3.5); LYMPHOCYTES % (AUTO) 33.4 %; MEAN CORPUSCULAR HEMOGLOBIN 28.8 pg (27.0-31.0); MEAN CORPUSCULAR HGB CONC 31.8 g/dL (32.0-36.0); MEAN CORPUSCULAR VOLUME 90.7 fL (81.0-99.0); MEAN PLATELET VOLUME 10.6 fL (7.9-10.8); MONOCYTES # (AUTO) 1.7 10^3/uL (0.0-1.0); MONOCYTES % (AUTO) 11.7 %; NEUTROPHILS # (AUTO) 7.4 10^3/uL (1.5-6.6); NEUTROPHILS % (AUTO) 51.1 %; PLT - PLATELET COUNT 293 10^3/uL (130-450); RED BLOOD COUNT 4.51 10^6/uL (4.20-5.40); RED CELL DISTRIBUTION WIDTH 13.7 % (12.0-15.0); WHITE BLOOD COUNT 14.4 x10^3/uL (4.8-10.8)
[2023-11-28 06:29] LABS: ALBUMIN 3.8 g/dL (3.2-5.5); ALKALINE PHOSPHATASE 59 IU/L (42-121); ALT ALANINE AMINOTRANSFERASE 10 IU/L (10-60); AST ASPARTATE AMINOTRANSFERASE 15 IU/L (10-42); BILIRUBIN,DIRECT < 0.10 mg/dL (0.03-0.18); BILIRUBIN,TOTAL 0.4 mg/dL (0.2-1.0); BUN - BLOOD UREA NITROGEN 17 mg/dL (6-20); CALCIUM 9.2 mg/dL (8.5-10.3); CARBON DIOXIDE - CO2 27 mmol/L (21-32); CHLORIDE 102 mmol/L (101-111); CREATININE 0.9 mg/dL (0.6-1.3); GFR - MDRD 62 (>89); GLUCOSE 130 mg/dL (74-104); MAGNESIUM 2.1 mg/dL (1.7-2.3); PHOSPHORUS 4.2 mg/dL (2.5-5.0); POTASSIUM 3.9 mmol/L (3.5-4.5); SODIUM 136 mmol/L (135-145)
[2023-11-28 06:35] LABS: PLATELET ESTIMATE, MANUAL NORMAL (130-450,000) (NORMAL); PLATELET MORPHOLOGY NORMAL APPEARANCE (NORMAL)
[2023-11-28] MEDS ORDERED: MAG HYDROX/AL HYDROX/SIMETH 30 ML UDC PO PRN (09:04)
[2023-11-28] MEDS: hydrALAZINE INJ 20 MG/ML VIAL IVP ONE (12:25)
[2023-11-28] MEDS: GI COCKTAIL 120 ML BOTTLE PO PRN (12:29)
--- NOTE | 2023-11-28 13:42 | PROVIDER PROGRESS NOTE ---
Subjective - Prog Note Date Prog Note Date: 11/28/23 Prog Note Time: 13:40 - Subjective Pt reports feeling: No change Subjective: The patient is resting in her bed. She tells me that she is feeling much better than she has been. Yesterday she became extremely orthostatic while trying to work with physical therapy and became somewhat dizzy again. She is going to try hard to work with physical therapy and is wearing her REX hose. Unfortunately they were not able to find an abdominal binder to help her. She denies fever or chills. No chest pain, shortness of breath or cough. No nausea vomiting or diarrhea. She has not had a bowel movement today. No urinary complaints Later this morning physical therapy and Occupational Therapy stated that the patient's heart rate was elevated and her blood pressure was quite high and the patient was not feeling well enough to participate with therapy. Current Medications - Current Medications Current Medications: Tylenol 650 mg p.o. every 4 hours as needed pain or fever Cipro 500 mg po every 12 hours Duloxetine 60 mg daily Lovenox 40 mg daily Hydralazine 10 mg IV every 6 hours as needed elevated blood pressure Dilaudid 0.5 mg IV every 4 hours as needed severe pain Dilaudid 0.2 mg IV every 4 hours as needed moderate pain Metoprolol tartrate 100 mg p.o. twice daily Flagyl 500 mg po every 8 hours Ondansetron ODT 4 mg every 6 hours as needed nausea vomiting Ondansetron 4 mg IV every 6 hours as needed nausea Protonix 40 mg p.o. daily Prochlorperazine 10 mg IV every 6 hours as needed nausea and vomiting Trazodone 50 mg p.o. nightly Objective - Vital Signs/Intake & Output Reviewed Vital Signs: Yes Vital Signs: Vital Signs x48h Temp Pulse Pulse Resp BP BP BP 11/28/23 13:40 36.9 C 125 H 177/96 H 11/28/23 13:31 36.7 C 127 H 20 187/99 H 11/28/23 12:25 182/95 H 11/28/23 11:45 128 H 195/100 H 11/28/23 11:14 135 H 183/85 H 11/28/23 11:13 195/100 H 11/28/23 10:58 136 H 184/84 H 11/28/23 10:53 126 H 18 174/77 H 11/28/23 10:48 135 H 18 186/92 H 11/28/23 10:43 208/111 H 11/28/23 09:05 36.7 C 120 H 18 168/88 H 11/28/23 09:03 168/88 H 11/28/23 08:31 36.5 C 117 H 120 H 16 174/107 H 180/99 H Pulse Ox 11/28/23 13:40 97 11/28/23 13:31 96 11/28/23 12:25 11/28/23 11:45 97 11/28/23 11:14 96 11/28/23 11:13 11/28/23 10:58 98 11/28/23 10:53 98 11/28/23 10:48 98 11/28/23 10:43 11/28/23 09:05 96 11/28/23 09:03 11/28/23 08:31 96 Intake & Output: Intake & Output 11/25/23 11/26/23 11/27/23 11/28/23 23:59 23:59 23:59 23:59 Intake Total 4658.333 3039.333 1296.667 397 Output Total 3650 950 900 Balance 5140.919 5287.333 396.667 397 - Objective General Appearance: positive: No acute distress Eyes Bilateral: positive: Normal inspection ENT: positive: ENT inspection nml Neck: positive: Nml inspection Respiratory: positive: Chest non-tender, No respiratory distress, Breath sounds nml Cardiovascular: positive: Regular rate & rhythm, No murmur, No gallop. negative: Friction rub Abdomen: positive: Non-tender, No organomegaly, Nml bowel sounds, No distention Skin: positive: Color nml, No rash, Warm, Dry Extremities: positive: Non-tender, Full ROM Neurologic/Psychiatric: positive: Oriented x3, CN's nml (2-12) - Lab Results Fish Bones: 11/28/23 05:19 11/28/23 05:19 Other Labs: Lab Results x24hrs 11/28/23 11/28/23 Range/Units 05:19 05:19 WBC 14.4 H (4.8-10.8) x10^3/uL RBC 4.51 (4.20-5.40) 10^6/uL Hgb 13.0 (12.0-16.0) g/dL Hct 40.9 (37.0-47.0) % MCV 90.7 (81.0-99.0) fL MCH 28.8 (27.0-31.0) pg MCHC 31.8 L (32.0-36.0) g/dL RDW 13.7 (12.0-15.0) % Plt Count 293 (130-450) 10^3/uL MPV 10.6 (7.9-10.8) fL Neut # (Auto) 7.4 H (1.5-6.6) 10^3/uL Lymph # (Auto) 4.8 H (1.5-3.5) 10^3/uL [place] # (Auto) 1.7 H (0.0-1.0) 10^3/uL Eos # (Auto) 0.4 (0.0-0.7) 10^3/uL Baso # (Auto) 0.0 (0.0-0.1) 10^3/uL Absolute Nucleated RBC 0.00 x10^3/uL Nucleated RBC % 0.0 /100WBC Platelet Estimate NORMAL (130-450,000) (NORMAL) Platelet Morphology NORMAL APPEARANCE (NORMAL) Sodium 136 (135-145) mmol/L Potassium 3.9 (3.5-4.5) mmol/L Chloride 102 (101-111) mmol/L Carbon Dioxide 27 (21-32) mmol/L Anion Gap 7.0 (6-13) BUN 17 (6-20) mg/dL Creatinine 0.9 (0.6-1.3) mg/dL Estimated GFR (MDRD) 62 L (>89) Glucose 130 H (74-104) mg/dL Calcium 9.2 (8.5-10.3) mg/dL Phosphorus 4.2 (2.5-5.0) mg/dL Magnesium 2.1 (1.7-2.3) mg/dL Total Bilirubin 0.4 (0.2-1.0) mg/dL Direct Bilirubin < 0.10 (0.03-0.18) mg/dL AST 15 (10-42) IU/L ALT 10 (10-60) IU/L Alkaline Phosphatase 59 (42-121) IU/L Total Protein 6.0 L (6.4-8.9) g/dL Albumin 3.8 (3.2-5.5) g/dL Globulin 2.2 (2.1-4.2) g/dL ABX Reporting Has patient been on IV antibiotics over the past 48 hours?: No Sepsis Event Note (H) - Evaluation Current Stage of Sepsis: Sepsis Possible source of Sepsis: positive: GI tract/intra-abdominal - Sepsis Criteria Sepsis Criteria: Recorded Heart Rate greater than 90 bpm, Recorded Respiratory Rate greater than 20, WBC count greater than 12,000 or less than 4000, Metabolic: lactate > 2 mmol/L Assessment/Plan - Problem List (1) Sepsis Impression: Resolved (2) Colitis Impression: The patient's pain has improved. She has a persistent leukocytosis. She will continue p.o. Cipro and Flagyl for now. (3) Syncope due to orthostatic hypotension Impression: The patient continues to be orthostatic and have significant high blood pressures and low blood pressures at times. Will place the patient on midodrine 5 mg p.o. 3 times daily today. Will add amlodipine as a blood pressure medication. She will continue to have IV hydralazine available as needed (4) MILAGRO (acute kidney injury) Impression: Resolved. Secondary to sepsis (5) Non-ischemic myocardial injury (non-traumatic) Impression: Troponins were elevated but flat. No further workup (6) SVT (supraventricular tachycardia) Impression: This waxes and wanes. Continue metoprolol tartrate 125 mg twice daily. Also try to get her pain under better control (7) Lactic acidosis Impression: Secondary to sepsis. Improved (8) Hypertensive urgency Impression: Continue metoprolol to tartrate 100 mg twice daily. Am adding amlodipine 10 mg daily to her regimen as well as we are adding midodrine for her orthostasis. (9) Chest pain Impression: GI in nature. She has GI cocktail available as needed (10) Positive blood culture Impression: [place] to be a contaminant. No further workup (11) GERD (gastroesophageal reflux disease) Impression: Continue Protonix 40 mg daily (12) Hypomagnesemia Impression: Her level is normal today. Continue to monitor (13) Hypokalemia Impression: Repleted and resolved. (14) Hyperlipidemia Impression: She will resume her home regimen at discharge Disposition: Inpatient hospitalization remains necessary. The patient is improving and her electrolytes have finally normalized. However the patient is unable to stand up without having significant orthostasis. She is still having extreme swings in her blood pressure and she is quite tachycardic today. If the patient does not improve over the next day or so we will pursue subacute rehabilitation at discharge Time spent: 35 minutes
[2023-11-28] MEDS: MIDODRINE 2.5 MG TABLET PO SCH (14:32)
[2023-11-29 07:40] LABS: BASOPHILS % (AUTO) 0.3 %; EOSINOPHILS # (AUTO) 0.2 10^3/uL (0.0-0.7); EOSINOPHILS % (AUTO) 1.9 %; HCT - HEMATOCRIT 40.1 % (37.0-47.0); HGB - HEMOGLOBIN 12.6 g/dL (12.0-16.0); LYMPHOCYTES # (AUTO) 5.2 10^3/uL (1.5-3.5); LYMPHOCYTES % (AUTO) 40.5 %; MEAN CORPUSCULAR HEMOGLOBIN 28.6 pg (27.0-31.0); MEAN CORPUSCULAR HGB CONC 31.4 g/dL (32.0-36.0); MEAN CORPUSCULAR VOLUME 91.1 fL (81.0-99.0); MEAN PLATELET VOLUME 9.9 fL (7.9-10.8); MONOCYTES # (AUTO) 1.4 10^3/uL (0.0-1.0); MONOCYTES % (AUTO) 11.2 %; NEUTROPHILS # (AUTO) 5.8 10^3/uL (1.5-6.6); NEUTROPHILS % (AUTO) 45.3 %; PLT - PLATELET COUNT 342 10^3/uL (130-450); RED CELL DISTRIBUTION WIDTH 13.5 % (12.0-15.0); WHITE BLOOD COUNT 12.8 x10^3/uL (4.8-10.8)
[2023-11-29 07:42] LABS: ALBUMIN 3.6 g/dL (3.2-5.5); CALCIUM 9.2 mg/dL (8.5-10.3); CREATININE 0.9 mg/dL (0.6-1.3); PHOSPHORUS 4.4 mg/dL (2.5-5.0); POTASSIUM 4.2 mmol/L (3.5-4.5)
[2023-11-29 07:44] LABS: SLIDE REVIEW? Indicated
[2023-11-29 08:06] LABS: PLATELET ESTIMATE, MANUAL NORMAL (130-450,000) (NORMAL); PLATELET MORPHOLOGY NORMAL APPEARANCE (NORMAL); RBC MORPHOLOGY (MULTIPLE) NORMAL APPEARANCE (NORMAL)
[2023-11-29] MEDS: amLODIPine 5 MG TABLET PO SCH (09:00)
--- NOTE | 2023-11-29 11:35 | PROVIDER PROGRESS NOTE ---
Subjective - Prog Note Date Prog Note Date: 11/29/23 Prog Note Time: 11:40 - Subjective Pt reports feeling: Improved Subjective: The patient was sitting up in the bed this morning and she said she felt tremendously better. She tolerated that midodrine yesterday. She is excited to work with physical therapy. She denies fever or chills. No chest pain, shortness of breath or cough. No nausea vomiting or diarrhea. No urinary complaints. Physical therapy did see the patient later on in the day by the time I am dictating this note. She did have some mild orthostasis and was somewhat dizzy. I discussed the case with Dr. Mcmanus and her midodrine will be increased to 3 times daily. Physical therapy is recommending SNF rehab at discharge Current Medications - Current Medications Current Medications: Tylenol 650 mg p.o. every 4 hours as needed pain or fever Cipro 500 mg po every 12 hours Duloxetine 60 mg daily Lovenox 40 mg daily Hydralazine 10 mg IV every 6 hours as needed elevated blood pressure Dilaudid 0.5 mg IV every 4 hours as needed severe pain Dilaudid 0.2 mg IV every 4 hours as needed moderate pain Metoprolol tartrate 100 mg p.o. twice daily Flagyl 500 mg po every 8 hours Ondansetron ODT 4 mg every 6 hours as needed nausea vomiting Ondansetron 4 mg IV every 6 hours as needed nausea Protonix 40 mg p.o. daily Prochlorperazine 10 mg IV every 6 hours as needed nausea and vomiting Trazodone 50 mg p.o. nightly Midodrine 5 mg p.o. increased to 3 times daily today Amlodipine 10 mg daily Objective - Vital Signs/Intake & Output Reviewed Vital Signs: Yes Vital Signs: Vital Signs x48h Temp Pulse Resp BP BP Pulse Ox 11/29/23 09:00 177/101 H 11/29/23 08:17 36.7 C 98 18 149/68 H 96 11/29/23 04:27 36.6 C 91 16 143/71 H 97 Intake & Output: Intake & Output 11/26/23 11/27/23 11/28/23 11/29/23 23:59 23:59 23:59 23:59 Intake Total 3039.333 1296.667 797 480 Output Total 950 900 Balance 2089.333 396.667 797 480 - Objective General Appearance: positive: No acute distress Eyes Bilateral: positive: Normal inspection ENT: positive: ENT inspection nml Neck: positive: Nml inspection Respiratory: positive: Chest non-tender, No respiratory distress, Breath sounds nml Cardiovascular: positive: Regular rate & rhythm, No murmur, No gallop. negative: Friction rub Abdomen: positive: Non-tender, No organomegaly, Nml bowel sounds Skin: positive: Color nml, No rash, Warm Extremities: positive: Non-tender, Full ROM Neurologic/Psychiatric: positive: Oriented x3, CN's nml (2-12) - Lab Results Fish Bones: 11/29/23 07:22 11/29/23 07:22 Other Labs: Lab Results x24hrs 11/29/23 11/29/23 Range/Units 07:22 07:22 WBC 12.8 H (4.8-10.8) x10^3/uL RBC 4.40 (4.20-5.40) 10^6/uL Hgb 12.6 (12.0-16.0) g/dL Hct 40.1 (37.0-47.0) % MCV 91.1 (81.0-99.0) fL MCH 28.6 (27.0-31.0) pg MCHC 31.4 L (32.0-36.0) g/dL RDW 13.5 (12.0-15.0) % Plt Count 342 (130-450) 10^3/uL MPV 9.9 (7.9-10.8) fL Neut # (Auto) 5.8 (1.5-6.6) 10^3/uL Lymph # (Auto) 5.2 H (1.5-3.5) 10^3/uL [place] # (Auto) 1.4 H (0.0-1.0) 10^3/uL Eos # (Auto) 0.2 (0.0-0.7) 10^3/uL Baso # (Auto) 0.0 (0.0-0.1) 10^3/uL Absolute Nucleated RBC 0.00 x10^3/uL Nucleated RBC % 0.0 /100WBC Manual Slide Review Indicated WBC Morphology (NORMAL) Platelet Estimate NORMAL (130-450,000) (NORMAL) Platelet Morphology NORMAL APPEARANCE (NORMAL) RBC Morph Micro Appear NORMAL APPEARANCE (NORMAL) Sodium 133 L (135-145) mmol/L Potassium 4.2 (3.5-4.5) mmol/L Chloride 97 L (101-111) mmol/L Carbon Dioxide 31 (21-32) mmol/L Anion Gap 5.0 L (6-13) BUN 18 (6-20) mg/dL Creatinine 0.9 (0.6-1.3) mg/dL Estimated GFR (MDRD) 62 L (>89) Glucose 86 (74-104) mg/dL Calcium 9.2 (8.5-10.3) mg/dL Phosphorus 4.4 (2.5-5.0) mg/dL Magnesium 2.0 (1.7-2.3) mg/dL Albumin 3.6 (3.2-5.5) g/dL ABX Reporting Has patient been on IV antibiotics over the past 48 hours?: No Sepsis Event Note (H) - Evaluation Current Stage of Sepsis: Sepsis Possible source of Sepsis: positive: GI tract/intra-abdominal - Sepsis Criteria Sepsis Criteria: Recorded Heart Rate greater than 90 bpm, Recorded Respiratory Rate greater than 20, WBC count greater than 12,000 or less than 4000, Metabolic: lactate > 2 mmol/L Assessment/Plan - Problem List (1) Sepsis Impression: Present on admission. Resolved (2) Colitis Impression: Continue p.o. Cipro and Flagyl. She will complete 10 days of treatment (3) Syncope due to orthostatic hypotension Impression: Will increase her midodrine to 5 mg 3 times daily today. She is somewhat improved from yesterday but did get dizzy again while trying to stand up to am bulate. It has become clear that she is going to need subacute rehabilitation prior to going home. Continue REX hose. They could not find an abdominal binder that would fit her. (4) MILAGRO (acute kidney injury) Impression: Secondary to sepsis. Resolved (5) Non-ischemic myocardial injury (non-traumatic) Impression: Troponins were elevated but flat likely due to her acute illness (6) SVT (supraventricular tachycardia) Impression: Improved. Continue metoprolol to tartrate 100 mg twice daily (7) Lactic acidosis Impression: Secondary to sepsis. Resolved (8) Hypertensive urgency Impression: She has IV hydralazine available. Continue metoprolol tartrate 100 mg twice daily and amlodipine 10 mg daily (9) Chest pain Impression: GI in nature. She says that her ches resolves quickly with a GI cocktail. She would like to continue that after discharge. t discomfort (10) Positive blood culture Impression: [place] to be a contaminant. No further workup or treatment is needed (11) GERD (gastroesophageal reflux disease) Impression: Continue 40 mg of Protonix daily (12) Hypomagnesemia Impression: Repleted and resolved (13) Hypokalemia Impression: Repleted and resolved (14) Hyperlipidemia Impression: She will resume her home medication at discharge Disposition: At this point I am consulting the care coordinators for subacute rehabilitation. It has become clear that she is going to need further work before she can go home. Continue to work with physical therapy and Occupational Therapy Time spent: 35 minutes
[2023-11-29] MEDS: MIDODRINE 2.5 MG TABLET PO SCH (14:16)
[2023-11-29] MEDS: PHENAZOPYRIDINE 100 MG TABLET PO SCH (21:12)
[2023-11-30 04:54] VITALS: O2SAT 97
[2023-11-30 06:27] LABS: BASOPHILS % (AUTO) 0.4 %; HCT - HEMATOCRIT 36.2 % (37.0-47.0); HGB - HEMOGLOBIN 11.3 g/dL (12.0-16.0); LYMPHOCYTES % (AUTO) 49.9 %; MEAN CORPUSCULAR HEMOGLOBIN 28.4 pg (27.0-31.0); MEAN CORPUSCULAR HGB CONC 31.2 g/dL (32.0-36.0); MEAN PLATELET VOLUME 9.9 fL (7.9-10.8); MONOCYTES % (AUTO) 11.4 %; NEUTROPHILS % (AUTO) 35.6 %; PLT - PLATELET COUNT 340 10^3/uL (130-450); RED BLOOD COUNT 3.98 10^6/uL (4.20-5.40); RED CELL DISTRIBUTION WIDTH 13.2 % (12.0-15.0); WHITE BLOOD COUNT 11.3 x10^3/uL (4.8-10.8)
[2023-11-30 06:36] LABS: ALBUMIN 3.6 g/dL (3.2-5.5); CALCIUM 8.9 mg/dL (8.5-10.3); CREATININE 0.9 mg/dL (0.6-1.3); MAGNESIUM 1.9 mg/dL (1.7-2.3); PHOSPHORUS 4.3 mg/dL (2.5-5.0); POTASSIUM 4.1 mmol/L (3.5-4.5)
[2023-11-30 06:44] LABS: ABNORMAL LYMPHS % (MANUAL) 0 %; BAND NEUTROPHILS % (MANUAL) 0 %
[2023-11-30 06:55] LABS: DIFFERENTIAL COMMENT MANUAL DIFFERENTIAL; EOSINOPHILS # (MANUAL) 0.2 10^3/uL (0-0.7); LYMPHOCYTES # (MANUAL) 5.9 10^3/uL (1.5-3.5); LYMPHOCYTES % (MANUAL) 52 %; MONOCYTES # (MANUAL) 0.6 10^3/uL (0.0-1.0); NEUTROPHILS # (MANUAL) 4.6 10^3/uL (1.5-6.6); PLATELET ESTIMATE, MANUAL NORMAL (130-450,000) (NORMAL); RBC MORPHOLOGY (MULTIPLE) NORMAL APPEARANCE (NORMAL)
[2023-11-30] MEDS: MAGNESIUM OXIDE 400 MG TABLET PO SCH (08:26)
[2023-11-30 08:33] VITALS: BP 151/68
[2023-11-30] MEDS: HYDROmorphone 2 MG TABLET PO PRN (09:22)
--- NOTE | 2023-11-30 10:19 | Discharge Plan ---
"Discharge Plan for SNF / [facility] - Discharge Plan And Transition Orders Problem Reviewed?: Yes Disposition: 03 SNF DC/Xfer Condition: Stable Allergies and Adverse Reactions: Allergies Allergy/AdvReac Type Severity Reaction Status Date / Time oxycodone Allergy Severe Hives Verified 11/21/23 17:10 Penicillins Allergy Severe Anaphylaxis Verified 11/21/23 17:10 garlic Allergy Unknown Verified 11/21/23 17:10 atenolol AdvReac Unknown Verified 11/21/23 17:10 lisinopril AdvReac Unknown Verified 11/21/23 17:10 Health Concerns: You were admitted to the hospital with sepsis due to colitis. You have improved with treatment and will need to follow-up with a GI doctor. He also had issues with elevated heart rate as well as volatile blood pressures. You have been stabilized and will need close outpatient follow-up with your editing clerk. You will be going to rehab today and to get stronger after this acute illness Assessment: Stable for transfer to intermediate facility for rehab - SNF / [facility] Transition Orders Admit to (Facility): [facility] Discharge Diagnosis: 1. Sepsis, present on admission This was secondary to underlying colitis. Resolved 2. Colitis She will complete a course of p.o. Cipro and Flagyl. 3. Syncope due to orthostatic hypotension She has been stabilized and has had no further syncopal episodes after adding midodrine 5 mg 3 times daily. We did have to adjust her blood pressure medications as below. She is encouraged to stand up and get her bearings for a few seconds before she tries to ambulate to avoid falls 4. Acute kidney injury Secondary to sepsis. Resolved 5. Nonischemic myocardial injury Troponins were elevated but flat likely due to her acute illness 6. SVT Improved. She will continue metoprolol tartrate 100 mg twice daily. She has been following with cardiology regarding this as an outpatient and should follow-up as soon as possible when she gets out of the hospital 7. Lactic acidosis Secondary to sepsis. Resolved 8. Hypertensive urgency She has had markedly elevated blood pressures that were quite difficult to control and when treated aggressively would then developed hypotension. She has been stabilized on a course of midodrine 5 mg p.o. 3 times daily with metoprolol tartrate 100 mg twice daily and amlodipine 10 mg daily. She will need to follow-up with cardiology as soon as possible but she is no longer orthostatic and she has not had significantly high blood pressure since starting this regimen. 9. Gastrointestinal chest pain Responds beautifully to a GI cocktail. She will need to follow with GI for consideration of a colonoscopy and possible endoscopy going forward. 10. Positive blood culture 1 out of 2 blood cultures positive for coagulase-negative staph felt to be contaminant. Repeat cultures were negative 11. GERD Continue Protonix 40 mg daily 12. Hypomagnesemia Repleted and resolved. She will continue magnesium supplementation at 400 mg daily of magnesium oxide 13. Hypokalemia She had significant hypokalemia that was difficult to resolve but finally her levels are normal. 14. Hyperlipidemia She will resume her statin medication at discharge Medicare Certification Statement: I certify that [facility] intermediate care is medically necessary on a continuing basis for any of the conditions for which she/he is receiving care during hospitalization. Notify PCP of admission and forward orders to primary provider for signature. Weight on admission and: Weekly Other Notification Orders: Call PCP immediately if patient develops dyspnea, chest pain/tightness or edema. House Bowel Program: Yes Additional Bowel Program Orders: If no BM after 2 days, nurse may give M.O.M. 30ml PO PRN and/or ducolax Supp 1 UT and/or MARIO 250mg P.O., and/or senna 1-2 tabs PO. On day 3 nurse may give repeat above order until residents constipation is resolved. Annual Influenza Vaccine (between Feb 02 and September 01): Yes Two-step PPD per [facility] [phone] or approved exception documents: Yes Medication Orders: PLEASE REFER TO THE DISCHARGE MEDICATION LIST. Insulin Orders?: No - Medications New Prescriptions: Ondansetron Odt [Zofran Odt] 4 mg TL Q6HR PRN #20 tab PRN Reason: Nausea / Vomiting Ciprofloxacin [Cipro] 500 mg PO BID #6 tab traZODone [Desyrel] 50 mg PO HS #30 tab metroNIDAZOLE [Flagyl] 500 mg PO TIDWM #18 tab Gi Cocktail 30 ml PO Q4H PRN #500 ml PRN Reason: Abdominal Pain Magnesium Oxide [Mag Ox] 400 mg PO DAILYWM #30 tab amLODIPine [Norvasc] 10 mg PO DAILY #60 tab Midodrine [ProAmatine] 5 mg PO TID #180 tab Pantoprazole [Protonix] 40 mg PO QDAC #30 tab Mvn-Min75/Iron/Iron Ps/Om3/Dha [Wescap-C Dha Softgel] 1 each PO DAILY #30 cap - Diet Type: Geriatric Texture: Regular - Therapies | Activity Therapy: Evaluation | Treat if indicated: PT, OT Rehabilitation Potential: Return to independent living Activity: No Restrictions Weight Bearing: Full Weight Assistance Devices: Walker Follow Up: edger saw operator when released from rehab. Cardiology and GI appt as soon as possible"
--- NOTE | 2023-11-30 10:29 | DISCHARGE SUMMARY ---
Discharge Summary Admit Date: 11/21/23 Discharge Date: 11/30/23 Discharging Provider: Alayna Gallardo PA-C Primary Care Provider: Dr Siobhan Wood Code Status: Attempt Resuscitation Condition at Discharge: Stable Discharge Disposition: SNF DC/Xfer Discharge Facility Name: [facility] - DIAGNOSES Discharge Diagnoses with Status of Each Condition: 1. Sepsis, present on admission This was secondary to underlying colitis. Resolved 2. Colitis She will complete a course of p.o. Cipro and Flagyl. 3. Syncope due to orthostatic hypotension She has been stabilized and has had no further syncopal episodes after adding midodrine 5 mg 3 times daily. We did have to adjust her blood pressure medications as below. She is encouraged to stand up and get her bearings for a few seconds before she tries to ambulate to avoid falls 4. Acute kidney injury Secondary to sepsis. Resolved 5. Nonischemic myocardial injury Troponins were elevated but flat likely due to her acute illness 6. SVT Improved. She will continue metoprolol tartrate 100 mg twice daily. She has been following with cardiology regarding this as an outpatient and should follow-up as soon as possible when she gets out of the hospital 7. Lactic acidosis Secondary to sepsis. Resolved 8. Hypertensive urgency She has had markedly elevated blood pressures that were quite difficult to control and when treated aggressively would then developed hypotension. She has been stabilized on a course of midodrine 5 mg p.o. 3 times daily with metoprolol tartrate 100 mg twice daily and amlodipine 10 mg daily. She will need to follow-up with cardiology as soon as possible but she is no longer orthostatic and she has not had significantly high blood pressure since starting this regimen. 9. Gastrointestinal chest pain Responds beautifully to a GI cocktail. She will need to follow with GI for consideration of a colonoscopy and possible endoscopy going forward. 10. Positive blood culture 1 out of 2 blood cultures positive for coagulase-negative staph felt to be contaminant. Repeat cultures were negative 11. GERD Continue Protonix 40 mg daily 12. Hypomagnesemia Repleted and resolved. She will continue magnesium supplementation at 400 mg daily of magnesium oxide 13. Hypokalemia She had significant hypokalemia that was difficult to resolve but finally her levels are normal. 14. Hyperlipidemia She will resume her statin medication at discharge - HPI History of Present Illness: H&P was conducted via video remotely, using Access Cart. [place] is in [place] Physician is in [place]. No one is at bedside. 68 yo F with PMH of Chronic Abdominal pain, GERD, H. Hernia s/p repair, COPD, HTN, Depression presented to the ER with c/o 2 day h/o abdominal pain, N/V,diarrhea. Pt has had chronic epigastric and LUQ abdominal pain x 10 years. Yesterday, she began to have loose stools. Today, at 9AM, she began to have worse abdominal pain with Nausea/vomiting. No recent travel. No known sick contacts. No unusual foods. Pt has had about 7 BMs since yesterday: runny, brown, no blood. She does have chronic black BMs d/t taking Peptobismal. She has vomited about 6x since this AM: no bloody or black emeses, looks like spit. Pt ate a piece of toast this morning prior to N/V; has not been able to tolerate PO food or drink since then. Abdo pain: epigastric, LUQ, intermittent, feels like h er chronic pain but worse, 03/13. +subj F/C. +Dysuria, +lower back/flank pain. No CP/SOB/cough. In the ER, BP 213/117, HR 152-101, WBC 19, K 3.2, Glc 170, U/A: +glc, CDiff neg. CT Abdo/Pelvis: Pancolitis IV access was difficult, so Anesthesiologist was consulted and RIJ Central line placed. Pt was given IVF, Diltiazem 10 mg IV x 2, Droperidol, Hydromorphone 1 mg IV x 2, Cipro/Flagyl IV in the ER. - HOSPITAL COURSE Hospital Course: Please see complete medical record for details. This was a prolonged hospitalization and this will be a brief summary. Overall the patient was admitted to the hospital with sepsis due to underlying colitis. She had issues with refractory SVT and was maintained in the ICU for several days. She had markedly elevated blood pressures that were difficult to control. Discussions were had with the patient and apparently she follows closely with cardiology as an outpatient and has been in the process of being worked up for SVT as well as her volatile blood pressures. She has had issues with orthostasis and has had multiple syncopal episodes and falls at home. As the hospitalization progressed the patient stabilized and she was moved out of the ICU however she continued to have volatile blood pressures and signifi cant orthostatic hypotension. She did have a syncopal episode 1 day while trying to work with physical therapy. Eventually the patient was stabilized on a regimen of midodrine 5 mg 3 times daily. She is on metoprolol tartrate 100 mg twice daily and amlodipine 10 mg daily. Her orthostasis has greatly improved and her blood pressures have been stable since initiating that regimen. The patient also has had issues with significant epigastric abdominal pain that responds nicely to a GI cocktail. She had pancolitis noted on CT imaging. She does have a GI doctor and she will need close follow-up as an outpatient and likely will need a colonoscopy as well as a possible upper endoscopy going f orward. The patient is significantly weak and debilitated after this acute illness. She will pursue subacute rehabilitation at discharge. The patient is encouraged to stand up and get her bearings in case her blood pressure drops before trying to ambulate. She will need to see her wall taper helper soon as possible for further titration of her medications and to make sure she is stable going forward. At this point maximum hospital benefit has been reached. The patient will be discharged today in stable condition. - ALLERGIES Allergies/Adverse Reactions: Allergies Allergy/AdvReac Type Severity Reaction Status Date / Time oxycodone Allergy Severe Hives Verified 11/21/23 17:10 Penicillins Allergy Severe Anaphylaxis Verified 11/21/23 17:10 garlic Allergy Unknown Verified 11/21/23 17:10 atenolol AdvReac Unknown Verified 11/21/23 17:10 lisinopril AdvReac Unknown Verified 11/21/23 17:10 - MEDICATIONS Home Medications: Ambulatory Orders Medication Instructions Recorded Confirmed DULoxetine [Cymbalta] 60 mg PO DAILY 04/02/23 11/22/23 Nitroglycerin [Nitrostat] 0.4 mg SL [id number] 04/02/23 11/22/23 Pravastatin Sodium 20 mg PO HS 04/02/23 11/22/23 tiZANidine [Zanaflex] 4 mg PO Q8H 04/02/23 11/22/23 Metoprolol Tartrate [Lopressor] 100 mg PO BID 06/05/23 11/22/23 Aspirin EC [Ecotrin] 81 mg PO DAILY 11/22/23 11/22/23 Bismuth Subsalicylate 262 mg PO BID PRN 11/22/23 11/22/23 [Pepto-Bismol] Ciprofloxacin [Cipro] 500 mg PO BID #6 tab 11/30/23 Gi Cocktail 30 ml PO Q4H PRN #500 ml 11/30/23 Magnesium Oxide [Mag Ox] 400 mg PO DAILYWM #30 tab 11/30/23 Midodrine [ProAmatine] 5 mg PO TID #180 tab 11/30/23 Mvn-Min75/Iron/Iron Ps/Om3/Dha 1 each PO DAILY #30 cap 11/30/23 [Wescap-C Dha Softgel] Ondansetron Odt [Zofran Odt] 4 mg TL Q6HR PRN #20 tab 11/30/23 Pantoprazole [Protonix] 40 mg PO QDAC #30 tab 11/30/23 amLODIPine [Norvasc] 10 mg PO DAILY #60 tab 11/30/23 metroNIDAZOLE [Flagyl] 500 mg PO TIDWM #18 tab 11/30/23 traZODone [Desyrel] 50 mg PO HS #30 tab 11/30/23 - PHYSICAL EXAM AT DISCHARGE General Appearance: positive: No acute distress Eyes Bilateral: positive: Normal inspection ENT: positive: ENT inspection nml Neck: positive: Nml inspection Respiratory: positive: Chest non-tender, No respiratory distress, Breath sounds nml Cardiovascular: positive: Regular rate & rhythm, No murmur, No gallop. negative: Friction rub Abdomen: positive: Non-tender, No organomegaly, Nml bowel sounds Skin: positive: Color nml, No rash, Warm Extremities: positive: Non-tender, Full ROM Neurologic/Psychiatric: positive: Oriented x3, CN's nml (2-12) - LABS Result Diagrams: 11/30/23 06:14 11/30/23 06:14 - SEPSIS Current Stage of Sepsis: Sepsis Possible source of Sepsis: GI tract/intra-abdominal Sepsis Criteria: Recorded Heart Rate greater than 90 bpm, Recorded Respiratory Rate greater than 20, WBC count greater than 12,000 or less than 4000, Metabolic: lactate > 2 mmol/L - QUALITY (Female Hip Fx Only) Was patient sent home on osteoporosis medication?: No - FOLLOW UP Follow Up: Primary care physician when she is released from rehab. Cardiology as soon as possible. She also will need a GI follow-up after discharge as well - TIME SPENT Time Spent in Discharge (Minutes): 45
--- NOTE | 2023-11-30 10:41 | PROVIDER PROGRESS NOTE ---
Subjective - Prog Note Date Prog Note Date: 11/30/23 Prog Note Time: 10:40 - Subjective Pt reports feeling: Improved Subjective: The patient is resting comfortably in her bed today. She was not orthostatic earlier this morning. We are trying to get her out of the hospital today to subacute rehabilitation. The patient has no complaints other than that she is not sleeping well. She would like to have her trazodone added back to her regimen. Current Medications - Current Medications Current Medications: Tylenol 650 mg p.o. every 4 hours as needed pain or fever Cipro 500 mg po every 12 hours Duloxetine 60 mg daily Lovenox 40 mg daily Hydralazine 10 mg IV every 6 hours as needed elevated blood pressure Dilaudid 0.5 mg IV every 4 hours as needed severe pain Dilaudid 0.2 mg IV every 4 hours as needed moderate pain Metoprolol tartrate 100 mg p.o. twice daily Flagyl 500 mg po every 8 hours Ondansetron ODT 4 mg every 6 hours as needed nausea vomiting Ondansetron 4 mg IV every 6 hours as needed nausea Protonix 40 mg p.o. daily Prochlorperazine 10 mg IV every 6 hours as needed nausea and vomiting Trazodone 50 mg p.o. nightly Midodrine 5 mg p.o. increased to 3 times daily today Amlodipine 10 mg daily Objective - Vital Signs/Intake & Output Reviewed Vital Signs: Yes Vital Signs: Vital Signs x48h Temp Pulse Resp BP BP Pulse Ox 11/30/23 08:26 151/68 H 11/30/23 08:08 36.3 C L 87 18 164/81 H 97 11/30/23 04:45 36.6 C 86 16 124/59 L 97 Intake & Output: Intake & Output 11/27/23 11/28/23 11/29/23 11/30/23 23:59 23:59 23:59 23:59 Intake Total 1296.553 117 5327 240 Output Total 900 Balance 396.336 118 4113 240 - Objective General Appearance: positive: No acute distress, Alert Eyes Bilateral: positive: Normal inspection ENT: positive: ENT inspection nml Neck: positive: Nml inspection Respiratory: positive: Chest non-tender, No respiratory distress, Breath sounds nml Cardiovascular: positive: Regular rate & rhythm, No murmur, No gallop. negative: Friction rub Abdomen: positive: Non-tender, No organomegaly, Nml bowel sounds Extremities: positive: Non-tender, Full ROM, Nml appearance Neurologic/Psychiatric: positive: Oriented x3, CN's nml (2-12) - Lab Results Fish Bones: 11/30/23 06:14 11/30/23 06:14 Other Labs: Lab Results x24hrs 11/30/23 11/30/23 11/22/23 Range/Units 06:14 06:14 12:37 WBC 11.3 H (4.8-10.8) x10^3/uL RBC 3.98 L (4.20-5.40) 10^6/uL Hgb 11.3 L (12.0-16.0) g/dL Hct 36.2 L (37.0-47.0) % MCV 91.0 (81.0-99.0) fL MCH 28.4 (27.0-31.0) pg MCHC 31.2 L (32.0-36.0) g/dL RDW 13.2 (12.0-15.0) % Plt Count 340 (130-450) 10^3/uL MPV 9.9 (7.9-10.8) fL Neut # (Auto) Not Reportable Lymph # (Auto) Not Reportable Tate # (Auto) Not Reportable Eos # (Auto) Not Reportable Baso # (Auto) Not Reportable Absolute Nucleated RBC Not Reportable Total Counted 100 Band Neuts % (Manual) 0 (0 - 10) % Abnorm Lymph % (Manual) 0 % Nucleated RBC % Not Reportable Neutrophils # (Manual) 4.6 (1.5-6.6) 10^3/uL Lymphocytes # (Manual) 5.9 H (1.5-3.5) 10^3/uL Monocytes # (Manual) 0.6 (0.0-1.0) 10^3/uL Eosinophils # (Manual) 0.2 (0-0.7) 10^3/uL Basophils # (Manual) 0.0 (0-0.1) 10^3/uL Differential Comment MANUAL DIFFERENTIAL Platelet Estimate NORMAL (130-450,000) (NORMAL) RBC Morph Micro Appear NORMAL APPEARANCE (NORMAL) Sodium 132 L (135-145) mmol/L Potassium 4.1 (3.5-4.5) mmol/L Chloride 97 L (101-111) mmol/L Carbon Dioxide 31 (21-32) mmol/L Anion Gap 4.0 L (6-13) BUN 20 (6-20) mg/dL Creatinine 0.9 (0.6-1.3) mg/dL Estimated GFR (MDRD) 62 L (>89) Glucose 82 (74-104) mg/dL Calcium 8.9 (8.5-10.3) mg/dL Phosphorus 4.3 (2.5-5.0) mg/dL Magnesium 1.9 (1.7-2.3) mg/dL Albumin 3.6 (3.2-5.5) g/dL Stool Calprotectin 20 (0-120) ug/g ABX Reporting Has patient been on IV antibiotics over the past 48 hours?: No Sepsis Event Note (H) - Evaluation Current Stage of Sepsis: Sepsis Possible source of Sepsis: positive: GI tract/intra-abdominal - Sepsis Criteria Sepsis Criteria: Recorded Heart Rate greater than 90 bpm, Recorded Respiratory Rate greater than 20, WBC count greater than 12,000 or less than 4000, Metabolic: lactate > 2 mmol/L Assessment/Plan - Problem List (1) Sepsis Impression: Resolved (2) Colitis Impression: Continue p.o. Cipro and Flagyl to complete a 10-day course of treatment (3) Syncope due to orthostatic hypotension Impression: Continue midodrine 5 mg 3 times daily. Improved (4) MIL[place]RO (acute kidney injury) Impression: Secondary to sepsis. Resolved (5) Non-ischemic myocardial injury (non-traumatic) Impression: No further workup (6) SVT (supraventricular tachycardia) Impression: Improved. Continue metoprolol tartrate 100 mg twice daily (7) Lactic acidosis Impression: Secondary to sepsis. Resolved (8) Hypertensive urgency Impression: Blood pressures are currently stable on metoprolol, amlodipine and midodrine (9) Chest pain Impression: Gastrointestinal chest pain. She has a GI cocktail available as needed (10) Positive blood culture Impression: No further workup (11) GERD (gastroesophageal reflux disease) Impression: Continue Protonix (12) Hypomagnesemia Impression: Repleted and resolved (13) Hypokalemia Impression: Repleted and resolved (14) Hyperlipidemia Impression: She will resume her home regimen at discharge Disposition: I am hopeful that the patient will get to go to subacute rehabilitation today. Discharge planning is working on arrangements. Time spent: 35 minutes
== END 2023-11-30 15:00 | DRG 872 ==
LOC: EDUNIT# → ED 16:57 → MS2 11-22 00:35 → ICU 11-22 05:05 → MS2 11-24 14:28
PROVIDERS: ADMIT Internal Medicine; ATTEND Physician Assistant
PROC: 02HV33Z Insertion of Infusion Device into Superior Vena Cava, Percutaneous Approach (ICD-10-PCS; principal; 2023-11-22)
DX: A41.9 Sepsis, unspecified organism (principal); A09 Infectious gastroenteritis and colitis, unspecified; E86.0 Dehydration; N17.9 Acute kidney failure, unspecified; I5A Non-ischemic myocardial injury (non-traumatic); I47.10 Supraventricular tachycardia, unspecified; E87.20 Acidosis, unspecified; K52.9 Noninfective gastroenteritis and colitis, unspecified; I95.1 Orthostatic hypotension; R65.20 Severe sepsis without septic shock; I16.0 Hypertensive urgency; K21.9 Gastro-esophageal reflux disease without esophagitis; E83.42 Hypomagnesemia; E87.6 Hypokalemia; E78.5 Hyperlipidemia, unspecified; G89.29 Other chronic pain; J44.9 Chronic obstructive pulmonary disease, unspecified; I10 Essential (primary) hypertension; F32.A Depression, unspecified; D72.829 Elevated white blood cell count, unspecified; R73.9 Hyperglycemia, unspecified; I35.1 Nonrheumatic aortic (valve) insufficiency; Z79.899 Other long term (current) drug therapy; Z88.5 Allergy status to narcotic agent; Z88.0 Allergy status to penicillin; Z91.018 Allergy to other foods
CPT/HCPCS: 36415; 74177; 80048; 80053; 80069; 80076; 81001; 82272; 82330; 83036; 83605; 83690; 83735; 83993; 84100; 84132; 84145; 84484; 85025; 87040; 87045; 87046; 87077; 87150; 87154; 87181; 87427; 87493; 93005; 93307; 96361; 96365; 96375; 96376; 97161; 97166; 97530; 97535; 99284; 99285; A9270; J0153; J0282; J1170; J1650; J7040; J7120; Q0162; Q9967; 81003; 82274; 85027; 87086

== ENCOUNTER 2023-12-13 20:10 | Outpatient (CLI) | payer MEDICARE | END 2023-12-13 23:59 | disposition critical access hospital (66) | LOC: EMS 20:10 | DX: R10.13 Epigastric pain (principal); R11.0 Nausea | CPT/HCPCS: A0425; A0429 ==

== ENCOUNTER 2023-12-13 20:11 | Inpatient (IN) | payer MEDICARE ==
--- NOTE | 2023-12-13 20:20 | ED Physician Documentation ---
PD HPI ABD PAIN - Stated complaint Stated Complaint: N/V, ABD PAIN - Chief complaint Chief Complaint: Abd Pain - History obtained from History obtained from: Patient, EMS - Additional information Additional information: 68-year-old female presents by EMS from home for abdominal pain. History is mostly obtained by EMS as patient is moaning, clutching her stomach, hyperventilating. Patient admitted at [facility] for pancolitis 2 weeks prior and discharged home on ciprofloxacin and Flagyl. This evening patient had acute worsening of abdominal pain. Patient told EMS that the pain was left upper quadrant in nature with associated nausea and vomiting. 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: Hysterectomy HEENT: Tonsil/Adenoidectomy - Present Medications Home Medications: Ambulatory Orders Medication Instructions Recorded Confirmed DULoxetine [Cymbalta] 60 mg PO HS 04/02/23 12/14/23 Nitroglycerin [Nitrostat] 0.4 mg SL [id number] 04/02/23 12/14/23 Pravastatin Sodium 20 mg PO HS 04/02/23 12/14/23 tiZANidine [Zanaflex] 4 mg PO Q8H 04/02/23 12/14/23 Metoprolol Tartrate [Lopressor] 100 mg PO BID 06/05/23 12/14/23 Aspirin EC [Ecotrin] 81 mg PO DAILY 11/22/23 12/14/23 Bismuth Subsalicylate 262 mg PO BID PRN 11/22/23 12/14/23 [Pepto-Bismol] Gi Cocktail 30 ml PO Q4H PRN #500 ml 11/30/23 12/14/23 Midodrine [ProAmatine] 5 mg PO TID #180 tab 11/30/23 12/14/23 Mvn-Min75/Iron/Iron Ps/Om3/Dha 1 each PO DAILY #30 cap 11/30/23 12/14/23 [Wescap-C Dha Softgel] Ondansetron Odt [Zofran Odt] 4 mg TL Q6HR PRN #20 tab 11/30/23 12/14/23 Pantoprazole [Protonix] 40 mg PO QDAC #30 tab 11/30/23 12/14/23 amLODIPine [Norvasc] 10 mg PO DAILY #60 tab 11/30/23 12/14/23 traZODone [Desyrel] 50 mg PO HS #30 tab 11/30/23 12/14/23 Hydromorphone HCl 4 mg PO Q4HR 12/14/23 12/14/23 - Allergies Allergies/Adverse Reactions: Allergies Allergy/AdvReac Type Severity Reaction Status Date / Time oxycodone Allergy Severe Hives Verified 12/13/23 20:20 Penicillins Allergy Severe Anaphylaxis Verified 12/13/23 20:20 garlic Allergy Unknown Verified 12/13/23 20:20 atenolol AdvReac Unknown Verified 12/13/23 20:20 lisinopril AdvReac Unknown Verified 12/13/23 20:20 - Social History Does the pt smoke?: No Smoking Status: Never smoker Does the pt drink ETOH?: No Does the pt have substance abuse?: No - Immunizations Immunizations are current?: Yes - POLST Patient has POLST: Yes PD ED PE NORMAL - Vitals Vital signs reviewed: Yes - General General: Alert and oriented X 3, Other (moaning, clutching abdomen, laying on Right side) - Cardiac Cardiac: Strong equal pulses, Other (tachycardia) - Respiratory Respiratory: No respiratory distress - Abdomen Abdomen: Soft, Other (LUQ tenderness to palpation) - Derm Derm: Normal color, Warm and dry, No rash - Neuro Neuro: Alert and oriented X 3, title specialist 2-12 intact, Normal speech Results - Vitals Vitals: Vital Signs - 24 hr 12/13/23 12/13/23 12/13/23 20:16 21:30 23:02 Temperature 35.7 C L Heart Rate 127 H 123 H 131 H Respiratory 28 H 18 20 Rate Blood Pressure 216/98 H 193/79 H 184/72 H O2 Saturation 100 99 95 12/13/23 12/13/23 12/13/23 23:30 23:35 23:40 Temperature Heart Rate 126 H 117 H 117 H Respiratory 18 17 18 Rate Blood Pressure 170/60 H 168/74 H 172/75 H O2 Saturation 93 95 96 12/13/23 12/13/23 12/14/23 23:45 23:50 00:05 Temperature Heart Rate 115 H 116 H 119 H Respiratory 15 15 15 Rate Blood Pressure 172/68 H 169/73 H 171/66 H O2 Saturation 94 96 92 12/14/23 12/14/23 12/14/23 00:15 00:30 00:40 Temperature Heart Rate 119 H 119 H 114 H Respiratory 15 13 16 Rate Blood Pressure 164/71 H 168/63 H 160/65 H O2 Saturation 93 96 97 12/14/23 12/14/23 12/14/23 00:45 00:50 00:55 Temperature Heart Rate 112 H 113 H 113 H Respiratory 12 17 16 Rate Blood Pressure 148/58 H 164/73 H 168/61 H O2 Saturation 93 97 97 12/14/23 12/14/23 12/14/23 01:00 01:15 01:30 Temperature Heart Rate 112 H 115 H 115 H Respiratory 14 16 13 Rate Blood Pressure 161/67 H 166/67 H 153/60 H O2 Saturation 97 95 96 12/14/23 12/14/23 12/14/23 01:49 02:00 02:15 Temperature Heart Rate 118 H 115 H 117 H Respiratory 21 10 L 23 Rate Blood Pressure 160/113 H 208/85 H 221/88 H O2 Saturation 100 96 93 12/14/23 12/14/23 12/14/23 02:20 02:25 02:30 Temperature Heart Rate 101 H 100 99 Respiratory 10 L 10 L 16 Rate Blood Pressure 153/45 H 167/71 H 177/75 H O2 Saturation 93 93 93 12/14/23 02:35 Temperature Heart Rate 101 H Respiratory 16 Rate Blood Pressure 140/56 H O2 Saturation 94 Oxygen O2 Source Room air - Labs Labs: Laboratory Tests 12/13/23 12/13/23 12/13/23 20:32 20:32 20:32 WBC 14.3 H RBC 4.70 Hgb 13.6 Hct 40.4 MCV 86.0 MCH 28.9 MCHC 33.7 RDW 12.8 Plt Count 428 MPV 9.4 Neut # (Auto) 9.7 H Lymph # (Auto) 3.2 Calloway # (Auto) 1.1 H Eos # (Auto) 0.2 Baso # (Auto) 0.1 Absolute Nucleated RBC 0.00 Nucleated RBC % 0.0 PT 10.4 INR 0.9 Sodium 138 Potassium 2.9 L Chloride 102 Carbon Dioxide 22 Anion Gap 14.0 H BUN 11 Creatinine 0.7 Estimated GFR (MDRD) 83 L Glucose 124 H Lactic Acid Calcium 9.7 Total Bilirubin 0.5 AST 22 ALT 20 Alkaline Phosphatase 63 Troponin I High Sens Total Protein 7.3 Albumin 4.5 Globulin 2.8 Albumin/Globulin Ratio 1.6 Lipase 16 Urine Opiates Screen Ur Buprenorphine Scrn Ur Oxycodone Screen Urine Methadone Screen Ur Barbiturates Screen Ur Tricyclics Screen Ur Phencyclidine Scrn Ur Amphetamine Screen U Methamphetamines Scrn U Benzodiazepines Scrn Urine Cocaine Screen U Cannabinoids Screen Ur Drug Screen Comment 12/13/23 12/13/23 12/13/23 20:32 20:32 21:37 WBC RBC Hgb Hct MCV MCH MCHC RDW Plt Count MPV Neut # (Auto) Lymph # (Auto) Calloway # (Auto) Eos # (Auto) Baso # (Auto) Absolute Nucleated RBC Nucleated RBC % PT INR Sodium Potassium Chloride Carbon Dioxide Anion Gap BUN Creatinine Estimated GFR (MDRD) Glucose Lactic Acid 2.7 H Calcium Total Bilirubin AST ALT Alkaline Phosphatase Troponin I High Sens 7.6 Total Protein Albumin Globulin Albumin/Globulin Ratio Lipase Urine Opiates Screen POSITIVE H Ur Buprenorphine Scrn NEGATIVE Ur Oxycodone Screen NEGATIVE Urine Methadone Screen NEGATIVE Ur Barbiturates Screen NEGATIVE Ur Tricyclics Screen NEGATIVE Ur Phencyclidine Scrn NEGATIVE Ur Amphetamine Screen NEGATIVE U Methamphetamines Scrn NEGATIVE U Benzodiazepines Scrn NEGATIVE Urine Cocaine Screen NEGATIVE U Cannabinoids Screen NEGATIVE Ur Drug Screen Comment CUTOFF CONC BELOW: 12/14/23 01:46 WBC RBC Hgb Hct MCV MCH MCHC RDW Plt Count MPV Neut # (Auto) Lymph # (Auto) Calloway # (Auto) Eos # (Auto) Baso # (Auto) Absolute Nucleated RBC Nucleated RBC % PT INR Sodium Potassium Chloride Carbon Dioxide Anion Gap BUN Creatinine Estimated GFR (MDRD) Glucose Lactic Acid 3.3 H* Calcium Total Bilirubin AST ALT Alkaline Phosphatase Troponin I High Sens Total Protein Albumin Globulin Albumin/Globulin Ratio Lipase Urine Opiates Screen Ur Buprenorphine Scrn Ur Oxycodone Screen Urine Methadone Screen Ur Barbiturates Screen Ur Tricyclics Screen Ur Phencyclidine Scrn Ur Amphetamine Screen U Methamphetamines Scrn U Benzodiazepines Scrn Urine Cocaine Screen U Cannabinoids Screen Ur Drug Screen Comment PD Medical Decision Making - ED course Complexity details: reviewed results, re-evaluated patient, considered differential, d/w patient ED course: Acute worsening of abdominal pain with recent history of pancolitis. Abdomen is soft but she is tender in the left upper quadrant. Patient is clutching her abdomen and moaning, laying on her right-hand side. IV pain medications, labs, imaging ordered. Laboratory work reviewed, mild leukocytosis, potassium 2.9, lactic acid 2.1, other laboratory work within normal limits. Patient continuing to complain of abdominal pain, additional pain medications ordered. Difficult IV access. EMS placed a 22-gauge in the left wrist, however nursing staff unable to find additional IV access. US guided long 22-gauge catheter placed by myself in left AC with good drawback and good flush. Call placed to CAT scan to obtain imaging. CT shows mild inflammation near the rectum. When compared to previous CT this is improved, which is expected since patient has been on antibiotics. In addition, this is nowhere near patient's reported area of pain. While in the emergency department patient's heart rate increased to 150 bpm. She has a history of SVT and is supposed to be taking metoprolol. If patient's heart rate can be controlled there does not appear to be any indication for admission at this time. Patient continues to complain of abdominal pain despite multiple doses of IV pain medications. Heart rate not responsive to IV metoprolol but responded very well to IV diltiazem and heart rate improved to below 100 after second dose of diltiazem. Repeat lactic acid 3.2 up from 2.7. With persistent abdominal pain, recent admission for colitis, and increasing lactic acid plan to admit patient for observation and further treatment. Empiric dose of IV antibiotics ordered for coverage. Departure - Departure Disposition: 66 [facility] DC/Xfer Clinical Impression: Hypokalemia, Abdominal pain, Difficult intravenous access
[2023-12-13] MEDS ORDERED: HYDROmorphone 1 MG/ML CARPUJECT ONE (20:29)
[2023-12-13] MEDS ORDERED: ONDANSETRON 4 MG/2 ML VIAL ONE (20:29)
[2023-12-13] MEDS: SODIUM CHLORIDE 0.9% 1,000 ML IV STA (20:30)
[2023-12-13] MEDS: ONDANSETRON 4 MG/2 ML VIAL IVP STA (20:31)
[2023-12-13] MEDS: HYDROmorphone 1 MG/ML CARPUJECT IVP STA ×2 (20:34→22:47)
[2023-12-13 20:39] LABS: BASOPHILS # (AUTO) 0.1 10^3/uL (0.0-0.1); BASOPHILS % (AUTO) 0.4 %; EOSINOPHILS # (AUTO) 0.2 10^3/uL (0.0-0.7); EOSINOPHILS % (AUTO) 1.3 %; HCT - HEMATOCRIT 40.4 % (37.0-47.0); HGB - HEMOGLOBIN 13.6 g/dL (12.0-16.0); LYMPHOCYTES # (AUTO) 3.2 10^3/uL (1.5-3.5); LYMPHOCYTES % (AUTO) 22.6 %; MEAN CORPUSCULAR HEMOGLOBIN 28.9 pg (27.0-31.0); MEAN CORPUSCULAR HGB CONC 33.7 g/dL (32.0-36.0); MEAN PLATELET VOLUME 9.4 fL (7.9-10.8); MONOCYTES # (AUTO) 1.1 10^3/uL (0.0-1.0); MONOCYTES % (AUTO) 7.6 %; NEUTROPHILS # (AUTO) 9.7 10^3/uL (1.5-6.6); NEUTROPHILS % (AUTO) 67.6 %; PLT - PLATELET COUNT 428 10^3/uL (130-450); RED CELL DISTRIBUTION WIDTH 12.8 % (12.0-15.0); WHITE BLOOD COUNT 14.3 x10^3/uL (4.8-10.8)
[2023-12-13 20:51] LABS: INR 0.9 (0.8-1.2); PT - PROTHROMBIN TIME 10.4 secs (9.9-12.6)
[2023-12-13] MEDS ORDERED: iohexoL-300 100 ML VIAL ONE (20:51)
[2023-12-13 20:57] LABS: ALBUMIN 4.5 g/dL (3.2-5.5); ALBUMIN/GLOBULIN RATIO 1.6 (1.0-2.2); BILIRUBIN,TOTAL 0.5 mg/dL (0.2-1.0); CALCIUM 9.7 mg/dL (8.5-10.3); CREATININE 0.7 mg/dL (0.6-1.3); POTASSIUM 2.9 mmol/L (3.5-4.5); TOTAL PROTEIN 7.3 g/dL (6.4-8.9)
[2023-12-13] MEDS: DROPERIDOL 5 MG/2 ML VIAL IVP STA (21:11)
[2023-12-13] MEDS: POTASSIUM CHLORIDE INJ 40 MEQ in SODIUM CHLORIDE 0.9% 500 ML IV ONE (21:34)
[2023-12-13] MEDS: POTASSIUM CHLOR 10 MEQ/100 ML 10 MEQ/100 ML BAG IV SCH (21:35)
[2023-12-13 22:01] LABS: AMPHETAMINE SCREEN,URINE NEGATIVE (NEGATIVE); BARBITURATE SCREEN,UR NEGATIVE (NEGATIVE); BENZODIAZEPINES SCREEN, URINE NEGATIVE (NEGATIVE); BUPRENORPHINE SCREEN, URINE NEGATIVE (NEGATIVE); COCAINE SCREEN URINE NEGATIVE (NEGATIVE); METHADONE SCREEN, URINE NEGATIVE (NEGATIVE); METHAMPHETAMINES SCREEN, URINE NEGATIVE (NEGATIVE); OPIATE SCREEN, URINE POSITIVE (NEGATIVE); OXYCODONE SCREEN, URINE NEGATIVE (NEGATIVE); THC CANNABINOID SCREEN, URINE NEGATIVE (NEGATIVE); TRICYCLIC ANTIDEPRESSANT,URINE NEGATIVE (NEGATIVE)
[2023-12-13] MEDS: iohexoL-300 100 ML VIAL IVP ONE (22:56)
[2023-12-13] MEDS: ACETAMINOPHEN 1,000 MG/100 ML 1,000 MG/100 ML BAG IV ONE (22:56)
--- NOTE | 2023-12-13 23:12 | XRAY Report ---
PROCEDURE: Chest 1V INDICATIONS: severe midepigastric pn TECHNIQUE: One view of the chest was acquired. COMPARISON: Chest radiograph 11/22/2023. FINDINGS: Surgical changes and devices: None. Lungs and pleura: No pleural effusions or pneumothorax. Lungs are clear. Mediastinum: Mediastinal contours appear normal. Heart size is normal. Bones and chest wall: No suspicious bony lesions. Overlying soft tissues appear unremarkable. IMPRESSION: No acute cardiopulmonary process. Reviewed by: Edel Morel MD, PhD on 12/13/2023 11:11 PM PDT Approved by: Edel Morel MD, PhD on 12/13/2023 11:11 PM PDT Station ID: [id number]
--- NOTE | 2023-12-13 23:12 | CT Report ---
PROCEDURE: Abdomen/Pelvis W INDICATIONS: severe midepigastric pn, hx pancolitis CONTRAST: CT abdomen pelvis 11/21/2023 Omni 300, 100mls TECHNIQUE: After the administration of intravenous contrast, a CT scan of the abdomen and pelvis was performed. Images were recorded and evaluated at appropriate window settings. Reformats: coronal and sagittal. F or radiation dose reduction, the following was used: automated exposure control, adjustment of mA and /or kV according to patient size. COMPARISON: CT abdomen pelvis with contrast 11/21/2023. FINDINGS: Image quality: Diagnostic. Lower chest: Unremarkable. Liver: No solid mass. Gallbladder: Surgically absent. Biliary tree: No intrahepatic or extrahepatic dilation, accounting for age. Spleen: No splenomegaly. Pancreas: No pancreatic ductal dilation. Adrenals: No adrenal nodule. Kidneys and ureters: No hydronephrosis. No renal cystic lesion which requires follow up. No solid mas s. Stomach, bowel and peritoneum: Small hiatal hernia. Post surgical changes at the gastroesophageal norris ction. No small bowel obstruction. Mild diffuse rectosigmoid bowel wall thickening. No pathologic lena e fluid. Lymph nodes: No central or retroperitoneal adenopathy. Vessels: No infrarenal aortic aneurysm. Patent portal vein. Aortobiiliac atherosclerotic calcificatio ns. PELVIS Reproductive organs: Unremarkable. Bladder: No abnormal wall thickening, accounting for underdistention. Pelvic lymph nodes: No pelvic adenopathy by size criteria. Bones: No aggressive osseous abnormality. Other: No significant ventral or inguinal hernia. Right lower quadrant neurostimulator device with le ads extending to the thoracic spine. Status post L5-S1 posterior fixation with intervertebral disc sp acer. Degenerative changes without acute vertebral body compression fracture. IMPRESSION: Mild diffuse rectosigmoid wall thickening may reflect proctocolitis. Reviewed by: Edel Morel MD, PhD on 12/13/2023 11:11 PM PDT Approved by: Edel Morel MD, PhD on 12/13/2023 11:11 PM PDT Station ID: [email or web address]
[2023-12-13] MEDS: diltiaZEM INJ 5 MG/ML VIAL IVP STA (23:30)
[2023-12-13] MEDS: METOPROLOL 5 MG/5 ML VIAL IVP STA (23:32)
[2023-12-13] MEDS: POTASSIUM CHLORIDE 20 MEQ TABLET PO STA (23:46)
[2023-12-14] MEDS: METOPROLOL 5 MG/5 ML VIAL IVP STA (00:33)
[2023-12-14] MEDS: MAG HYDROX/AL HYDROX/SIMETH 30 ML UDC PO STA (01:44)
[2023-12-14] MEDS: LIDOCAINE VISCOUS 2% 15 ML UDC MM STA (01:44)
[2023-12-14] MEDS: DROPERIDOL 5 MG/2 ML VIAL IVP STA (01:45)
[2023-12-14] MEDS: diltiaZEM INJ 5 MG/ML VIAL IVP STA (02:13)
--- NOTE | 2023-12-14 03:06 | HISTORY & PHYSICAL EXAMINATION ---
Chief Complaint - Chief Complaint Chief Complaint: abdominal pain History of Present Illness - Admitted From Admitted From:: ED - History of Present Illness HPI Comment/Other: Mrs. Grajeda presented to the ED complaints of acute mid abdominal pain. pain started on the day of presentation. she denies any precipitating factors. She was recently diagnosed with colitis and has been on regimen of ciprofloxacin and flagyl. she endorses compliance. she has been on a soft,bland diet for the past few weeks without any difficulty. on the day of presentation she had diarrhea, nausea and vomiting associated with her abdominal pain. Workup in the ED, repeat CT demonstrated improved colitis. Labwork demonstrated worsening lactic acid.All other labwork was unremarkable. during my evalaution jessicanet was resting comfortable in no acute distress. pain was well managed. I performed this visit utilizing real time tele-health tools, incluidng live video. I obtained the patient's consent to perform this visit via tele-health modality. 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 MANAGER: reports: None : reports: None HEENT: reports: None Psych: reports: Depression Musculoskeletal: reports: None Derm: reports: None MRSA Hx?: No - Past Surgical History General: reports: Appendectomy Ortho: reports: Knee replacement, Spine surgery /SUPPLY CHAIN PROGRAM MANAGER: reports: Hysterectomy HEENT: reports: Tonsil/Adenoidectomy - POLST Patient has POLST: Yes Meds/Allgy - Home Medications Home Medications: Ambulatory Orders Medication Instructions Recorded Confirmed DULoxetine [Cymbalta] 60 mg PO HS 04/02/23 12/14/23 Nitroglycerin [Nitrostat] 0.4 mg SL [id number] 04/02/23 12/14/23 Pravastatin Sodium 20 mg PO HS 04/02/23 12/14/23 tiZANidine [Zanaflex] 4 mg PO Q8H 04/02/23 12/14/23 Metoprolol Tartrate [Lopressor] 100 mg PO BID 06/05/23 12/14/23 Aspirin EC [Ecotrin] 81 mg PO DAILY 11/22/23 12/14/23 Bismuth Subsalicylate 262 mg PO BID PRN 11/22/23 12/14/23 [Pepto-Bismol] Gi Cocktail 30 ml PO Q4H PRN #500 ml 11/30/23 12/14/23 Midodrine [ProAmatine] 5 mg PO TID #180 tab 11/30/23 12/14/23 Mvn-Min75/Iron/Iron Ps/Om3/Dha 1 each PO DAILY #30 cap 11/30/23 12/14/23 [Wescap-C Dha Softgel] Ondansetron Odt [Zofran Odt] 4 mg TL Q6HR PRN #20 tab 11/30/23 12/14/23 Pantoprazole [Protonix] 40 mg PO QDAC #30 tab 11/30/23 12/14/23 amLODIPine [Norvasc] 10 mg PO DAILY #60 tab 11/30/23 12/14/23 traZODone [Desyrel] 50 mg PO HS #30 tab 11/30/23 12/14/23 Hydromorphone HCl 4 mg PO Q4HR 12/14/23 12/14/23 - Allergies Allergies/Adverse Reactions: Allergies Allergy/AdvReac Type Severity Reaction Status Date / Time oxycodone Allergy Severe Hives Verified 12/13/23 20:20 Penicillins Allergy Severe Anaphylaxis Verified 12/13/23 20:20 garlic Allergy Unknown Verified 12/13/23 20:20 atenolol AdvReac Unknown Verified 12/13/23 20:20 lisinopril AdvReac Unknown Verified 12/13/23 20:20 Review of Systems - Gastrointestinal Gastrointestinal: reports: Abdominal pain, Diarrhea, Nausea, Vomiting - All Other Systems All Other Systems: reports: Reviewed and negative Exam - Vital Signs Reviewed Vital Signs: Yes Vital Signs: Vital Signs x48h Temp Pulse Resp BP Pulse Ox 12/14/23 02:35 101 H 16 140/56 H 94 12/14/23 02:30 99 16 177/75 H 93 12/14/23 02:25 100 10 L 167/71 H 93 12/14/23 02:20 101 H 10 L 153/45 H 93 12/14/23 02:15 117 H 23 221/88 H 93 12/14/23 02:00 115 H 10 L 208/85 H 96 12/14/23 01:49 118 H 21 160/113 H 100 12/14/23 01:30 115 H 13 153/60 H 96 12/14/23 01:15 115 H 16 166/67 H 95 12/14/23 01:00 112 H 14 161/67 H 97 12/14/23 00:55 113 H 16 168/61 H 97 12/14/23 00:50 113 H 17 164/73 H 97 12/14/23 00:45 112 H 12 148/58 H 93 12/14/23 00:40 114 H 16 160/65 H 97 12/14/23 00:30 119 H 13 168/63 H 96 12/14/23 00:15 119 H 15 164/71 H 93 12/14/23 00:05 119 H 15 171/66 H 92 12/13/23 23:50 116 H 15 169/73 H 96 12/13/23 23:45 115 H 15 172/68 H 94 12/13/23 23:40 117 H 18 172/75 H 96 12/13/23 23:35 117 H 17 168/74 H 95 12/13/23 23:30 126 H 18 170/60 H 93 12/13/23 23:02 131 H 20 184/72 H 95 12/13/23 21:30 123 H 18 193/79 H 99 12/13/23 20:16 35.7 C L 127 H 28 H 216/98 H 100 - Physical Exam General Appearance: positive: No acute distress, Alert Respiratory: positive: Chest non-tender, No respiratory distress, Breath sounds nml Cardiovascular: positive: Regular rate & rhythm, No murmur, No gallop Abdomen: positive: Nml bowel sounds, No distention, Tenderness. negative: Hepatomegaly, Splenomegaly, Mass Skin: positive: Color nml, No rash, Warm, Dry Extremities: positive: Non-tender, Full ROM, Nml appearance Neurologic/Psychiatric: positive: Oriented x3, Mood/affect nml Conclusion/Plan - Problem List (1) Abdominal pain Conclusion/Plan: -etiology uncertain -maintain NPO except sips with medication to allow for bowel rest -slowly advance diet -continue with conservative pain management -initate bowel regimen as needed to avoid constipation. (2) Metabolic acidosis Conclusion/Plan: -elevated lactic acid -cultures pending -will continue with antibiotics to cover for colitis: ciprofloxacin and flagyl -continue with IV fluid resuscitation. (3) Hypokalemia Conclusion/Plan: -will continue to replace per protocol -monitor magnesium and replace as needed. - Lab Results Fish Bones: 12/13/23 20:32 12/13/23 20:32 Core Measures - Anticipated LOS I expect patient to be DC'd or transferred within 96 hours.: Yes Telemedicine Consult Details - Provider Location & Consult Time Telemedicine consultation conducted via videoconferencing?: Yes
[2023-12-14] MEDS ORDERED: GI COCKTAIL 120 ML BOTTLE PO PRN (03:11)
[2023-12-14] MEDS: SODIUM CHLORIDE 0.9% 1,000 ML IV STA (03:25)
[2023-12-14] MEDS: ONDANSETRON 4 MG/2 ML VIAL IVP PRN (03:56)
[2023-12-14] MEDS: HYDROmorphone 0.5 MG/0.5 ML SYRINGE IVP PRN (03:56)
[2023-12-14] MEDS: levoFLOXacin 750 MG/150 ML 750 MG/150 ML BAG IV SCH (04:40)
[2023-12-14] MEDS: METOPROLOL 5 MG/5 ML VIAL IVP SCH (05:33)
[2023-12-14] MEDS: PANTOPRAZOLE 40 MG TABLET PO SCH (05:37)
[2023-12-14] MEDS: MIDODRINE 2.5 MG TABLET PO SCH (05:37)
[2023-12-14] MEDS: CIPROFLOXACIN 400 MG/200 ML 400 MG/200 ML BAG IV SCH (06:29)
[2023-12-14] MEDS: metroNIDAZOLE 500 MG/100 ML 500 MG/100 ML BAG IV SCH (06:47)
[2023-12-14 07:48] LABS: ALBUMIN 4.1 g/dL (3.2-5.5); ALBUMIN/GLOBULIN RATIO 1.6 (1.0-2.2); BILIRUBIN,TOTAL 0.4 mg/dL (0.2-1.0); CALCIUM 8.9 mg/dL (8.5-10.3); CREATININE 0.6 mg/dL (0.6-1.3); POTASSIUM 3.6 mmol/L (3.5-4.5); TOTAL PROTEIN 6.7 g/dL (6.4-8.9)
[2023-12-14] MEDS: LACTATED RINGERS 1,000 ML IV SCH (08:42)
[2023-12-14] MEDS: amLODIPine 5 MG TABLET PO SCH (08:42)
[2023-12-14] MEDS: ACETAMINOPHEN 1,000 MG/100 ML 1,000 MG/100 ML BAG IV PRN (08:42)
[2023-12-14] MEDS: SODIUM CHLORIDE FLUSH 0.9% 10 ML SYRINGE IVP SCH (09:14)
[2023-12-14] MEDS: METOPROLOL TARTRATE 50 MG TABLET PO SCH (09:34)
[2023-12-14] MEDS: MINERAL OIL ENEMA 133 ML BOTTLE RC SCH (09:37)
--- NOTE | 2023-12-14 11:04 | ANESTHESIA ---
Pre-Anesthesia VS, & Labs - Diagnosis abnormal CT - Procedure flex sigmoidoscopy Vital Signs: Temp Pulse Resp BP Pulse Ox O2 Flow Rate 37.0 C 114 H 16 118/66 92 12/14/23 08:00 12/14/23 08:00 12/14/23 08:00 12/14/23 09:34 12/14/23 08:00 Height: 4 ft 10 in Weight (kg): 68 kg Body Mass Index: 31.3 BMI Classification: Obese - NPO >8 hours - Is Patient ?: No - Lab Results Current Lab Results: Laboratory Tests 12/14/23 07:27: Sodium 136, Potassium 3.6, Chloride 100 L, Carbon Dioxide 25, Anion Gap 11.0, BUN 8, Creatinine 0.6, Estimated GFR (MDRD) 99, Glucose 125 H, Calcium 8.9, Total Bilirubin 0.4, AST 21, ALT 19, Alkaline Phosphatase 64, Total Protein 6.7, Albumin 4.1, Globulin 2.6, Albumin/Globulin Ratio 1.6 12/14/23 07:27: Lactic Acid 3.5 H* 12/14/23 01:46: Lactic Acid 3.3 H* 12/13/23 21:37: Urine Opiates Screen POSITIVE H, Ur Buprenorphine Scrn NEGATIVE, Ur Oxycodone Screen NEGATIVE, Urine Methadone Screen NEGATIVE, Ur Barbiturates Screen NEGATIVE, Ur Tricyclics Screen NEGATIVE, Ur Phencyclidine Scrn NEGATIVE, Ur Amphetamine Screen NEGATIVE, U Methamphetamines Scrn NEGATIVE, U Benzo diazepines Scrn NEGATIVE, Urine Cocaine Screen NEGATIVE, U Cannabinoids Screen NEGATIVE, Ur Drug Screen Comment CUTOFF CONC BELOW: 12/13/23 20:32: Troponin I High Sens 7.6 12/13/23 20:32: Lactic Acid 2.7 H 12/13/23 20:32: Sodium 138, Potassium 2.9 L, Chloride 102, Carbon Dioxide 22, Anion Gap 14.0 H, BUN 11, Creatinine 0.7, Estimated GFR (MDRD) 83 L, Glucose 124 H, Calcium 9.7, Total Bilirubin 0.5, AST 22, ALT 20, Alkaline Phosphatase 63, Total Protein 7.3, Albumin 4.5, Globulin 2.8, Albumin/Globulin Ratio 1.6, Lipase 16 12/13/23 20:32: PT 10.4, INR 0.9 12/13/23 20:32: WBC 14.3 H, RBC 4.70, Hgb 13.6, Hct 40.4, MCV 86.0, MCH 28.9, MCHC 33.7, RDW 12.8, Plt Count 428, MPV 9.4, Neut # (Auto) 9.7 H, Lymph # (Auto) 3.2, [place] # (Auto) 1.1 H, Eos # (Auto) 0.2, Baso # (Auto) 0.1, Absolute Nucleated RBC 0.00, Nucleated RBC % 0.0 Fish Bones: 12/13/23 20:32 12/14/23 07:27 Home Medications and Allergies Home Medications: Ambulatory Orders Hydromorphone HCl 4 mg PO Q4HR 12/14/23 Active Medications Amlodipine Besylate (Amlodipine 5 Mg Tablet) 10 mg PO DAILY [facility] Last Admin: 12/14/23 08:42 Dose: 10 mg Duloxetine HCl (Duloxetine 30 Mg Capsule) 60 mg PO HS [facility] Hydromorphone HCl (Hydromorphone 0.5 Mg/0.5 Ml Syringe) 0.5 mg IVP Q2H PRN PRN Reason: Pain 8 to 10 Last Admin: 12/14/23 06:47 Dose: 0.5 mg Levofloxacin (Levaquin 750 Mg/150 Ml) 750 mg in 150 mls @ 100 mls/hr IV Q24H [facility] Last Infusion: 12/14/23 06:57 Dose: Infused Metronidazole (Flagyl 500 Mg/100 Ml) 500 mg in 100 mls @ 100 mls/hr IV Q8H [facility] Last Infusion: 12/14/23 07:48 Dose: Infused Acetaminophen (Acetaminophen) 1,000 mg in 100 mls @ 400 mls/hr IV Q6HR PRN PRN Reason: Moderate Pain (Level 4-6) Last Admin: 12/14/23 08:42 Dose: 400 mls/hr Sodium Chloride (Normal Saline 0.9%) 1,000 mls @ 100 mls/hr IV .Q10H [facility] Stop: 12/14/23 21:59 Metoprolol Tartrate (Metoprolol Tartrate 50 Mg Tablet) 100 mg PO BID [facility] Last Admin: 12/14/23 09:34 Dose: 100 mg Midodrine (Midodrine 2.5 Mg Tablet) 5 mg PO TID [facility] Last Admin: 12/14/23 05:37 Dose: Not Given Multi-Ingredient Mouthwash/Gargle (Gi Cocktail 120 Ml Bottle) 30 ml PO Q4H PRN PRN Reason: Abdominal Pain Ondansetron HCl (Ondansetron 4 Mg/2 Ml Vial) 4 mg IVP Q6HR PRN PRN Reason: Nausea / Vomiting Last Admin: 12/14/23 06:48 Dose: 4 mg Pantoprazole Sodium (Pantoprazole 40 Mg Tablet) 40 mg PO QDAC [facility] Last Admin: 12/14/23 05:37 Dose: 40 mg Pravastatin Sodium (Pravastatin 10 Mg Tablet) 20 mg PO HS [facility] Sodium Chloride (Sodium Chloride Flush 0.9% 10 Ml Syringe) 10 ml IVP PRN PRN PRN Reason: NEEDED PER PROVIDER ORDERS Sodium Chloride (Sodium Chloride Flush 0.9% 10 Ml Syringe) 10 ml IVP 0100,0900,1700 [facility] Last Admin: 12/14/23 09:14 Dose: 10 ml Trazodone HCl (Trazodone 50 Mg Tablet) 50 mg PO [facility] DULoxetine [Cymbalta] 60 mg PO HS 04/02/23 Nitroglycerin [Nitrostat] 0.4 mg SL [id number] 04/02/23 Pravastatin Sodium 20 mg PO 04/02/23 tiZANidine [Zanaflex] 4 mg PO Q8H 04/02/23 Metoprolol Tartrate [Lopressor] 100 mg PO BID 06/05/23 Aspirin EC [Ecotrin] 81 mg PO DAILY 11/22/23 Bismuth Subsalicylate [Pepto-Bismol] 262 mg PO BID PRN 11/22/23 Hydromorphone HCl 4 mg PO Q4HR 12/14/23 Allergies/Adverse Reactions: Allergies Allergy/AdvReac Type Severity Reaction Status Date / Time oxycodone Allergy Severe Hives Verified 12/13/23 20:20 Penicillins Allergy Severe Anaphylaxis Verified 12/13/23 20:20 garlic Allergy Unknown Verified 12/13/23 20:20 atenolol AdvReac Unknown Verified 12/13/23 20:20 lisinopril AdvReac Unknown Verified 12/13/23 20:20 Anes History & Medical History - Anesthetic History Anesthesia Complications: reports: No previous complications Family history of Anesthesia Complications: Denies Family history of Malignant Hyperthermia: Denies - Medical History Cardiovascular: reports: Hypertension, Murmur, Other Pulmonary: reports: Asthma, COPD Gastrointestinal: reports: GERD, Hiatal hernia Urinary: reports: None Neuro: reports: None Musculoskeletal: reports: None Endocrine/Autoimmune: reports: None Blood Disorders: reports: None Skin: reports: None Smoking Status: Former smoker Psychosocial: reports: No issues indicated Other Past Medical History: "Leaky heart valve" - Surgical History General: reports: Cholecystectomy, Appendectomy, Hiatal hernia repair Eyes Ears Nose Throat (EENT): reports: Tonsil/Adenoidectomy Gynecologic: reports: Hysterectomy Orthopedic: reports: Knee replacement, Spine surgery Exam General: Alert, Oriented x3, Cooperative Dental: WNL Mouth Openin Fingerbreadth Neck Mobility: Normal Mallampati classification: III Thyromental Distance: 4-6 cm Respiratory: Lungs clear Cardiovascular: Regular rate Plan Anesthesia Type: General, Total IV Consent for Procedure(s) Verified and Reviewed: Yes Code Status: Attempt Resuscitation ASA classification: 3-Severe systemic disease Is this case an emergency?: No
--- NOTE | 2023-12-14 11:06 | CONSULTATION NOTE ---
Referring Provider Consult Date: 12/14/23 Chief Complaint - Chief Complaint Chief Complaint: upper abdominal pain and looser stool History of Present Illness - History Obtained From Records Reviewed: yes History obtained from: pt Exam Limitations: none - History of Present Illness HPI Comment/Other: history upper abdominal pain and looser stool with 5 to 6 bms per day for [address] scan possible proctocolitis with rectosimoid thickening. History - Past Medical History Cardiovascular: reports: Hypertension, Murmur, Other Respiratory: reports: Asthma, COPD Neuro: reports: None Endocrine/Autoimmune: reports: None GI: reports: GERD, Hiatal hernia PLATFORM ARCHITECT: reports: None : reports: None HEENT: reports: None Psych: reports: Depression Musculoskeletal: reports: None Derm: reports: None MRSA Hx?: No Other Past Medical History: "Leaky heart valve" - Past Surgical History General: reports: Cholecystectomy, Appendectomy, Hiatal hernia repair Ortho: reports: Knee replacement, Spine surgery /PLATFORM ARCHITECT: reports: Hysterectomy HEENT: reports: Tonsil/Adenoidectomy - POLST Patient has POLST: Yes Meds/Allgy - Home Medications Home Medications: Ambulatory Orders Medication Instructions Recorded Confirmed DULoxetine [Cymbalta] 60 mg PO HS 04/02/23 12/14/23 Nitroglycerin [Nitrostat] 0.4 mg SL [id number] 04/02/23 12/14/23 Pravastatin Sodium 20 mg PO HS 04/02/23 12/14/23 tiZANidine [Zanaflex] 4 mg PO Q8H 04/02/23 12/14/23 Metoprolol Tartrate [Lopressor] 100 mg PO BID 06/05/23 12/14/23 Aspirin EC [Ecotrin] 81 mg PO DAILY 11/22/23 12/14/23 Bismuth Subsalicylate 262 mg PO BID PRN 11/22/23 12/14/23 [Pepto-Bismol] Gi Cocktail 30 ml PO Q4H PRN #500 ml 11/30/23 12/14/23 Midodrine [ProAmatine] 5 mg PO TID #180 tab 11/30/23 12/14/23 Mvn-Min75/Iron/Iron Ps/Om3/Dha 1 each PO DAILY #30 cap 11/30/23 12/14/23 [Wescap-C Dha Softgel] Ondansetron Odt [Zofran Odt] 4 mg TL Q6HR PRN #20 tab 11/30/23 12/14/23 Pantoprazole [Protonix] 40 mg PO QDAC #30 tab 11/30/23 12/14/23 amLODIPine [Norvasc] 10 mg PO DAILY #60 tab 11/30/23 12/14/23 traZODone [Desyrel] 50 mg PO HS #30 tab 11/30/23 12/14/23 Hydromorphone HCl 4 mg PO Q4HR 12/14/23 12/14/23 - Allergies Allergies/Adverse Reactions: Allergies Allergy/AdvReac Type Severity Reaction Status Date / Time oxycodone Allergy Severe Hives Verified 12/13/23 20:20 Penicillins Allergy Severe Anaphylaxis Verified 12/13/23 20:20 garlic Allergy Unknown Verified 12/13/23 20:20 atenolol AdvReac Unknown Verified 12/13/23 20:20 lisinopril AdvReac Unknown Verified 12/13/23 20:20 Exam - Vital Signs Vital Signs: Vital Signs x48h Temp Pulse Pulse Resp BP BP Pulse Ox 12/14/23 09:34 118/66 12/14/23 08:00 37.0 C 114 H 16 113/66 92 12/14/23 06:34 117 H 174/91 H 12/14/23 06:32 120 H 181/96 H 12/14/23 06:01 117 H 165/90 H 12/14/23 05:33 163/79 H 12/14/23 05:09 122 H 18 169/84 H 12/14/23 03:45 37.4 C 127 H 20 179/92 H 12/14/23 03:15 107 H 12 194/71 H 98 - Physical Exam General Appearance: positive: No acute distress, Alert Eyes Bilateral: positive: PERRL, EOMI Respiratory: positive: No respiratory distress Abdomen: positive: No distention, Other (soft. minimal epigastric tenderness) Neurologic/Psychiatric: positive: Oriented x3 Conclusion/Plan - Problem List (1) Abdominal pain Conclusion/Plan: possible inflammation rectum and sigmoid by ct scan. looser stool x 2 months. plan sigmoidoscopy with biopsies parq held and consent obtained - Lab Results Fish Bones: 12/13/23 20:32 12/14/23 07:27 - Diagnostic Imaging Results Diagnostic Imaging Results: positive: Other (gallbladder has been removed)
--- NOTE | 2023-12-14 11:07 | PHARMACY PROGRESS NOTE ---
- Best Possible Medication History Admit Date and Time: 12/14/23 0245 Processed by: Pharmacy Medications reviewed in ED?: No Medication History completed: Yes Patient Interview: Completed Secondary Source(s): Insurance records As the person ultimately responsible for medication therapy, providers are able to order a medication from an existing home medication list in [facility] via the "Reconcile Routine" prior to Confirmation of that medication by sales support associate. Such practice is discouraged except when the physician, in their clinical judgment, deems that a medical need exists for a medication without regard to previous use.
[2023-12-14] MEDS ORDERED: PROPOFOL 500 MG/50 ML 500 MG/50 ML VIAL ONE (11:31)
[2023-12-14] MEDS ORDERED: LIDOCAINE-MPF 2% 5 ML VIAL ONE (11:31)
[2023-12-14] MEDS ORDERED: PROPOFOL 200 MG/20 ML VIAL IVP ONE (11:31)
--- NOTE | 2023-12-14 12:04 | ANESTHESIA POST OP EVALUATION ---
Anesthesia Post Eval - Post Anesthesia Eval Vitals: Last Vital Signs Temp 36.7 C 12/14/23 11:46 Pulse 85 12/14/23 11:46 Resp 20 12/14/23 11:46 BP 101/50 L 12/14/23 11:46 Pulse Ox 98 12/14/23 11:46 O2 Flow Rate CV Function Including HR & BP: Stable Pain Control: Satisfactory Nausea & Vomiting: Negative Mental Status: Baseline Respiratory Status: Airway Patent Hydration Status: Satisfactory Anesthesia Complications: None
[2023-12-14] MEDS: SODIUM CHLORIDE 0.9% 1,000 ML IV SCH (12:12)
[2023-12-14] MEDS ORDERED: CIPROFLOXACIN 400 MG/200 ML 400 MG/200 ML BAG IV SCH (15:00)
--- NOTE | 2023-12-14 16:51 | PROVIDER PROGRESS NOTE ---
Progress Note She has been stable throughout the course of today. She went to the operating room for colonoscopy and did well. She started on a clear liquid diet and her pain is controlled. 1)Colitis. Conclusion/Plan: - Presented with nausea vomiting and diarrhea. -CT showed mild diffuse rectosigmoid wall thickening -General surgery was consulted and took patient for colonoscopy. Biopsies were taken of the ascending colon transverse colon descending colon sigmoid and rectum for histology. The exam was otherwise normal - stool studies, including fecal calprotectin have been sent. -She has been treated with antibiotics for her colitis - Clear liquid diet has been initiated. -She will be treated with pain medication as needed -She has a history of chronic abdominal pain (2) Metabolic acidosis Conclusion/Plan: -elevated lactic acid: 3.3, then 3.5 despite fluid administration. - blood cultures pending -will continue with antibiotics to cover for colitis: ciprofloxacin and flagyl (3) Hypokalemia Conclusion/Plan: -has been repleted, 3.6 this AM. -magnesium level ordered for AM. (4) Orthostatic hypotension. Difficult to manage last admission. Eventually settled on a regimen of midod rine 5 mg p.o. 3 times daily. We will continue this medication (5) Hypertension Metoprolol 100 mg twice daily and amlodipine 10 mg twice daily. (6)SVT Treated last admission with adenosine. She was not responsive to this. Will continue her on metoprolol.
[2023-12-14] MEDS: PRAVASTATIN 10 MG TABLET PO SCH (20:17)
[2023-12-14] MEDS: DULoxetine 30 MG CAPSULE PO SCH (20:18)
[2023-12-14] MEDS: traZODone 50 MG TABLET PO SCH (22:11)
[2023-12-15 08:11] LABS: BASOPHILS # (AUTO) 0.1 10^3/uL (0.0-0.1); BASOPHILS % (AUTO) 0.7 %; EOSINOPHILS # (AUTO) 0.2 10^3/uL (0.0-0.7); EOSINOPHILS % (AUTO) 2.1 %; HCT - HEMATOCRIT 31.8 % (37.0-47.0); HGB - HEMOGLOBIN 10.3 g/dL (12.0-16.0); LYMPHOCYTES # (AUTO) 3.3 10^3/uL (1.5-3.5); LYMPHOCYTES % (AUTO) 44.4 %; MEAN CORPUSCULAR HEMOGLOBIN 29.7 pg (27.0-31.0); MEAN CORPUSCULAR HGB CONC 32.4 g/dL (32.0-36.0); MEAN CORPUSCULAR VOLUME 91.6 fL (81.0-99.0); MEAN PLATELET VOLUME 9.5 fL (7.9-10.8); MONOCYTES # (AUTO) 0.7 10^3/uL (0.0-1.0); MONOCYTES % (AUTO) 9.8 %; NEUTROPHILS # (AUTO) 3.2 10^3/uL (1.5-6.6); NEUTROPHILS % (AUTO) 42.7 %; PLT - PLATELET COUNT 245 10^3/uL (130-450); RED BLOOD COUNT 3.47 10^6/uL (4.20-5.40); RED CELL DISTRIBUTION WIDTH 13.2 % (12.0-15.0); WHITE BLOOD COUNT 7.5 x10^3/uL (4.8-10.8)
--- NOTE | 2023-12-15 16:13 | PROVIDER PROGRESS NOTE ---
Assessment/Plan - Problem List (1) Abdominal pain Assessment/Plan: 1)Colitis. Conclusion/Plan: --Sigmoidoscopy unremarkable. Patient has an EGD and colonoscopy pending with her GI physician. --Continue antibiotics. (2) Metabolic acidosis Conclusion/Plan: -Resolved. (3) Hypokalemia Conclusion/Plan: -has been repleted, 3.6 this AM. -magnesium level ordered for AM. (4) Orthostatic hypotension. Difficult to manage last admission. Eventually settled on a regimen of midodrine 5 mg p.o. 3 times daily. We will continue this medication (5) Hypertension Metoprolol 100 mg twice daily and amlodipine 10 mg twice daily. (6)SVT Treated last admission with adenosine. She was not responsive to this. Will continue her on metoprolol. Dispo: Advance diet today. Discharge tomorrow anticipated. - Current Meds Current Meds: Current Medications Generic Name Dose Route Start Last Admin Trade Name Freq PRN Reason Stop Dose Admin Amlodipine Besylate 10 mg 12/14/23 09:00 12/15/23 08:38 Amlodipine 5 Mg Tablet PO Not Given DAILY ABRAHAM Duloxetine HCl 60 mg 12/14/23 21:00 12/14/23 20:18 Duloxetine 30 Mg Capsule PO 60 mg HS ABRAHAM Administration Hydromorphone HCl 0.5 mg 12/14/23 02:45 12/15/23 14:52 Hydromorphone 0.5 Mg/0.5 Ml Syringe IVP 0.5 mg Q2H PRN Administration Pain 8 to 10 Levofloxacin 750 mg in 150 mls @ 100 mls/hr 12/14/23 03:00 12/15/23 10:10 Levaquin 750 Mg/150 Ml IV Infused Q24H ABRAHAM Infusion Metronidazole 500 mg in 100 mls @ 100 mls/hr 12/14/23 03:00 12/15/23 15:02 Flagyl 500 Mg/100 Ml IV Infused Q8H ABRAHAM Infusion Acetaminophen 1,000 mg in 100 mls @ 400 mls/hr 12/14/23 02:49 12/15/23 09:19 Acetaminophen IV Infused Q6HR PRN Infusion Moderate Pain (Level 4-6) Metoprolol Tartrate 100 mg 12/14/23 09:00 12/15/23 08:38 Metoprolol Tartrate 50 Mg Tablet PO 100 mg BID ABRAHAM Administration Midodrine 5 mg 12/14/23 06:00 12/15/23 14:49 Midodrine 2.5 Mg Tablet PO 5 mg TID ABRAHAM Administration Ondansetron HCl 4 mg 12/14/23 02:45 12/14/23 06:48 Ondansetron 4 Mg/2 Ml Vial IVP 4 mg Q6HR PRN Administration Nausea / Vomiting Pantoprazole Sodium 40 mg 12/14/23 07:00 12/15/23 06:36 Pantoprazole 40 Mg Tablet PO 40 mg QDAC ABRAHAM Administration Pravastatin Sodium 20 mg 12/14/23 21:00 12/14/23 20:17 Pravastatin 10 Mg Tablet PO 20 mg HS ABRAHAM Administration Sodium Chloride 10 ml 12/14/23 09:00 12/15/23 08:38 Sodium Chloride Flush 0.9% 10 Ml Syringe IVP Not Given 0100,0900,1700 ABRAHAM Trazodone HCl 50 mg 12/14/23 21:00 12/14/23 22:11 Trazodone 50 Mg Tablet PO 50 mg HS ABRAHAM Administration - Lab Result Fish Bone Diagrams: 12/15/23 08:00 12/14/23 07:27 - Additional Planning My Orders: My Active Orders 12/15/23 Lunch Soft (Low Fiber) Diet [DIET] Subjective - Subjective Patient Reports: Feeling Better, Resting Comfortably, No Complaints Objective Vital Signs: Vital Signs - 24 hr 12/14/23 12/14/23 12/15/23 20:17 23:34 04:11 Temperature 36.7 C 36.6 C Heart Rate [ 92 89 Brachial] Respiratory 18 20 Rate Blood Pressure 143/64 H Blood Pressure 136/62 H 107/52 L [Right Brachial artery] O2 Saturation 94 94 12/15/23 12/15/23 12/15/23 08:02 08:35 08:38 Temperature 36.6 C 36.4 C L Heart Rate [ 84 94 Brachial] Respiratory 16 Rate Blood Pressure 114/61 Blood Pressure 114/57 L 114/61 [Right Brachial artery] O2 Saturation 95 95 Oxygen O2 Source Room air I&O (Last 24 Hrs): Intake and Output Totals x24h 12/13/23 12/14/23 12/15/23 23:59 23:59 23:59 Intake Total 1200 3976 2650 Output Total 1650 100 Balance 1200 2326 2550 General: Alert, Oriented x3, Cooperative, No acute distress Neuro: Alert, CN 2-12 Grossly Intact, Oriented Times 3 Cardiovascular: Regular rate, Normal S1, Normal S2, No murmurs Respiratory: Chest non-tender, No respiratory distress, Breath sounds nml Abdomen: Normal bowel sounds, Soft, No tenderness, No hepatospenomegaly, No masses - Results Results: Laboratory Results WBC 7.5 x10^3/uL (4.8-10.8) 12/15/23 08:00 RBC 3.47 10^6/uL (4.20-5.40) L 12/15/23 08:00 Hgb 10.3 g/dL (12.0-16.0) L 12/15/23 08:00 Hct 31.8 % (37.0-47.0) L 12/15/23 08:00 MCV 91.6 fL (81.0-99.0) 12/15/23 08:00 MCH 29.7 pg (27.0-31.0) 12/15/23 08:00 MCHC 32.4 g/dL (32.0-36.0) 12/15/23 08:00 RDW 13.2 % (12.0-15.0) 12/15/23 08:00 Plt Count 245 10^3/uL (130-450) 12/15/23 08:00 MPV 9.5 fL (7.9-10.8) 12/15/23 08:00 Neut # (Auto) 3.2 10^3/uL (1.5-6.6) 12/15/23 08:00 Lymph # (Auto) 3.3 10^3/uL (1.5-3.5) 12/15/23 08:00 [place] # (Auto) 0.7 10^3/uL (0.0-1.0) 12/15/23 08:00 Eos # (Auto) 0.2 10^3/uL (0.0-0.7) 12/15/23 08:00 Baso # (Auto) 0.1 10^3/uL (0.0-0.1) 12/15/23 08:00 Absolute Nucleated RBC 0.00 x10^3/uL 12/15/23 08:00 Nucleated RBC % 0.0 /100WBC 12/15/23 08:00 PT 10.4 secs (9.9-12.6) 12/13/23 20:32 INR 0.9 (0.8-1.2) 12/13/23 20:32 Sodium 136 mmol/L (135-145) 12/14/23 07:27 Potassium 3.6 mmol/L (3.5-4.5) 12/14/23 07:27 Chloride 100 mmol/L (101-111) L 12/14/23 07:27 Carbon Dioxide 25 mmol/L (21-32) 12/14/23 07:27 Anion Gap 11.0 (6-13) 12/14/23 07:27 BUN 8 mg/dL (6-20) 12/14/23 07:27 Creatinine 0.6 mg/dL (0.6-1.3) 12/14/23 07:27 Estimated GFR (MDRD) 99 (>89) 12/14/23 07:27 Glucose 125 mg/dL (74-104) H 12/14/23 07:27 Lactic Acid 2.1 mmol/L (0.5-2.2) 12/14/23 17:05 Calcium 8.9 mg/dL (8.5-10.3) 12/14/23 07:27 Total Bilirubin 0.4 mg/dL (0.2-1.0) 12/14/23 07:27 AST 21 IU/L (10-42) 12/14/23 07:27 ALT 19 IU/L (10-60) 12/14/23 07:27 Alkaline Phosphatase 64 IU/L (42-121) 12/14/23 07:27 Troponin I High Sens 7.6 ng/L (2.3-14.8) 12/13/23 20:32 Total Protein 6.7 g/dL (6.4-8.9) 12/14/23 07:27 Albumin 4.1 g/dL (3.2-5.5) 12/14/23 07:27 Globulin 2.6 g/dL (2.1-4.2) 12/14/23 07:27 Albumin/Globulin Ratio 1.6 (1.0-2.2) 12/14/23 07:27 Lipase 16 U/L (11-82) 12/13/23 20:32 Urine Opiates Screen POSITIVE (NEGATIVE) H 12/13/23 21:37 Ur Buprenorphine Scrn NEGATIVE (NEGATIVE) 12/13/23 21:37 Ur Oxycodone Screen NEGATIVE (NEGATIVE) 12/13/23 21:37 Urine Methadone Screen NEGATIVE (NEGATIVE) 12/13/23 21:37 Ur Barbiturates Screen NEGATIVE (NEGATIVE) 12/13/23 21:37 Ur Tricyclics Screen NEGATIVE (NEGATIVE) 12/13/23 21:37 Ur Phencyclidine Scrn NEGATIVE (NEGATIVE) 12/13/23 21:37 Ur Amphetamine Screen NEGATIVE (NEGATIVE) 12/13/23 21:37 U Methamphetamines Scrn NEGATIVE (NEGATIVE) 12/13/23 21:37 U Benzodiazepines Scrn NEGATIVE (NEGATIVE) 12/13/23 21:37 Urine Cocaine Screen NEGATIVE (NEGATIVE) 12/13/23 21:37 U Cannabinoids Screen NEGATIVE (NEGATIVE) 12/13/23 21:37 Ur Drug Screen Comment CUTOFF CONC BELOW: 12/13/23 21:37 - Procedures Procedures: Procedures INSERTION OF INFUSION DEV INTO SUP VENA CAVA, PERC APPROACH (11/22/23)
[2023-12-16] MEDS: SODIUM CHLORIDE FLUSH 0.9% 10 ML SYRINGE IVP PRN (03:01)
[2023-12-16 05:33] LABS: BASOPHILS % (AUTO) 0.6 %; EOSINOPHILS # (AUTO) 0.5 10^3/uL (0.0-0.7); EOSINOPHILS % (AUTO) 7.7 %; HCT - HEMATOCRIT 29.2 % (37.0-47.0); HGB - HEMOGLOBIN 9.4 g/dL (12.0-16.0); LYMPHOCYTES # (AUTO) 3.1 10^3/uL (1.5-3.5); LYMPHOCYTES % (AUTO) 44.6 %; MEAN CORPUSCULAR HEMOGLOBIN 29.4 pg (27.0-31.0); MEAN CORPUSCULAR HGB CONC 32.2 g/dL (32.0-36.0); MEAN CORPUSCULAR VOLUME 91.3 fL (81.0-99.0); MEAN PLATELET VOLUME 9.9 fL (7.9-10.8); MONOCYTES # (AUTO) 0.9 10^3/uL (0.0-1.0); MONOCYTES % (AUTO) 12.4 %; NEUTROPHILS # (AUTO) 2.4 10^3/uL (1.5-6.6); NEUTROPHILS % (AUTO) 34.6 %; PLT - PLATELET COUNT 228 10^3/uL (130-450)
[2023-12-16 05:55] LABS: CALCIUM 8.7 mg/dL (8.5-10.3); CREATININE 0.8 mg/dL (0.6-1.3); POTASSIUM 3.8 mmol/L (3.5-4.5)
[2023-12-16 07:41] VITALS: BP 120/63; O2SAT 97
--- NOTE | 2023-12-16 10:38 | Discharge Plan ---
Discharge Plan Problem Reviewed?: Yes Disposition: Home, Self Care Condition: Good Prescriptions: metroNIDAZOLE [Flagyl] 500 mg PO BID 7 Days #14 tablet levoFLOXacin [Levofloxacin] 750 mg PO DAILY #7 tab Diet: Regular Activity Restrictions: Activity as Tolerated No Smoking: If you smoke, Please STOP! Call for help.
--- NOTE | 2023-12-16 10:39 | DISCHARGE SUMMARY ---
Discharge Summary Condition at Discharge: Good Discharge Disposition: 01 Home, Self Care - ALLERGIES Allergies/Adverse Reactions: Allergies Allergy/AdvReac Type Severity Reaction Status Date / Time oxycodone Allergy Severe Hives Verified 12/13/23 20:20 Penicillins Allergy Severe Anaphylaxis Verified 12/13/23 20:20 garlic Allergy Unknown Verified 12/13/23 20:20 atenolol AdvReac Unknown Verified 12/13/23 20:20 lisinopril AdvReac Unknown Verified 12/13/23 20:20 - MEDICATIONS Home Medications: Ambulatory Orders Medication Instructions Recorded Confirmed DULoxetine [Cymbalta] 60 mg PO HS 04/02/23 12/14/23 Nitroglycerin [Nitrostat] 0.4 mg SL [id number] 04/02/23 12/14/23 Pravastatin Sodium 20 mg PO HS 04/02/23 12/14/23 tiZANidine [Zanaflex] 4 mg PO Q8H 04/02/23 12/14/23 Metoprolol Tartrate [Lopressor] 100 mg PO BID 06/05/23 12/14/23 Aspirin EC [Ecotrin] 81 mg PO DAILY 11/22/23 12/14/23 Bismuth Subsalicylate 262 mg PO BID PRN 11/22/23 12/14/23 [Pepto-Bismol] Gi Cocktail 30 ml PO Q4H PRN #500 ml 11/30/23 12/14/23 Midodrine [ProAmatine] 5 mg PO TID #180 tab 11/30/23 12/14/23 Mvn-Min75/Iron/Iron Ps/Om3/Dha 1 each PO DAILY #30 cap 11/30/23 12/14/23 [Wescap-C Dha Softgel] Ondansetron Odt [Zofran Odt] 4 mg TL Q6HR PRN #20 tab 11/30/23 12/14/23 Pantoprazole [Protonix] 40 mg PO QDAC #30 tab 11/30/23 12/14/23 amLODIPine [Norvasc] 10 mg PO DAILY #60 tab 11/30/23 12/14/23 traZODone [Desyrel] 50 mg PO HS #30 tab 11/30/23 12/14/23 Hydromorphone HCl 4 mg PO Q4HR 12/14/23 12/14/23 levoFLOXacin [Levofloxacin] 750 mg PO DAILY #7 tab 12/16/23 metroNIDAZOLE [Flagyl] 500 mg PO BID 7 Days #14 tablet 12/16/23 - LABS Result Diagrams: 12/16/23 04:50 12/16/23 04:50
--- NOTE | 2023-12-16 10:47 | DISCHARGE SUMMARY ---
Discharge Summary Admit Date: 12/14/23 Discharge Date: 12/16/23 Discharging Provider: Diony Mcmanus Primary Care Provider: Siobhan Wodo Code Status: Attempt Resuscitation Condition at Discharge: Good Discharge Disposition: 01 Home, Self Care - HPI History of Present Illness: Mrs. Grajeda presented to the ED complaints of acute mid abdominal pain. pain started on the day of presentation. she denies any precipitating factors. She was recently diagnosed with colitis and has been on regimen of ciprofloxacin and flagyl. she endorses compliance. she has been on a soft,bland diet for the past few weeks without any difficulty. on the day of presentation she had diarrhea, nausea and vomiting associated with her abdominal pain. Workup in the ED, repeat CT demonstrated improved colitis. Labwork demonstrated worsening lactic acid.All other labwork was unremarkable. during my evalaution patinet was resting comfortable in no acute distress. pain was well managed. I performed this visit utilizing real time tele-health tools, incluidng live video. I obtained the patient's consent to perform this visit via tele-health modality. - HOSPITAL COURSE Hospital Course: Patient is a 68-year-old female who presented to the ED due to complaints of acute mid abdominal pain. A CT abdomen/pelvis was performed which revealed evidence of mild diffuse rectosigmoid wall thickening with an elevated lactic acid. Due to concern for ischemic colitis, general surgery was consulted and performed a sigmoidoscopy which revealed no abnormalities. She was continued on antibiotics and her symptoms improved and she was able to tolerate a regular diet. Patient stated that she has a follow-up with gastroenterology for a bidirectional scope later this month. Patient was subsequently discharged on 7 days of oral levofloxacin and m etronidazole. She was instructed to follow-up with her PCP and keep her gastroenterology appointment. - ALLERGIES Allergies/Adverse Reactions: Allergies Allergy/AdvReac Type Severity Reaction Status Date / Time oxycodone Allergy Severe Hives Verified 12/13/23 20:20 Penicillins Allergy Severe Anaphylaxis Verified 12/13/23 20:20 garlic Allergy Unknown Verified 12/13/23 20:20 atenolol AdvReac Unknown Verified 12/13/23 20:20 lisinopril AdvReac Unknown Verified 12/13/23 20:20 - MEDICATIONS Home Medications: Ambulatory Orders Medication Instructions Recorded Confirmed DULoxetine [Cymbalta] 60 mg PO HS 04/02/23 12/14/23 Nitroglycerin [Nitrostat] 0.4 mg SL [id number] 04/02/23 12/14/23 Pravastatin Sodium 20 mg PO HS 04/02/23 12/14/23 tiZANidine [Zanaflex] 4 mg PO Q8H 04/02/23 12/14/23 Metoprolol Tartrate [Lopressor] 100 mg PO BID 06/05/23 12/14/23 Aspirin EC [Ecotrin] 81 mg PO DAILY 11/22/23 12/14/23 Bismuth Subsalicylate 262 mg PO BID PRN 11/22/23 12/14/23 [Pepto-Bismol] Gi Cocktail 30 ml PO Q4H PRN #500 ml 11/30/23 12/14/23 Midodrine [ProAmatine] 5 mg PO TID #180 tab 11/30/23 12/14/23 Mvn-Min75/Iron/Iron Ps/Om3/Dha 1 each PO DAILY #30 cap 11/30/23 12/14/23 [Wescap-C Dha Softgel] Ondansetron Odt [Zofran Odt] 4 mg TL Q6HR PRN #20 tab 11/30/23 12/14/23 Pantoprazole [Protonix] 40 mg PO QDAC #30 tab 11/30/23 12/14/23 amLODIPine [Norvasc] 10 mg PO DAILY #60 tab 11/30/23 12/14/23 traZODone [Desyrel] 50 mg PO HS #30 tab 11/30/23 12/14/23 Hydromorphone HCl 4 mg PO Q4HR 12/14/23 12/14/23 levoFLOXacin [Levofloxacin] 750 mg PO DAILY #7 tab 12/16/23 metroNIDAZOLE [Flagyl] 500 mg PO BID 7 Days #14 tablet 12/16/23 - PHYSICAL EXAM AT DISCHARGE General Appearance: positive: No acute distress, Alert Respiratory: positive: Chest non-tender, No respiratory distress, Breath sounds nml Cardiovascular: positive: Regular rate & rhythm, No murmur, No gallop Abdomen: positive: Non-tender, No organomegaly, Nml bowel sounds - LABS Result Diagrams: 12/16/23 04:50 12/16/23 04:50 - FOLLOW UP Follow Up: Follow up with GI and PCP. - TIME SPENT Time Spent in Discharge (Minutes): 30
== END 2023-12-16 13:00 | disposition home or self-care (01) | DRG 392 ==
LOC: EDUNIT# → ED 20:11 → MS2 12-14 02:45 → OBSVTOIN 12-15 10:41
PROVIDERS: ADMIT Hospitalist; ATTEND Family Medicine
PROC: 0DBL8ZX Excision of Transverse Colon, Via Natural or Artificial Opening Endoscopic, Diagnostic (ICD-10-PCS; 2023-12-14)
PROC: 0DBN8ZX Excision of Sigmoid Colon, Via Natural or Artificial Opening Endoscopic, Diagnostic (ICD-10-PCS; 2023-12-14)
PROC: 0DBP8ZX Excision of Rectum, Via Natural or Artificial Opening Endoscopic, Diagnostic (ICD-10-PCS; 2023-12-14)
PROC: 0DBM8ZX Excision of Descending Colon, Via Natural or Artificial Opening Endoscopic, Diagnostic (ICD-10-PCS; 2023-12-14)
PROC: 0DBK8ZX Excision of Ascending Colon, Via Natural or Artificial Opening Endoscopic, Diagnostic (ICD-10-PCS; principal; 2023-12-14 13:30)
DX: K52.9 Noninfective gastroenteritis and colitis, unspecified (principal); E87.20 Acidosis, unspecified; D72.829 Elevated white blood cell count, unspecified; E66.9 Obesity, unspecified; I47.10 Supraventricular tachycardia, unspecified; Z68.31 Body mass index [BMI] 31.0-31.9, adult; I10 Essential (primary) hypertension; J44.9 Chronic obstructive pulmonary disease, unspecified; K21.9 Gastro-esophageal reflux disease without esophagitis; F32.A Depression, unspecified; E87.6 Hypokalemia; I95.1 Orthostatic hypotension; Z79.82 Long term (current) use of aspirin; Z79.899 Other long term (current) drug therapy; Z88.0 Allergy status to penicillin; Z88.5 Allergy status to narcotic agent; Z91.018 Allergy to other foods
CPT/HCPCS: 36415; 45380; 71045; 74177; 80048; 80053; 80306; 83605; 83690; 83993; 84484; 85025; 85610; 87040; 87045; 87046; 87427; 93005; A9270; J0131; J1170; J7120; Q9967; 96361; 96365; 96366; 96367; 96368; 96375; 96376; 99284; G0378

== ENCOUNTER 2023-12-30 12:45 | Outpatient (CLI) | payer MEDICARE | END 2023-12-30 23:59 | disposition critical access hospital (66) | LOC: EMS 12:45 | DX: R42 Dizziness and giddiness (principal); R19.7 Diarrhea, unspecified; R10.13 Epigastric pain | CPT/HCPCS: A0425; A0429 ==

== ENCOUNTER 2023-12-30 12:48 | Inpatient (IN) | payer MEDICARE ==
[2023-12-30 13:49] LABS: BASOPHILS % (AUTO) 0.3 %; HCT - HEMATOCRIT 49.4 % (37.0-47.0); HGB - HEMOGLOBIN 16.6 g/dL (12.0-16.0); LYMPHOCYTES % (AUTO) 15.6 %; MEAN CORPUSCULAR HGB CONC 33.6 g/dL (32.0-36.0); MEAN CORPUSCULAR VOLUME 86.2 fL (81.0-99.0); MEAN PLATELET VOLUME 9.7 fL (7.9-10.8); MONOCYTES % (AUTO) 8.6 %; NEUTROPHILS % (AUTO) 74.3 %; PLT - PLATELET COUNT 560 10^3/uL (130-450); RED BLOOD COUNT 5.73 10^6/uL (4.20-5.40); RED CELL DISTRIBUTION WIDTH 12.8 % (12.0-15.0); WHITE BLOOD COUNT 24.3 x10^3/uL (4.8-10.8)
[2023-12-30 13:51] LABS: SLIDE REVIEW? Indicated
--- NOTE | 2023-12-30 13:51 | XRAY Report ---
PROCEDURE: Chest 1V INDICATIONS: dyspnea, not feeling well TECHNIQUE: One view of the chest was acquired. COMPARISON: 12/13/2023 FINDINGS: Surgical changes and devices: Epidural stimulator present. Atherosclerotic vascular calcification no joe in the aortic arch. Lungs and pleura: No pleural effusions or pneumothorax. Lungs are clear. Mediastinum: Mediastinal contours appear normal. Heart size is normal. Bones and chest wall: No suspicious bony lesions. Overlying soft tissues appear unremarkable. IMPRESSION: No acute cardiopulmonary findings Reviewed by: Sheldon Rebolledo MD on 12/30/2023 12:50 PM [facility] Approved by: Sheldon Rebolledo MD on 12/30/2023 12:50 PM [facility] Station ID: [id number]
[2023-12-30 13:52] LABS: BAND NEUTROPHILS % (MANUAL) 0 %
[2023-12-30 13:55] LABS: MAGNESIUM 2.2 mg/dL (1.7-2.3)
[2023-12-30 13:56] LABS: ALBUMIN 4.6 g/dL (3.2-5.5); ALBUMIN/GLOBULIN RATIO 1.5 (1.0-2.2); BILIRUBIN,TOTAL 0.4 mg/dL (0.2-1.0); CALCIUM 10.3 mg/dL (8.5-10.3); CREATININE 2.1 mg/dL (0.6-1.3); POTASSIUM 3.7 mmol/L (3.5-4.5); TOTAL PROTEIN 7.6 g/dL (6.4-8.9)
[2023-12-30 14:22] LABS: ABNORMAL LYMPHS % (MANUAL) 4 %; LYMPHOCYTES # (MANUAL) 5.3 10^3/uL (1.5-3.5); LYMPHOCYTES % (MANUAL) 18 %; MONOCYTES # (MANUAL) 4.4 10^3/uL (0.0-1.0); NEUTROPHILS # (MANUAL) 14.6 10^3/uL (1.5-6.6)
[2023-12-30 14:24] LABS: RBC MORPHOLOGY (MULTIPLE) NORMAL APPEARANCE (NORMAL)
[2023-12-30 14:25] LABS: DIFFERENTIAL COMMENT MANUAL DIFFERENTIAL; PLATELET ESTIMATE, MANUAL INCREASED (>450,000) (NORMAL); PLATELET MORPHOLOGY NORMAL APPEARANCE (NORMAL); WBC MORPHOLOGY (MULTIPLE) 1+ SMUDGE CELLS (NORMAL)
[2023-12-30 14:26] LABS: SLIDE SENT FOR PATH REVIEW? Indicated
[2023-12-30 14:47] LABS: B. PARAPERTUSSIS- RESP PCR PAN NOT DETECTED; B. PERTUSSIS- RESP PCR PANEL NOT DETECTED; C. PNEUMONIAE- RESP PCR PANEL NOT DETECTED; CORONAVIRUS 229E-RESP PCR NOT DETECTED; CORONAVIRUS HKU1-RESP PCR NOT DETECTED; CORONAVIRUS NL63-RESP PCR NOT DETECTED; CORONAVIRUS OC43-RESP PCR NOT DETECTED; HUMAN METAPNEUMOVIRUS NOT DETECTED; INFLUENZA A- RESP PCR PANEL NOT DETECTED; INFLUENZA B - RESP PCR PANEL NOT DETECTED; M. PNEUMONIAE- RESP PCR PANEL NOT DETECTED; PARAINFLUENZA VIRUS 1 NOT DETECTED; PARAINFLUENZA VIRUS 2 NOT DETECTED; PARAINFLUENZA VIRUS 3 NOT DETECTED; PARAINFLUENZA VIRUS 4 NOT DETECTED; RHINOVIRUS/ENTEROVIRUS NOT DETECTED; RSV- RESP PCR PANEL NOT DETECTED; SARS-CoV-2 -RESP PCR PANEL NOT DETECTED
[2023-12-30] MEDS: ONDANSETRON 4 MG/2 ML VIAL IVP STA ×3 (15:08→19:24)
[2023-12-30] MEDS: SODIUM CHLORIDE 0.9% 1,000 ML IV STA ×2 (15:08→19:11)
[2023-12-30] MEDS: KETOROLAC 15 MG/ML VIAL IVP STA ×2 (15:08→15:19)
[2023-12-30 17:13] LABS: BILIRUBIN,URINE SMALL (NEGATIVE); GLUCOSE, URINE (UA) NEGATIVE (NEGATIVE); KETONES,URINE (UA) 15 mg/dL (NEGATIVE); LEUKOCYTE ESTERASE, URINE NEGATIVE (NEGATIVE); NITRITE,URINE NEGATIVE (NEGATIVE); OCCULT BLOOD,URINE NEGATIVE (NEGATIVE); PROTEIN,URINE >=300 mg/dL (NEGATIVE); UROBILINOGEN,URINE 0.2 (NORMAL) E.U./dL (NORMAL)
[2023-12-30 17:17] LABS: CLARITY,URINE CLOUDY (CLEAR)
[2023-12-30 17:23] LABS: RBC,URINE 0-5 /HPF (0-5); WBC,URINE 0-3 /HPF (0-5)
[2023-12-30 17:24] LABS: AMORPHOUS SEDIMENT,UR Moderate /LPF; BACTERIA,URINE Few /HPF (None Seen); SQUAMOUS EPITHELIAL CELL,UR FEW Squamous (<= Few)
[2023-12-30] MEDS: METOPROLOL TARTRATE 50 MG TABLET PO STA (17:52)
--- NOTE | 2023-12-30 18:59 | ED Physician Documentation ---
PD HPI ABD PAIN - Stated complaint Stated Complaint: DIZZY/LOW BP - Chief complaint Chief Complaint: Abd Pain - History obtained from History obtained from: Patient, EMS - History of Present Illness Timing - onset: How many days ago (1 to 2 days of increasing nausea with some vomiting. States poor p.o. intake. Crampy lower abdominal pain. 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 TEACHER: None : None HEENT: None Psych: Depression Musculoskeletal: None Derm: None - Past Surgical History Past Surgical History: Yes General: Cholecystectomy, Appendectomy, Hiatal hernia repair Ortho: Knee replacement, Spine surgery /THEOLOGY TEACHER: Hysterectomy HEENT: Tonsil/Adenoidectomy - Present Medications Home Medications: Ambulatory Orders Medication Instructions Recorded Confirmed DULoxetine [Cymbalta] 60 mg PO HS 04/02/23 12/14/23 Nitroglycerin [Nitrostat] 0.4 mg SL [id number] 04/02/23 12/14/23 Pravastatin Sodium 20 mg PO HS 04/02/23 12/14/23 tiZANidine [Zanaflex] 4 mg PO Q8H 04/02/23 12/14/23 Metoprolol Tartrate [Lopressor] 100 mg PO BID 06/05/23 12/14/23 Aspirin EC [Ecotrin] 81 mg PO DAILY 11/22/23 12/14/23 Bismuth Subsalicylate 262 mg PO BID PRN 11/22/23 12/14/23 [Pepto-Bismol] Gi Cocktail 30 ml PO Q4H PRN #500 ml 11/30/23 12/14/23 Midodrine [ProAmatine] 5 mg PO TID #180 tab 11/30/23 12/14/23 Mvn-Min75/Iron/Iron Ps/Om3/Dha 1 each PO DAILY #30 cap 11/30/23 12/14/23 [Wescap-C Dha Softgel] Ondansetron Odt [Zofran Odt] 4 mg TL Q6HR PRN #20 tab 11/30/23 12/14/23 Pantoprazole [Protonix] 40 mg PO QDAC #30 tab 11/30/23 12/14/23 amLODIPine [Norvasc] 10 mg PO DAILY #60 tab 11/30/23 12/14/23 traZODone [Desyrel] 50 mg PO HS #30 tab 11/30/23 12/14/23 Hydromorphone HCl 4 mg PO Q4HR 12/14/23 12/14/23 levoFLOXacin [Levofloxacin] 750 mg PO DAILY #7 tab 12/16/23 metroNIDAZOLE [Flagyl] 500 mg PO BID 7 Days #14 tablet 12/16/23 - Allergies Allergies/Adverse Reactions: Allergies Allergy/AdvReac Type Severity Reaction Status Date / Time oxycodone Allergy Severe Hives Verified 12/30/23 12:53 Penicillins Allergy Severe Anaphylaxis Verified 12/30/23 12:53 garlic Allergy Unknown Verified 12/30/23 12:53 atenolol AdvReac Unknown Verified 12/30/23 12:53 lisinopril AdvReac Unknown Verified 12/30/23 12:53 - Social History Does the pt smoke?: No Smoking Status: Never smoker Does the pt drink ETOH?: No Does the pt have substance abuse?: No - Immunizations Immunizations are current?: Yes - POLST Patient has POLST: Yes PD ED PE NORMAL - Vitals Vital signs reviewed: Yes - General General: Alert and oriented X 3, Well developed/nourished, Other (does not appear in too much discomfort. ) - Neck Neck: Supple, no meningeal sign, No adenopathy - Cardiac Cardiac: No murmur. No: RRR (regular but tachycardic) - Respiratory Respiratory: No respiratory distress, Clear bilaterally - Abdomen Abdomen: Normal bowel sounds, Soft, Non distended, No organomegaly, Other (some tender lower abd left and centeral. No percussion or rebound tenderness. ) Results - Vitals Vitals: Vital Signs - 24 hr 12/30/23 12/30/23 12/30/23 12:53 14:56 16:00 Temperature 36.8 C Heart Rate 110 H 124 H 129 H Respiratory 12 20 22 Rate Blood Pressure 124/84 H 145/99 H 120/79 O2 Saturation 100 98 94 If not protocol : Oxygen Flow, liters/minute 12/30/23 12/30/23 18:00 21:18 Temperature Heart Rate 122 H 90 Respiratory 20 18 Rate Blood Pressure 158/70 H 99/70 O2 Saturation 97 97 If not protocol 1 : Oxygen Flow, liters/minute Oxygen O2 Source Nasal cannula - Labs Labs: Laboratory Tests 12/30/23 12/30/23 12/30/23 13:36 13:36 13:50 WBC 24.3 H RBC 5.73 H Hgb 16.6 H Hct 49.4 H MCV 86.2 MCH 29.0 MCHC 33.6 RDW 12.8 Plt Count 560 H MPV 9.7 Neut # (Auto) Not Reportable Lymph # (Auto) Not Reportable [place] # (Auto) Not Reportable Eos # (Auto) Not Reportable Baso # (Auto) Not Reportable Absolute Nucleated RBC Not Reportable Total Counted 100 Band Neuts % (Manual) 0 Abnorm Lymph % (Manual) 4 Nucleated RBC % Not Reportable Neutrophils # (Manual) 14.6 H Lymphocytes # (Manual) 5.3 H Monocytes # (Manual) 4.4 H Eosinophils # (Manual) 0.0 Basophils # (Manual) 0.0 Differential Comment MANUAL DIFFERENTIAL Manual Slide Review Indicated WBC Morphology 1+ SMUDGE CELLS Platelet Estimate INCREASED (>450,000) Platelet Morphology NORMAL APPEARANCE RBC Morph Micro Appear NORMAL APPEARANCE Sodium 133 L Potassium 3.7 Chloride 94 L Carbon Dioxide 22 Anion Gap 17.0 H BUN 29 H Creatinine 2.1 H Estimated GFR (MDRD) 23 L Glucose 147 H Lactic Acid Calcium 10.3 Magnesium 2.2 Total Bilirubin 0.4 AST 20 ALT 14 Alkaline Phosphatase 95 Total Protein 7.6 Albumin 4.6 Globulin 3.0 Albumin/Globulin Ratio 1.5 Lipase 13 Urine Color Urine Clarity Urine pH Ur Specific Lucas Urine Protein Urine Glucose (UA) Urine Ketones Urine Occult Blood Urine Nitrite Urine Bilirubin Urine Urobilinogen Ur Leukocyte Esterase Urine RBC Urine WBC Ur Squamous Epith Cells Amorphous Sediment Urine Bacteria Ur Microscopic Review Urine Culture Comments Nasal Adenovirus (PCR) NOT DETECTED Nasal B. parapertussis DNA (PCR) NOT DETECTED Nasal Coronavir 229E PCR NOT DETECTED Nasal Coronavir HKU1 PCR NOT DETECTED Nasal Coronavir NL63 PCR NOT DETECTED Nasal Coronavir OC43 PCR NOT DETECTED Nasal Enterovir/Rhinovir PCR NOT DETECTED Nasal Influenza B PCR NOT DETECTED Nasal Influenza A PCR NOT DETECTED Nasal Parainfluen 1 PCR NOT DETECTED Nasal Parainfluen 2 PCR NOT DETECTED Nasal Parainfluen 3 PCR NOT DETECTED Nasal Parainfluen 4 PCR NOT DETECTED Nasal RSV (PCR) NOT DETECTED Nasal B.pertussis DNA PCR NOT DETECTED Nasal C.pneumoniae (PCR) NOT DETECTED [place] Human Metapneumo PCR NOT DETECTED Nasal M.pneumoniae (PCR) NOT DETECTED Nasal SARS-CoV-2 (PCR) NOT DETECTED Slides for Path Review Indicated 12/30/23 12/30/23 17:05 20:20 WBC RBC Hgb Hct MCV MCH MCHC RDW Plt Count MPV Neut # (Auto) Lymph # (Auto) [place] # (Auto) Eos # (Auto) Baso # (Auto) Absolute Nucleated RBC Total Counted Band Neuts % (Manual) Abnorm Lymph % (Manual) Nucleated RBC % Neutrophils # (Manual) Lymphocytes # (Manual) Monocytes # (Manual) Eosinophils # (Manual) Basophils # (Manual) Differential Comment Manual Slide Review WBC Morphology Platelet Estimate Platelet Morphology RBC Morph Micro Appear Sodium Potassium Chloride Carbon Dioxide Anion Gap BUN Creatinine Estimated GFR (MDRD) Glucose Lactic Acid 2.1 Calcium Magnesium Total Bilirubin AST ALT Alkaline Phosphatase Total Protein Albumin Globulin Albumin/Globulin Ratio Lipase Urine Color COLORLESS Urine Clarity CLOUDY Urine pH 5.0 Ur Specific Lucas >=1.030 H Urine Protein >=300 H Urine Glucose (UA) NEGATIVE Urine Ketones 15 H Urine Occult Blood NEGATIVE Urine Nitrite NEGATIVE Urine Bilirubin SMALL H Urine Urobilinogen 0.2 (NORMAL) Ur Leukocyte Esterase NEGATIVE Urine RBC 0-5 Urine WBC 0-3 Ur Squamous Epith Cells FEW Squamous Amorphous Sediment Moderate Urine Bacteria Few Ur Microscopic Review INDICATED Urine Culture Comments NOT INDICATED Nasal Adenovirus (PCR) Nasal B. parapertussis DNA (PCR) Nasal Coronavir 229E PCR Nasal Coronavir HKU1 PCR Nasal Coronavir NL63 PCR Nasal Coronavir OC43 PCR Nasal Enterovir/Rhinovir PCR Nasal Influenza B PCR Nasal Influenza A PCR Nasal Parainfluen 1 PCR Nasal Parainfluen 2 PCR Nasal Parainfluen 3 PCR Nasal Parainfluen 4 PCR Nasal RSV (PCR) Nasal B.pertussis DNA PCR Nasal C.pneumoniae (PCR) [place] Human Metapneumo PCR Nasal M.pneumoniae (PCR) Nasal SARS-CoV-2 (PCR) Slides for Path Review PD Medical Decision Making - ED course Complexity details: considered differential, d/w patient ED course: The patient was recently seen here in the emergency room and admitted on 2 occasions for colitis. First was believe end of November with abdominal pain and CT findings of colitis. Placed in the hospital with fluids and medications and w as treated for about a week and discharge. She states she did have improvement but then had recurrence of pain about a week and a half ago. She was seen in the ER and placed in the hospital for couple of days for IV fluid hydration and medications and antibiotics. The CT findings at the time showed improvement in the colitis compared to the first visit but was still having reasonable symptoms. She was discharged with minimal to no symptoms except occasional cramping. She has had more consistent symptoms the last 2 days. She does feel generally weak and lightheaded and feeling back her blood pressure is low. Describes less urine output for the last day or so. No fever or chills. Nausea without vomiting. Lessened p.o. intake. She was not having much tenderness in the abdomen on initial exam. Very mild tenderness on the left without guarding or percussion. No distention. Consideration was for other potential causes of illness such as viral syndrome or bladder infection etc. Respiratory viral panel as well as blood tests chest x-ray and a urine test were obtained. IV access was difficult and the nurses were having difficulty placing 1. Anesthesia was consulted and they also had difficulty with peripheral ultrasound-guided IVs. Subsequently the patient had a central line placed and would be given IV fluids for hydration. She does present with a elevated white count on initial blood testing with a WBC of 24,000. It had been 8000 on discharge recently. She is tachycardic here as well. No fever at this time. She does have SIRS criteria for concern of infection. The initial tests showed up without any obvious findings. She does not have an acute abdomen on exam but we will reevaluate with a CT scan. It is noted that her renal function is also elevated acutely compared to the recent hospitalization. We will give IV fluids as well. Because of the elevated creatinine of 2.1 and a lowered GFR, the CT was changed from with contrast to without. At this point still pending the CT report. Likely hospitalization given the concern for infection and meeting SIRS criteria. We will presented to the hospitalist pending the CT result. I had initially discussed with Dr. Owens but at that point labs were still pending. Departure - Departure Disposition: 66 [facility] DC/Xfer Clinical Impression: [place] (acute kidney injury), Volume depletion, Tachycardia, SIRS (systemic inflammatory response syndrome) Leukocytosis Qualifiers: Leukocytosis type: unspecified Qualified Code(s): D72.829 - Elevated white blood cell count, unspecified Condition: Stable Record reviewed to determine appropriate education?: Yes Forms: PCP List
--- NOTE | 2023-12-30 18:59 | CT Report ---
PROCEDURE: Abdomen/Pelvis WO INDICATIONS: abd cramping, elevated wbc TECHNIQUE: Helical axial CT of the abdomen and pelvis was obtained without intravenous contrast and reformatted in multiple planes. Radiation dose reduction was achieved utilizing automated exposure co ntrol or adjustment of mA and/or kV according to patient size. COMPARISON: 12/13/2023 FINDINGS: Lower thorax: The lung bases are clear. Heart size normal. No hiatal hernia. Dense coronary artery vascular calcifications Liver: Normal in size and attenuation. No contour deformity present. Biliary system: Cholecystectomy Pancreas: Unremarkable without mass or inflammation evident. Spleen: Normal in size and density. Adrenals: Normal morphology and density. Reproductive system: Hysterectomy Urinary system: Normal renal size and attenuation. No renal calculi, hydronephrosis, or solid mass p resent. Urinary bladder unremarkable. Gastrointestinal system: The bowel appears unremarkable with no evidence of bowel obstruction or inf lammation. The stomach appears unremarkable. Nonvisualized appendix, but no pericecal inflammation t o suggest acute appendicitis Peritoneal spaces: No mesenteric or retroperitoneal adenopathy. No free air. No free fluid. Vasculature: The IVC, aorta and iliac vasculature are unremarkable. Aortic atherosclerotic vascular calcifications. No aneurysm Abdominal wall: Abdominal wall is intact without evidence of ventral or inguinal hernias. Musculoskeletal: Normal bone mineralization. No acute fractures. Epidural stimulator in moderate pl aque noted. Lower lumbar spine discectomy and fusion with posterior instrumentation. Grade 1 anterior spinal listhesis L4-5 and L5-S1 IMPRESSION: No acute CT findings in the abdomen and pelvis. Reviewed by: Sheldon Rebolledo MD on 12/30/2023 5:57 PM AKDT Approved by: Sheldon Rebolledo MD on 12/30/2023 5:57 PM AKDT Station ID: [id number]
[2023-12-30] MEDS: HYDROmorphone 1 MG/ML CARPUJECT IVP STA (19:24)
--- NOTE | 2023-12-30 19:26 | XRAY Report ---
PROCEDURE: Chest for Line Placement INDICATIONS: post centrqal line placement TECHNIQUE: One view of the chest was acquired. COMPARISON: None. FINDINGS: Surgical changes and devices: Intraspinous leads right IJ central venous catheter tip projects over the low SVC. Lungs and pleura: No pleural effusions or pneumothorax. Lungs are clear. Mediastinum: Mediastinal contours appear normal. Heart size is normal. Bones and chest wall: No suspicious bony lesions. Overlying soft tissues appear unremarkable. IMPRESSION: Right IJ central venous catheter tip projects over the low SVC. No pneumothorax. Reviewed by: Jackson Candelaria MD on 12/30/2023 7:25 PM PDT Approved by: Jackson Candelaria MD on 12/30/2023 7:25 PM PDT Station ID: [id number]
--- NOTE | 2023-12-30 19:30 | CONSULTATION NOTE ---
Consultation Report: consulted by ED MD for CVL placement. Informed consent obtained. RIJ CVL placed under US guidance. 7Fr 3 lumen, sterile technique. Pt tolerated well. VSS. All ports aspirate and flush easily.
--- NOTE | 2023-12-30 19:36 | ANESTHESIA PROCEDURE NOTE ---
Anesth Central Line Template - Central Line Central Line Preparation: Consent Obtained Central line location: Right IJ Central line type: Triple lumen Central line catheter tip site resides: At[facility], right Central line aftercare: Chlorhexidine disc placed, Secured, Placement confirmed, No pneumothorax, No complications, Bundle checklist complete, Pt tolerated well
--- NOTE | 2023-12-30 21:11 | ED Physician Documentation ---
ED Addendum - Addendum Addendum: 12/30/23 21:05 68-year-old Ryann Grajeda presented to the emergency department today by ambulance with a chief complaint of weakness bloody diarrhea and nausea and vomiting for the past week. She has a history of pancolitis more than a month ago and 2 admissions to the hospital for colitis with IV and oral antibiotic. She is finished her oral antibiotic about 3 days ago. She sees a public records officer at [facility] and has a plan to have upper and lower endoscopy done in the near future. She has had her stool tested for H. pylori as she has had diarrhea for more than a month. She has had a hiatal hernia repair done about 2 years ago and she does have some nausea and vomiting which is only dry heaves. She has been making urine until this morning. She had no urine output this morning felt weak lightheaded dizzy. She was not able to speak today to call 911 and her roommate called 911 for her.I have entered her care after the patient has received a liter of fluid through a central line and she is now able to speak and give adequate history. I examined the patient found her to have no specific abdominal tenderness and I Arcadio has profound dehydration and she has had this previously and recovered relatively rapidly with hydration in the hospital. She had markedly elevated white blood cell count at that time as well and this was thought to be due to demargination. Today her laboratory results are concerning for sepsis with markedly elevated white count she is hypotensive, tachycardic and has evidence of acute kidney injury. She was a difficult IV access and a central line was placed by anesthesia. I interrogated her IVC with POCUS and found her to have a 0.53 cm vessel consistent with a greater than 3 L deficit after receiving a liter of saline. She has responded to the saline with improved mentation. [employer] Literature Professor consult 211912/30/23 21:11 12/30/23 21:19
[2023-12-30] MEDS: levoFLOXacin 500 MG/100 ML 500 MG/100 ML BAG IV STA (21:23)
--- NOTE | 2023-12-30 22:44 | HISTORY & PHYSICAL EXAMINATION ---
Chief Complaint - Chief Complaint Chief Complaint: diarrhea History of Present Illness - Admitted From Admitted From:: home - History Obtained From Records Reviewed: yes History obtained from: patient, ER staff, chart review Exam Limitations: telemedicine - History of Present Illness HPI Comment/Other: Ms Grajeda is a 68 yo F with history of HTN, GERD, depression. Recent episode of colitis was admitted to the hospital 12/13-12/15, she had hemtaochezia and she underwent sigmoidoscopy which was unremarkable. Stool studies negative. CT abd showed mild diffuse rectosigmoid wall thickening. She was discharged chavez course of Levaquin and Flagyl, which she completed 3 days ago. Since hospital discharge patient reports ongoing diarrhea, at times red/pink color, she has also been nauseated, dry heaving. Poor PO intake. Since completing the antibiotics her symptoms got worse, she also developed subjective fevers, sweats, chills. She reports she has not had any further diarrhea or BRBPR since this morning. She has been feeling very tired, weak. Noted poor urine output. Denies chest pain or shortness of breath, does have intermittent palpitations, self limited. She has outpatient GI follow up scheduled for endoscopy. Prior H pylori stool test negative. Diarrhea ongoing x 1 month now. History - Past Medical History Cardiovascular: reports: Hypertension, Murmur, Other Respiratory: reports: Asthma, COPD Neuro: reports: None Endocrine/Autoimmune: reports: None GI: reports: GERD, Hiatal hernia [employer]OR [employer]PERATIONS: reports: None : reports: None HEENT: reports: None Psych: reports: Depression Musculoskeletal: reports: None Derm: reports: None MRSA Hx?: No - Past Surgical History General: reports: Cholecystectomy, Appendectomy, Hiatal hernia repair Ortho: reports: Knee replacement, Spine surgery /[employer]: reports: Hysterectomy HEENT: reports: Tonsil/Adenoidectomy - POLST Patient has POLST: Yes Meds/Allgy - Home Medications Home Medications: Ambulatory Orders Medication Instructions Recorded Confirmed DULoxetine [Cymbalta] 60 mg PO HS 04/02/23 12/14/23 Nitroglycerin [Nitrostat] 0.4 mg SL [id number] 04/02/23 12/14/23 Pravastatin Sodium 20 mg PO HS 04/02/23 12/14/23 tiZANidine [Zanaflex] 4 mg PO Q8H 04/02/23 12/14/23 Metoprolol Tartrate [Lopressor] 100 mg PO BID 06/05/23 12/14/23 Aspirin EC [Ecotrin] 81 mg PO DAILY 11/22/23 12/14/23 Bismuth Subsalicylate 262 mg PO BID PRN 11/22/23 12/14/23 [Pepto-Bismol] Gi Cocktail 30 ml PO Q4H PRN #500 ml 11/30/23 12/14/23 Midodrine [ProAmatine] 5 mg PO TID #180 tab 11/30/23 12/14/23 Mvn-Min75/Iron/Iron Ps/Om3/Dha 1 each PO DAILY #30 cap 11/30/23 12/14/23 [Wescap-C Dha Softgel] Ondansetron Odt [Zofran Odt] 4 mg TL Q6HR PRN #20 tab 11/30/23 12/14/23 Pantoprazole [Protonix] 40 mg PO QDAC #30 tab 11/30/23 12/14/23 amLODIPine [Norvasc] 10 mg PO DAILY #60 tab 11/30/23 12/14/23 traZODone [Desyrel] 50 mg PO HS #30 tab 11/30/23 12/14/23 Hydromorphone HCl 4 mg PO Q4HR 12/14/23 12/14/23 levoFLOXacin [Levofloxacin] 750 mg PO DAILY #7 tab 12/16/23 metroNIDAZOLE [Flagyl] 500 mg PO BID 7 Days #14 tablet 12/16/23 - Allergies Allergies/Adverse Reactions: Allergies Allergy/AdvReac Type Severity Reaction Status Date / Time oxycodone Allergy Severe Hives Verified 12/30/23 12:53 Penicillins Allergy Severe Anaphylaxis Verified 12/30/23 12:53 garlic Allergy Unknown Verified 12/30/23 12:53 atenolol AdvReac Unknown Verified 12/30/23 12:53 lisinopril AdvReac Unknown Verified 12/30/23 12:53 Review of Systems - Constitutional Constitutional: reports: Fatigue, Fever, Chills, Malaise, Weakness, Poor appetite, Diaphoresis - Cardiovascular Cariovascular: reports: Palpitations, Lightheadedness. denies: Chest pain, Syncope - Respiratory Respiratory: denies: Cough, Sputum production, SOB at rest - Gastrointestinal Gastrointestinal: reports: Diarrhea, Change in bowel habits, Rectal bleeding, Bloody stools, Nausea. denies: Abdominal pain, Abdominal distention - Integumentary Integumentary: denies: Rash, Pruritis - Neurological Neurological: reports: General weakness. denies: Focal weakness Exam - Vital Signs Reviewed Vital Signs: Yes Vital Signs: Vital Signs x48h Pulse Resp BP Pulse Ox O2 Flow Rate 12/30/23 21:18 90 18 99/70 97 1 12/30/23 18:00 122 H 20 158/70 H 97 12/30/23 16:00 129 H 22 120/79 94 12/30/23 14:56 124 H 20 145/99 H 98 - Physical Exam General Appearance: positive: No acute distress, Alert Respiratory: positive: No respiratory distress Abdomen: positive: Non-tender, No distention Skin: positive: Color nml Neurologic/Psychiatric: positive: Oriented x3, Mood/affect nml Comments/Other: POCUS done by ER provider shows IVC collapse IVC c/w dehydration. Sepsis Event Note (H) - Evaluation Current Stage of Sepsis: Sepsis Possible source of Sepsis: positive: Unknown Sepsis Associated Organ Dysfunction: MILAGRO - Sepsis Criteria Sepsis Criteria: Recorded Heart Rate greater than 90 bpm, WBC count greater than 12,000 or less than 4000 Conclusion/Plan - Lab Results Lab results reviewed: Yes Fish Bones: 12/30/23 13:36 12/30/23 13:36 - Diagnostic Imaging Results Diagnostic Imaging Results: positive: Final report reviewed - Other Other Results/Comments: Sepsis -Source is unclear at this time, patient presents with leukocytosis, tachycardia -CT abd unremarkable - no evidence of colitis -Patient reports diarrhea stopped today, monitor closely -Check C diff if ongoing diarrhea, risk factors including hospitalization and recent antibiotics -CXR unremarkable, UA neg -Lactic 2.1 -HR 120s at admission, improved to 90s with IV fluid hydration -Leukocytosis, repeat labs in a.m., follow up procalcitonin -Continue IV Levaquin (PCN allergy) -Follow up blood cultures -Continue IV fluid hydration -Antiemetics PRN Recent colitis Hematochezia -Patient completed course of PO antibiotics 3 days ago, was admitted 12/13-12/15 -S/p recent sigmoidoscopy, has outpatient follow up scheduled for EGD/colonosco py -Patient reports ongoing diarrhea with blood at times (none today) -Hold ASA for now -Hgb stable MILAGRO -Cr 2.1 -IV fluids, repeat labs in a.m. HTN -Hold amlodipine, metoprolol - resume as BP trend improves DVT ppx: SCDs Full code Core Measures - Anticipated LOS I expect patient to be DC'd or transferred within 96 hours.: Yes - DVT/VTE - Prophylaxis VTE/DVT Device ordered at admit?: Yes
[2023-12-31] MEDS: SODIUM CHLORIDE FLUSH 0.9% 10 ML SYRINGE IVP SCH (00:49)
[2023-12-31] MEDS: ACETAMINOPHEN 325 MG TABLET PO PRN (00:50)
[2023-12-31] MEDS: DULoxetine 30 MG CAPSULE PO SCH (00:50)
[2023-12-31] MEDS: SODIUM CHLORIDE 0.9% 1,000 ML IV SCH (00:50)
[2023-12-31] MEDS: traZODone 50 MG TABLET PO SCH (00:51)
[2023-12-31] MEDS: HYDROmorphone 0.5 MG/0.5 ML SYRINGE IVP PRN (01:06)
[2023-12-31] MEDS: ONDANSETRON 4 MG/2 ML VIAL IVP PRN (01:07)
[2023-12-31] MEDS: SODIUM CHLORIDE FLUSH 0.9% 10 ML SYRINGE IVP PRN (04:57)
[2023-12-31 05:25] LABS: HCT - HEMATOCRIT 42.8 % (37.0-47.0); HGB - HEMOGLOBIN 13.7 g/dL (12.0-16.0); MEAN CORPUSCULAR HEMOGLOBIN 28.4 pg (27.0-31.0); MEAN CORPUSCULAR VOLUME 88.6 fL (81.0-99.0); MEAN PLATELET VOLUME 9.9 fL (7.9-10.8); RED BLOOD COUNT 4.83 10^6/uL (4.20-5.40); RED CELL DISTRIBUTION WIDTH 12.9 % (12.0-15.0)
[2023-12-31 05:44] LABS: CALCIUM 8.9 mg/dL (8.5-10.3); POTASSIUM 3.5 mmol/L (3.5-4.5)
[2023-12-31] MEDS: PANTOPRAZOLE 40 MG TABLET PO SCH (06:23)
[2023-12-31] MEDS: HYDROmorphone 1 MG/ML CARPUJECT IVP PRN (09:13)
--- NOTE | 2023-12-31 11:14 | PHARMACY PROGRESS NOTE ---
- Best Possible Medication History Admit Date and Time: 12/30/23 0423 Processed by: Pharmacy Medications reviewed in ED?: No Medication History completed: Yes Patient Interview: Completed (Patient states no longer taking amlodipine, midodrine, GI cocktail, hydromorphone, metronidazole, or levofloxacin) Secondary Source(s): Insurance records As the person ultimately responsible for medication therapy, providers are able to order a medication from an existing home medication list in [facility] via the "Reconcile Routine" prior to Confirmation of that medication by desktop support technician. Such practice is discouraged except when the physician, in their clinical judgment, deems that a medical need exists for a medication without regard to previous use.
[2023-12-31] MEDS: BACITRACIN ZINC OINT 1 PACKET TOP PRN (12:04)
--- NOTE | 2023-12-31 14:41 | PROVIDER PROGRESS NOTE ---
Subjective - Prog Note Date Prog Note Date: 12/31/23 Prog Note Time: 14:38 - Subjective Pt reports feeling: Improved Subjective: Tired, weak. Her main problem is pain. Not abdominal pain but overall musculoskeletal pain. In reviewing her outpatient pharmacy records she has received 30 tablets of Dilaudid on December 02. Another 30 tablets on approximately December 16. She thinks it is about the time that she was in the senior care facility where those meds were sent. She has not had any pain medicine since she has been home. Her back hurts her, hip hurts her. She is asking for an increase in the Dilaudid that was already written for. She has a 0.5 mg dose x 1. She was admitted for sepsis with an unknown source. Diarrhea has been present off and on for a month but she has not had any diarrhea since she is coming h ere. CT of the abdomen is negative for colitis. UA is negative for UTI. Chest x-ray negative for pneumonia. She still has intermittent abdominal pain. It comes and goes. Mid abdomen between the umbilicus and epigastrium. No rebound or guarding. and reports that in spite of 1 L in the ER, and 100 cc an hour of IV fluids, she is only produced approximately 160 cc of urine overnight. Current Medications - Current Medications Current Medications: Active Medications Acetaminophen (Acetaminophen 325 Mg Tablet) 650 mg PO Q4HR PRN PRN Reason: Pain 1 to 4, or Fever Last Admin: 12/31/23 04:57 Dose: 650 mg Bacitracin (Bacitracin Zinc Oint 1 Packet) 1 packet TOP PRN PRN PRN Reason: Skin Care Last Admin: 12/31/23 12:04 Dose: 1 packet Duloxetine HCl (Duloxetine 30 Mg Capsule) 60 mg PO HS ABRAHAM Last Admin: 12/31/23 00:50 Dose: 60 mg Hydromorphone HCl (Hydromorphone 1 Mg/Ml Carpuject) 1 mg IVP Q2HR PRN PRN Reason: Severe Pain (Level 7-10) Last Admin: 12/31/23 12:10 Dose: 1 mg Sodium Chloride (Normal Saline 0.9%) 1,000 mls @ 100 mls/hr IV .Q10H ABRAHAM Last Admin: 12/31/23 10:39 Dose: 100 mls/hr Cefepime HCl 1 gm/ Sodium (Chloride) 100 mls @ 200 mls/hr IV BID [facility] Ondansetron HCl (Ondansetron 4 Mg/2 Ml Vial) 4 mg IVP Q6HR PRN PRN Reason: Nausea / Vomiting Last Admin: 12/31/23 12:23 Dose: 4 mg Pantoprazole Sodium (Pantoprazole 40 Mg Tablet) 40 mg PO QDAC [facility] Last Admin: 12/31/23 06:23 Dose: 40 mg Saccharomyces Boulardii (Saccharomyces Boulardii 250 Mg Capsule) 250 mg PO BIDWM [facility] Sodium Chloride (Sodium Chloride Flush 0.9% 10 Ml Syringe) 10 ml IVP PRN PRN PRN Reason: NEEDED PER PROVIDER ORDERS Last Admin: 12/31/23 04:57 Dose: 10 ml Sodium Chloride (Sodium Chloride Flush 0.9% 10 Ml Syringe) 10 ml IVP 0100,0900,1700 [facility] Last Admin: 12/31/23 08:10 Dose: 10 ml Trazodone HCl (Trazodone 50 Mg Tablet) 50 mg PO HS [facility] Last Admin: 12/31/23 00:51 Dose: 50 mg DULoxetine [Cymbalta] 60 mg PO HS 04/02/23 Nitroglycerin [Nitrostat] 0.4 mg SL [id number] 04/02/23 Pravastatin Sodium 20 mg PO HS 04/02/23 tiZANidine [Zanaflex] 4 mg PO Q8H 04/02/23 Metoprolol Tartrate [Lopressor] 100 mg PO BID 06/05/23 Aspirin EC [Ecotrin] 81 mg PO DAILY 11/22/23 Bismuth Subsalicylate [Pepto-Bismol] 262 mg PO BID PRN 11/22/23 Objective - Vital Signs/Intake & Output Reviewed Vital Signs: Yes Vital Signs: Vital Signs x48h Temp Pulse Pulse Resp BP Pulse Ox 12/31/23 11:33 36.2 C L 118 H 20 130/70 93 12/31/23 08:27 36.6 C 112 H 19 166/84 H 94 Intake & Output: Intake & Output 12/28/23 12/29/23 12/30/23 12/31/23 23:59 23:59 23:59 23:59 Intake Total 1300 1911.667 Output Total 225 Balance 1300 1686.667 - Objective General Appearance: positive: Alert ( Pale, fatigued appearing, low voice that is almost inaudible) Eyes Bilateral: positive: PERRL, EOMI ENT: positive: Pharynx nml, Dry mucous membranes Neck: positive: No JVD. negative: Stiff neck Respiratory: positive: No respiratory distress ( So unlabored respiration and diminished at the bases). negative: Wheezes, Rales, Rhonchi Abdomen: positive: Non-tender, No organomegaly, No distention, Other ( hypoactive bowel sounds) Skin: positive: Warm, Dry, Pallor Extremities: positive: Full ROM, No pedal edema Neurologic/Psychiatric: positive: Oriented x3, CN's nml (2-12), Motor nml ( gen eralized weakness. She cannot sit up on her own or roll over on her own) - Lab Results Fish Bones: 12/31/23 04:52 12/31/23 04:52 Other Labs: Lab Results x24hrs 12/31/23 12/31/23 12/31/23 Range/Units 08:10 04:52 04:52 WBC (4.8-10.8) x10^3/uL RBC (4.20-5.40) 10^6/uL Hgb (12.0-16.0) g/dL Hct (37.0-47.0) % MCV (81.0-99.0) fL MCH (27.0-31.0) pg MCHC (32.0-36.0) g/dL RDW (12.0-15.0) % Plt Count (130-450) 10^3/uL MPV (7.9-10.8) fL ESR 8 (0-30) mm/Hr Sodium (135-145) mmol/L Potassium (3.5-4.5) mmol/L Chloride (101-111) mmol/L Carbon Dioxide (21-32) mmol/L Anion Gap (6-13) BUN (6-20) mg/dL Creatinine (0.6-1.3) mg/dL Estimated GFR (MDRD) (>89) Glucose (74-104) mg/dL Lactic Acid (0.5-2.2) mmol/L Calcium (8.5-10.3) mg/dL C-Reactive Protein < 0.5 (<0.5) mg/dL Procalcitonin Immunoas 0.18 (<0.5) ng/mL Urine Color Urine Clarity (CLEAR) Urine pH (5.0-7.5) PH Ur Specific [place] (1.002-1.030) Urine Protein (NEGATIVE) mg/dL Urine Glucose (UA) (NEGATIVE) mg/dL Urine Ketones (NEGATIVE) mg/dL Urine Occult Blood (NEGATIVE) Urine Nitrite (NEGATIVE) Urine Bilirubin (NEGATIVE) Urine Urobilinogen (NORMAL) E.U./dL Ur Leukocyte Esterase (NEGATIVE) Urine RBC (0-5) /HPF Urine WBC (0-5) /HPF Ur Squamous Epith Cells (<= Few) Amorphous Sediment /LPF Urine Bacteria (None Seen) /HPF Ur Microscopic Review Urine Culture Comments Nasal Adenovirus (PCR) Nasal B. parapertussis DNA (PCR) Nasal Coronavir 229E PCR Nasal Coronavir HKU1 PCR Nasal Coronavir NL63 PCR Nasal Coronavir OC43 PCR Nasal Enterovir/Rhinovir PCR Nasal Influenza B PCR Nasal Influenza A PCR Nasal Parainfluen 1 PCR Nasal Parainfluen 2 PCR Nasal Parainfluen 3 PCR Nasal Parainfluen 4 PCR Nasal RSV (PCR) Nasal B.pertussis DNA PCR Nasal C.pneumoniae (PCR) [place] Human Metapneumo PCR Nasal M.pneumoniae (PCR) Nasal SARS-CoV-2 (PCR) 12/31/23 12/31/23 12/30/23 Range/Units 04:52 04:52 20:20 WBC 19.0 H (4.8-10.8) x10^3/uL RBC 4.83 (4.20-5.40) 10^6/uL Hgb 13.7 (12.0-16.0) g/dL Hct 42.8 (37.0-47.0) % MCV 88.6 (81.0-99.0) fL MCH 28.4 (27.0-31.0) pg MCHC 32.0 (32.0-36.0) g/dL RDW 12.9 (12.0-15.0) % Plt Count 422 (130-450) 10^3/uL MPV 9.9 (7.9-10.8) fL ESR (0-30) mm/Hr Sodium 135 (135-145) mmol/L Potassium 3.5 (3.5-4.5) mmol/L Chloride 98 L (101-111) mmol/L Carbon Dioxide 28 (21-32) mmol/L Anion Gap 9.0 (6-13) BUN 41 H (6-20) mg/dL Creatinine 2.0 H (0.6-1.3) mg/dL Estimated GFR (MDRD) 25 L (>89) Glucose 114 H (74-104) mg/dL Lactic Acid 2.1 (0.5-2.2) mmol/L Calcium 8.9 (8.5-10.3) mg/dL C-Reactive Protein (<0.5) mg/dL Procalcitonin Immunoas (<0.5) ng/mL Urine Color Urine Clarity (CLEAR) Urine pH (5.0-7.5) PH Ur Specific [place] (1.002-1.030) Urine Protein (NEGATIVE) mg/dL Urine Glucose (UA) (NEGATIVE) mg/dL Urine Ketones (NEGATIVE) mg/dL Urine Occult Blood (NEGATIVE) Urine Nitrite (NEGATIVE) Urine Bilirubin (NEGATIVE) Urine Urobilinogen (NORMAL) E.U./dL Ur Leukocyte Esterase (NEGATIVE) Urine RBC (0-5) /HPF Urine WBC (0-5) /HPF Ur Squamous Epith Cells (<= Few) Amorphous Sediment /LPF Urine Bacteria (None Seen) /HPF Ur Microscopic Review Urine Culture Comments Nasal Adenovirus (PCR) Nasal B. parapertussis DNA (PCR) Nasal Coronavir 229E PCR Nasal Coronavir HKU1 PCR Nasal Coronavir NL63 PCR Nasal Coronavir OC43 PCR Nasal Enterovir/Rhinovir PCR Nasal Influenza B PCR Nasal Influenza A PCR Nasal Parainfluen 1 PCR Nasal Parainfluen 2 PCR Nasal Parainfluen 3 PCR Nasal Parainfluen 4 PCR Nasal RSV (PCR) Nasal B.pertussis DNA PCR Nasal C.pneumoniae (PCR) [place] Human Metapneumo PCR Nasal M.pneumoniae (PCR) Nasal SARS-CoV-2 (PCR) 12/30/23 12/30/23 Range/Units 17:05 13:50 WBC (4.8-10.8) x10^3/uL RBC (4.20-5.40) 10^6/uL Hgb (12.0-16.0) g/dL Hct (37.0-47.0) % MCV (81.0-99.0) fL MCH (27.0-31.0) pg MCHC (32.0-36.0) g/dL RDW (12.0-15.0) % Plt Count (130-450) 10^3/uL MPV (7.9-10.8) fL ESR (0-30) mm/Hr Sodium (135-145) mmol/L Potassium (3.5-4.5) mmol/L Chloride (101-111) mmol/L Carbon Dioxide (21-32) mmol/L Anion Gap (6-13) BUN (6-20) mg/dL Creatinine (0.6-1.3) mg/dL Estimated GFR (MDRD) (>89) Glucose (74-104) mg/dL Lactic Acid (0.5-2.2) mmol/L Calcium (8.5-10.3) mg/dL C-Reactive Protein (<0.5) mg/dL Procalcitonin Immunoas (<0.5) ng/mL Urine Color COLORLESS Urine Clarity CLOUDY (CLEAR) Urine pH 5.0 (5.0-7.5) PH Ur Specific [place] >=1.030 H (1.002-1.030) Urine Protein >=300 H (NEGATIVE) mg/dL Urine Glucose (UA) NEGATIVE (NEGATIVE) mg/dL Urine Ketones 15 H (NEGATIVE) mg/dL Urine Occult Blood NEGATIVE (NEGATIVE) Urine Nitrite NEGATIVE (NEGATIVE) Urine Bilirubin SMALL H (NEGATIVE) Urine Urobilinogen 0.2 (NORMAL) (NORMAL) E.U./dL Ur Leukocyte Esterase NEGATIVE (NEGATIVE) Urine RBC 0-5 (0-5) /HPF Urine WBC 0-3 (0-5) /HPF Ur Squamous Epith Cells FEW Squamous (<= Few) Amorphous Sediment Moderate /LPF Urine Bacteria Few (None Seen) /HPF Ur Microscopic Review INDICATED Urine Culture Comments NOT INDICATED Nasal Adenovirus (PCR) NOT DETECTED Nasal B. parapertussis DNA (PCR) NOT DETECTED Nasal Coronavir 229E PCR NOT DETECTED Nasal Coronavir HKU1 PCR NOT DETECTED Nasal Coronavir NL63 PCR NOT DETECTED Nasal Coronavir OC43 PCR NOT DETECTED Nasal Enterovir/Rhinovir PCR NOT DETECTED Nasal Influenza B PCR NOT DETECTED Nasal Influenza A PCR NOT DETECTED Nasal Parainfluen 1 PCR NOT DETECTED Nasal Parainfluen 2 PCR NOT DETECTED Nasal Parainfluen 3 PCR NOT DETECTED Nasal Parainfluen 4 PCR NOT DETECTED Nasal RSV (PCR) NOT DETECTED Nasal B.pertussis DNA PCR NOT DETECTED Nasal C.pneumoniae (PCR) NOT DETECTED [place] Human Metapneumo PCR NOT DETECTED Nasal M.pneumoniae (PCR) NOT DETECTED Nasal SARS-CoV-2 (PCR) NOT DETECTED ABX Reporting Has patient been on IV antibiotics over the past 48 hours?: Yes Sepsis Event Note (H) - Evaluation Current Stage of Sepsis: Sepsis Possible source of Sepsis: positive: Unknown - Sepsis Criteria Sepsis Criteria: Recorded Heart Rate greater than 90 bpm, WBC count greater than 12,000 or less than 4000 Assessment/Plan - Problem List (1) Sepsis Impression: criteria for sepsis including tachycardia, lactic acidosis, elevated white cell count.As already stated in subjective, the workup is negative. Abdomen without source even though she has abdominal pain. She does have diarrhea but she is not experiencing anything in the hospital and C. difficile is pending. UA was not indicative of UTI. Chest x-ray is not indicative of pneumonia. Plan: Look for other sources of infection such as endocarditis so we will check an echo, blood cultures, . To assess how great the inflammation is, I will check a C-reactive protein and procalcitonin as well as sed rate. He has a penicillin allergy. She theoretically has failed outpatient management with a quinolone she was on at home before she came into the hospital. I will switch her over to cefepime. Qualifiers: Sepsis acute organ dysfunction status: without acute organ dysfunction (2) Volume depletion Impression: Which I suspect is due to dehydration and poor p.o. intake. Her baseline creatinine is 0.8. She is 2.1 on admission. In spite of a liter and a half of fluids, she is not making much urine. Echocardiogram in November 2023 showed normal left ventricular size and function with an ejection fraction of 75%. Left atrium was normal size. Mild aortic regurgitation. Normal right ventricular size and function. Normal pulmonary pressures. Normal pericardium. Plan: 1000 cc bolus over 4 hours. I do not anticipate fluid overloading her since she has a normal cardiac contraction and no valvular heart disease. Regular diet ordered to see if she will eat (3) MILAGRO (acute kidney injury) Impression: Due to dehydration and poor p.o. intake. See above problem management (4) Abdominal pain Impression: with her last admission it was attributed to colitis. CAT scan had thickened bowel wall. After discharge she has been having diarrhea. The question may be that the diarrhea is related to antibiotic use. Even though it has been described it is not present since admission. So we have not been able to get a C. difficile toxin. CT of the abdomen is negative. Her abdominal exam does not have peritoneal findings. There are reports that dehydration can result in generalized abdominal pain. plan: Continue to check on her daily, several times a day to recheck her abdomen. Make sure she is not evolving into an acute abdominal phase. At this time we have no objective evidence of a differential to include gastritis, cholecystitis, pancreatitis or colitis. Qualifiers: Abdominal location: upper abdomen, unspecified Qualified Code(s): R10.10 - Upper abdominal pain, unspecified (5) Chronic pain Impression: She tells me that she was on Suboxone temporarily [facility]. Her primary care provider was reluctant to give her a lot of Dilaudid tablets. I explained to her why we would not want to give her more than she needs. While I recognize that she is in pain and wants to take care of the pain, I do not want to create further problems down the road but given her opioid addiction. I will temporarily increase her Dilaudid over the next day or so and then start tapering it off again. Qualifiers: Chronic pain type: other chronic pain Qualified Code(s): G89.29 - Other chronic pain (6) Generalized weakness Impression: She has not been in a senior care facility, hospitalized twice,And has definite generalized weakness on exam. She is lost a lot of ground over the last 2 months. Plan: I will order PT and OT eval and treatment
[2023-12-31] MEDS: METOPROLOL 5 MG/5 ML VIAL IVP PRN (15:45)
[2023-12-31] MEDS: SODIUM CHLORIDE 0.9% 1,000 ML IV ONE (15:56)
[2023-12-31] MEDS: SACCHAROMYCES BOULARDII 250 MG CAPSULE PO SCH (17:16)
[2023-12-31] MEDS ORDERED: levoFLOXacin 500 MG/100 ML 500 MG/100 ML BAG IV SCH (18:00)
[2023-12-31] MEDS ORDERED: BISMUTH SUBSALICYLATE 262 MG PO PRN (18:23)
[2023-12-31] MEDS: diltiaZEM INJ 5 MG/ML VIAL IVP ONE (19:05)
[2023-12-31] MEDS: tiZANidine 4 MG TABLET PO SCH (20:11)
[2023-12-31] MEDS: METOPROLOL TARTRATE 50 MG TABLET PO SCH (20:13)
[2023-12-31] MEDS: CEFEPIME 1 GM in SODIUM CHLORIDE 0.9% MINIBAG 100 ML IV SCH (21:17)
[2023-12-31 21:59] LABS: HCT - HEMATOCRIT 30.2 % (37.0-47.0); HGB - HEMOGLOBIN 9.9 g/dL (12.0-16.0)
[2023-12-31] MEDS: NALOXONE HCL NASAL SPRAY KIT NAS STA (22:11)
[2023-12-31] MEDS: SODIUM CHLORIDE 0.9% 500 ML IV ONE (22:11)
--- NOTE | 2024-01-01 08:04 | PROVIDER PROGRESS NOTE ---
Subjective - Prog Note Date Prog Note Date: 01/01/24 Prog Note Time: 14:54 - Subjective Subjective: last night there was a rapid response on this patient and telemed responded: RN note: Admitted 12/29 Sepsis & MILAGRO. Received Metoprolol 5mg IVP at 1545 B/P 173/90 HR 135. Diltiazem 10mh IVP at 1905 B/P 148/80 HR 144. At 1928 received Hydromorphone 1mg IVP for 01/11 abdominal/back pain & at 2012 was given oral Metoprolol 100mg B/P 128/59, HR 133. At 2124, patient suddenly became unresponsive for a few seconds and required sternal rub to awaken. B/P 55/32 HR 99 Blood glucose 99. She is respondingt,sluggish. B/P now 60/33. Summary Physician Signature This document was electronically signed by: Liz Gil MD 12/31/2023 1 0:05 PM Consult Information Member Facility: [facility] Consult ID: [id number] Facility Time Zone: PT Date and Time of Request: 12/31/2023 09:55:32 PM PT Requesting Clinician: Azalia Gan Patient Name: Beba Grajeda Date of : 1955 Gender: Female Reason for Consult Reason for Consult: RAPID RESPONSE There is no note but treatment consisted of ordering narcan, stopping the dilaudid and stopping the metoprolol IV. But the nurse that was taking care of her last night says that they did not end up having to give her Narcan because she rebounded on her own. At least her consciousness rebounded.This morning She was lethargic. Seem to have a dry mouth and was licking her lips. Blood pressure dropped over several hours and stayed low through noon time when I gave her a 500 cc fluid bolus and blood pressure came back up. She sat up in bed to eat lunch. This afternoon she is sleepy again but oriented to person, place But not situation. Does not seem to have much insight about last night's rapid response. She still getting her tizanidine that she gets in the outpatient setting. Again seems to have a dry mouth in the afternoon as well with licking of her lips and psychomotor slowness. She denies cough, chest pain, shortness of breath. No belly pain. No urgency. She admits that she just seems really sleepy but cannot tell me why. No headache. No blurred vision. The RN taking care of her today reminding me that she done this in the past. But I have not taken care of her with her last admission. The patient was doing this with her last admission where she was having syncope or near syncope. Runs of tachycardia. And no one could explain what was happening to her. Current Medications - Current Medications Current Medications: Active Medications Acetaminophen (Acetaminophen 325 Mg Tablet) 650 mg PO Q4HR PRN PRN Reason: Pain 1 to 4, or Fever Last Admin: 12/31/23 04:57 Dose: 650 mg Aspirin (Aspirin Ec 81 Mg Tablet) 81 mg PO DAILY [facility] [place] Last Admin: 01/01/24 08:58 Dose: 81 mg Bacitracin (Bacitracin Zinc Oint 1 Packet) 1 packet TOP PRN PRN PRN Reason: Skin Care Last Admin: 12/31/23 12:04 Dose: 1 packet Duloxetine HCl (Duloxetine 30 Mg Capsule) 60 mg PO HS [facility] [place] Last Admin: 12/31/23 20:54 Dose: 60 mg Sodium Chloride (Normal Saline 0.9%) 1,000 mls @ 100 mls/hr IV .Q10H [facility] [place] Last Admin: 01/01/24 10:27 Dose: 100 mls/hr Cefepime HCl 1 gm/ Sodium (Chloride) 100 mls @ 200 mls/hr IV BID [facility] [place] Last Infusion: 01/01/24 09:30 Dose: Infused Metoprolol Tartrate (Metoprolol Tartrate 50 Mg Tablet) 100 mg PO BID [facility] [place] Last Admin: 01/01/24 08:55 Dose: 100 mg Metoprolol Tartrate (Metoprolol 5 Mg/5 Ml Vial) 5 mg IVP Q6H PRN PRN Reason: tachycardia >120 for >5 minute Ondansetron HCl (Ondansetron 4 Mg/2 Ml Vial) 4 mg IVP Q6HR PRN PRN Reason: Nausea / Vomiting Last Admin: 12/31/23 12:23 Dose: 4 mg Pantoprazole Sodium (Pantoprazole 40 Mg Tablet) 40 mg PO QDAC [facility] [place] Last Admin: 01/01/24 06:02 Dose: 40 mg (Bismuth Subsalicylate [Pepto -Bismol] 262 Mg Tab. Chew) 1 each PO BID PRN PRN Reason: Heartburn Saccharomyces Boulardii (Saccharomyces Boulardii 250 Mg Capsule) 250 mg PO BIDWM [facility] [place] Last Admin: 01/01/24 08:58 Dose: 250 mg Sodium Chloride (Sodium Chloride Flush 0.9% 10 Ml Syringe) 10 ml IVP PRN PRN PRN Reason: NEEDED PER PROVIDER ORDERS Last Admin: 12/31/23 04:57 Dose: 10 ml Sodium Chloride (Sodium Chloride Flush 0.9% 10 Ml Syringe) 10 ml IVP 0100,0900,1700 [facility] [place] Last Admin: 01/01/24 09:05 Dose: 10 ml DULoxetine [Cymbalta] 60 mg PO HS 04/02/23 Nitroglycerin [Nitrostat] 0.4 mg SL [id number] 04/02/23 Pravastatin Sodium 20 mg PO HS 04/02/23 tiZANidine [Zanaflex] 4 mg PO Q8H 04/02/23 Metoprolol Tartrate [Lopressor] 100 mg PO BID 06/05/23 Aspirin EC [Ecotrin] 81 mg PO DAILY 11/22/23 Bismuth Subsalicylate [Pepto-Bismol] 262 mg PO BID PRN 11/22/23 Objective - Vital Signs/Intake & Output Reviewed Vital Signs: Yes Vital Signs: Vital Signs x48h Temp Pulse Pulse Resp BP Pulse Ox O2 Flow Rate 01/01/24 05:18 36.5 C 82 20 89/44 L 96 2 01/01/24 03:02 105 H 118/59 L 01/01/24 02:35 102 H 110/74 01/01/24 01:02 100 87/39 L 01/01/24 00:10 100/44 L Intake & Output: Intake & Output 12/29/23 12/30/23 12/31/23 01/01/24 23:59 23:59 23:59 23:59 Intake Total 1300 4765.333 150 Output Total 775 250 Balance 1300 3990.333 -100 - Objective General Appearance: positive: No acute distress, Lethargic Eyes Bilateral: positive: PERRL, EOMI ENT: positive: Dry mucous membranes (dry tongue. Dry lips.) Neck: positive: No JVD. negative: Stiff neck Respiratory: positive: No respiratory distress, Other ( Oral, shallow, unlabored respiration. Diminished breath sounds at the bases.). negative: Wheezes, Rales, Rhonchi Cardiovascular: positive: Regular rate & rhythm Abdomen: positive: Non-tender, No organomegaly, Nml bowel sounds, No distention Skin: positive: Warm, Dry, Pallor Extremities: positive: Full ROM, No pedal edema Neurologic/Psychiatric: positive: Oriented x3, CN's nml (2-12), Motor nml ( No focal deficits but response times are delayed as she ponders when I ask her, and then responds), Slurred/abnml speech - Lab Results Fish Bones: 01/01/24 12:52 01/01/24 12:52 Other Labs: Lab Results x24hrs 12/31/23 12/31/23 12/31/23 Range/Units 21:52 21:36 17:55 Hgb 9.9 L (12.0-16.0) g/dL Hct 30.2 L (37.0-47.0) % ESR (0-30) mm/Hr POC Whole Bld Glucose 83 (70 - 100) mg/dL C-Reactive Protein (<0.5) mg/dL Stl C. diff Tox B Gene NEGATIVE (NEGATIVE) 12/31/23 12/31/23 Range/Units 08:10 04:52 Hgb (12.0-16.0) g/dL Hct (37.0-47.0) % ESR 8 (0-30) mm/Hr POC Whole Bld Glucose (70 - 100) mg/dL C-Reactive Protein < 0.5 (<0.5) mg/dL Stl C. diff Tox B Gene (NEGATIVE) ABX Reporting Has patient been on IV antibiotics over the past 48 hours?: Yes Sepsis Event Note (H) - Evaluation Current Stage of Sepsis: Sepsis Possible source of Sepsis: positive: Unknown - Sepsis Criteria Sepsis Criteria: Recorded Heart Rate greater than 90 bpm, WBC count greater than 12,000 or less than 4000 Assessment/Plan - Problem List (1) Opioid overdose Impression: this lady was complaining of pain. Wanted to increase into her Dilaudid which I provided. I think that between the IV Dilaudid that was given to frequently, Seroquel, tizanidine that this patient was oversedated. Narcan was ordered but not given last night.. This morning seems sleepy again so I was going to give her Narcan until she sat up for lunch and ate lunch, before she got back in bed. So I canceled the Narcan. I have stopped her Dilaudid. Stopped her tizanidine. (2) Sepsis resolved criteria for sepsis including tachycardia, lactic acidosis, elevated white cell count. the workup is negative for a source even though she had abd pain. NO pain now. She did have diarrhea at home but she is not experiencing anything in the hospital and C. difficile is pending. UA was not indicative of UTI. Chest x-ray is not indicative of pneumonia. I looked for endocarditis. Echocardiogram has normal but hyperdynamic systolic function with an ejection fraction greater than 75%. No definitive valvular mass or dysfunction to suggest vegetation or infective endocarditis. Blood cultures have been negative for day. Her white cell count has come down to normal with empiric therapy. She started at 24,000 white cell count, came down to 19,000 yesterday and is 10,000 today. C-reactive protein was less than 1 yesterday. And is 1.2 today. That is not still clinically impressive. I am puzzled by the lactic acidosis tachycardia and white cell count with no evidence of infection. Plan: continue empiric cefepime therapy Qualifiers: Sepsis acute organ dysfunction status: without acute organ dysfunction (3) Volume depletion Impression: Which I suspect is due to dehydration and poor p.o. intake. Her baseline creatinine is 0.8. She was 2.1 on admission. In spite of a liter and a half of fluids upon transfer to [facility], she did not produce much urine. Echocardiogram in November 2023 showed normal left ventricular size and function with an ejection fraction of 75%. Left atrium was normal size. Mild aortic regurgitation. Normal right ventricular size and function. Normal pulmonary pressures. Normal pericardium. With that echo report, I felt that she could tolerate 1000 cc bolus over 4 hours yesterday evening. She did. No congestive heart failure symptoms. But she still hypotensive this morning. Also in the face of bradycardia. Opioid overuse. I will give her another 500 cc bolus. (3) MILAGRO (acute kidney injury) Impression: Due to dehydration and poor p.o. intake. Laboratory Tests 12/30/23 12/31/23 01/01/24 13:36 04:52 12:52 Creatinine 2.1 H 2.0 H 1.0 Responded to IV fluid boluses, maintenance IV fluids and resuming p.o. intake. I will continue to monitor her BUN and creatinine, avoid nephrotoxic agents. (4) Abdominal pain Impression: with her last admission it was attributed to colitis. CAT scan had thickened bowel wall. After discharge she has been having diarrhea. The question may be that the diarrhea is related to antibiotic use. However, there is no diarrhea present since she has been admitted.. So we have not been able to get a C. difficile toxin. CT of the abdomen is negative. Her abdominal exam does not have peritoneal findings. There are reports that dehydration can result in generalized abdominal pain. Today she has no pain on my exam. I am really not clear about why she has abdominal pain. Qualifiers: Abdominal location: upper abdomen, unspecified Qualified Code(s): R10.10 - Upper abdominal pain, unspecified (5) Chronic pain Impression: She tells me that she was on Suboxone temporarily after she was discharged from the [facility]. Her primary care provider was reluctant to give her a lot of Dilaudid tablets. I explained to her why we would not want to give her more than she needs. While I recognize that she is in pain and wants to take care of the pain, I do not want to create further problems down the road but given her opioid addiction. the rapid response last night from the into the inoculator hours of the , I have decided to cancel her Dilaudid and tizanidine. I have explained that to her today but out of the home and she understood. Qualifiers: Chronic pain type: other chronic pain Qualified Code(s): G89.29 - Other chronic pain (6) Generalized weakness Impression: She has not been in a [facility] facility, hospitalized twice,And has definite generalized weakness on exam. She is lost a lot of ground over the last 2 months. PT and OT for today so that we can do an evaluation. However the patient says that she is too weak and tired and did not want to do therapy. I explained she really cannot turn them down. She needs to get out of bed.
[2024-01-01] MEDS: ASPIRIN EC 81 MG TABLET PO SCH (08:58)
[2024-01-01] MEDS: SODIUM CHLORIDE 0.9% 500 ML IV ONE (12:16)
[2024-01-01] MEDS: NALOXONE 0.4 MG/ML VIAL IVP ONE (12:21)
[2024-01-01 13:13] LABS: BASOPHILS % (AUTO) 0.2 %; EOSINOPHILS # (AUTO) 0.1 10^3/uL (0.0-0.7); EOSINOPHILS % (AUTO) 0.8 %; HCT - HEMATOCRIT 29.1 % (37.0-47.0); LYMPHOCYTES # (AUTO) 2.5 10^3/uL (1.5-3.5); LYMPHOCYTES % (AUTO) 23.5 %; MEAN CORPUSCULAR HEMOGLOBIN 28.8 pg (27.0-31.0); MEAN CORPUSCULAR HGB CONC 30.9 g/dL (32.0-36.0); MEAN PLATELET VOLUME 10.2 fL (7.9-10.8); MONOCYTES % (AUTO) 9.5 %; NEUTROPHILS % (AUTO) 65.6 %; PLT - PLATELET COUNT 232 10^3/uL (130-450); RED BLOOD COUNT 3.13 10^6/uL (4.20-5.40); RED CELL DISTRIBUTION WIDTH 13.1 % (12.0-15.0); WHITE BLOOD COUNT 10.6 x10^3/uL (4.8-10.8)
[2024-01-01 13:17] LABS: CALCIUM 7.9 mg/dL (8.5-10.3); POTASSIUM 3.7 mmol/L (3.5-4.5)
[2024-01-02] MEDS: KETOROLAC 15 MG/ML VIAL IVP PRN (04:41)
[2024-01-02] MEDS: hydrALAZINE INJ 20 MG/ML VIAL IVP PRN (04:42)
[2024-01-02 05:59] LABS: BASOPHILS # (AUTO) 0.1 10^3/uL (0.0-0.1); BASOPHILS % (AUTO) 0.6 %; EOSINOPHILS # (AUTO) 0.3 10^3/uL (0.0-0.7); HCT - HEMATOCRIT 30.8 % (37.0-47.0); HGB - HEMOGLOBIN 9.8 g/dL (12.0-16.0); LYMPHOCYTES # (AUTO) 3.5 10^3/uL (1.5-3.5); LYMPHOCYTES % (AUTO) 35.6 %; MEAN CORPUSCULAR HEMOGLOBIN 29.1 pg (27.0-31.0); MEAN CORPUSCULAR HGB CONC 31.8 g/dL (32.0-36.0); MEAN CORPUSCULAR VOLUME 91.4 fL (81.0-99.0); MEAN PLATELET VOLUME 10.5 fL (7.9-10.8); MONOCYTES % (AUTO) 9.7 %; NEUTROPHILS % (AUTO) 50.9 %; PLT - PLATELET COUNT 230 10^3/uL (130-450); RED BLOOD COUNT 3.37 10^6/uL (4.20-5.40); RED CELL DISTRIBUTION WIDTH 13.1 % (12.0-15.0); WHITE BLOOD COUNT 9.8 x10^3/uL (4.8-10.8)
[2024-01-02 06:24] LABS: BUN - BLOOD UREA NITROGEN 16 mg/dL (6-20); CALCIUM 8.6 mg/dL (8.5-10.3); CARBON DIOXIDE - CO2 27 mmol/L (21-32); CHLORIDE 110 mmol/L (101-111); CREATININE 0.7 mg/dL (0.6-1.3); CRP - C-REACTIVE PROTEIN < 0.5 mg/dL (<0.5); GFR - MDRD 83 (>89); GLUCOSE 82 mg/dL (74-104); POTASSIUM 3.2 mmol/L (3.5-4.5); SODIUM 142 mmol/L (135-145)
[2024-01-02] MEDS: METHADONE 5 MG TABLET PO ONE (08:23)
[2024-01-02] MEDS: POTASSIUM CHLORIDE 20 MEQ TABLET PO ONE (08:25)
[2024-01-02 09:19] LABS: BILIRUBIN,URINE NEGATIVE (NEGATIVE); GLUCOSE, URINE (UA) 100 mg/dL (NEGATIVE); KETONES,URINE (UA) NEGATIVE (NEGATIVE); LEUKOCYTE ESTERASE, URINE NEGATIVE (NEGATIVE); NITRITE,URINE NEGATIVE (NEGATIVE); OCCULT BLOOD,URINE NEGATIVE (NEGATIVE); PROTEIN,URINE NEGATIVE (NEGATIVE); UROBILINOGEN,URINE 0.2 (NORMAL) E.U./dL (NORMAL)
[2024-01-02 09:21] LABS: CLARITY,URINE CLEAR (CLEAR)
[2024-01-02] MEDS: METOPROLOL 5 MG/5 ML VIAL IVP PRN (10:30)
[2024-01-02] MEDS ORDERED: LABETALOL 20 MG/4 ML SYRINGE IVP ONE ×2 (10:35→11:00)
[2024-01-02] MEDS: LABETALOL 20 MG/4 ML SYRINGE IVP ONE (10:49)
[2024-01-02] MEDS: HYDROmorphone 0.5 MG/0.5 ML SYRINGE IVP STA (12:07)
[2024-01-02] MEDS: KETOROLAC 30 MG/ML VIAL IVP STA (12:08)
[2024-01-02] MEDS: HEPARIN 25000UNITS/500ML (D5W) 25,000 UNIT/500 ML BAG IV SCH (13:55)
[2024-01-02] MEDS ORDERED: SODIUM CHLORIDE 0.9% 250 ML IV ONE (14:52)
[2024-01-02 15:02] LABS: CALCIUM, IONIZED 1.1 mmol/L (1.15-1.33); VBG PH 7.429 (7.31-7.41)
[2024-01-02 15:07] LABS: MAGNESIUM 1.6 mg/dL (1.7-2.3)
--- NOTE | 2024-01-02 15:12 | PROVIDER PROGRESS NOTE ---
Subjective - Prog Note Date Prog Note Date: 01/02/24 Prog Note Time: 15:12 - Subjective Subjective: . This morning I saw her approximately at 8:30 in the morning. She was awake, alert. Much improved with mental status from yesterday to today. Yesterday she seemed out of it, slightly lethargic. Almost as if she was still under the influence of opioids for pain or her muscle relaxants. I have been holding all of those sedatives. This morning she is much more appropriate. Saying that her back pain was really bothering her and asking for resumption of her pain medicines. At home she has chronic back pain but does not take opioids. I reminded her that I think she had an untoward event with the Dilaudid we were giving her. And I wanted to be very careful about slowly giving her pain medicine again. I opted to use methadone 2.5 mg as a starting dose. My plan is to then reevaluate her a couple of hours later. And Toradol as a one-time dose. Approximately 9:30 AM she began having severely elevated blood pressure. Nurse reported over 200/over 100. No chest pain, shortness of breath. I gave a one- time dose of labetalol. She has been having hypertension off-and-on and has hydralazine 10 mg every 8 hours as needed. She had already gotten her dose of hydralazine. At approximately 11:45 AM nurse called me and did not examine her because the patient was now writhing in the bed. Clutching her belly with severe abdominal pain. The patient was alert enough to answer my questions. She has been passing gas. The pain was generalized, diffuse. Constant. Unremitting. A 10 out of a 10. On examination the belly was soft. Hypoactive bowel sounds, but agonizingly painful to palpation. No specific area more than another and it was generalized pain. My differential was ischemic bowel, possibly passing a kidney stone, any type of visceral dilation such as bowel or common bile duct, but I did not think she had a perforation because she had no peritonitis and she still had bowel sounds. The belly was soft and obese. I knew that she already had a CAT scan on admission and that CAT scan was essentially normal. I ordered Toradol for pain. Obtain an EKG. She had sinus tachycardia with early R wave progression and no ST-T segment changes that were indicative of ischemia. I compared it to the EKG on admission the and that was SVT as a narrow complex tachycardia and no P waves visible. But the axis and the early R wave progression for the same. I ordered a stat troponin and it was 357.8. I transferred her to ICU. I have ordered serial troponins. Started on a heparin drip. I am not able to link her abdominal pain to the NSTEMI. Her pressure is not low. I do not think she has ischemic colitis. Nursing reports that her blood pressure is still very high. Again 200/100s. I reexamined her at 3:10 PM. She is comfortable. No headache, shortness of breath with the current blood pressure elevation. But she feels like her abdominal pain is coming back. It is in the center of her belly and is starting very low but she hates it when he gets so high that she is to screen with it. No diarrhea. Lungs are clear. Regular rate and rhythm. Abdomen continues to be soft, not rigid. Hypoactive bowel sounds. No diaphoresis. She is alert, oriented to person place and time. I have explained that she may be having an NSTEMI and what that means. If I have to transfer her where would she like to go? She says that she would like me to start with [facility]. Current Medications - Current Medications Current Medications: Active Medications Generic Name Dose Route Start Last Admin Trade Name Freq PRN Reason Stop Dose Admin Acetaminophen 650 mg 12/30/23 22:30 01/02/24 14:08 Acetaminophen 325 Mg Tablet PO 650 mg Q4HR PRN Administration Pain 1 to 4, or Fever Aspirin 81 mg 01/01/24 09:00 01/02/24 08:23 Aspirin Ec 81 Mg Tablet PO 81 mg DAILY ABRAHAM Administration Bacitracin 1 packet 12/31/23 11:37 12/31/23 12:04 Bacitracin Zinc Oint 1 Packet TOP 1 packet PRN PRN Administration Skin Care Duloxetine HCl 60 mg 12/30/23 23:00 01/01/24 21:51 Duloxetine 30 Mg Capsule PO 60 mg HS ABRAHAM Administration Heparin Sodium (Porcine) 1,000 - 2,000 unit 01/02/24 13:37 Heparin 1,000 Unit/Ml Vial IVP Q6H PRN aPTT <50 Protocol Hydralazine HCl 10 mg 01/02/24 04:27 01/02/24 09:55 Hydralazine Inj 20 Mg/Ml Vial IVP 10 mg Q8H PRN Administration SBP> or= 160 OR DBP> or= 110 Cefepime HCl 1 gm/ Sodium 100 mls @ 200 mls/hr 12/31/23 21:00 01/02/24 08:25 Chloride IV 200 mls/hr BID ABRAHAM Administration Heparin Sodium/Dextrose 25,000 unit in 500 mls @ 16.56 mls/hr 01/02/24 14:00 01/02/24 13:55 Heparin Sodium/Dextrose IV 12 unit/kg/hr .[id number] ABRAHAM 16.56 mls/hr Administration Protocol 12 UNIT/KG/HR Nicardipine HCl 25 mg/ Sodium 250 mls @ 50 mls/hr 01/02/24 15:00 Chloride IV .Q5H ABRAHAM Protocol 5 MG/HR Calcium Chloride 1,000 mg/ 60 mls @ 60 mls/hr 01/02/24 15:05 Sodium Chloride IV 01/02/24 16:04 ONCE ONE Protocol Ketorolac Tromethamine 15 mg 01/02/24 04:26 01/02/24 04:41 Ketorolac 15 Mg/Ml Vial IVP 01/07/24 04:25 15 mg ONCE PRN Administration PAIN >8 Metoprolol Tartrate 100 mg 12/31/23 21:00 01/02/24 08:23 Metoprolol Tartrate 50 Mg Tablet PO 100 mg BID ABRAHAM Administration Metoprolol Tartrate 5 mg 12/31/23 22:04 01/02/24 10:30 Metoprolol 5 Mg/5 Ml Vial IVP 5 mg Q6H PRN Administration tachycardia >120 for >5 minute Ondansetron HCl 4 mg 12/30/23 22:30 01/02/24 09:06 Ondansetron 4 Mg/2 Ml Vial IVP 4 mg Q6HR PRN Administration Nausea / Vomiting Pantoprazole Sodium 40 mg 12/31/23 07:00 01/02/24 06:17 Pantoprazole 40 Mg Tablet PO 40 mg QDAC ABRAHAM Administration (Bismuth 1 each 12/31/23 18:23 Subsalicylate [Pepto PO -Bismol] 262 Mg Tab. BID PRN Chew) Heartburn Saccharomyces Boulardii 250 mg 12/31/23 17:00 01/02/24 08:23 Saccharomyces Boulardii 250 Mg Capsule PO 250 mg BIDWM ABRAHAM Administration Sodium Chloride 10 ml 12/30/23 22:30 12/31/23 04:57 Sodium Chloride Flush 0.9% 10 Ml Syringe IVP 10 ml PRN PRN Administration NEEDED PER PROVIDER ORDERS Sodium Chloride 10 ml 12/31/23 01:00 01/02/24 13:56 Sodium Chloride Flush 0.9% 10 Ml Syringe IVP 10 ml 0100,0900,1700 ABRAHAM Administration DULoxetine [Cymbalta] 60 mg PO HS 04/02/23 Nitroglycerin [Nitrostat] 0.4 mg SL [id number] 04/02/23 Pravastatin Sodium 20 mg PO HS 04/02/23 tiZANidine [Zanaflex] 4 mg PO Q8H 04/02/23 Metoprolol Tartrate [Lopressor] 100 mg PO BID 06/05/23 Aspirin EC [Ecotrin] 81 mg PO DAILY 11/22/23 Bismuth Subsalicylate [Pepto-Bismol] 262 mg PO BID PRN 11/22/23 Objective - Vital Signs/Intake & Output Reviewed Vital Signs: Yes Vital Signs: Vital Signs Temp Pulse Resp BP Pulse Ox 01/02/24 13:00 36.7 C 105 H 16 199/108 H 92 Intake & Output: Intake & Output 12/30/23 12/31/23 01/01/24 01/02/24 23:59 23:59 23:59 23:59 Intake Total 1300 4765.333 4390 561.667 Output Total 775 1150 5645 Balance 1300 3990.333 3240 -5083.333 - Objective General Appearance: positive: Alert Eyes Bilateral: positive: PERRL ENT: positive: Pharynx nml, No signs of dehydration Neck: positive: No JVD. negative: Stiff neck Respiratory: positive: No respiratory distress. negative: Wheezes, Rales, Rhonchi Cardiovascular: positive: Regular rate & rhythm, Tachycardia Abdomen: positive: No organomegaly, No distention, Tenderness ( initially it was agonizing and she was screaming. Right now it is about a 4 out of a 10. Back also hurts her at about an 8 out of a 10. CT scan specifically mentions there is no aneurysms.) Skin: positive: Warm, Dry, Pallor Extremities: positive: Full ROM. negative: No pedal edema Neurologic/Psychiatric: positive: Oriented x3, CN's nml (2-12), Motor nml - Lab Results Fish Bones: 01/02/24 05:00 01/02/24 13:50 Other Labs: Lab Results x24hrs 01/02/24 01/02/24 01/02/24 Range/Units 14:00 14:00 13:50 WBC (4.8-10.8) x10^3/uL RBC (4.20-5.40) 10^6/uL Hgb (12.0-16.0) g/dL Hct (37.0-47.0) % MCV (81.0-99.0) fL MCH (27.0-31.0) pg MCHC (32.0-36.0) g/dL RDW (12.0-15.0) % Plt Count (130-450) 10^3/uL MPV (7.9-10.8) fL Neut # (Auto) (1.5-6.6) 10^3/uL Lymph # (Auto) (1.5-3.5) 10^3/uL Wilkin # (Auto) (0.0-1.0) 10^3/uL Eos # (Auto) (0.0-0.7) 10^3/uL Baso # (Auto) (0.0-0.1) 10^3/uL Absolute Nucleated RBC x10^3/uL Nucleated RBC % /100WBC APTT 24.6 L (24.9-33.3) secs VBG pH 7.429 H (7.31-7.41) Ionized Calcium 1.10 L (1.15-1.33) mmol/L Sodium (135-145) mmol/L Potassium 3.0 L (3.5-4.5) mmol/L Chloride (101-111) mmol/L Carbon Dioxide (21-32) mmol/L Anion Gap (6-13) BUN (6-20) mg/dL Creatinine (0.6-1.3) mg/dL Estimated GFR (MDRD) (>89) Glucose (74-104) mg/dL Calcium (8.5-10.3) mg/dL Magnesium 1.6 L (1.7-2.3) mg/dL Troponin I High Sens (2.3-14.8) ng/L C-Reactive Protein (<0.5) mg/dL Urine Color Urine Clarity (CLEAR) Urine pH (5.0-7.5) PH Ur Specific [place] (1.002-1.030) Urine Protein (NEGATIVE) mg/dL Urine Glucose (UA) (NEGATIVE) mg/dL Urine Ketones (NEGATIVE) mg/dL Urine Occult Blood (NEGATIVE) Urine Nitrite (NEGATIVE) Urine Bilirubin (NEGATIVE) Urine Urobilinogen (NORMAL) E.U./dL Ur Leukocyte Esterase (NEGATIVE) Ur Microscopic Review Urine Culture Comments 01/02/24 01/02/24 01/02/24 Range/Units 12:31 08:05 05:00 WBC 9.8 (4.8-10.8) x10^3/uL RBC 3.37 L (4.20-5.40) 10^6/uL Hgb 9.8 L (12.0-16.0) g/dL Hct 30.8 L (37.0-47.0) % MCV 91.4 (81.0-99.0) fL MCH 29.1 (27.0-31.0) pg MCHC 31.8 L (32.0-36.0) g/dL RDW 13.1 (12.0-15.0) % Plt Count 230 (130-450) 10^3/uL MPV 10.5 (7.9-10.8) fL Neut # (Auto) 5.0 (1.5-6.6) 10^3/uL Lymph # (Auto) 3.5 (1.5-3.5) 10^3/uL Wilkin # (Auto) 1.0 (0.0-1.0) 10^3/uL Eos # (Auto) 0.3 (0.0-0.7) 10^3/uL Baso # (Auto) 0.1 (0.0-0.1) 10^3/uL Absolute Nucleated RBC 0.00 x10^3/uL Nucleated RBC % 0.0 /100WBC APTT (24.9-33.3) secs VBG pH (7.31-7.41) Ionized Calcium (1.15-1.33) mmol/L Sodium (135-145) mmol/L Potassium (3.5-4.5) mmol/L Chloride (101-111) mmol/L Carbon Dioxide (21-32) mmol/L Anion Gap (6-13) BUN (6-20) mg/dL Creatinine (0.6-1.3) mg/dL Estimated GFR (MDRD) (>89) Glucose (74-104) mg/dL Calcium (8.5-10.3) mg/dL Magnesium (1.7-2.3) mg/dL Troponin I High Sens 357.8 H* (2.3-14.8) ng/L C-Reactive Protein (<0.5) mg/dL Urine Color LIGHT YELLOW Urine Clarity CLEAR (CLEAR) Urine pH 7.0 (5.0-7.5) PH Ur Specific [place] 1.015 (1.002-1.030) Urine Protein NEGATIVE (NEGATIVE) mg/dL Urine Glucose (UA) 100 H (NEGATIVE) mg/dL Urine Ketones NEGATIVE (NEGATIVE) mg/dL Urine Occult Blood NEGATIVE (NEGATIVE) Urine Nitrite NEGATIVE (NEGATIVE) Urine Bilirubin NEGATIVE (NEGATIVE) Urine Urobilinogen 0.2 (NORMAL) (NORMAL) E.U./dL Ur Leukocyte Esterase NEGATIVE (NEGATIVE) Ur Microscopic Review NOT INDICATED Urine Culture Comments NOT INDICATED 01/02/24 Range/Units 05:00 WBC (4.8-10.8) x10^3/uL RBC (4.20-5.40) 10^6/uL Hgb (12.0-16.0) g/dL Hct (37.0-47.0) % MCV (81.0-99.0) fL MCH (27.0-31.0) pg MCHC (32.0-36.0) g/dL RDW (12.0-15.0) % Plt Count (130-450) 10^3/uL MPV (7.9-10.8) fL Neut # (Auto) (1.5-6.6) 10^3/uL Lymph # (Auto) (1.5-3.5) 10^3/uL Wilkin # (Auto) (0.0-1.0) 10^3/uL Eos # (Auto) (0.0-0.7) 10^3/uL Baso # (Auto) (0.0-0.1) 10^3/uL Absolute Nucleated RBC x10^3/uL Nucleated RBC % /100WBC APTT (24.9-33.3) secs VBG pH (7.31-7.41) Ionized Calcium (1.15-1.33) mmol/L Sodium 142 (135-145) mmol/L Potassium 3.2 L (3.5-4.5) mmol/L Chloride 110 (101-111) mmol/L Carbon Dioxide 27 (21-32) mmol/L Anion Gap 5.0 L (6-13) BUN 16 (6-20) mg/dL Creatinine 0.7 (0.6-1.3) mg/dL Estimated GFR (MDRD) 83 L (>89) Glucose 82 (74-104) mg/dL Calcium 8.6 (8.5-10.3) mg/dL Magnesium (1.7-2.3) mg/dL Troponin I High Sens (2.3-14.8) ng/L C-Reactive Protein < 0.5 (<0.5) mg/dL Urine Color Urine Clarity (CLEAR) Urine pH (5.0-7.5) PH Ur Specific [place] (1.002-1.030) Urine Protein (NEGATIVE) mg/dL Urine Glucose (UA) (NEGATIVE) mg/dL Urine Ketones (NEGATIVE) mg/dL Urine Occult Blood (NEGATIVE) Urine Nitrite (NEGATIVE) Urine Bilirubin (NEGATIVE) Urine Urobilinogen (NORMAL) E.U./dL Ur Leukocyte Esterase (NEGATIVE) Ur Microscopic Review Urine Culture Comments Sepsis Event Note (H) - Evaluation Current Stage of Sepsis: Sepsis Possible source of Sepsis: positive: Unknown - Sepsis Criteria Sepsis Criteria: Recorded Heart Rate greater than 90 bpm, WBC count greater than 12,000 or less than 4000 Assessment/Plan - Problem List (1) NSTEMI (non-ST elevated myocardial infarction) Impression: GREATER THAN 60 MINUTES WAS SPENT IN ACUTE CRITICAL CARE OF THIS PATIENT. The troponin elevation seems to be associated with abdominal pain. But I cannot quite figure out the link Between the abdominal pain and the elevation of troponins.. If this was ischemic colitis I would expect an elevated white cell count, may be fever, or at least bloody diarrhea. I could also argue that she had elevated troponins in the face of severe blood pressure, it was a 9 and ischemic type of event. But those numbers are usually in the 30s or 40s for me. This patient is over 300 with her troponins. Plan: Continue orders in the ICU which includes as needed opioids, nausea meds, Continue heparin drip she is already on an aspirin a day, already on a beta-nadeem with metoprolol 100 mg p.o. twice daily start a statin 80 mg of atorvastatin Serial troponins Depending on the level of her next troponin seek transfer to [facility] (2) Hypertensive urgency Impression: other than the troponin elevation, she denies shortness of breath. She denies chest pain. She does have a headache. Plan: I have started a Nicardipine drip (3) Opioid overdose Impression: this lady was complaining of pain. She wanted to increase in her Dilaudid which I provided. I think that between the IV Dilaudid that was given too frequently, Seroquel, tizanidine that this patient was oversedated. Narcan was ordered but not given 12/30 when she had her somnolence and elevated BP. The next morning on 12/31 she still seemed sleepy and sedated so I was going to give her Narcan but then she sat up for lunch and appeared alert, appropriate before she got back in bed. I kept encouraging her to get out of bed to chair to avoid generalized deconditioning. So I canceled the Narcan. I have stopped her Dilaudid. Stopped her tizanidine. This morning the conversation for paid meds started again as noted in subjective history and I used one dose of methadone 2.5 mg. (4) Sepsis resolved criteria for sepsis including tachycardia, lactic acidosis, elevated white cell count. the workup was negative for a source even though she had abd pain. No pain for the next 2 days then severe today. She did have diarrhea at home but she is not experiencing anything in the hospital and C. difficile is pending because there has not been loose stool. UA was not indicative of UTI. Chest x- ray is not indicative of pneumonia. I looked for endocarditis. Echocardiogram has normal but hyperdynamic systolic function with an ejection fraction greater than 75%. No definitive valvular mass or dysfunction to suggest vegetation or infective endocarditis. Blood cultures have been negative after 24 hours. Her white cell count has come down to normal with empiric therapy. She started at 24,000 white cell count, came down to 19,000 12/30 and was 10K on 12/31. C-reactive protein was less than 1 12/30 and 1.2 12/31. That is not clinically impressive. I am puzzled by the lactic acidosis tachycardia and white cell count with no evidence of infection. Plan: continue empiric cefepime therapy and today is day #4. Qualifiers: Sepsis acute organ dysfunction status: without acute organ dysfunction (5) Volume depletion Impression: Which I suspect is due to dehydration and poor p.o. intake. Her baseline creatinine is 0.8. She was 2.1 on admission. In spite of a liter and a half of fluids upon transfer to [facility], she did not produce much urine. Echocardiogram in November 2023 showed normal left ventricular size and function with a hyper dynamic ejection fraction of 75%. Left atrium was normal size. Mild aortic regurgitation. Normal right ventricular size and function. Normal pulmonary pressures. Normal pericardium. With that echo report, I felt that she could tolerate 1000 cc bolus over 4 hours yesterday evening. She did. No congestive heart failure symptoms. But she still hypotensive this morning. Also in the face of bradycardia. Opioid overuse. I will gave her another 500 cc bolus of NS 12/31 thinking she may still be volume depleted. (6) MILAGRO (acute kidney injury) Impression: Due to dehydration and poor p.o. intake. I reviewed labs for trending. Laboratory Tests 12/30/23 12/31/23 01/01/24 13:36 04:52 12:52 Creatinine 2.1 H 2.0 H 1.0 Laboratory Tests 01/02/24 05:00 Creatinine 0.7 The creatinine has responded to IV fluid boluses, maintenance IV fluids and resuming p.o. intake. I will continue to monitor her BUN and creatinine, avoid nephrotoxic agents. (7) Abdominal pain Impression: with her last admission it was attributed to colitis. CAT scan had thickened bowel wall. After discharge she has been having diarrhea. The question may be that the diarrhea is related to antibiotic use. However, there is no diarrhea present since she has been admitted.. So we have not been able to get a C. difficile toxin. Repeat CT of the abdomen for this admission is negative. Her abdominal exam does not have peritoneal findings. There are reports that dehydration can result in generalized abdominal pain. For 2 days no pain, and then today it returned. She tells me its the same pain from admission. I am really not clear about why she has abdominal pain. Qualifiers: Abdominal location: upper abdomen, unspecified Qualified Code(s): R10.10 - Upper abdominal pain, unspecified (5) Chronic pain Impression: She tells me that she was on Suboxone temporarily [facility]. Her primary care provider was reluctant to give her a lot of Dilaudid tablets. I explained to her why we would not want to give her more than she needs. While I recognize that she is in pain and wants to take care of the pain, I do not want to create further problems down the road but given her opioid addiction. After the rapid response from the into the winding lathe operator hours of the , I decided to cancel her Dilaudid and tizanidine. I have explained that to her today but out of the home and she understood. I repeated myself this morning before the episode of hypertension and abd pain occurred. Qualifiers: Chronic pain type: other chronic pain Qualified Code(s): G89.29 - Other chronic pain (6) Generalized weakness Impression: She had been in a [facility] facility earlier this month, hospitalized tw ice, and has definite generalized weakness on exam. She has lost a lot of ground over the last 2 months. PT and OT ordered so we could do an evaluation. However the patient says that she is too weak and tired and did not want to do therapy for 2 days now. Today would have been day #3. I explained she really cannot turn them down. She needs to get out of bed.
[2024-01-02 15:13] LABS: PHOSPHORUS 2.8 mg/dL (2.5-5.0)
[2024-01-02] MEDS: CALCIUM CHLORIDE 1,000 MG in SODIUM CHLORIDE 0.9% 50 ML IV ONE (15:30)
[2024-01-02] MEDS: NICARDIPINE HCL 25 MG in SODIUM CHLORIDE 0.9% 240 ML IV SCH (15:30)
[2024-01-02] MEDS: MAGNESIUM SULFATE 2 GRAM 2 GM/50 ML BAG IV ONE (15:50)
[2024-01-02] MEDS: POTASSIUM CHLOR 20 MEQ/100 ML 20 MEQ/100 ML BAG IV SCH (15:50)
[2024-01-02 19:39] LABS: CALCIUM, IONIZED 1.24 mmol/L (1.15-1.33); VBG PH 7.406 (7.31-7.41)
[2024-01-02 19:46] LABS: MAGNESIUM 2.3 mg/dL (1.7-2.3); POTASSIUM 3.7 mmol/L (3.5-4.5)
[2024-01-02] MEDS: HYDROmorphone 0.5 MG/0.5 ML SYRINGE IVP PRN (20:59)
[2024-01-02] MEDS: SODIUM CHLORIDE 0.9% 250 ML IV ONE (21:56)
[2024-01-02] MEDS: POTASSIUM CHLOR 20 MEQ/100 ML 20 MEQ/100 ML BAG IV ONE (22:38)
[2024-01-03 00:51] LABS: BILIRUBIN,URINE NEGATIVE (NEGATIVE); GLUCOSE, URINE (UA) 500 mg/dL (NEGATIVE); KETONES,URINE (UA) NEGATIVE (NEGATIVE); LEUKOCYTE ESTERASE, URINE NEGATIVE (NEGATIVE); NITRITE,URINE NEGATIVE (NEGATIVE); OCCULT BLOOD,URINE NEGATIVE (NEGATIVE); PH,URINE 6.5 PH (5.0-7.5); PROTEIN,URINE 100 mg/dL (NEGATIVE); UROBILINOGEN,URINE 0.2 (NORMAL) E.U./dL (NORMAL)
[2024-01-03 01:02] LABS: CLARITY,URINE CLEAR (CLEAR)
[2024-01-03 01:10] LABS: RBC,URINE None Seen /HPF (0-5); WBC,URINE 0-3 /HPF (0-5)
[2024-01-03 01:11] LABS: BACTERIA,URINE Rare /HPF (None Seen); SQUAMOUS EPITHELIAL CELL,UR FEW Squamous (<= Few)
[2024-01-03 04:46] LABS: BASOPHILS % (AUTO) 0.2 %; EOSINOPHILS # (AUTO) 0.2 10^3/uL (0.0-0.7); HCT - HEMATOCRIT 36.4 % (37.0-47.0); HGB - HEMOGLOBIN 11.9 g/dL (12.0-16.0); LYMPHOCYTES # (AUTO) 5.6 10^3/uL (1.5-3.5); LYMPHOCYTES % (AUTO) 33.6 %; MEAN CORPUSCULAR HGB CONC 32.7 g/dL (32.0-36.0); MEAN CORPUSCULAR VOLUME 88.6 fL (81.0-99.0); MEAN PLATELET VOLUME 9.9 fL (7.9-10.8); MONOCYTES # (AUTO) 1.4 10^3/uL (0.0-1.0); MONOCYTES % (AUTO) 8.2 %; NEUTROPHILS # (AUTO) 9.4 10^3/uL (1.5-6.6); NEUTROPHILS % (AUTO) 56.6 %; PLT - PLATELET COUNT 383 10^3/uL (130-450); RED BLOOD COUNT 4.11 10^6/uL (4.20-5.40); RED CELL DISTRIBUTION WIDTH 12.8 % (12.0-15.0); WHITE BLOOD COUNT 16.6 x10^3/uL (4.8-10.8)
[2024-01-03 05:02] LABS: CALCIUM 9.6 mg/dL (8.5-10.3); CREATININE 0.8 mg/dL (0.6-1.3); CRP - C-REACTIVE PROTEIN 0.6 mg/dL (<0.5); POTASSIUM 3.5 mmol/L (3.5-4.5)
[2024-01-03 05:39] LABS: MAGNESIUM 1.9 mg/dL (1.7-2.3)
[2024-01-03 05:44] LABS: PHOSPHORUS 3.4 mg/dL (2.5-5.0)
[2024-01-03 05:51] LABS: PLATELET ESTIMATE, MANUAL NORMAL (130-450,000) (NORMAL); RBC MORPHOLOGY (MULTIPLE) NORMAL APPEARANCE (NORMAL)
[2024-01-03 06:06] LABS: CALCIUM, IONIZED 1.16 mmol/L (1.15-1.33); VBG PH 7.417 (7.31-7.41)
[2024-01-03] MEDS: POTASSIUM CHLOR 20 MEQ/100 ML 20 MEQ/100 ML BAG IV SCH (06:32)
[2024-01-03] MEDS ORDERED: iohexoL-300 100 ML VIAL ONE (08:24)
[2024-01-03] MEDS: HYDROmorphone 0.5 MG/0.5 ML SYRINGE IVP PRN (08:57)
[2024-01-03] MEDS: iohexoL-300 100 ML VIAL IVP ONE (11:29)
[2024-01-03] MEDS: cloNIDine 0.1 MG TABLET PO SCH (12:26)
[2024-01-03] MEDS ORDERED: HYDROmorphone 0.5 MG/0.5 ML SYRINGE IVP PRN (13:15)
[2024-01-03] MEDS: HYDROmorphone 0.5 MG/0.5 ML SYRINGE IVP SCH (13:32)
--- NOTE | 2024-01-03 15:47 | PROVIDER PROGRESS NOTE ---
Subjective - Prog Note Date Prog Note Date: 01/03/24 Prog Note Time: 15:44 - Subjective Pt reports feeling: Improved Subjective: Ms. Grajeda was admitted on 12/29 after she presented with abdominal pain and diarrhea and SIRS positive for elevated WBCs, elevated HR in the 120's. She was recently admitted and treated for colitis 12/13-12/15 with bloody diarrhea and colitis on CT. She reported the diarrhea got worse after she finished her antibiotics with subjective fevers and chills. She reported decreased PO intake and scant urine output. She was found to have an MILAGRO int he Ed with a GFR of 25. Non-contrast CT abdomen done due to GFR and was unremarkable, previously noted colitis had resolved. UA was negative for UTI, blood cultures and stool cultures done and have since resulted as negative. ECHO found no evidence of vegetation making endocarditis unlikely. Chest x-ray negative for consolidation or effusion. She was admitted for sepsis and abdominal pain without an identified source. She has a hx of chronic pain with a lumbar laminectomy, 2 fusions, and a spinal cord stimulator. She is on tizanidine at home but does not have regularly prescribed opiods. During admission she had refractory pain and was given dilaudid 1 mg q 2 hrs resulting in an overdose. The dilaudid dose was subsequently decreased. Yesterday she had an episode of acute abdominal pain managed with toradol and dilaudid 0.5 mg q 4 hrs. The abdominal pain was accompanied by hypertension which was managed with PRN labetolol, hydralzine, and metoprolol. She was on nicardipine yesterday which has since been stopped. She is also on clonidine 0.1 mg BID and continued on her home dose of metoprolol 100 mg PO BID. Differentials included ischemic bowel, nephrolithiasis, or dilation of the common bile duct or bowel. CT in the ED was negative for AAA. She was noted to have tachycardia with R wave progression and found to have elevated troponin at 357. Concern for NSTEMI, started on heparin drip and serial troponins showed a decreasing trend with the most recent troponin 298 last night. She currently denies chest pain, SOB, or palpitations. She is mildly tachycardic, with increases in pain associated with HTN and tachycardia. She has a mild systolic murmur. Upon assessment, she reports a headache and abdominal pain radiating to her back. Her pain is better controlled now with the increased dose of dilaudid. She complains of RUQ, epigastric, and LUQ pain with nausea, no vomiting. Pain is constant with episodes of increased severity, worse with eating or palpation and relieved with pain medications. She states it feels similar to the pancreatitis she had after an endoscopy. She also reports episode of pain RLQ this am, now resolved. She reports decreased appetite and PO intake, feels constantly nauseated. She also states has had chronic diarrhea for about 6 months and feels constantly fatigued. She states just getting to the bathroom leaves her exhausted. She denies chest pain, SOB, fever/chills, or dysurea. Current differentials include previously noted ischemic bowel, nephrolithiasis, obstruction/dilation of ducts or bowels, with the addition of pancreatitis and pyelonephritis. Current Medications - Current Medications Current Medications: Active Medications Acetaminophen (Acetaminophen 325 Mg Tablet) 650 mg PO Q4HR PRN PRN Reason: Pain 1 to 4, or Fever Last Admin: 01/03/24 12:59 Dose: 650 mg Aspirin (Aspirin Ec 81 Mg Tablet) 81 mg PO DAILY [facility] Last Admin: 01/03/24 08:27 Dose: 81 mg Bacitracin (Bacitracin Zinc Oint 1 Packet) 1 packet TOP PRN PRN PRN Reason: Skin Care Last Admin: 12/31/23 12:04 Dose: 1 packet Clonidine HCl (Clonidine 0.1 Mg Tablet) 0.1 mg PO BID [facility] Last Admin: 01/03/24 12:26 Dose: 0.1 mg Duloxetine HCl (Duloxetine 30 Mg Capsule) 60 mg PO HS [facility] Last Admin: 01/02/24 21:35 Dose: 60 mg Heparin Sodium (Porcine) (Heparin 1,000 Unit/Ml Vial) 1,000 - 2,000 unit IVP Q6H PRN; Protocol PRN Reason: aPTT <50 Last Admin: 01/02/24 21:54 Dose: 1,000 unit Hydralazine HCl (Hydralazine Inj 20 Mg/Ml Vial) 10 mg IVP Q8H PRN PRN Reason: SBP> or= 160 OR DBP> or= 110 Last Admin: 01/03/24 09:24 Dose: 10 mg Hydromorphone HCl (Hydromorphone 1 Mg/Ml Carpuject) 1 mg IVP Q4HR PRN PRN Reason: Severe Pain (Level 7-10) Cefepime HCl 1 gm/ Sodium (Chloride) 100 mls @ 200 mls/hr IV BID [facility] Last Infusion: 01/03/24 08:57 Dose: Infused Heparin Sodium/Dextrose (Heparin Sodium/Dextrose) 25,000 unit in 500 mls @ 16.56 mls/hr IV .[id number] [facility]; Protocol Last Admin: 01/03/24 15:35 Dose: 14 unit/kg/hr, 19.32 mls/hr Nicardipine HCl 25 mg/ Sodium (Chloride) 250 mls @ 50 mls/hr IV .Q5H [facility]; Protocol Last Admin: 01/03/24 06:22 Dose: Not Given Ketorolac Tromethamine (Ketorolac 15 Mg/Ml Vial) 15 mg IVP ONCE PRN PRN Reason: PAIN >8 Stop: 01/07/24 04:25 Last Admin: 01/02/24 04:41 Dose: 15 mg Metoprolol Tartrate (Metoprolol Tartrate 50 Mg Tablet) 100 mg PO BID [facility] Last Admin: 01/03/24 08:27 Dose: 100 mg Metoprolol Tartrate (Metoprolol 5 Mg/5 Ml Vial) 5 mg IVP Q6H PRN PRN Reason: tachycardia >120 for >5 minute Last Admin: 01/03/24 10:29 Dose: 5 mg Ondansetron HCl (Ondansetron 4 Mg/2 Ml Vial) 4 mg IVP Q6HR PRN PRN Reason: Nausea / Vomiting Last Admin: 01/03/24 07:05 Dose: 4 mg Pantoprazole Sodium ([facility] 40 Mg [facility]t) [facility] Last Admin: 01/03/24 06:31 Dose: 40 mg (Bismuth Subsalicylate [Pepto -Bismol] 262 Mg Tab. Chew) 1 each PO BID PRN PRN Reason: Heartburn Saccharomyces Boulardii (Saccharomyces Boulardii 250 Mg Capsule) 250 mg PO BIDWM [facility] Last Admin: 01/03/24 08:27 Dose: 250 mg Sodium Chloride (Sodium Chloride Flush 0.9% 10 Ml Syringe) 10 ml IVP PRN PRN PRN Reason: NEEDED PER PROVIDER ORDERS Last Admin: 01/03/24 01:21 Dose: 20 ml Sodium Chloride (Sodium Chloride Flush 0.9% 10 Ml Syringe) 10 ml IVP 0100,0900,1700 [facility] Last Admin: 01/03/24 08:28 Dose: 10 ml DULoxetine [Cymbalta] 60 mg PO HS 04/02/23 Nitroglycerin [Nitrostat] 0.4 mg SL [id number] 04/02/23 Pravastatin Sodium 20 mg PO HS 04/02/23 tiZANidine [Zanaflex] 4 mg PO Q8H 04/02/23 Metoprolol Tartrate [Lopressor] 100 mg PO BID 06/05/23 Aspirin EC [Ecotrin] 81 mg PO DAILY 11/22/23 Bismuth Subsalicylate [Pepto-Bismol] 262 mg PO BID PRN 11/22/23 Objective - Vital Signs/Intake & Output Vital Signs: Vital Signs Pulse Resp BP Pulse Ox 01/03/24 15:00 110 H 18 157/117 H 97 01/03/24 14:29 115 H 138/82 H 01/03/24 14:00 115 H 17 175/84 H 93 01/03/24 13:50 178/89 H 01/03/24 13:00 124 H 15 206/106 H 98 01/03/24 12:00 125 H 13 202/93 H 98 Intake & Output: Intake & Output 12/31/23 01/01/24 01/02/24 01/03/24 23:59 23:59 23:59 23:59 Intake Total 4765.333 4390 1552.480 691.32 Output Total 775 1150 8095 1350 Balance 3990.333 3240 -2152.520 -658.68 - Objective General Appearance: positive: No acute distress, Alert Eyes Bilateral: positive: Normal inspection Respiratory: positive: No respiratory distress, Breath sounds nml. negative: Wheezes, Rales, Rhonchi Cardiovascular: positive: Regular rate & rhythm, No murmur, No gallop, Tachycardia, Systolic murmur (Best appreciated over the left and right upper sternal border). negative: JVD present Abdomen: positive: Nml bowel sounds, No distention, Tenderness (Pain with palpation and respiration, positive foreman sign), Guarding, Other (Obses). negative: Rebound Back: positive: CVA tenderness (R), Other (Surgical scar midline area of T10). negative: CVA tenderness (L) Extremities: positive: Nml appearance, No pedal edema. negative: Calf tenderness Neurologic/Psychiatric: positive: Oriented x3, CN's nml (2-12), Motor nml, Sensation nml, Mood/affect nml - Lab Results Fish Bones: 01/03/24 04:15 01/03/24 10:40 Other Labs: Lab Results x24hrs 01/03/24 01/03/24 01/03/24 Range/Units 10:40 10:40 05:38 WBC (4.8-10.8) x10^3/uL RBC (4.20-5.40) 10^6/uL Hgb (12.0-16.0) g/dL Hct (37.0-47.0) % MCV (81.0-99.0) fL MCH (27.0-31.0) pg MCHC (32.0-36.0) g/dL RDW (12.0-15.0) % Plt Count (130-450) 10^3/uL MPV (7.9-10.8) fL Neut # (Auto) (1.5-6.6) 10^3/uL Lymph # (Auto) (1.5-3.5) 10^3/uL Creek # (Auto) (0.0-1.0) 10^3/uL Eos # (Auto) (0.0-0.7) 10^3/uL Baso # (Auto) (0.0-0.1) 10^3/uL Absolute Nucleated RBC x10^3/uL Nucleated RBC % /100WBC Platelet Estimate (NORMAL) RBC Morph Micro Appear (NORMAL) APTT 68.2 H (24.9-33.3) secs VBG pH 7.417 H (7.31-7.41) Ionized Calcium 1.16 (1.15-1.33) mmol/L Sodium (135-145) mmol/L Potassium 3.6 (3.5-4.5) mmol/L Chloride (101-111) mmol/L Carbon Dioxide (21-32) mmol/L Anion Gap (6-13) BUN (6-20) mg/dL Creatinine (0.6-1.3) mg/dL Estimated GFR (MDRD) (>89) Glucose (74-104) mg/dL Lactic Acid (0.5-2.2) mmol/L Calcium (8.5-10.3) mg/dL Phosphorus (2.5-5.0) mg/dL Magnesium (1.7-2.3) mg/dL Troponin I High Sens (2.3-14.8) ng/L C-Reactive Protein (<0.5) mg/dL Urine Color Urine Clarity (CLEAR) Urine pH (5.0-7.5) PH Ur Specific [place] (1.002-1.030) Urine Protein (NEGATIVE) mg/dL Urine Glucose (UA) (NEGATIVE) mg/dL Urine Ketones (NEGATIVE) mg/dL Urine Occult Blood (NEGATIVE) Urine Nitrite (NEGATIVE) Urine Bilirubin (NEGATIVE) Urine Urobilinogen (NORMAL) E.U./dL Ur Leukocyte Esterase (NEGATIVE) Urine RBC (0-5) /HPF Urine WBC (0-5) /HPF Ur Squamous Epith Cells (<= Few) Urine Bacteria (None Seen) /HPF Ur Microscopic Review Urine Culture Comments Nasal Screen MRSA (PCR) (NEGATIVE) 01/03/24 01/03/24 01/03/24 Range/Units 04:15 04:15 04:15 WBC 16.6 H (4.8-10.8) x10^3/uL RBC 4.11 L (4.20-5.40) 10^6/uL Hgb 11.9 L (12.0-16.0) g/dL Hct 36.4 L (37.0-47.0) % MCV 88.6 (81.0-99.0) fL MCH 29.0 (27.0-31.0) pg MCHC 32.7 (32.0-36.0) g/dL RDW 12.8 (12.0-15.0) % Plt Count 383 (130-450) 10^3/uL MPV 9.9 (7.9-10.8) fL Neut # (Auto) 9.4 H (1.5-6.6) 10^3/uL Lymph # (Auto) 5.6 H (1.5-3.5) 10^3/uL Creek # (Auto) 1.4 H (0.0-1.0) 10^3/uL Eos # (Auto) 0.2 (0.0-0.7) 10^3/uL Baso # (Auto) 0.0 (0.0-0.1) 10^3/uL Absolute Nucleated RBC 0.00 x10^3/uL Nucleated RBC % 0.0 /100WBC Platelet Estimate NORMAL (130-450,000) (NORMAL) RBC Morph Micro Appear NORMAL APPEARANCE (NORMAL) APTT 70.0 H (24.9-33.3) secs VBG pH (7.31-7.41) Ionized Calcium (1.15-1.33) mmol/L Sodium (135-145) mmol/L Potassium (3.5-4.5) mmol/L Chloride (101-111) mmol/L Carbon Dioxide (21-32) mmol/L Anion Gap (6-13) BUN (6-20) mg/dL Creatinine (0.6-1.3) mg/dL Estimated GFR (MDRD) (>89) Glucose (74-104) mg/dL Lactic Acid (0.5-2.2) mmol/L Calcium (8.5-10.3) mg/dL Phosphorus 3.4 (2.5-5.0) mg/dL Magnesium 1.9 (1.7-2.3) mg/dL Troponin I High Sens (2.3-14.8) ng/L C-Reactive Protein (<0.5) mg/dL Urine Color Urine Clarity (CLEAR) Urine pH (5.0-7.5) PH Ur Specific [place] (1.002-1.030) Urine Protein (NEGATIVE) mg/dL Urine Glucose (UA) (NEGATIVE) mg/dL Urine Ketones (NEGATIVE) mg/dL Urine Occult Blood (NEGATIVE) Urine Nitrite (NEGATIVE) Urine Bilirubin (NEGATIVE) Urine Urobilinogen (NORMAL) E.U./dL Ur Leukocyte Esterase (NEGATIVE) Urine RBC (0-5) /HPF Urine WBC (0-5) /HPF Ur Squamous Epith Cells (<= Few) Urine Bacteria (None Seen) /HPF Ur Microscopic Review Urine Culture Comments Nasal Screen MRSA (PCR) (NEGATIVE) 01/03/24 01/02/24 01/02/24 Range/Units 04:15 23:10 22:40 WBC (4.8-10.8) x10^3/uL RBC (4.20-5.40) 10^6/uL Hgb (12.0-16.0) g/dL Hct (37.0-47.0) % MCV (81.0-99.0) fL MCH (27.0-31.0) pg MCHC (32.0-36.0) g/dL RDW (12.0-15.0) % Plt Count (130-450) 10^3/uL MPV (7.9-10.8) fL Neut # (Auto) (1.5-6.6) 10^3/uL Lymph # (Auto) (1.5-3.5) 10^3/uL Creek # (Auto) (0.0-1.0) 10^3/uL Eos # (Auto) (0.0-0.7) 10^3/uL Baso # (Auto) (0.0-0.1) 10^3/uL Absolute Nucleated RBC x10^3/uL Nucleated RBC % /100WBC Platelet Estimate (NORMAL) RBC Morph Micro Appear (NORMAL) APTT (24.9-33.3) secs VBG pH (7.31-7.41) Ionized Calcium (1.15-1.33) mmol/L Sodium 135 (135-145) mmol/L Potassium 3.5 (3.5-4.5) mmol/L Chloride 95 L (101-111) mmol/L Carbon Dioxide 31 (21-32) mmol/L Anion Gap 9.0 (6-13) BUN 18 (6-20) mg/dL Creatinine 0.8 (0.6-1.3) mg/dL Estimated GFR (MDRD) 71 L (>89) Glucose 109 H (74-104) mg/dL Lactic Acid (0.5-2.2) mmol/L Calcium 9.6 (8.5-10.3) mg/dL Phosphorus (2.5-5.0) mg/dL Magnesium (1.7-2.3) mg/dL Troponin I High Sens 298.0 H* (2.3-14.8) ng/L C-Reactive Protein 0.6 (<0.5) mg/dL Urine Color YELLOW Urine Clarity CLEAR (CLEAR) Urine pH 6.5 (5.0-7.5) PH Ur Specific [place] 1.020 (1.002-1.030) Urine Protein 100 H (NEGATIVE) mg/dL Urine Glucose (UA) 500 H (NEGATIVE) mg/dL Urine Ketones NEGATIVE (NEGATIVE) mg/dL Urine Occult Blood NEGATIVE (NEGATIVE) Urine Nitrite NEGATIVE (NEGATIVE) Urine Bilirubin NEGATIVE (NEGATIVE) Urine Urobilinogen 0.2 (NORMAL) (NORMAL) E.U./dL Ur Leukocyte Esterase NEGATIVE (NEGATIVE) Urine RBC None Seen (0-5) /HPF Urine WBC 0-3 (0-5) /HPF Ur Squamous Epith Cells FEW Squamous (<= Few) Urine Bacteria Rare (None Seen) /HPF Ur Microscopic Review INDICATED Urine Culture Comments NOT INDICATED Nasal Screen MRSA (PCR) (NEGATIVE) 01/02/24 01/02/24 01/02/24 Range/Units 21:15 20:45 17:54 WBC (4.8-10.8) x10^3/uL RBC (4.20-5.40) 10^6/uL Hgb (12.0-16.0) g/dL Hct (37.0-47.0) % MCV (81.0-99.0) fL MCH (27.0-31.0) pg MCHC (32.0-36.0) g/dL RDW (12.0-15.0) % Plt Count (130-450) 10^3/uL MPV (7.9-10.8) fL Neut # (Auto) (1.5-6.6) 10^3/uL Lymph # (Auto) (1.5-3.5) 10^3/uL Creek # (Auto) (0.0-1.0) 10^3/uL Eos # (Auto) (0.0-0.7) 10^3/uL Baso # (Auto) (0.0-0.1) 10^3/uL Absolute Nucleated RBC x10^3/uL Nucleated RBC % /100WBC Platelet Estimate (NORMAL) RBC Morph Micro Appear (NORMAL) APTT 48.7 H (24.9-33.3) secs VBG pH 7.406 (7.31-7.41) Ionized Calcium 1.24 (1.15-1.33) mmol/L Sodium (135-145) mmol/L Potassium (3.5-4.5) mmol/L Chloride (101-111) mmol/L Carbon Dioxide (21-32) mmol/L Anion Gap (6-13) BUN (6-20) mg/dL Creatinine (0.6-1.3) mg/dL Estimated GFR (MDRD) (>89) Glucose (74-104) mg/dL Lactic Acid 2.7 H (0.5-2.2) mmol/L Calcium (8.5-10.3) mg/dL Phosphorus (2.5-5.0) mg/dL Magnesium (1.7-2.3) mg/dL Troponin I High Sens (2.3-14.8) ng/L C-Reactive Protein (<0.5) mg/dL Urine Color Urine Clarity (CLEAR) Urine pH (5.0-7.5) PH Ur Specific [place] (1.002-1.030) Urine Protein (NEGATIVE) mg/dL Urine Glucose (UA) (NEGATIVE) mg/dL Urine Ketones (NEGATIVE) mg/dL Urine Occult Blood (NEGATIVE) Urine Nitrite (NEGATIVE) Urine Bilirubin (NEGATIVE) Urine Urobilinogen (NORMAL) E.U./dL Ur Leukocyte Esterase (NEGATIVE) Urine RBC (0-5) /HPF Urine WBC (0-5) /HPF Ur Squamous Epith Cells (<= Few) Urine Bacteria (None Seen) /HPF Ur Microscopic Review Urine Culture Comments Nasal Screen MRSA (PCR) (NEGATIVE) 01/02/24 01/02/24 01/02/24 Range/Units 17:54 17:54 13:50 WBC (4.8-10.8) x10^3/uL RBC (4.20-5.40) 10^6/uL Hgb (12.0-16.0) g/dL Hct (37.0-47.0) % MCV (81.0-99.0) fL MCH (27.0-31.0) pg MCHC (32.0-36.0) g/dL RDW (12.0-15.0) % Plt Count (130-450) 10^3/uL MPV (7.9-10.8) fL Neut # (Auto) (1.5-6.6) 10^3/uL Lymph # (Auto) (1.5-3.5) 10^3/uL [place] # (Auto) (0.0-1.0) 10^3/uL Eos # (Auto) (0.0-0.7) 10^3/uL Baso # (Auto) (0.0-0.1) 10^3/uL Absolute Nucleated RBC x10^3/uL Nucleated RBC % /100WBC Platelet Estimate (NORMAL) RBC Morph Micro Appear (NORMAL) APTT (24.9-33.3) secs VBG pH (7.31-7.41) Ionized Calcium (1.15-1.33) mmol/L Sodium (135-145) mmol/L Potassium 3.7 (3.5-4.5) mmol/L Chloride (101-111) mmol/L Carbon Dioxide (21-32) mmol/L Anion Gap (6-13) BUN (6-20) mg/dL Creatinine (0.6-1.3) mg/dL Estimated GFR (MDRD) (>89) Glucose (74-104) mg/dL Lactic Acid (0.5-2.2) mmol/L Calcium (8.5-10.3) mg/dL Phosphorus (2.5-5.0) mg/dL Magnesium 2.3 (1.7-2.3) mg/dL Troponin I High Sens 315.4 H* (2.3-14.8) ng/L C-Reactive Protein (<0.5) mg/dL Urine Color Urine Clarity (CLEAR) Urine pH (5.0-7.5) PH Ur Specific [place] (1.002-1.030) Urine Protein (NEGATIVE) mg/dL Urine Glucose (UA) (NEGATIVE) mg/dL Urine Ketones (NEGATIVE) mg/dL Urine Occult Blood (NEGATIVE) Urine Nitrite (NEGATIVE) Urine Bilirubin (NEGATIVE) Urine Urobilinogen (NORMAL) E.U./dL Ur Leukocyte Esterase (NEGATIVE) Urine RBC (0-5) /HPF Urine WBC (0-5) /HPF Ur Squamous Epith Cells (<= Few) Urine Bacteria (None Seen) /HPF Ur Microscopic Review Urine Culture Comments Nasal Screen MRSA (PCR) NEGATIVE (NEGATIVE) - Diagnostic Imaging Diagnostic Imaging Results: positive: Other (CTA abdomen done, awaiting results) Sepsis Event Note (H) - Evaluation Current Stage of Sepsis: Sepsis Possible source of Sepsis: positive: Unknown - Sepsis Criteria Sepsis Criteria: Recorded Heart Rate greater than 90 bpm, WBC count greater than 12,000 or less than 4000, Metabolic: lactate > 2 mmol/L Assessment/Plan - Problem List (1) SIRS (systemic inflammatory response syndrome) Impression: She presented SIRS positive for elevated WBC, tachycardia, and elevated lactate, no source of infection has been identified. CT abdomen showed previously noted colitis has resovled, ECHO negative for cardiac vegetation, chest x-ray negative for consolidation or effusion, UA negative for UTI. She was started on cefipime in the ED and has been fluid resuscitated over the past 3 days. She has remained afebrile and her WBCs and lactate initially decreased. Today, her WBCs are elevated slightly elevated at 16.6 again and her lactate is back up to 2.7. (2) NSTEMI (non-ST elevated myocardial infarction) Impression: Elevated troponin at 357 with tachycardia and r wave progression yesterday. She was started on heparin and troponins are trending down with the last measured value at 298. She does not have any acute chest pain or SOB. A mild systolic murmur appreciated during the exam over the right and left upper sternal borders, lungs clear, no evidence of fluid overload or HF. I will continue the heparin drip today and consider discontinuation tomorrow. (3) Opioid overdose Impression: Unintentional opioid overdose occured in attempts to control severe pain with dilaudid 1 mg q @ hrs IV. Dose decreased to 0.5 mg q 4 hrs. She has chronic pain with a spinal cord stimulator and does not take opiods routinely at home. Her pain remained poorly controlled and her dilaudid was increased to 1 mg q 4 hrs with moderate pain control. I will continue to manage her pain and encourage use of tylenol in addition to dilaudid to improve pain control. (4) Acute abdominal pain Impression: She reports abdominal pain that is constantly present with acute increases that occur without identifiable cause. Her exam is notable for tenderness and guarding RUQ, Epigatric, and LUQ with positive Foreman sign. She has normal bowl sounds without rebound tenderness or distention. She reports she had an episode of pain RLQ that radiated to her groin, could be a kidney stone passing. She also had right CVA tenderness not previously appreciated. She has had a cholecystectomy and appendectomy. CTA ordered as renal function has improved and GFR now 71, up from 27 on admission, awaiting results. LFTs and lipase/amylase pending. (5) Hypertension Impression: She has a hx of HTN managed at home on metoprolol 100 mg BID. She had a hypertensive urgency yesterday with systolic BP at 206, controlled with PRN labetolol, hydralazine, and metorpolol pushes. She was breifly on nicardipine and clinidine 0.1 mg BID has been added. Her HTN is associated with acute pain episodes, so effective pain management with dilaudid is part of the plan for her HTN. I will continue to treat her pain, address hypertensive urgencies as needed if they occur, and will work to identify and mitigate the source of her pain. (6) MILAGRO (acute kidney injury) Impression: She reports decreased PO intake and chronic diarhea x 6 mo. She reports decreased urinary output over the past few days. In the ED, she had a GHR of 27 with a BUN of 23 and creatinine of 1, dx with MILAGRO and dehydration. She was fluid resuscitated over the past 2 days with an improvement in her GFR to 77 and an increase in urine output. Yesterday, she had a total output of 8,095 placing her at risk for electrolyte imbalances. I will continue to monitor her labs for k idney function and electrolyte disturbances. (7) Lactic acidosis Impression: Lactate initially elevated at 2.1, decreased after fluid resuscitation and initiation fo antibiotics. It has increased again to 2.7, most likely due to sepsis as the WBCs have also increased slightly to 16.6. I will continue to work on source identification with CTA abdomen and labs. (8) Dehydration Impression: Dehydrated with MILAGRO on presentation. She has been adequately fluid resuscitated and MILAGRO is resolving. (9) Hypochloremia Impression: Labs today show mild hypochloremia at 95 that was not initially present. This is slikely due to her underlying sepsis and resolving MILAGRO. No treatment is needed at this time. I will continue to monitor her labs. (10) Chronic pain Impression: She has chronic pain with a previous laminectomy and two spinal fusions. She also has a spinal cord stimulator which reports does not adequately control her pain. She takes gabapentin at bedtime at home but does not have regularly prescribed opioids. Her pain is currently being managed with dilaudid 1 mg IV q 4 hrs, being careful not to overdose her again. She is also prescribed Tylenol PRN for pain.
[2024-01-03 16:10] LABS: ALBUMIN 3.7 g/dL (3.2-5.5)
[2024-01-03 16:15] LABS: ALKALINE PHOSPHATASE 60 IU/L (42-121); ALT ALANINE AMINOTRANSFERASE 12 IU/L (10-60); AST ASPARTATE AMINOTRANSFERASE 23 IU/L (10-42); BILIRUBIN,DIRECT < 0.10 mg/dL (0.03-0.18); BILIRUBIN,TOTAL 0.5 mg/dL (0.2-1.0)
[2024-01-03 16:23] LABS: AMYLASE 30 U/L (28-100)
[2024-01-03 16:28] LABS: LIPASE 57 U/L (11-82)
[2024-01-03] MEDS: HYDROmorphone 1 MG/ML CARPUJECT IVP PRN (17:37)
--- NOTE | 2024-01-03 17:46 | CT Report ---
PROCEDURE: Angio Abdomen/Pelvis INDICATIONS: abd pain out of proportion to exam CONTRAST: Omni 300 100ml TECHNIQUE: After the administration of intravenous contrast, 2.5 mm thick sections acquired from the diaphragm t o the symphysis. 10 mm maximum-intensity projection (MIP) reformats were then acquired. For radiati on dose reduction, the following was used: automated exposure control, adjustment of mA and/or kV ac cording to patient size. COMPARISON: CT abdomen and pelvis on December 13, 2023 FINDINGS: Image quality: Excellent. Evaluation of the visceral organs is limited on arterial phase imaging. Aorta: Abdominal aorta demonstrates no aneurysm. Juxtarenal abdominal aorta demonstrates dense eccen tric atherosclerotic calcification with approximately 40% focal narrowing (28/34). Moderate to marked atherosclerosis of the infrarenal abdominal aorta. Mesenteric arteries: Celiac trunk, superior and inferior mesenteric arteries appear patent with no h igh-grade stenosis. Focal atherosclerotic calcification in the distal SMA (28/39). Scattered atherosc lerotic plaque. Right pelvic arteries: Marked atherosclerotic calcification with moderate to severe stenosis of the right common iliac artery. Right external iliac artery demonstrates no significant stenosis. Mild to moderate stenosis of the common femoral artery. Visualized proximal SFA and profunda vessels are martinez nt with mild multifocal stenoses. Left pelvic arteries: Marked atherosclerotic calcification with moderate to severe stenosis of the l eft common iliac artery. Right external iliac artery demonstrates no significant stenosis. Mild to mo derate stenosis of the common femoral artery. Visualized proximal SFA and profunda vessels are patent with mild multifocal stenoses. Lung bases and heart: Partially visualized central venous catheter terminates in the upper right atri um. Coronary vessel calcification/stents. Dependent atelectasis. Small hiatal hernia. Liver: No solid mass. Gallbladder and biliary tree: Cholecystectomy. No intrahepatic biliary ductal dilatation. CBD is dila joe with smooth distal tapering compatible with postcholecystectomy reservoir effect. Spleen: No splenomegaly. Pancreas: No pancreatic ductal dilation. Adrenals: No adrenal nodule. Kidneys and ureters: No hydronephrosis. No renal cystic lesion which requires follow up. No solid mas s. Bowel and peritoneum: Mucosal hyperenhancement of the stomach. Small and large bowel is normal in ivy iber, without obstruction. Liquid stool within the cecum and throughout the colon. No mucosal hyperen hancement or wall thickening within the colon. Appendix is not well seen; however, no acute inflammat ory signs to suggest acute appendicitis. Lymph nodes: No central or retroperitoneal adenopathy. Vessels: No infrarenal aortic aneurysm. Abdominal wall: Right posterior chest wall spinal stimulator. PELVIS Reproductive organs: Unremarkable. Bladder: No abnormal wall thickening, accounting for underdistension. Lymph nodes: Unremarkable. Bones: No aggressive osseous abnormality. Posterior fusion hardware at L5-S1 is intact. Mild multilev el degenerative changes of the spine. IMPRESSION: 1.Abdominal aorta and mesenteric vessels are patent. Juxtarenal abdominal aorta demonstrates dense ec centric atherosclerotic calcification with approximately 40% focal narrowing. Moderate to severe athe rosclerosis with narrowing of the bilateral common iliac vessels. 2.Mucosal hyperenhancement of the stomach suggestive of gastritis of infectious or inflammatory etiol ogy. Consider GI consultation. 3.Nonobstructive bowel. Normal bowel enhancement. Liquid stool throughout the colon with no wall thic kening or inflammation which may reflect early colitis. Reviewed by: Zelda Willis MD on 01/03/2024 5:44 PM PDT Approved by: Zelda Willis MD on 01/03/2024 5:44 PM PDT Station ID: [id number]
[2024-01-03] MEDS: POTASSIUM CHLOR 20 MEQ/100 ML 20 MEQ/100 ML BAG IV ONE (18:55)
[2024-01-04 03:29] LABS: PATHOLOGIST SLIDE COMMENTS SEE SEPARATE REPORT
[2024-01-04 04:37] LABS: CALCIUM, IONIZED 1.17 mmol/L (1.15-1.33); VBG PH 7.365 (7.31-7.41)
[2024-01-04 04:38] LABS: BASOPHILS # (AUTO) 0.1 10^3/uL (0.0-0.1); BASOPHILS % (AUTO) 0.4 %; EOSINOPHILS # (AUTO) 0.6 10^3/uL (0.0-0.7); EOSINOPHILS % (AUTO) 3.5 %; HCT - HEMATOCRIT 34.8 % (37.0-47.0); HGB - HEMOGLOBIN 11.3 g/dL (12.0-16.0); LYMPHOCYTES # (AUTO) 6.7 10^3/uL (1.5-3.5); LYMPHOCYTES % (AUTO) 39.2 %; MEAN CORPUSCULAR HEMOGLOBIN 29.1 pg (27.0-31.0); MEAN CORPUSCULAR HGB CONC 32.5 g/dL (32.0-36.0); MEAN CORPUSCULAR VOLUME 89.7 fL (81.0-99.0); MONOCYTES # (AUTO) 1.6 10^3/uL (0.0-1.0); MONOCYTES % (AUTO) 9.3 %; NEUTROPHILS % (AUTO) 46.8 %; PLT - PLATELET COUNT 390 10^3/uL (130-450); RED BLOOD COUNT 3.88 10^6/uL (4.20-5.40); RED CELL DISTRIBUTION WIDTH 13.2 % (12.0-15.0)
[2024-01-04 04:53] LABS: MAGNESIUM 1.9 mg/dL (1.7-2.3); PHOSPHORUS 3.7 mg/dL (2.5-5.0)
[2024-01-04 04:54] LABS: CALCIUM 9.5 mg/dL (8.5-10.3); CREATININE 1.1 mg/dL (0.6-1.3); CRP - C-REACTIVE PROTEIN 0.5 mg/dL (<0.5); POTASSIUM 3.9 mmol/L (3.5-4.5)
[2024-01-04 05:09] LABS: PLATELET ESTIMATE, MANUAL NORMAL (130-450,000) (NORMAL); PLATELET MORPHOLOGY NORMAL APPEARANCE (NORMAL); RBC MORPHOLOGY (MULTIPLE) NORMAL APPEARANCE (NORMAL)
[2024-01-04 05:10] LABS: DIFFERENTIAL COMMENT MANUAL=AUTO DIFF
[2024-01-04] MEDS: POTASSIUM CHLOR 20 MEQ/100 ML 20 MEQ/100 ML BAG IV ONE (06:04)
--- NOTE | 2024-01-04 14:27 | PROVIDER PROGRESS NOTE ---
Subjective - Prog Note Date Prog Note Date: 01/04/24 Prog Note Time: 14:24 - Subjective Pt reports feeling: Improved Subjective: Ms. Grajeda was admitted on 12/29 after she presented with abdominal pain and diarrhea and SIRS positive for elevated WBCs, elevated HR in the 120's. She was recently admitted and treated for colitis 12/13-12/15 with bloody diarrhea and colitis on CT. She reported the diarrhea got worse after she finished her antibiotics with subjective fevers and chills. She reported decreased PO intake and scant urine output. She was found to have an MILAGRO int he Ed with a GFR of 25. Non-contrast CT abdomen done due to GFR and was unremarkable, previously noted colitis had resolved. UA was negative for UTI, blood cultures and stool cultures done and have since resulted as negative. ECHO found no evidence of vegetation making endocarditis unlikely. Chest x-ray negative for consolidation or effusion. She was admitted for sepsis and abdominal pain without an identified source. She has a hx of chronic pain with a lumbar laminectomy, 2 fusions, and a spinal cord stimulator. She is on tizanidine at home but does not have regularly prescribed opiods. During admission she had refractory pain and was given dilaudid 1 mg q 2 hrs resulting in an overdose. The dilaudid dose was subsequently decreased. Yesterday she had an episode of acute abdominal pain managed with toradol and dilaudid 0.5 mg q 4 hrs. The abdominal pain was accompanied by hypertension which was managed with PRN labetolol, hydralzine, and metoprolol. She was on nicardipine yesterday which has since been stopped. She is also on clonidine 0.1 mg BID and continued on her home dose of metoprolol 100 mg PO BID. Differentials included ischemic bowel, nephrolithiasis, or dilation of the common bile duct or bowel. CT in the ED was negative for AAA. She was noted to have tachycardia with R wave progression and found to have elevated troponin at 357. Concern for NSTEMI, started on heparin drip and serial troponins showed a decreasing trend with the most recent troponin 298 last night. She currently denies chest pain, SOB, or palpitations. She is mildly tachycardic, with increases in pain associated with HTN and tachycardia. She has a mild systolic murmur. She c/o epigastric pain described as pressure, 7/10, with radiation to her back, no SOB. This could be referred cardiac pain and I will trial Imdur to see if the pain improves. Upon assessment, she reports a constant headache with epigastric pain as mentioned above radiating to her back. Her pain is better controlled now with Tylenol and dilaudid 1 mg q 4 hrs. She reported episode of pain RLQ this yesterday morning, resolved without recurrence. She reports decreased appetite and PO intake, feels constantly nauseated. She also states has had chronic diarrhea for about 6 months and feels constantly fatigued. She states just getting to the bathroom leaves her exhausted. LFTs and pancreatic enzymes came back normal. Abdominal CTA negative for obstructive process, stones, mesenteric ischemia, or colitis with gastric inflammation consistent with gastritis. WBCs inreased from 16.6 yesterday to 17. Current Medications - Current Medications Current Medications: Active Medications Generic Name Dose Route Start Last Admin Trade Name Freq PRN Reason Stop Dose Admin Acetaminophen 650 mg 12/30/23 22:30 01/04/24 14:08 Acetaminophen 325 Mg Tablet PO 650 mg Q4HR PRN Administration Pain 1 to 4, or Fever Aspirin 81 mg 01/01/24 09:00 01/04/24 08:09 Aspirin Ec 81 Mg Tablet PO 81 mg DAILY ABRAHAM Administration Bacitracin 1 packet 12/31/23 11:37 12/31/23 12:04 Bacitracin Zinc Oint 1 Packet TOP 1 packet PRN PRN Administration Skin Care Clonidine HCl 0.1 mg 01/03/24 13:00 01/04/24 08:09 Clonidine 0.1 Mg Tablet PO 0.1 mg BID ABRAHAM Administration Duloxetine HCl 60 mg 12/30/23 23:00 01/03/24 21:02 Duloxetine 30 Mg Capsule PO 60 mg HS ABRAHAM Administration Heparin Sodium (Porcine) 1,000 - 2,000 unit 01/02/24 13:37 01/02/24 21:54 Heparin 1,000 Unit/Ml Vial IVP 1,000 unit Q6H PRN Administration aPTT <50 Protocol Hydralazine HCl 10 mg 01/02/24 04:27 01/03/24 09:24 Hydralazine Inj 20 Mg/Ml Vial IVP 10 mg Q8H PRN Administration SBP> or= 160 OR DBP> or= 110 Hydromorphone HCl 1 mg 01/03/24 17:00 01/04/24 14:08 Hydromorphone 1 Mg/Ml Carpuject IVP 1 mg Q4HR PRN Administration Severe Pain (Level 7-10) Cefepime HCl 1 gm/ Sodium 100 mls @ 200 mls/hr 12/31/23 21:00 01/04/24 09:09 Chloride IV Infused BID ABRAHAM Infusion Heparin Sodium/Dextrose 25,000 unit in 500 mls @ 16.56 mls/hr 01/02/24 14:00 01/03/24 20:53 Heparin Sodium/Dextrose IV 14 unit/kg/hr .[id number] ABRAHAM 19.32 mls/hr Titration Protocol 12 UNIT/KG/HR Nicardipine HCl 25 mg/ Sodium 250 mls @ 50 mls/hr 01/02/24 15:00 01/04/24 04:59 Chloride IV Not Given .Q5H ABRAHAM Protocol 5 MG/HR Ketorolac Tromethamine 15 mg 01/02/24 04:26 01/02/24 04:41 Ketorolac 15 Mg/Ml Vial IVP 01/07/24 04:25 15 mg ONCE PRN Administration PAIN >8 Metoprolol Tartrate 100 mg 12/31/23 21:00 01/04/24 08:09 Metoprolol Tartrate 50 Mg Tablet PO 100 mg BID ABRAHAM Administration Metoprolol Tartrate 5 mg 12/31/23 22:04 01/03/24 10:29 Metoprolol 5 Mg/5 Ml Vial IVP 5 mg Q6H PRN Administration tachycardia >120 for >5 minute Ondansetron HCl 4 mg 12/30/23 22:30 01/03/24 07:05 Ondansetron 4 Mg/2 Ml Vial IVP 4 mg Q6HR PRN Administration Nausea / Vomiting Pantoprazole Sodium 40 mg 12/31/23 07:00 01/04/24 06:01 Pantoprazole 40 Mg Tablet PO 40 mg QDAC ABRAHAM Administration (Bismuth 1 each 12/31/23 18:23 Subsalicylate [Pepto PO -Bismol] 262 Mg Tab. BID PRN Chew) Heartburn Sodium Chloride 10 ml 12/30/23 22:30 01/03/24 01:21 Sodium Chloride Flush 0.9% 10 Ml Syringe IVP 20 ml PRN PRN Administration NEEDED PER PROVIDER ORDERS Sodium Chloride 10 ml 12/31/23 01:00 01/04/24 08:10 Sodium Chloride Flush 0.9% 10 Ml Syringe IVP 10 ml 0100,0900,1700 ABRAHAM Administration DULoxetine [Cymbalta] 60 mg PO HS 04/02/23 Nitroglycerin [Nitrostat] 0.4 mg SL [id number] 04/02/23 Pravastatin Sodium 20 mg PO HS 04/02/23 tiZANidine [Zanaflex] 4 mg PO Q8H 04/02/23 Metoprolol Tartrate [Lopressor] 100 mg PO BID 06/05/23 Aspirin EC [Ecotrin] 81 mg PO DAILY 11/22/23 Bismuth Subsalicylate [Pepto-Bismol] 262 mg PO BID PRN 11/22/23 Objective - Vital Signs/Intake & Output Reviewed Vital Signs: Yes Vital Signs: Vital Signs Temp Pulse Resp BP Pulse Ox 01/04/24 13:00 101 H 20 154/76 H 01/04/24 12:00 36.1 C L 89 16 126/78 96 01/04/24 11:00 89 18 117/66 Intake & Output: Intake & Output 01/01/24 01/02/24 01/03/24 01/04/24 23:59 23:59 23:59 23:59 Intake Total 4390 2207.380 2423.716 1240 Output Total 1150 8095 1550 400 Balance 3240 -6542.520 -196.284 840 - Objective General Appearance: positive: No acute distress, Alert Eyes Bilateral: positive: Normal inspection, PERRL Neck: positive: No JVD Cardiovascular: positive: Regular rate & rhythm, No gallop, Systolic murmur (As previously noted, loudest at L and R upper sternal border). negative: Tachycardia Peripheral Pulses: 2+ Radial (R), 2+ Radial (L), 2+ Dorsalis pedis (R), 2+ Dorsalis pedis (L) Abdomen: positive: Nml bowel sounds, No distention, Tenderness (Epigastric, with radiation to her back). negative: Guarding, Rebound, Hepatomegaly, Splenomegaly Back: positive: Nml inspection, CVA tenderness (R) Skin: positive: Color nml, No rash, Warm, Dry Extremities: positive: Nml appearance, No pedal edema Neurologic/Psychiatric: positive: Oriented x3, CN's nml (2-12), Motor nml, Sensation nml, Mood/affect nml - Lab Results Fish Bones: 01/04/24 04:10 01/04/24 04:10 Other Labs: Lab Results x24hrs 01/04/24 01/04/24 01/04/24 Range/Units 10:54 04:10 04:10 WBC (4.8-10.8) x10^3/uL RBC (4.20-5.40) 10^6/uL Hgb (12.0-16.0) g/dL Hct (37.0-47.0) % MCV (81.0-99.0) fL MCH (27.0-31.0) pg MCHC (32.0-36.0) g/dL RDW (12.0-15.0) % Plt Count (130-450) 10^3/uL MPV (7.9-10.8) fL Neut # (Auto) (1.5-6.6) 10^3/uL Lymph # (Auto) (1.5-3.5) 10^3/uL Schoolcraft # (Auto) (0.0-1.0) 10^3/uL Eos # (Auto) (0.0-0.7) 10^3/uL Baso # (Auto) (0.0-0.1) 10^3/uL Absolute Nucleated RBC x10^3/uL Band Neuts % (Manual) Abnorm Lymph % (Manual) Nucleated RBC % /100WBC Neutrophils # (Manual) Lymphocytes # (Manual) Monocytes # (Manual) Eosinophils # (Manual) Basophils # (Manual) Differential Comment Platelet Estimate (NORMAL) Platelet Morphology (NORMAL) RBC Morph Micro Appear (NORMAL) Smear Path Review APTT (24.9-33.3) secs VBG pH 7.365 (7.31-7.41) Ionized Calcium 1.17 (1.15-1.33) mmol/L Sodium (135-145) mmol/L Potassium (3.5-4.5) mmol/L Chloride (101-111) mmol/L Carbon Dioxide (21-32) mmol/L Anion Gap (6-13) BUN (6-20) mg/dL Creatinine (0.6-1.3) mg/dL Estimated GFR (MDRD) (>89) Glucose (74-104) mg/dL Lactic Acid 1.2 (0.5-2.2) mmol/L Calcium (8.5-10.3) mg/dL Phosphorus 3.7 (2.5-5.0) mg/dL Magnesium 1.9 (1.7-2.3) mg/dL Total Bilirubin (0.2-1.0) mg/dL Direct Bilirubin (0.03-0.18) mg/dL AST (10-42) IU/L ALT (10-60) IU/L Alkaline Phosphatase (42-121) IU/L C-Reactive Protein (<0.5) mg/dL Total Protein (6.4-8.9) g/dL Albumin (3.2-5.5) g/dL Globulin (2.1-4.2) g/dL Amylase (28-100) U/L Lipase (11-82) U/L 01/04/24 01/04/24 01/04/24 Range/Units 04:10 04:10 04:10 WBC 17.0 H (4.8-10.8) x10^3/uL RBC 3.88 L (4.20-5.40) 10^6/uL Hgb 11.3 L (12.0-16.0) g/dL Hct 34.8 L (37.0-47.0) % MCV 89.7 (81.0-99.0) fL MCH 29.1 (27.0-31.0) pg MCHC 32.5 (32.0-36.0) g/dL RDW 13.2 (12.0-15.0) % Plt Count 390 (130-450) 10^3/uL MPV 10.0 (7.9-10.8) fL Neut # (Auto) 8.0 H (1.5-6.6) 10^3/uL Lymph # (Auto) 6.7 H (1.5-3.5) 10^3/uL Schoolcraft # (Auto) 1.6 H (0.0-1.0) 10^3/uL Eos # (Auto) 0.6 (0.0-0.7) 10^3/uL Baso # (Auto) 0.1 (0.0-0.1) 10^3/uL Absolute Nucleated RBC 0.00 x10^3/uL Band Neuts % (Manual) Not Reportable Abnorm Lymph % (Manual) Not Reportable Nucleated RBC % 0.0 /100WBC Neutrophils # (Manual) Not Reportable Lymphocytes # (Manual) Not Reportable Monocytes # (Manual) Not Reportable Eosinophils # (Manual) Not Reportable Basophils # (Manual) Not Reportable Differential Comment MANUAL=AUTO DIFF Platelet Estimate NORMAL (130-450,000) (NORMAL) Platelet Morphology NORMAL APPEARANCE (NORMAL) RBC Morph Micro Appear NORMAL APPEARANCE (NORMAL) Smear Path Review APTT 77.5 H (24.9-33.3) secs VBG pH (7.31-7.41) Ionized Calcium (1.15-1.33) mmol/L Sodium 131 L (135-145) mmol/L Potassium 3.9 (3.5-4.5) mmol/L Chloride 94 L (101-111) mmol/L Carbon Dioxide 30 (21-32) mmol/L Anion Gap 7.0 (6-13) BUN 25 H (6-20) mg/dL Creatinine 1.1 (0.6-1.3) mg/dL Estimated GFR (MDRD) 49 L (>89) Glucose 108 H (74-104) mg/dL Lactic Acid (0.5-2.2) mmol/L Calcium 9.5 (8.5-10.3) mg/dL Phosphorus (2.5-5.0) mg/dL Magnesium (1.7-2.3) mg/dL Total Bilirubin (0.2-1.0) mg/dL Direct Bilirubin (0.03-0.18) mg/dL AST (10-42) IU/L ALT (10-60) IU/L Alkaline Phosphatase (42-121) IU/L C-Reactive Protein 0.5 (<0.5) mg/dL Total Protein (6.4-8.9) g/dL Albumin (3.2-5.5) g/dL Globulin (2.1-4.2) g/dL Amylase (28-100) U/L Lipase (11-82) U/L 01/03/24 01/03/24 01/03/24 Range/Units 19:40 04:15 04:15 WBC (4.8-10.8) x10^3/uL RBC (4.20-5.40) 10^6/uL Hgb (12.0-16.0) g/dL Hct (37.0-47.0) % MCV (81.0-99.0) fL MCH (27.0-31.0) pg MCHC (32.0-36.0) g/dL RDW (12.0-15.0) % Plt Count (130-450) 10^3/uL MPV (7.9-10.8) fL Neut # (Auto) (1.5-6.6) 10^3/uL Lymph # (Auto) (1.5-3.5) 10^3/uL [place] # (Auto) (0.0-1.0) 10^3/uL Eos # (Auto) (0.0-0.7) 10^3/uL Baso # (Auto) (0.0-0.1) 10^3/uL Absolute Nucleated RBC x10^3/uL Band Neuts % (Manual) Abnorm Lymph % (Manual) Nucleated RBC % /100WBC Neutrophils # (Manual) Lymphocytes # (Manual) Monocytes # (Manual) Eosinophils # (Manual) Basophils # (Manual) Differential Comment Platelet Estimate (NORMAL) Platelet Morphology (NORMAL) RBC Morph Micro Appear (NORMAL) Smear Path Review APTT 65.7 H (24.9-33.3) secs VBG pH (7.31-7.41) Ionized Calcium (1.15-1.33) mmol/L Sodium (135-145) mmol/L Potassium (3.5-4.5) mmol/L Chloride (101-111) mmol/L Carbon Dioxide (21-32) mmol/L Anion Gap (6-13) BUN (6-20) mg/dL Creatinine (0.6-1.3) mg/dL Estimated GFR (MDRD) (>89) Glucose (74-104) mg/dL Lactic Acid (0.5-2.2) mmol/L Calcium (8.5-10.3) mg/dL Phosphorus (2.5-5.0) mg/dL Magnesium (1.7-2.3) mg/dL Total Bilirubin 0.5 (0.2-1.0) mg/dL Direct Bilirubin < 0.10 (0.03-0.18) mg/dL AST 23 (10-42) IU/L ALT 12 (10-60) IU/L Alkaline Phosphatase 60 (42-121) IU/L C-Reactive Protein (<0.5) mg/dL Total Protein 6.0 L (6.4-8.9) g/dL Albumin 3.7 (3.2-5.5) g/dL Globulin 2.3 (2.1-4.2) g/dL Amylase 30 (28-100) U/L Lipase 57 (11-82) U/L 12/30/23 Range/Units 14:27 WBC (4.8-10.8) x10^3/uL RBC (4.20-5.40) 10^6/uL Hgb (12.0-16.0) g/dL Hct (37.0-47.0) % MCV (81.0-99.0) fL MCH (27.0-31.0) pg MCHC (32.0-36.0) g/dL RDW (12.0-15.0) % Plt Count (130-450) 10^3/uL MPV (7.9-10.8) fL Neut # (Auto) (1.5-6.6) 10^3/uL Lymph # (Auto) (1.5-3.5) 10^3/uL [place] # (Auto) (0.0-1.0) 10^3/uL Eos # (Auto) (0.0-0.7) 10^3/uL Baso # (Auto) (0.0-0.1) 10^3/uL Absolute Nucleated RBC x10^3/uL Band Neuts % (Manual) Abnorm Lymph % (Manual) Nucleated RBC % /100WBC Neutrophils # (Manual) Lymphocytes # (Manual) Monocytes # (Manual) Eosinophils # (Manual) Basophils # (Manual) Differential Comment Platelet Estimate (NORMAL) Platelet Morphology (NORMAL) RBC Morph Micro Appear (NORMAL) Smear Path Review SEE SEPARATE REPORT APTT (24.9-33.3) secs VBG pH (7.31-7.41) Ionized Calcium (1.15-1.33) mmol/L Sodium (135-145) mmol/L Potassium (3.5-4.5) mmol/L Chloride (101-111) mmol/L Carbon Dioxide (21-32) mmol/L Anion Gap (6-13) BUN (6-20) mg/dL Creatinine (0.6-1.3) mg/dL Estimated GFR (MDRD) (>89) Glucose (74-104) mg/dL Lactic Acid (0.5-2.2) mmol/L Calcium (8.5-10.3) mg/dL Phosphorus (2.5-5.0) mg/dL Magnesium (1.7-2.3) mg/dL Total Bilirubin (0.2-1.0) mg/dL Direct Bilirubin (0.03-0.18) mg/dL AST (10-42) IU/L ALT (10-60) IU/L Alkaline Phosphatase (42-121) IU/L C-Reactive Protein (<0.5) mg/dL Total Protein (6.4-8.9) g/dL Albumin (3.2-5.5) g/dL Globulin (2.1-4.2) g/dL Amylase (28-100) U/L Lipase (11-82) U/L - Diagnostic Imaging Diagnostic Imaging Results: positive: Final report reviewed Diagnostic Imaging Comments: abdominal CTA: Gastritis present, no obstructive process, abdominal aorta and me senteric vessels are patent, moderate to severe bilateral common iliac artery atherosclerosis Sepsis Event Note (H) - Evaluation Current Stage of Sepsis: Resolved (Persistent leukocytosis, lactic acidosis and tachycardia resolved) Possible source of Sepsis: positive: Unknown - Sepsis Criteria Sepsis Criteria: WBC count greater than 12,000 or less than 4000 Assessment/Plan - Problem List (1) Acute abdominal pain Impression: She reports persistent epigastric pain with diarrhea x6 months, an episode of bloody diarrhea on the day of her admission but none since. She was trated for pancolitis in early December which has since resolved with no further evidence of colitis on CT. Biopsies done during a sigmoidoscopy on 12/13 were unremarkable making celiac disease unlikely. Her pain waxes and wanes with episodes of acute pain that are difficult to control. She has CVA tenderness and epigastric tenderness with pain radiating to her back. CTA was negative for mesenteric ischemia, obstructive process, or colitis. It did find gastric inflammation consistent with gastritis. This does not fully explain her symptoms and I have ordered a surgical consult. LTFs and pancreatic enzymes are normal, ruling out bile duct obstruction and pancreatitis. Previous UA was negative, chest x-ray was negative. Her WBCs increases slightly today but lactate decreased. It is possible this is referred cardiac pain and I will recheck troponins and start her on Imdur. As her pain is persistently referred to her back ad she has persistent leukocytosis, I will have radiology review her abdominal CTA done ye sterday to evaluate for discitis or epidural abcess as a possible source of pain and infection. She has an SCD and we will need to evaluate if the device is MRI compatible if additional MRI is needed. She has not had another episode of severe pain since 2 days ago, reports Tylenol and Dilaudid 1 mg q 4 hrs are working well. (2) NSTEMI (non-ST elevated myocardial infarction) Impression: Elevated troponin at 357 with tachycardia and r wave progression two days ago. She was started on heparin and troponins were trending down with the last measured value at 298. She does not have any acute chest pain or SOB. A mild systolic murmur appreciated during the exam over the right and left upper sternal borders, lungs clear, no evidence of fluid overload or HF. She describes her epigastric pain as a "pressure", 7/10 with radiation to her back. It is possible this is referred anginal pain and she has a previous dx of angina with a NTG prescription at home, states this feels similar. I will recheck her troponin and start her on Imdur. I will also discontinue her heparin drip for her NSTEMI 2 days ago. (3) SIRS (systemic inflammatory response syndrome) Impression: She presented SIRS positive for elevated WBC, tachycardia, and elevated lactate to the ED, no source of infection has been identified. CT abdomen showed previously noted colitis has resolved, ECHO negative for cardiac vegetation, chest x-ray negative for consolidation or effusion, UA negative for UTI. She was started on cefipime in the ED and has been fluid resuscitated over the past 3 days. She has remained afebrile and her WBCs and lactate initially decreased. Yesterday, her WBCs were elevated at 16.6 again and her lactate is back up to 2.7. Today her WBCs remained elevated at 17.0 while her lactate has normalized. She has persistent epigastric pain, right CVA tenderness, and lower thoracic back pain. She has a persistent headache without focal neurologic findings or nucal rigidity to suggest meningeal inflammation making meningitis unlikely. I am having the radiologist review abdominal CTA done yesterday for evidence of discitis or epidural abscess as possible sources of infection. (4) Hypertension Impression: She has a hx of HTN managed at home on metoprolol 100 mg BID. She had a hypert ensive urgency two days ago with systolic BP at 206, controlled with PRN labetolol, hydralazine, and metoprolol pushes. She was briefly on nicardipine and clinidine 0.1 mg BID has been added. Her HTN is associated with acute pain episodes, so effective pain management with Dilaudid is part of the plan for her HTN. Today, her BP has been better controlled and she has not had any further hypertensive urgencies. Her BP highest BP today was 174/74 without any acute pain events, with HR generally below 100. I will add Imdur with consideration that epigastric pain may be referred anginal sx which will also help with HTN. I will continue to treat her pain with Tylenol and Dilaudid, address hypertensive urgencies as needed if they occur, and will work to identify and mitigate the source of her pain. (5) MILAGRO (acute kidney injury) Impression: She reports decreased PO intake and chronic diarhea x 6 mo. She reports decreased urinary output over the past few days. In the ED, she had a GHR of 27 with a BUN of 23 and creatinine of 1, dx with MILAGRO and dehydration. She was fluid resuscitated over the past 2 days with an improvement in her GFR to 77 and an increase in urine output. Yesterday, she had a total output of 8,095 placing her at risk for electrolyte imbalances. Today her GFR dropped to 47 with a slight bump in creatinine to 1.1 and BUN to 25 after a contrast abdominal CTA yesterday, concern for contrast related MILAGRO. I will give an additional liter of NS and recheck her labs tomorrow. (6) Lactic acidosis Impression: Lactate initially elevated at 2.1, decreased after fluid resuscitation and initi ation fo antibiotics. It has increased again to 2.7, most likely due to sepsis as the WBCs have also increased slightly to 16.6. Lactate decreased today to 1.2 but WBCs remain elevated. I will continue to look for a possible source of infection by having radiologist review of CTA yesterday for spinal pathology and a surgical consult. (7) Hypochloremia Impression: Labs today show mild hypochloremia at 94, down from 95 yesterday. This is likely due to her resolving MILAGRO. I have ordered a liter of NS to prevent contrast nephropathy. I will continue to monitor her labs (8) Chronic pain Impression: She has chronic pain with a previous laminectomy and two spinal fusions. She also has a spinal cord stimulator which sh reports does not adequately control her pain. She takes gabapentin at bedtime at home but does not have regularly prescribed opioids. Her pain is currently being managed with dilaudid 1 mg IV q 4 hrs and PO Tylenol PRN. She ahs not had any acute painful episodes today but has persistent abdominal and back pain.
--- NOTE | 2024-01-04 16:11 | CONSULTATION NOTE ---
Referring Provider Name of Referring Provider:: Queenie WRIGHT Consult Date: 01/04/24 Chief Complaint - Chief Complaint Chief Complaint: abdominal pain History of Present Illness - Admitted From Admitted From:: ED - History Obtained From History obtained from: Medical record, patient - History of Present Illness HPI Comment/Other: 68yoF who was admitted 4d ago with abdominal pain that was associated with nausea and bloody diarrhea at home, however the bloody stools and diarrhea have not continued since admission. She also has a history of recent admissions for presumed colitis - for similar abdominal pain that has been intermittent and diarrhea that has persisted between admissions. She was evaluated last admission with a colonoscopy on 11Jul which showed normal visual appearance of the entire colon and normal random biopsies taken from the entire colon; fecal calprotectin was within normal range - presumably ruling out an acute presentation of new IBD diagnosis. She is scheduled for an outpatient GI evaluation with EGD and Colonoscopy later this month. This admission she has had septic physiology that has improved with hospitalization, as well as an NSTEMI for which she has received a heparin gtt (which did not cause recurrence of the bloody stool). Her WBC was 24 on admission, now 17. She was admitted with a hemoconcentrated MILAGRO (hgb 16, cr 2.1) which has improved (now hgb 11, cr 1.2). She had a mild lactic acidosis of 2.1 that has improved (now 1.1). SHe has had a normal CRP throughout hospitalization. Today she is normotensive without tachycardia. She was evaluated with a CTA yesterday to look for evidence of mesenteric ischemia, the CTA was read as normal; on my evaluation of the CTA the FLIP is not visible. On further questioning of the patient today, she states that her intermittent abdominal pain has been going on for months and is always epigastric (she has had severe lower abdominal ttp for the hospitalist this admission). She recounts a PSH of a yunier that renders her unable to vomit; she has had a colonoscopy followed by "bile duct problems afterwards" for which she had an ERCP in OR in 2020, which she says was followed by pancreatitis. She says that her current abdominal pain today feels similar to the pain with gallbladder and bile duct problems. History - Past Medical History Cardiovascular: reports: Hypertension, High cholesterol, [place], Atrial fibrillation, Murmur, Other Respiratory: reports: Asthma, COPD, Sleep apnea, CPAP use Neuro: reports: Fainting Endocrine/Autoimmune: reports: None GI: reports: GERD, GI bleed, Ulcers, Hiatal hernia, Chronic diarrhea, Diverticulitis, Ulcerative colitis BUSINESS SYSTEMS LEAD: reports: None : reports: Incontinence, Nocturia HEENT: reports: None Psych: reports: Depression Musculoskeletal: reports: Osteoporosis, Chronic back pain Derm: reports: None MRSA Hx?: No - Past Surgical History General: reports: Cholecystectomy, Appendectomy, Hiatal hernia repair, Colonoscopy, EGD Ortho: reports: Knee replacement, Spine surgery /BUSINESS SYSTEMS LEAD: reports: Hysterectomy HEENT: reports: Tonsil/Adenoidectomy - Substance History Use: Uses substance without health or social issues: Opioid - POLST Patient has POLST: Yes Meds/Allgy - Home Medications Home Medications: Ambulatory Orders Medication Instructions Recorded Confirmed DULoxetine [Cymbalta] 60 mg PO HS 04/02/23 12/31/23 Nitroglycerin [Nitrostat] 0.4 mg SL [id number] 04/02/23 12/31/23 Pravastatin Sodium 20 mg PO HS 04/02/23 12/31/23 tiZANidine [Zanaflex] 4 mg PO Q8H 04/02/23 12/31/23 Metoprolol Tartrate [Lopressor] 100 mg PO BID 06/05/23 12/31/23 Aspirin EC [Ecotrin] 81 mg PO DAILY 11/22/23 12/31/23 Bismuth Subsalicylate 262 mg PO BID PRN 11/22/23 12/31/23 [Pepto-Bismol] [id number]/Iron/Iron Ps/Om3/Dha 1 each PO DAILY #30 cap 11/30/23 12/31/23 [Wescap-C Dha Softgel] Ondansetron Odt [Zofran Odt] 4 mg TL Q6HR PRN #20 tab 11/30/23 12/31/23 Pantoprazole [Protonix] 40 mg PO QDAC #30 tab 11/30/23 12/31/23 traZODone [Desyrel] 50 mg PO HS #30 tab 11/30/23 12/31/23 - Allergies Allergies/Adverse Reactions: Allergies Allergy/AdvReac Type Severity Reaction Status Date / Time oxycodone Allergy Severe Hives Verified 12/30/23 12:53 Penicillins Allergy Severe Anaphylaxis Verified 12/30/23 12:53 garlic Allergy Unknown Verified 12/30/23 12:53 atenolol AdvReac Unknown Verified 12/30/23 12:53 lisinopril AdvReac Unknown Verified 12/30/23 12:53 Review of Systems - Constitutional Constitutional: reports: Malaise - Gastrointestinal Gastrointestinal: reports: Abdominal pain, Nausea Exam - Vital Signs Reviewed Vital Signs: Yes Vital Signs: Vital Signs x48h Temp Pulse Resp BP BP Pulse Ox 01/04/24 15:00 89 21 120/51 L 01/04/24 14:00 97 16 153/135 H 01/04/24 13:00 101 H 20 154/76 H 01/04/24 12:00 36.1 C L 89 16 126/78 96 01/04/24 11:00 89 18 117/66 01/04/24 10:00 98 13 167/74 H 01/04/24 09:00 96 18 158/67 H 01/04/24 08:09 154/87 H - Physical Exam General Appearance: positive: No acute distress, Alert Eyes Bilateral: positive: Normal inspection, PERRL ENT: positive: ENT inspection nml, Pharynx nml, No signs of dehydration Respiratory: positive: Chest non-tender, No respiratory distress, Breath sounds nml Cardiovascular: positive: Regular rate & rhythm, No murmur, No gallop Abdomen: positive: Tenderness. negative: No distention, Guarding, Rebound (RUQ > Epigastric ttp, no lower abdominal ttp on my exam) Conclusion and Plan - Lab Results Laboratory Results 01/04/24 10:54: Lactic Acid 1.2 01/04/24 04:10: VBG pH 7.365, Ionized Calcium 1.17 01/04/24 04:10: Phosphorus 3.7, Magnesium 1.9 01/04/24 04:10: APTT 77.5 H 01/04/24 04:10: WBC 17.0 H, RBC 3.88 L, Hgb 11.3 L, Hct 34.8 L, MCV 89.7, MCH 29.1, MCHC 32.5, RDW 13.2, Plt Count 390, MPV 10.0, Neut # (Auto) 8.0 H, Lymph # (Auto) 6.7 H, [place] # (Auto) 1.6 H, Eos # (Auto) 0.6, Baso # (Auto) 0.1, Absolute Nucleated RBC 0.00, Band Neuts % (Manual) Not Reportable, Abnorm Lymph % (Manual) Not Reportable, Nucleated RBC % 0.0, Neutrophils # (Manual) Not Reportable, Lymphocytes # (Manual) Not Reportable, Monocytes # (Manual) Not Reportable, Eosinophils # (Manual) Not Reportable, Basophils # (Manual) Not Reportable, Differential Comment MANUAL=AUTO DIFF, Platelet Estimate NORMAL (1 30-450,000), Platelet Morphology NORMAL APPEARANCE, RBC Morph Micro Appear NORMAL APPEARANCE 01/04/24 04:10: Sodium 131 L, Potassium 3.9, Chloride 94 L, Carbon Dioxide 30, Anion Gap 7.0, BUN 25 H, Creatinine 1.1, Estimated GFR (MDRD) 49 L, Glucose 108 H, Calcium 9.5, C-Reactive Protein 0.5 01/03/24 19:40: APTT 65.7 H 01/03/24 10:40: Potassium 3.6 01/03/24 10:40: APTT 68.2 H 01/03/24 05:38: VBG pH 7.417 H, Ionized Calcium 1.16 01/03/24 04:15: Total Bilirubin 0.5, Direct Bilirubin < 0.10, AST 23, ALT 12, Alkaline Phosphatase 60, Total Protein 6.0 L, Albumin 3.7, Globulin 2.3 01/03/24 04:15: Amylase 30, Lipase 57 01/03/24 04:15: Phosphorus 3.4, Magnesium 1.9 01/03/24 04:15: APTT 70.0 H 01/03/24 04:15: WBC 16.6 H, RBC 4.11 L, Hgb 11.9 L, Hct 36.4 L, MCV 88.6, MCH 29.0, MCHC 32.7, RDW 12.8, Plt Count 383, MPV 9.9, Neut # (Auto) 9.4 H, Lymph # (Auto) 5.6 H, [place] # (Auto) 1.4 H, Eos # (Auto) 0.2, Baso # (Auto) 0.0, Absolute Nucleated RBC 0.00, Nucleated RBC % 0.0, Platelet Estimate NORMAL (130- 450,000), RBC Morph Micro Appear NORMAL APPEARANCE 01/03/24 04:15: Sodium 135, Potassium 3.5, Chloride 95 L, Carbon Dioxide 31, Anion Gap 9.0, BUN 18, Creatinine 0.8, Estimated GFR (MDRD) 71 L, Glucose 109 H, Calcium 9.6, C-Reactive Protein 0.6 01/02/24 23:10: Troponin I High Sens 298.0 H* 01/02/24 22:40: Urine Color YELLOW, Urine Clarity CLEAR, Urine pH 6.5, Ur Specific Howe 1.020, Urine Protein 100 H, Urine Glucose (UA) 500 H, Urine Ketones NEGATIVE, Urine Occult Blood NEGATIVE, Urine Nitrite NEGATIVE, Urine Bilirubin NEGATIVE, Urine Urobilinogen 0.2 (NORMAL), Ur Leukocyte Esterase NEGATIVE, Urine RBC None Seen, Urine WBC 0-3, Ur Squamous Epith Cells FEW Squam ous, Urine Bacteria Rare, Ur Microscopic Review INDICATED, Urine Culture Comments NOT INDICATED 01/02/24 21:15: APTT 48.7 H 01/02/24 20:45: Lactic Acid 2.7 H 01/02/24 17:54: VBG pH 7.406, Ionized Calcium 1.24 01/02/24 17:54: Potassium 3.7, Magnesium 2.3 01/02/24 17:54: Troponin I High Sens 315.4 H* 01/02/24 13:50: Nasal Screen MRSA (PCR) NEGATIVE 12/30/23 14:27: Smear Path Review SEE SEPARATE REPORT - Diagnostic Imaging Results Diagnostic Imaging Results: positive: Read contemporaneously Diagnostic Imaging Results Comments: CT abdomen/pelvis noncontrast - no e/o colitits or free air CTA abdomen/pelvis - initial read with normal patency of celiac trunk, SMA, FLIP with significant stenosis of infrarenal aorta and bilateral common iliac arteries. Discussed with radiologist given my concern over diminuative appearance of FLIP, with amendment stating mild to moderate stenosis of FLIP origin. - Diagnosis Diagnosis: 1. Concern for non-occlusive mesenteric ischemia within FLIP distibution. 2. epigastric pain, rule out biliary pathology - Consultation Note Consultation Note: 68yoF with multiple medical comorbidities and multiple prior abdominal surgeries and procedures, including subacute abdominal and diarrhea as well as opioid use disorder. Admitted with bloody diarrhea (resolved) and abdominal pain. At the time of my H&P abdominal pain and ttp are epigastric, though for other providers this admission they have been lower abdominal. Last admission 3 weeks ago she was ruled out for acute/new onset IBD with a normal colonoscopy (including normal pancolonic biopsies) and a normal fecal calprotectin. Though she has had an elevated WBC that has downtrended with abx, her CRP has been normal which suggests a noninfectious etiology of per physiology. Given the subacute history of intermittent abdominal pain now associated with bloody diarrhea, in combination with the findings of her CTA Demonstrating significant atherosclerosis within the infrarenal aorta, common iliac arteries bilaterally, and dimuative FLIP takeoff, it is certainly possible that she is experiencing abdominal pain 2/2 JAMES (nonocclusive mesenteric ischemia). This is fitting with her NSTEMI this admission as well. There is no evidence today of clinical instability to suggest ischemic bowel or bowel perforation warranting any urgent surgical intervention. I would recommend referral to vascular surgery to evaluate for possible endoscopic intervention, and avoid episodes of hypotension. As for her epigastric pain in the setting of prior cholecystectomy with postoperative ERCP (2020, reports not available to me) - her LFTs and lipase are WNL and not suggestive of acute biliary pathology. However in order to thoroughly rule out a biliary contribution to her abdominal pain, consider MRCP and RUQUS. At this time it seems reasonable to hold off on EGD until her scheduled outpatient EGD this month, however could consider increasing PPI to BID. Will follow with you. Josiane Chance DO FACS General Surgeon
[2024-01-04] MEDS: SODIUM CHLORIDE 0.9% 1,000 ML IV SCH (17:20)
[2024-01-05] MEDS: METOPROLOL 5 MG/5 ML VIAL IVP STA (00:20)
[2024-01-05] MEDS: SODIUM CHLORIDE 0.9% 1,000 ML IV SCH (04:03)
[2024-01-05 05:13] LABS: BASOPHILS % (AUTO) 0.3 %; EOSINOPHILS # (AUTO) 0.4 10^3/uL (0.0-0.7); EOSINOPHILS % (AUTO) 3.3 %; HCT - HEMATOCRIT 29.8 % (37.0-47.0); HGB - HEMOGLOBIN 9.5 g/dL (12.0-16.0); LYMPHOCYTES # (AUTO) 4.5 10^3/uL (1.5-3.5); LYMPHOCYTES % (AUTO) 38.3 %; MEAN CORPUSCULAR HEMOGLOBIN 29.1 pg (27.0-31.0); MEAN CORPUSCULAR HGB CONC 31.9 g/dL (32.0-36.0); MEAN CORPUSCULAR VOLUME 91.4 fL (81.0-99.0); MEAN PLATELET VOLUME 9.9 fL (7.9-10.8); MONOCYTES # (AUTO) 1.2 10^3/uL (0.0-1.0); NEUTROPHILS # (AUTO) 5.6 10^3/uL (1.5-6.6); NEUTROPHILS % (AUTO) 47.5 %; PLT - PLATELET COUNT 272 10^3/uL (130-450); RED BLOOD COUNT 3.26 10^6/uL (4.20-5.40); RED CELL DISTRIBUTION WIDTH 13.1 % (12.0-15.0); WHITE BLOOD COUNT 11.8 x10^3/uL (4.8-10.8)
[2024-01-05 05:27] LABS: CRP - C-REACTIVE PROTEIN < 0.5 mg/dL (<0.5)
[2024-01-05 05:49] LABS: BUN - BLOOD UREA NITROGEN 23 mg/dL (6-20); CALCIUM 8.8 mg/dL (8.5-10.3); CARBON DIOXIDE - CO2 29 mmol/L (21-32); CHLORIDE 101 mmol/L (101-111); CREATININE 0.8 mg/dL (0.6-1.3); GFR - MDRD 71 (>89); GLUCOSE 121 mg/dL (74-104); POTASSIUM 4.1 mmol/L (3.5-4.5); SODIUM 132 mmol/L (135-145)
[2024-01-05] MEDS: METOPROLOL TARTRATE 50 MG TABLET PO SCH (09:31)
[2024-01-05] MEDS: cloNIDine 0.1 MG TABLET PO SCH (09:32)
[2024-01-05] MEDS: GI COCKTAIL 120 ML BOTTLE PO PRN (10:35)
--- NOTE | 2024-01-05 12:02 | PROVIDER PROGRESS NOTE ---
Subjective - Prog Note Date Prog Note Date: 01/05/24 Prog Note Time: 11:58 - Subjective Pt reports feeling: Improved Subjective: Ms. Grajeda was admitted on 12/29 after she presented with abdominal pain and diarrhea and SIRS positive for elevated WBCs, elevated HR in the 120's. She was recently admitted and treated for colitis 12/13-12/15 with bloody diarrhea and colitis on CT. She reported the diarrhea got worse after she finished her antibiotics with subjective fevers and chills. She reported decreased PO intake and scant urine output. She was found to have an MILAGRO int he Ed with a GFR of 25. Non-contrast CT abdomen done due to GFR and was unremarkable, previously noted colitis had resolved. UA was negative for UTI, blood cultures and stool cultures done and have since resulted as negative. ECHO found no evidence of vegetation making endocarditis unlikely. Chest x-ray negative for consolidation or effusion. She was admitted for sepsis and abdominal pain without an identified source. She has a hx of chronic pain with a lumbar laminectomy, 2 fusions, and a spinal cord stimulator. She is on tizanidine at home but does not have regularly prescribed opiods. During admission she had refractory pain and was given dilaudid 1 mg q 2 hrs resulting in an overdose. The dilaudid dose was subsequently decreased. Yesterday she had an episode of acute abdominal pain managed with toradol and dilaudid 0.5 mg q 4 hrs. The abdominal pain was accompanied by hypertension which was managed with PRN labetolol, hydralzine, and metoprolol. She was on nicardipine yesterday which has since been stopped. She is also on clonidine 0.1 mg BID and continued on her home dose of metoprolol 100 mg PO BID. Differentials included ischemic bowel, nephrolithiasis, or dilation of the common bile duct or bowel. CT in the ED was negative for AAA. She was noted to have tachycardia with R wave progression and found to have elevated troponin at 357. Concern for NSTEMI, started on heparin drip and serial troponins showed a decreasing trend with the most recent troponin 298 last night. She currently denies chest pain, SOB, or palpitations. She is mildly tachycardic, with increases in pain associated with HTN and tachycardia. She has a mild systolic murmur. She c/o epigastric pain described as pressure, 7/10, with radiation to her back, no SOB. This could be referred cardiac pain. Repeat troponin was 119.6 down from a high of 357.8 when she had her NSTEMI ruling out ACS. Upon assessment, she is sitting up in a chair with improved color and affect. She reports epigastric pain and RUQ pain after eating with a positive Foreman sign radiating to her back. Her pain is better controlled now with Tylenol and dilaudid 1 mg q 4 hrs, plan is to alternate pain meds every two hours to enhance efficiacy. She was pain free this morning until she ate, states she was only able to eat a little bit. She is also receiving a GI cocktail to see if this reduces her pain. She also states has had chronic diarrhea for about 6 months and feels constantly fatigued. She states just getting to the bathroom leaves her exhausted. LFTs and pancreatic enzymes came back normal. Abdominal CTA negative for obstructive process, stones, mesenteric ischemia, or colitis with gastric inflammation consistent with gastritis. Radiology review of the FLIP shows mild to moderate stenosis of the FLIP which could mean episodes of mesenteric ischemia could be underlying her acute pain events as they are disproportionate to exam findings when they occur. There is dilation of the common bile duct, which is consistent with a prior cholecystectomy, consideration for stones as the source of her pain. After consultation with surgery, she will have an MRCP today to r/o common bile duct obstruction/stones. WBCs decreased from 17 to 11.8 today with HR generally below 100. Current Medications - Current Medications Current Medications: Active Medications Generic Name Dose Route Start Last Admin Trade Name Marekq PRN Reason Stop Dose Admin Acetaminophen 650 mg 12/30/23 22:30 01/05/24 11:21 Acetaminophen 325 Mg Tablet PO 650 mg Q4HR PRN Administration Pain 1 to 4, or Fever Aspirin 81 mg 01/01/24 09:00 01/05/24 09:32 Aspirin Ec 81 Mg Tablet PO 81 mg DAILY ABRAHAM Administration Bacitracin 1 packet 12/31/23 11:37 12/31/23 12:04 Bacitracin Zinc Oint 1 Packet TOP 1 packet PRN PRN Administration Skin Care Clonidine HCl 0.1 mg 01/05/24 03:33 01/05/24 09:32 Clonidine 0.1 Mg Tablet PO 0.1 mg BID ABRAHAM Administration Duloxetine HCl 60 mg 12/30/23 23:00 01/04/24 20:15 Duloxetine 30 Mg Capsule PO 60 mg HS ABRAHAM Administration Hydralazine HCl 10 mg 01/02/24 04:27 01/04/24 16:09 Hydralazine Inj 20 Mg/Ml Vial IVP 10 mg Q8H PRN Administration SBP> or= 160 OR DBP> or= 110 Hydromorphone HCl 1 mg 01/03/24 17:00 01/05/24 09:32 Hydromorphone 1 Mg/Ml Carpuject IVP 1 mg Q4HR PRN Administration Severe Pain (Level 7-10) Cefepime HCl 1 gm/ Sodium 100 mls @ 200 mls/hr 12/31/23 21:00 01/05/24 09:32 Chloride IV 200 mls/hr BID ABRAHAM Administration Ketorolac Tromethamine 30 mg 01/05/24 08:53 Ketorolac 30 Mg/Ml Vial IVP Q6HR PRN Severe Pain (Level 7-10) Metoprolol Tartrate 5 mg 12/31/23 22:04 01/04/24 18:22 Metoprolol 5 Mg/5 Ml Vial IVP 5 mg Q6H PRN Administration tachycardia >120 for >5 minute Metoprolol Tartrate 100 mg 01/05/24 03:34 01/05/24 09:31 Metoprolol Tartrate 50 Mg Tablet PO 100 mg BID ABRAHAM Administration Multi-Ingredient Mouthwash/Gargle 30 ml 01/05/24 08:54 01/05/24 10:35 Gi Cocktail 120 Ml Bottle PO 30 ml Q4H PRN Administration Abdominal Pain Ondansetron HCl 4 mg 12/30/23 22:30 01/04/24 18:23 Ondansetron 4 Mg/2 Ml Vial IVP 4 mg Q6HR PRN Administration Nausea / Vomiting Pantoprazole Sodium 40 mg 12/31/23 07:00 01/05/24 06:05 Pantoprazole 40 Mg Tablet PO 40 mg QDAC ABRAHAM Administration (Bismuth 1 each 12/31/23 18:23 Subsalicylate [Pepto PO -Bismol] 262 Mg Tab. BID PRN Chew) Heartburn Sodium Chloride 10 ml 12/30/23 22:30 01/03/24 01:21 Sodium Chloride Flush 0.9% 10 Ml Syringe IVP 20 ml PRN PRN Administration NEEDED PER PROVIDER ORDERS Sodium Chloride 10 ml 12/31/23 01:00 01/05/24 09:40 Sodium Chloride Flush 0.9% 10 Ml Syringe IVP 10 ml 0100,0900,1700 ABRAHAM Administration DULoxetine [Cymbalta] 60 mg PO HS 04/02/23 Nitroglycerin [Nitrostat] 0.4 mg SL [id number] 04/02/23 Pravastatin Sodium 20 mg PO HS 04/02/23 tiZANidine [Zanaflex] 4 mg PO Q8H 04/02/23 Metoprolol Tartrate [Lopressor] 100 mg PO BID 06/05/23 Aspirin EC [Ecotrin] 81 mg PO DAILY 11/22/23 Bismuth Subsalicylate [Pepto-Bismol] 262 mg PO BID PRN 11/22/23 Objective - Vital Signs/Intake & Output Reviewed Vital Signs: Yes Vital Signs: Vital Signs Temp Pulse Resp BP Pulse Ox 01/05/24 11:15 36.5 C 84 18 85/40 L 99 01/05/24 08:00 36.7 C 112 H 19 111/49 L 98 Intake & Output: Intake & Output 01/02/24 01/03/24 01/04/24 01/05/24 23:59 23:59 23:59 23:59 Intake Total 5846.121 7769.716 1580 1240 Output Total 8095 1550 1600 200 Balance -6542.520 -196.284 -20 1040 - Objective General Appearance: positive: No acute distress, Alert Neck: positive: No JVD Respiratory: positive: Chest non-tender, No respiratory distress, Breath sounds nml. negative: Wheezes, Rales, Rhonchi Cardiovascular: positive: Regular rate & rhythm, No murmur, No gallop, Ta chycardia (112 during exam) Abdomen: positive: No organomegaly, Nml bowel sounds, No distention, Tenderness (Epigratric and RUQ with (+) Foreman sign.). negative: Guarding, Rebound Back: positive: Nml inspection, CVA tenderness (R) Skin: positive: Color nml, No rash, Warm, Dry Extremities: positive: Nml appearance, No pedal edema Neurologic/Psychiatric: positive: Oriented x3, CN's nml (2-12), Motor nml, Sensation nml, Mood/affect nml - Lab Results Fish Bones: 01/05/24 05:00 01/05/24 05:00 Other Labs: Lab Results x24hrs 01/05/24 01/05/24 01/05/24 Range/Units 05:00 05:00 05:00 WBC 11.8 H (4.8-10.8) x10^3/uL RBC 3.26 L (4.20-5.40) 10^6/uL Hgb 9.5 L (12.0-16.0) g/dL Hct 29.8 L (37.0-47.0) % MCV 91.4 (81.0-99.0) fL MCH 29.1 (27.0-31.0) pg MCHC 31.9 L (32.0-36.0) g/dL RDW 13.1 (12.0-15.0) % Plt Count 272 (130-450) 10^3/uL MPV 9.9 (7.9-10.8) fL Neut # (Auto) 5.6 (1.5-6.6) 10^3/uL Lymph # (Auto) 4.5 H (1.5-3.5) 10^3/uL [place] # (Auto) 1.2 H (0.0-1.0) 10^3/uL Eos # (Auto) 0.4 (0.0-0.7) 10^3/uL Baso # (Auto) 0.0 (0.0-0.1) 10^3/uL Absolute Nucleated RBC 0.00 x10^3/uL Nucleated RBC % 0.0 /100WBC Sodium 132 L (135-145) mmol/L Potassium 4.1 (3.5-4.5) mmol/L Chloride 101 (101-111) mmol/L Carbon Dioxide 29 (21-32) mmol/L Anion Gap 2.0 L (6-13) BUN 23 H (6-20) mg/dL Creatinine 0.8 (0.6-1.3) mg/dL Estimated GFR (MDRD) 71 L (>89) Glucose 121 H (74-104) mg/dL Calcium 8.8 (8.5-10.3) mg/dL Troponin I High Sens 119.6 H* (2.3-14.8) ng/L C-Reactive Protein < 0.5 (<0.5) mg/dL 01/04/24 Range/Units 18:34 WBC (4.8-10.8) x10^3/uL RBC (4.20-5.40) 10^6/uL Hgb (12.0-16.0) g/dL Hct (37.0-47.0) % MCV (81.0-99.0) fL MCH (27.0-31.0) pg MCHC (32.0-36.0) g/dL RDW (12.0-15.0) % Plt Count (130-450) 10^3/uL MPV (7.9-10.8) fL Neut # (Auto) (1.5-6.6) 10^3/uL Lymph # (Auto) (1.5-3.5) 10^3/uL [place] # (Auto) (0.0-1.0) 10^3/uL Eos # (Auto) (0.0-0.7) 10^3/uL Baso # (Auto) (0.0-0.1) 10^3/uL Absolute Nucleated RBC x10^3/uL Nucleated RBC % /100WBC Sodium (135-145) mmol/L Potassium (3.5-4.5) mmol/L Chloride (101-111) mmol/L Carbon Dioxide (21-32) mmol/L Anion Gap (6-13) BUN (6-20) mg/dL Creatinine (0.6-1.3) mg/dL Estimated GFR (MDRD) (>89) Glucose (74-104) mg/dL Calcium (8.5-10.3) mg/dL Troponin I High Sens 146.7 H* (2.3-14.8) ng/L C-Reactive Protein (<0.5) mg/dL - Diagnostic Imaging Diagnostic Imaging Results: positive: Final report reviewed Diagnostic Imaging Comments: Radiology reviewed FLIP on CTA abdomen at request of surgery, noting "mild to moderate stenosis of the FLIP" Sepsis Event Note (H) - Evaluation Current Stage of Sepsis: Resolved (Persistent leukocytosis, lactic acidosis and tachycardia resolved) Possible source of Sepsis: positive: Unknown Assessment/Plan - Problem List (1) Acute abdominal pain Impression: She reports persistent epigastric pain with diarrhea x6 months, an episode of bloody diarrhea on the day of her admission but none since. She was treated for pancolitis in early December which has since resolved with no further evidence of colitis on CT. Biopsies done during a sigmoidoscopy on 12/13 were unremarkable making celiac disease unlikely. Her pain waxes and wanes with episodes of acute pain that are difficult to control. She has CVA tenderness and epigastric tenderness with pain radiating to her back, exacerbated by eating today. Initial abdominal CTA read was negative for mesenteric ischemia, obstructive process, or colitis. It did find gastric inflammation consistent with gastritis. However, this does not fully explain her symptoms. LTFs and pancreatic enzymes are normal, making bile duct obstruction and pancreatitis unlikely. She was noted to have dilation of the common bile duct which could still harbor stones not appreciated on CT and which could cause episodic pain. Review of the FLIP per request of surgery found mild to moderate stenosis so transient ischemic bowel could also be considered as the cause of her pain. Previous UA was negative, chest x-ray was negative. WBCs and lactate are decreased with resolution of sepsis. It is possible this is referred cardiac pain. Her troponin continues to drop and no evidence of new ischemia. As her pain is persistently referred to her back and she has persistent leukocytosis, I have requested radiology review her abdominal CTA to evaluate for discitis or epidural abcess as a possible source of pain and infection. She has an SCD and is able to turn it off for MRI, she is scheduled for MRCP today at recommendation from surgery to evaluate for common bile duct stones. She reported her pain is controlled with toradol and dilaudid as scheduled. She reports she was pain free until eating this morning, now it is 5/10. She is getting a GI cocktail to see if that helps with the pain. She has epigastric and RUQ pain with a (+) Foreman sign that radiates to her back, raising suspicion for common bile duct stones. (2) NSTEMI (non-ST elevated myocardial infarction) Impression: Elevated troponin at 357 with tachycardia and r wave progression two days ago. She was started on heparin and troponins were trending down with the last measured value at 298. She does not have any acute chest pain or SOB. A mild systolic murmur appreciated during the exam over the right and left upper sternal borders, lungs clear, no evidence of fluid overload or HF. She describes her epigastric pain as a "pressure", 5/10 with radiation to her back. It is po ssible this is referred anginal pain. Heparin drip was discontinued and troponin continued to decrease at 119.6 which rules out new ischemic event. (3) SIRS (systemic inflammatory response syndrome) Impression: She presented SIRS positive for elevated WBC, tachycardia, and elevated lactate to the ED, no source of infection has been identified. CT abdomen showed previously noted colitis has resolved, ECHO negative for cardiac vegetation, chest x-ray negative for consolidation or effusion, UA negative for UTI. She was started on cefipime in the ED and has been fluid resuscitated over the past 3 days. She has remained afebrile and her WBCs and lactate initially decreased. Yesterday, her WBCs were elevated at 16.6 again and her lactate is back up to 2.7. Yesterday, her WBCs remained elevated at 17.0 while her lactate has normalized. Today, her WBC have to 11.8. She has persistent epigastric pain, right CVA tenderness, and lower thoracic back pain. She has a persistent headache without focal neurologic findings or nucal rigidity to suggest meningeal inflammation making meningitis unlikely. I am waiting for the radiologist review of the abdominal CTA for evidence of discitis or epidural abscess as possible sources of infection. Her sepsis is resolved based on laboratory parameters. I will continue to monitor her CBCs as WBCs have decr eased and then increased previously during admission. (4) Hypertension Impression: She has a hx of HTN managed at home on metoprolol 100 mg BID. She had a hy pertensive urgency two days ago with systolic BP at 206, controlled with PRN labetolol, hydralazine, and metoprolol pushes. She was briefly on nicardipine and clinidine 0.1 mg BID has been added. Her HTN is associated with acute pain episodes, so effective pain management with Dilaudid is part of the plan for her HTN. Today, her BP has been better controlled and she has not had any further hypertensive urgencies. Her BP highest BP today was 174/74 without any acute pain events, with HR generally below 100. She had an overnight BP low of 90/52, was started on fluids 100 ml/hr which was dc'd this morning. BP was 111/49 at the time of assessment. I will look over her meds and monitor her BP today to see if deceasing her anti-hypertensives is indicated. (5) MILAGRO (acute kidney injury) Impression: She reports decreased PO intake and chronic diarhea x 6 mo. She reports decreased urinary output over the past few days. In the ED, she had a GHR of 27 with a BUN of 23 and creatinine of 1, dx with MILAGRO and dehydration. She was fluid resuscitated over the past 2 days with an improvement in her GFR to 77 and an increase in urine output. Yesterday, she had a total output of 8,095 placing her at risk for electrolyte imbalances. Today her GFR dropped to 47 with a slight bump in creatinine to 1.1 and BUN to 25 after a contrast abdominal CTA yesterday, concern for contrast nephropathy. She was given a liter of NS yesterday and I will recheck her kidney function today. (6) Lactic acidosis Impression: Lactate initially elevated at 2.1, decreased after fluid resuscitation and initiation fo antibiotics. It increased again to 2.7, most likely due to sepsis as the WBCs have also increased slightly to 16.6. Lactate decreased yesterday day to 1.2 but WBCs decreased to 11.8. I will continue to look for a possible so urce of infection, sepsis and lactic acidosis are resolved at this time. (7) Hypochloremia Impression: Labs today show it is resolved at 101. I will continue to monitor her labs. (8) Chronic pain Impression: She has chronic pain with a previous laminectomy and two spinal fusions. She also has a spinal cord stimulator which reports does not adequately control her pain. She takes gabapentin at bedtime at home but does not have regularly prescribed opioids. Her pain is currently being managed with dilaudid 1 mg IV q 4 hrs and PO Tylenol PRN. She has not had any acute painful episodes today but abdominal pain recurred after eating. She reports success with alternating dilaudid and tylenol q 2 hrs.
--- NOTE | 2024-01-05 16:47 | MRI Report ---
PROCEDURE: MRCP WO INDICATIONS: epigastric pain, hx of lap tatum CONTRAST: None given TECHNIQUE: Coronal ultra fast SE through the abdomen, axial 2-D spoiled GE in- and [id number], and breath-hold T2 FSE with fat saturation through the biliary system and pancreas. Oblique coronal and axial thin- slice ultra fast SE, radial thick-slab ultra fast SE centered on the extrahepatic bile ducts. COMPARISON: Correlation is made with CT, 01/03/2024. FINDINGS: Image quality: Motion artifact is noted. Gallbladder: Removed. No abnormal fluid can be seen within the cholecystectomy bed. Biliary tree: The common bile duct measures 8 mm, which is within normal limits for patient age and p rior cholecystectomy. No filling defects are seen. No intrahepatic biliary ductal dilatation is seen. Pancreas: No pancreatic ductal dilation. No peripancreatic inflammatory change is seen. Lung bases and heart: Unremarkable. Liver: No solid mass. Spleen: No splenomegaly. Adrenals: No adrenal nodule. Kidneys and ureters: No hydronephrosis. No renal cystic lesion which requires follow up. No solid mas s. Bowel and peritoneum: No bowel distension. No pathologic free fluid. Lymph nodes: No central or retroperitoneal adenopathy. Vessels: No infrarenal aortic aneurysm. There is irregularity of the aorta, which is better demonstra joe by CT. Bones: No aggressive osseous abnormality. Other: No significant ventral hernia. IMPRESSION: Status post cholecystectomy, without complication. No abnormal fluid can be seen within the cholecyst ectomy bed. No biliary dilatation is seen. No significant pancreatic abnormality is seen. No pancreatic ductal dilatation. Reviewed by: Femi Suárez MD on 01/05/2024 3:46 PM [facility] Approved by: Femi Suárez MD on 01/05/2024 3:46 PM [facility] Station ID: [id number]
[2024-01-05] MEDS: KETOROLAC 30 MG/ML VIAL IVP PRN (21:38)
[2024-01-06 06:44] LABS: BASOPHILS % (AUTO) 0.3 %; EOSINOPHILS # (AUTO) 0.5 10^3/uL (0.0-0.7); EOSINOPHILS % (AUTO) 4.8 %; HCT - HEMATOCRIT 28.5 % (37.0-47.0); HGB - HEMOGLOBIN 8.8 g/dL (12.0-16.0); LYMPHOCYTES # (AUTO) 3.7 10^3/uL (1.5-3.5); LYMPHOCYTES % (AUTO) 37.9 %; MEAN CORPUSCULAR HEMOGLOBIN 28.8 pg (27.0-31.0); MEAN CORPUSCULAR HGB CONC 30.9 g/dL (32.0-36.0); MEAN CORPUSCULAR VOLUME 93.1 fL (81.0-99.0); MEAN PLATELET VOLUME 9.8 fL (7.9-10.8); MONOCYTES # (AUTO) 1.1 10^3/uL (0.0-1.0); MONOCYTES % (AUTO) 11.4 %; NEUTROPHILS # (AUTO) 4.4 10^3/uL (1.5-6.6); NEUTROPHILS % (AUTO) 44.3 %; PLT - PLATELET COUNT 228 10^3/uL (130-450); RED BLOOD COUNT 3.06 10^6/uL (4.20-5.40); RED CELL DISTRIBUTION WIDTH 13.4 % (12.0-15.0); WHITE BLOOD COUNT 9.9 x10^3/uL (4.8-10.8)
[2024-01-06 06:59] LABS: CALCIUM 9.1 mg/dL (8.5-10.3); CREATININE 0.9 mg/dL (0.6-1.3); POTASSIUM 4.5 mmol/L (3.5-4.5)
--- NOTE | 2024-01-06 11:38 | PROVIDER PROGRESS NOTE ---
Subjective - Prog Note Date Prog Note Date: 01/06/24 Prog Note Time: 11:33 - Subjective Pt reports feeling: Improved Subjective: Ms. Grajeda was admitted on 12/29 after she presented with abdominal pain and diarrhea and SIRS positive for elevated WBCs, elevated HR in the 120's. She was recently admitted and treated for colitis 12/13-12/15 with bloody diarrhea and colitis on CT. She reported the diarrhea got worse after she finished her antibiotics with subjective fevers and chills. She reported decreased PO intake and scant urine output. She was found to have an MILAGRO int he Ed with a GFR of 25. Non-contrast CT abdomen done due to GFR and was unremarkable, previously noted colitis had resolved. UA was negative for UTI, blood cultures and stool cultures done and have since resulted as negative. ECHO found no evidence of vegetation making endocarditis unlikely. Chest x-ray negative for consolidation or effusion. She was admitted for sepsis and abdominal pain without an identified source. She has a hx of chronic pain with a lumbar laminectomy, 2 fusions, and a spinal cord stimulator. She is on tizanidine at home but does not have regularly prescribed opiods. During admission she had refractory pain and was given dilaudid 1 mg q 2 hrs resulting in an overdose. The dilaudid dose was subsequently decreased. Yesterday she had an episode of acute abdominal pain managed with toradol and dilaudid 0.5 mg q 4 hrs. The abdominal pain was accompanied by hypertension which was managed with PRN labetolol, hydralzine, and metoprolol. She was on nicardipine yesterday which has since been stopped. She is also on clonidine 0.1 mg BID and continued on her home dose of metoprolol 100 mg PO BID. Differentials included ischemic bowel, nephrolithiasis, or dilation of the common bile duct or bowel. CT in the ED was negative for AAA. She was noted to have tachycardia with R wave progression and found to have elevated troponin at 357. Concern for NSTEMI, started on heparin drip and serial troponins showed a decreasing trend with the most recent troponin 298 last night. She currently denies chest pain, SOB, or palpitations. She is mildly tachycardic, with increases in pain associated with HTN and tachycardia. She has a mild systolic murmur. She c/o epigastric pain described as pressure, 7/10, with radiation to her back, no SOB. This could be referred cardiac pain. Repeat troponin was 119.6 down from a high of 357.8 when she had her NSTEMI ruling out ACS. She has a cardiology appointment for a stress test on 01/[address] Chavez. Upon assessment, she is sitting up in a chair with improved color and affect. She reports epigastric pain and RUQ pain after eating with a positive Foreman sign radiating to her back. Her pain is better controlled now with Tylenol and dilaudid 1 mg q 4 hrs, plan is to alternate pain meds every two hours to enhance efficiacy. She was pain free this morning until she ate, states she was only able to eat a little bit. She is also receiving a GI cocktail to see if this reduces her pain. She also states has had chronic diarrhea for about 6 months and feels constantly fatigued. She states just getting to the bathroom leaves her exhausted. LFTs and pancreatic enzymes came back normal. Abdominal CTA negative for obstructive process, stones, mesenteric ischemia, or colitis with gastric inflammation consistent with gastritis. Radiology review of the FLIP shows mild to moderate stenosis of the FLIP which could mean episodes of mesenteric ischemia could be underlying her acute pain events as they are disproportionate to exam findings when they occur. MRCP findings were unremarkable, no stones identified. Today, she reports feeling 90% better and was pain free prior to eating. She ate a bigger breakfast and developed pain, received a GI cocktail and her symptoms resolved, suggesting her pain is related to her stomach and the gastritis noted on CT. This is not a typical presentation for gastritis and endoscopy is warranted to explore this further. She has an appointment for endoscopy already scheduled for 01/28. I will reach out to her payroll professional, Dr. Mcduffie at [facility] ([phone]) and see if this can be done sooner. Her WBCs have normalized and her lactate is normal with resolution of sepsis, Cefepime was stopped today. She is now recieving all of her medications orally in preparation for discharge, anticipated tomorrow to rehab pending insurance appr oval. We had a long discussion about what we have learned through our investigations and what we have ruled out. The source of the infection is still unknown but her infection is resolved. Her CT showed gastric inflammation and the atherosclerosis of her FLIP, infrarenal aorta and common ilac arteries. She will follow up with gastroenteroloy, cardiology, and we discussed a referral to Vascular for evaluation of treatment options for her atherosclerosis. She has previously been told to see ENT by her director digital analytics for dizziness and we discussed that neuro may be more appropriate as she has extensive atherosclerosis and likely has this in her cerebral vasculature as well. Current Medications - Current Medications Current Medications: Active Medications Generic Name Dose Route Start Last Admin Trade Name Freq PRN Reason Stop Dose Admin Acetaminophen 650 mg 12/30/23 22:30 01/06/24 02:30 Acetaminophen 325 Mg Tablet PO 650 mg Q4HR PRN Administration Pain 1 to 4, or Fever Aspirin 81 mg 01/01/24 09:00 01/06/24 08:08 Aspirin Ec 81 Mg Tablet PO 81 mg DAILY ABRAHAM Administration Bacitracin 1 packet 12/31/23 11:37 12/31/23 12:04 Bacitracin Zinc Oint 1 Packet TOP 1 packet PRN PRN Administration Skin Care Clonidine HCl 0.1 mg 01/05/24 03:33 01/06/24 08:09 Clonidine 0.1 Mg Tablet PO 0.1 mg BID ABRAHAM Administration Duloxetine HCl 60 mg 12/30/23 23:00 01/05/24 21:36 Duloxetine 30 Mg Capsule PO 60 mg HS ABRAHAM Administration Hydralazine HCl 10 mg 01/02/24 04:27 01/04/24 16:09 Hydralazine Inj 20 Mg/Ml Vial IVP 10 mg Q8H PRN Administration SBP> or= 160 OR DBP> or= 110 Hydromorphone HCl 1 mg 01/03/24 17:00 01/06/24 03:32 Hydromorphone 1 Mg/Ml Carpuject IVP 1 mg Q4HR PRN Administration Severe Pain (Level 7-10) Ketorolac Tromethamine 30 mg 01/05/24 08:53 01/05/24 21:38 Ketorolac 30 Mg/Ml Vial IVP 30 mg Q6HR PRN Administration Severe Pain (Level 7-10) Metoprolol Tartrate 5 mg 12/31/23 22:04 01/04/24 18:22 Metoprolol 5 Mg/5 Ml Vial IVP 5 mg Q6H PRN Administration tachycardia >120 for >5 minute Metoprolol Tartrate 100 mg 01/05/24 03:34 01/06/24 08:08 Metoprolol Tartrate 50 Mg Tablet PO 100 mg BID ABRAHAM Administration Multi-Ingredient Mouthwash/Gargle 30 ml 01/05/24 08:54 01/06/24 08:13 Gi Cocktail 120 Ml Bottle PO 30 ml Q4H PRN Administration Abdominal Pain Ondansetron HCl 4 mg 12/30/23 22:30 01/04/24 18:23 Ondansetron 4 Mg/2 Ml Vial IVP 4 mg Q6HR PRN Administration Nausea / Vomiting Pantoprazole Sodium 40 mg 12/31/23 07:00 01/06/24 06:08 Pantoprazole 40 Mg Tablet PO 40 mg QDAC ABRAHAM Administration (Bismuth 1 each 12/31/23 18:23 Subsalicylate [Pepto PO -Bismol] 262 Mg Tab. BID PRN Chew) Heartburn Sodium Chloride 10 ml 12/30/23 22:30 01/03/24 01:21 Sodium Chloride Flush 0.9% 10 Ml Syringe IVP 20 ml PRN PRN Administration NEEDED PER PROVIDER ORDERS Sodium Chloride 10 ml 12/31/23 01:00 01/06/24 08:09 Sodium Chloride Flush 0.9% 10 Ml Syringe IVP 10 ml 0100,0900,1700 ABRAHAM Administration DULoxetine [Cymbalta] 60 mg PO HS 04/02/23 Nitroglycerin [Nitrostat] 0.4 mg SL [id number] 04/02/23 Pravastatin Sodium 20 mg PO HS 04/02/23 tiZANidine [Zanaflex] 4 mg PO Q8H 04/02/23 Metoprolol Tartrate [Lopressor] 100 mg PO BID 06/05/23 Aspirin EC [Ecotrin] 81 mg PO DAILY 11/22/23 Bismuth Subsalicylate [Pepto-Bismol] 262 mg PO BID PRN 11/22/23 Objective - Vital Signs/Intake & Output Reviewed Vital Signs: Yes Vital Signs: Vital Signs x48h Temp Pulse Resp BP BP Pulse Ox 01/06/24 08:08 130/66 01/06/24 07:18 36.5 C 83 16 130/66 100 01/06/24 04:47 36.4 C L 92 18 114/50 L 97 Intake & Output: Intake & Output 01/03/24 01/04/24 01/05/2401/05/24 23:59 23:59 23:59 23:59 Intake Total 1609.398 1919 2980 720 Output Total 1550 1600 200 Balance -196.284 -20 2780 720 - Objective General Appearance: positive: No acute distress, Alert, Other (68 y/o female with obesity, is up and eating breakfast, and in no apparent distress.) Eyes Bilateral: positive: Normal inspection, EOMI Neck: positive: Nml inspection, No JVD Respiratory: positive: Chest non-tender, No respiratory distress, Breath sounds nml. negative: Wheezes, Rales, Rhonchi Cardiovascular: positive: Regular rate & rhythm, No murmur, No gallop. negative: Tachycardia Peripheral Pulses: 2+ Radial (R), 2+ Radial (L), 2+ Dorsalis pedis (R), 2+ Dorsalis pedis (L) Abdomen: positive: No organomegaly, Nml bowel sounds, No distention, Tenderness (Mild epigastric and RUQ tenderness). negative: Guarding, Rebound Back: positive: Nml inspection. negative: CVA tenderness (R) (Previously present CVA tenderness resolved) Skin: positive: Color nml, No rash, Warm, Dry Extremities: positive: Nml appearance, No pedal edema Neurologic/Psychiatric: positive: Oriented x3, CN's nml (2-12), Motor nml, Sensation nml, Mood/affect nml - Lab Results Fish Bones: 01/06/24 06:39 01/06/24 06:39 Other Labs: Lab Results x24hrs 01/06/24 01/06/24 Range/Units 06:39 06:39 WBC 9.9 (4.8-10.8) x10^3/uL RBC 3.06 L (4.20-5.40) 10^6/uL Hgb 8.8 L (12.0-16.0) g/dL Hct 28.5 L (37.0-47.0) % MCV 93.1 (81.0-99.0) fL MCH 28.8 (27.0-31.0) pg MCHC 30.9 L (32.0-36.0) g/dL RDW 13.4 (12.0-15.0) % Plt Count 228 (130-450) 10^3/uL MPV 9.8 (7.9-10.8) fL Neut # (Auto) 4.4 (1.5-6.6) 10^3/uL Lymph # (Auto) 3.7 H (1.5-3.5) 10^3/uL [place] # (Auto) 1.1 H (0.0-1.0) 10^3/uL Eos # (Auto) 0.5 (0.0-0.7) 10^3/uL Baso # (Auto) 0.0 (0.0-0.1) 10^3/uL Absolute Nucleated RBC 0.00 x10^3/uL Nucleated RBC % 0.0 /100WBC Sodium 134 L (135-145) mmol/L Potassium 4.5 (3.5-4.5) mmol/L Chloride 102 (101-111) mmol/L Carbon Dioxide 28 (21-32) mmol/L Anion Gap 4.0 L (6-13) BUN 29 H (6-20) mg/dL Creatinine 0.9 (0.6-1.3) mg/dL Estimated GFR (MDRD) 62 L (>89) Glucose 85 (74-104) mg/dL Calcium 9.1 (8.5-10.3) mg/dL - Diagnostic Imaging Diagnostic Imaging Results: positive: Final report reviewed Diagnostic Imaging Comments: MRCP: no acute pathologic findings, no stones ABX Reporting Has patient been on IV antibiotics over the past 48 hours?: Yes Sepsis Event Note (H) - Evaluation Current Stage of Sepsis: Resolved (Persistent leukocytosis, lactic acidosis and tachycardia resolved) Possible source of Sepsis: positive: Unknown Assessment/Plan - Problem List (1) Acute abdominal pain Impression: She reports persistent epigastric pain with diarrhea x6 months, an episode of bloody diarrhea on the day of her admission but none since. She was treated for pancolitis in early December which has since resolved with no further evidence of colitis on CT. Biopsies done during a sigmoidoscopy on 12/13 were unremarkable making celiac disease unlikely. Her pain waxes and wanes with episodes of acute pain that are difficult to control. She has CVA tenderness and epigastric tenderness with pain radiating to her back, exacerbated by eating today. Initial abdominal CTA read was negative for mesenteric ischemia, obstructive process, or colitis. It did find gastric inflammation consistent with gastritis. However, this does not fully explain her symptoms. LTFs and pancreatic enzymes are normal, making bile duct obstruction and pancreatitis unlikely. She was noted to have dilation of the common bile duct which could still harbor stones not appreciated on CT and which could cause episodic pain. Review of the FLIP per request of surgery found mild to moderate stenosis so transient ischemic bowel could also be considered as the cause of her pain. Previous UA was negative, chest x-ray was negative. WBCs and lactate are decreased with resolution of sepsis. It is possible this is referred cardiac pain. Her troponin continues to drop and no evidence of new ischemia. As her pain is persistently referred to her back and she has persistent leukocytosis, I have requested radiology review her abdominal CTA to evaluate for discitis or epidural abcess as a possible source of pain and infection. She has an SCD and is able to turn it off for MRI, she is scheduled for MRCP today at recommendation from surgery to evaluate for common bile duct stones. She reported her pain is controlled with toradol and dilaudid as scheduled. She reports she was pain free again until eating this morning, experienced 8/10 pain which resolved when she had a GI cocktail, supporting a gastric source of her pain. Her episodes of acute pain may still indicates possible ischemic bowel given the mild to moderate FLIP stenosis in the setting of moderate to severe infrarenal aortic stenosis and bilateral moderate to severe common iliac artery stenosis. I plan to discharge her tomorrow with close follow up with GI and referral to vascular for evaluation of possible endoscopic intervention. I will put her on carafate, send her home with the GI cocktail and continue her PPI. I will also contact her payroll professional, Dr. Mcduffie, to discuss her case and see if her endoscopy can be done sooner. (2) SIRS (systemic inflammatory response syndrome) Impression: She presented SIRS positive for elevated WBC, tachycardia, and elevated lactate to the ED, no source of infection has been identified. CT abdomen showed previously noted colitis has resolved, ECHO negative for cardiac vegetation, david st x-ray negative for consolidation or effusion, UA negative for UTI. She was started on cefipime in the ED and has been fluid resuscitated over the past 3 days. She has remained afebrile and her WBCs and lactate initially decreased. Yesterday, her WBCs were elevated at 16.6 again and her lactate is back up to 2.7. Yesterday, her WBCs remained elevated at 17.0 while her lactate has normalized. Today, her WBC have to 11.8. She has persistent epigastric pain, right CVA tenderness, and lower thoracic back pain. She has a persistent headache without focal neurologic findings or nucal rigidity to suggest meningeal inflammation making meningitis unlikely. Her last WBC was 9.9 today and her lactic acidosis is resolved. Her sepsis is resolved based on laboratory and vital sign parameters and her cefepime was stopped today. (3) NSTEMI (non-ST elevated myocardial infarction) Impression: Elevated troponin at 357 with tachycardia and r wave progression two days ago. She was started on heparin and troponins were trending down with the last measured value at 298. She does not have any acute chest pain or SOB. A mild systolic murmur appreciated during the exam over the right and left upper sternal borders, lungs clear, no evidence of fluid overload or HF. She describes her epigastric pain as a "pressure", 5/10 with radiation to her back. It is possible this is referred anginal pain but the fact that it resolves with GI cocktail makes this less likely. Her heparin drip has been discontinued and her last troponin was 119.6. At this time, her NSTEMI is resolved and she does not have active cardiac ischemia based on vitals and lab parameters. She has a stress test scheduled for 01/[address] Craft, her director digital analytics. (4) Hypertension Impression: She has a hx of HTN managed at home on metoprolol 100 mg BID. She had a hypertensive urgency on 01/01 with systolic BP at 206, controlled with PRN labet olol, hydralazine, and metoprolol pushes. She was briefly on nicardipine and clinidine 0.1 mg BID has been added. Her HTN is associated with acute pain episodes, so effective pain management with Dilaudid is part of the plan for her HTN. She has not had any further hypertensive urgencies. BP has been stable today, with systolic between 98 and 130. I will continue her current mediations. (5) MILAGRO (acute kidney injury) Impression: She reports decreased PO intake and chronic diarhea x 6 mo. She reports decreased urinary output over the past few days. In the ED, she had a GHR of 27 with a BUN of 23 and creatinine of 1, dx with MILAGRO and dehydration. She was fluid resuscitated over the past 2 days with an improvement in her GFR to 77 and an increase in urine output. Yesterday, she had a total output of 8,095 placing her at risk for electrolyte imbalances. Today her GFR dropped to 47 with a slight bump in creatinine to 1.1 and BUN to 25 after a contrast abdominal CTA yesterday, concern for contrast nephropathy. She was given a liter of NS and her renal function has recovered. Her current GFR is 62 with a BUN of 29 and Cr of 0.9 indicating that her MILAGRO is stable and resolving and does not require further intervention. (6) Lactic acidosis Impression: Lactate initially elevated at 2.1, decreased after fluid resuscitation and initiation fo antibiotics. It increased again to 2.7, most likely due to sepsis as the WBCs have also increased slightly to 16.6. Lactate decreased yesterday day to 1.2 but WBCs decreased to 11.8. Her WBCs have also normalized at 9.9 marking reolution of her leukocytosis and lactic acidosis. A source of infection was never identified. Her cefepime was discontinued today as her lab parameters, vitals, and physical exam do not suggest a continued active infection. (7) Hypochloremia Impression: Labs today show it is resolved with her most recent chloride at 102. (8) Chronic pain Impression: She has chronic pain with a previous laminectomy and two spinal fusions. She also has a spinal cord stimulator which sh reports does not adequately control her pain. She takes gabapentin at bedtime at home but does not have regularly prescribed opioids. Her pain is currently being managed with dilaudid 1 mg IV q 4 hrs and PO Tylenol PRN. She has not had any acute painful episodes today but abdominal pain recurred after eating. She reports success with alternating dilaudid and tylenol q 2 hrs. She recieved 6 mg total of dilaudid yesteday and has had 3 mg total today. As she is allergic to oxycodone, I switched her to PO dilaudid 2 mg q 6 hrs in preparation for discharge and will see how she bipin arates this. I discussed this switch with her and she is agreable tot he plan. We also discussed weaning off narcotics but that we would have that conversation in more depth after we see how today goes.
[2024-01-06] MEDS: HYDROmorphone 2 MG TABLET PO PRN (17:26)
--- NOTE | 2024-01-06 21:16 | PROVIDER PROGRESS NOTE ---
Subjective - General Admit Date: 12/30/23 - Other Other Information/Narrative: MRCP yesterday was negative for retained choledocholith, or any other pathology to account for epigastic pain. Vitals have normalized. Abdominal pain has resolved except some postprandial epigastric pain which resolved with GI cocktail, no nausea and tolerating regular diet. did have one episode of nonbloody diarrhea yesterday. WBC has normalized, CMP normal. did question her regarding outpatient ambulation - she experiences buttock and thigh pain after 10 minutes of walking or standing that requires her to rest. Objective - Patient Data Reviewed Vital Signs: Yes Vital Signs: Vital Signs x48h Temp Pulse Resp BP BP Pulse Ox 01/06/24 20:55 147/69 H 01/06/24 15:55 36.6 C 88 16 114/59 L 97 Weight: Weight 01/04/24 01/05/24 01/06/24 23:59 23:59 23:59 Weight (kg) 71.5 kg 72.5 kg 72.5 kg Intake & Output: Intake and Output Totals x24h 01/04/24 01/05/24 01/06/24 23:59 23:59 23:59 Intake Total 1580 2980 1520 Output Total 1600 200 Balance -20 2780 1520 - Lab Results Lab Results: 01/06/24 06:39 01/06/24 06:39 Other Lab Results: Lab Results x24hrs 01/06/24 01/06/24 Range/Units 06:39 06:39 WBC 9.9 (4.8-10.8) x10^3/uL RBC 3.06 L (4.20-5.40) 10^6/uL Hgb 8.8 L (12.0-16.0) g/dL Hct 28.5 L (37.0-47.0) % MCV 93.1 (81.0-99.0) fL MCH 28.8 (27.0-31.0) pg MCHC 30.9 L (32.0-36.0) g/dL RDW 13.4 (12.0-15.0) % Plt Count 228 (130-450) 10^3/uL MPV 9.8 (7.9-10.8) fL Neut # (Auto) 4.4 (1.5-6.6) 10^3/uL Lymph # (Auto) 3.7 H (1.5-3.5) 10^3/uL [place] # (Auto) 1.1 H (0.0-1.0) 10^3/uL Eos # (Auto) 0.5 (0.0-0.7) 10^3/uL Baso # (Auto) 0.0 (0.0-0.1) 10^3/uL Absolute Nucleated RBC 0.00 x10^3/uL Nucleated RBC % 0.0 /100WBC Sodium 134 L (135-145) mmol/L Potassium 4.5 (3.5-4.5) mmol/L Chloride 102 (101-111) mmol/L Carbon Dioxide 28 (21-32) mmol/L Anion Gap 4.0 L (6-13) BUN 29 H (6-20) mg/dL Creatinine 0.9 (0.6-1.3) mg/dL Estimated GFR (MDRD) 62 L (>89) Glucose 85 (74-104) mg/dL Calcium 9.1 (8.5-10.3) mg/dL - Imaging Results Radiology Imaging: positive: Final report received (MRCP without choledocholith, no acute pathology) - Current Medications Current Medications: Current Medications Generic Name Dose Route Start Last Admin Trade Name Ana Maria PRN Reason Stop Dose Admin Acetaminophen 650 mg 12/30/23 22:30 01/06/24 02:30 Acetaminophen 325 Mg Tablet PO 650 mg Q4HR PRN Administration Pain 1 to 4, or Fever Aspirin 81 mg 01/01/24 09:00 01/06/24 08:08 Aspirin Ec 81 Mg Tablet PO 81 mg DAILY ABRAHAM Administration Bacitracin 1 packet 12/31/23 11:37 12/31/23 12:04 Bacitracin Zinc Oint 1 Packet TOP 1 packet PRN PRN Administration Skin Care Clonidine HCl 0.1 mg 01/05/24 03:33 01/06/24 20:55 Clonidine 0.1 Mg Tablet PO 0.1 mg BID ABRAHAM Administration Duloxetine HCl 60 mg 12/30/23 23:00 01/06/24 20:56 Duloxetine 30 Mg Capsule PO 60 mg HS ABRAHAM Administration Hydralazine HCl 10 mg 01/02/24 04:27 01/04/24 16:09 Hydralazine Inj 20 Mg/Ml Vial IVP 10 mg Q8H PRN Administration SBP> or= 160 OR DBP> or= 110 Hydromorphone HCl 2 mg 01/06/24 12:51 01/06/24 17:26 Hydromorphone 2 Mg Tablet PO 2 mg Q6HR PRN Administration Severe Pain (Level 7-10) Ketorolac Tromethamine 30 mg 01/05/24 08:53 01/06/24 21:00 Ketorolac 30 Mg/Ml Vial IVP 30 mg Q6HR PRN Administration Severe Pain (Level 7-10) Metoprolol Tartrate 5 mg 12/31/23 22:04 01/04/24 18:22 Metoprolol 5 Mg/5 Ml Vial IVP 5 mg Q6H PRN Administration tachycardia >120 for >5 minute Metoprolol Tartrate 100 mg 01/05/24 03:34 01/06/24 20:55 Metoprolol Tartrate 50 Mg Tablet PO 100 mg BID ABRAHAM Administration Multi-Ingredient Mouthwash/Gargle 30 ml 01/05/24 08:54 01/06/24 17:26 Gi Cocktail 120 Ml Bottle PO 30 ml Q4H PRN Administration Abdominal Pain Ondansetron HCl 4 mg 12/30/23 22:30 01/04/24 18:23 Ondansetron 4 Mg/2 Ml Vial IVP 4 mg Q6HR PRN Administration Nausea / Vomiting Pantoprazole Sodium 40 mg 12/31/23 07:00 01/06/24 06:08 Pantoprazole 40 Mg Tablet PO 40 mg QDAC ABRAHAM Administration Sodium Chloride 10 ml 12/30/23 22:30 01/03/24 01:21 Sodium Chloride Flush 0.9% 10 Ml Syringe IVP 20 ml PRN PRN Administration NEEDED PER PROVIDER ORDERS Sodium Chloride 10 ml 12/31/23 01:00 01/06/24 17:25 Sodium Chloride Flush 0.9% 10 Ml Syringe IVP 10 ml 0100,0900,1700 [facility] Administration - Physical Exam General Appearance: positive: No acute distress, Alert Respiratory: positive: Chest non-tender, No respiratory distress, Breath sounds nml Cardiovascular: positive: Regular rate & rhythm Abdomen: positive: Non-tender, No organomegaly, Nml bowel sounds, No distention Skin: positive: Color nml, No rash, Warm, Dry Extremities: positive: Non-tender, No pedal edema, Other (2+ Left DP, left PT nonpalpable RIGHT pedal pulses nonpalpable) Impression/Plan - Problem List Problem List: 68yoF with multiple medical comorbidities and multiple prior abdominal surgeries and procedures, including subacute abdominal and diarrhea as well as opioid use disorder. Admitted with bloody diarrhea (resolved at intial consultation) and abdominal pain (now only postprandial epigastric pain controlled with GI cocktail). 1) Peripheral vascular disease with lifestyle limiting claudication and possible intermittent JAMES within FLIP distribution: Given the subacute history of intermittent abdominal pain now associated with bloody diarrhea, in combination with the findings of her CTA demonstrating significant atherosclerosis within the infrarenal aorta, common iliac arteries bilaterally, and dimuative FLIP takeoff, it is certainly possible that she is experiencing abdominal pain 2/2 JAMES (nonocclusive mesenteric ischemia). This is fitting with her NSTEMI this admission as well. There is no evidence this admission of clinical instability to suggest ischemic bowel or bowel perforation warranting any urgent surgical intervention. She does endorse buttock and thigh claudication with standing or walking for 10 minutes. I would recommend referral to vascular surgery to evaluate for possible elective intervention, and avoid episodes of hypotension. 2) Gastritis: No evidence of biliary pathology to account for epigastric pain. Postprandial pain controlled with GI cocktail is consistent with gastritis, as is the thickened gastric wall on GI. She has no evidence of acute gastric perforation. It is possible her bloody diarrhea represented a transient UGIB from gastric ulcer, however the bloody stool stopped upon admission and no transfusion was required. NO indication for urgent EGD this admission, reasonable to hold off on EGD until her scheduled outpatient EGD this month. Recommend BID PPI and carafate in the meantime. General surgery will sign off at this time, call with any concerns. . Josiane Chance DO FACS General Surgeon
[2024-01-07 07:20] LABS: CALCIUM 9.2 mg/dL (8.5-10.3); CREATININE 0.6 mg/dL (0.6-1.3); POTASSIUM 4.4 mmol/L (3.5-4.5)
[2024-01-07 07:36] LABS: BASOPHILS % (AUTO) 0.5 %; EOSINOPHILS # (AUTO) 0.4 10^3/uL (0.0-0.7); EOSINOPHILS % (AUTO) 5.2 %; HCT - HEMATOCRIT 27.9 % (37.0-47.0); HGB - HEMOGLOBIN 9.2 g/dL (12.0-16.0); LYMPHOCYTES # (AUTO) 3.1 10^3/uL (1.5-3.5); LYMPHOCYTES % (AUTO) 35.9 %; MEAN CORPUSCULAR HEMOGLOBIN 30.2 pg (27.0-31.0); MEAN CORPUSCULAR VOLUME 91.5 fL (81.0-99.0); MEAN PLATELET VOLUME 10.3 fL (7.9-10.8); MONOCYTES % (AUTO) 11.3 %; NEUTROPHILS # (AUTO) 3.9 10^3/uL (1.5-6.6); NEUTROPHILS % (AUTO) 46.2 %; PLT - PLATELET COUNT 229 10^3/uL (130-450); RED BLOOD COUNT 3.05 10^6/uL (4.20-5.40); RED CELL DISTRIBUTION WIDTH 13.2 % (12.0-15.0); WHITE BLOOD COUNT 8.5 x10^3/uL (4.8-10.8)
--- NOTE | 2024-01-07 12:30 | Discharge Plan ---
"Discharge Plan for SNF / [facility] - Discharge Plan And Transition Orders Problem Reviewed?: Yes Disposition: 03 SNF DC/Xfer Condition: Stable Allergies and Adverse Reactions: Allergies Allergy/AdvReac Type Severity Reaction Status Date / Time oxycodone Allergy Severe Hives Verified 12/30/23 12:53 Penicillins Allergy Severe Anaphylaxis Verified 12/30/23 12:53 garlic Allergy Unknown Verified 12/30/23 12:53 atenolol AdvReac Unknown Verified 12/30/23 12:53 lisinopril AdvReac Unknown Verified 12/30/23 12:53 Health Concerns: This is a 68-year-old female whose past medical history is significant for hype rtension, hyperlipidemia, obstructive sleep apnea, and presented to the emergency room November 20 with abdominal pain. At that time CT showed colitis. She was discharged from the hospital and then returned December 13 for recurrence of her abdominal pain. Again CT showed segmental colitis. Through these hospitalizations she has had intermittent diarrhea. Symptoms are bloody. She notes that the pain is made worse with food. Sometimes the pain is diffuse and generalized and sometimes the pain is epigastric and radiating to both bilateral upper quadrants. She was discharged from the December 13 visit and then returned again December 29 with recurrence of her abdominal pain. Differential diagnoses included: + Pancreatitis + Retained common bile duct stones in the face of a history of cholecystectomy +Peptic ulcer disease + Ischemic bowel + Infectious diarrhea + Reflux with esophageal spasm Studies have included: 3 CTs of the abdomen. On the last CT of the abdomen, the segmental colitis has resolved but she appears to have thickened stomach lining indicating possible gastritis. Even though she has had diarrhea, her diarrhea and bloody stool stopped and we have not been able to see if she has C. difficile or other infectious diarrhea. We doubt that that is the cause since diarrhea resolved with hospitalization. She has been treated for possible sepsis with the source being her bowel and is received empiric antibiotic therapy to cover that. Blood cultures have been negative. MRCP negative CTA of the abdomen indicates mild to moderate inferior mesenteric artery arteriosclerotic disease. 40% stenosis of the distal aorta going into her iliacs. She does endorse a history of claudication. When abdominal pain occurs the patient will get severe hypertension in response to the pain. She has been placed in the ICU because of pain that was so severe she was crying out. Palpation resulted in screams. Severe hypertension. And needed to be on a temporary nicardipine drip to bring down her blood pressure. During that time she had elevation of cardiac enzymes that were significant and she was treated as an NSTEMI. She was on a temporary heparin drip. She also has chronic back pain and is already on medications for that before she was admitted. At 1 point during her stay, Dilaudid 2 mg every 2 hours as needed was ordered. The patient requested quite a bit of Dilaudid and before nursing realized the cumulative dosing, the patient had an episode of unresponsiveness. She woke up with Narcan. Also noted that she has been using quite a bit of opioids because of the November 20, December 13 and December 29 admissions. She has had 30 tablets of Dilaudid prescribed at the beginning of December. Her primary care provider started her on buprenorphine 12 mg during that time and had weaned herself down to 4 mg daily just prior to her admission here. I am advising that she be discharged on her buprenorphine from the [place] [facility], not Dilaudid. Plan of Treatment: 1. She has become significantly deconditioned during her stays and now needs fdc facility for rehab. It is a temporary stay until her mobility and strengthening improve and she will return to her own home with family and caregivers. 2. She is due to get an upper and lower endoscopy with Dr. Smith at [facility]. She thinks that is scheduled January 29. I will be contacting his office today to let her know what workup we have done and what he may consider 3. her claudication is mainly with standing too long on her legs. Buttocks and thighs Will burn. This happens after 10 minutes. mask and her primary care provider to refer for vascular evaluation in a nonurgent fashion. However if she could Bloody diarrhea again, the differential of ischemic colitis must be considered in the consultation should occur more urgently. 4. Currently her epigastric pain that occurs with food is stable. She says that a GI cocktail works very well and she will be sent to the [place] [facility] on qid as needed dosing. General surgery would like her to use sucralfate before meals. Care Goals: To get strong enough to be able to go home and be more independent. To have a final diagnosis for this epigastric and abdominal pain. Assessment: Patient is alert, oriented to person, place, time and situation. She actively participates in decision making for her care - SNF / NURSING HOME Transition Orders Admit to (Facility): [facility] Discharge Diagnosis: 1 recurrent abdominal pain with intermittent diarrhea/bloody diarrhea 2. SIRS due to noninfectious process without acute organ dysfunction 3. NSTEMI 4. Hypertensive urgency 5. Acute kidney injury due to intravascular depletion 6. Lactic acidosis 7. Hypochloremia 8. Chronic back pain with chronic pain syndrome 9. gastritis on CT of abdomen 10. Inferior mesenteric artery arteriosclerosis 11. Aortic atherosclerotic disease 12. Claudication Medicare Certification Statement: I certify that [facility] fdc care is medically necessary on a continuing basis for any of the conditions for which she/he is receiving care during hospitalization. Notify PCP of admission and forward orders to primary provider for signature. Weight on admission and: Weekly Other Notification Orders: Call PCP immediately if patient develops dyspnea, chest pain/tightness or edema. House Bowel Program: Yes Additional Bowel Program Orders: If no BM after 2 days, nurse may give M.O.M. 30ml PO PRN and/or ducolax Supp 1 [place] and/or MARIO 250mg P.O., and/or senna 1-2 tabs PO. On day 3 nurse may give repeat above order until residents constipation is resolved. Annual Influenza Vaccine (between Feb 02 and September 01): Yes Two-step PPD per [facility] [phone] or approved exception documents: Yes Medication Orders: PLEASE REFER TO THE DISCHARGE MEDICATION LIST. - Medications New Prescriptions: HYDROmorphone [Dilaudid] 2 mg PO Q6HR PRN #15 tab PRN Reason: Severe Pain (Level 7-10) - Diet Type: Geriatric Texture: Regular Liquids: Thin May have monthly special meal: Yes - Therapies | Activity Therapy: Evaluation | Treat if indicated: PT, OT Rehabilitation Potential: Return to independent living Activity: Activity as Tolerated Weight Bearing: Full Weight Assistance Devices: Walker"
--- NOTE | 2024-01-07 13:13 | DISCHARGE SUMMARY ---
"Discharge Summary Admit Date: 12/30/23 Discharge Date: 01/07/24 Discharging Provider: Queenie Mustafa MD Primary Care Provider: Siobhan Wood MD Code Status: Attempt Resuscitation Condition at Discharge: Stable Discharge Disposition: [facility] DC/Xfer - DIAGNOSES Discharge Diagnoses with Status of Each Condition: 1 recurrent abdominal pain with intermittent diarrhea/bloody diarrhea 2. SIRS due to noninfectious process without acute organ dysfunction 3. NSTEMI 4. Hypertensive urgency 5. Acute kidney injury due to intravascular depletion 6. Lactic acidosis 7. Hypochloremia 8. Chronic back pain with chronic pain syndrome 9. gastritis on CT of abdomen 10. Inferior mesenteric artery arteriosclerosis 11. Aortic atherosclerotic disease 12. Claudication - HPI History of Present Illness: Ms Grajeda is a 68 yo F with history of HTN, GERD, depression. Recent episode of colitis was admitted to the hospital 12/13-12/15, she had hemtaochezia and she underwent sigmoidoscopy which was unremarkable. Stool studies negative. CT abd showed mild diffuse rectosigmoid wall thickening. She was discharged chavez course of Levaquin and Flagyl, which she completed 3 days ago. Since hospital discharge patient reports ongoing diarrhea, at times red/pink color, she has also been nauseated, dry heaving. Poor PO intake. Since completing the antibiotics her symptoms got worse, she also developed subjective fevers, sweats, chills. She reports she has not had any further diarrhea or BRBPR since this morning. She has been feeling very tired, weak. Noted poor urine output. Denies chest pain or shortness of breath, does have intermittent palpitations, self limited. She has outpatient GI follow up scheduled for endoscopy. Prior H pylori stool test negative. Diarrhea ongoing x 1 month now. 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 Tello Procedures: 1. Chest x-ray without acute cardiopulmonary findings 2. Abdomen pelvis CT with clear lung bases. A cholecystectomy. Pancreas unremarkable. No kidney stones or hydronephrosis. The bowel is unremarkable with no evidence of bowel obstruction or inflammation. Stomach appears unremarkable. She has aortic atherosclerotic vascular calcifications without aneurysm. 3. Abdomen pelvis CT angiogram with abdominal aorta demonstrating no aneurysm. Juxtarenal abdominal aorta demonstrating dense eccentric atherosclerotic calcification with approximately 40% focal narrowing. Moderate to marked atherosclerosis of the infrarenal abdominal aorta. Assessment of the mesenteric vasculature demonstrates the FLIP is a small in caliber and demonstrates mild to moderate stenosis at the origin but is patent. Recommend correlation with serial lactic acid and physical exam if there is clinical suspicion for mesenteric ischemia. This patient does have intermittent elevation of lactic acid and intermittent bloody diarrhea. 4. MRCP. Status postcholecystectomy without complication. No abnormal fluid seen within the cholecystectomy bed. No biliary dilatation. No significant pancreatic abnormality. 5. Echocardiogram the left ventricular systolic function there is hyperdynamic with an ejection fraction of greater than 75%. No definitive valvular mass or dysfunction noted to suggest vegetation, infective carditis. - HOSPITAL COURSE Hospital Course: This is a 68-year-old female whose past medical history is significant for hypertension, hyperlipidemia, obstructive sleep apnea, and presented to the emergency room November 20 with abdominal pain. At that time CT showed colitis. She was discharged from the hospital and then returned December 13 for recurrence of her abdominal pain. Again CT showed segmental colitis. Through these hospitalizations she has had intermittent diarrhea. Sometimes they are bloody. She notes that the pain is usually made worse with food. Sometimes the pain is diffuse and generalized and sometimes the pain is epigastric and radiating to both bilateral upper quadrants. She was discharged from the December 13 visit and then returned again December 29 with recurrence of her abdominal pain. Differential diagnoses included: + Pancreatitis + Retained common bile duct stones in the face of a history of cholecystectomy +Peptic ulcer disease + Ischemic bowel + Infectious diarrhea + Reflux with esophageal spasm Studies have included: 3 CTs of the abdomen. On the last CT of the abdomen, the segmental colitis has resolved but she appears to have thickened stomach lining indicating possible gastritis. Even though she has had diarrhea, her diarrhea and bloody stool stopped and we have not been able to see if she has C. difficile or other infectious diarrhea. We doubt that that is the cause since diarrhea resolved with hospitalization. She has been treated for possible sepsis with the source being her bowel and is received empiric antibiotic therapy to cover that. Blood cultures have been negative. MRCP negative CTA of the abdomen indicates mild to moderate inferior mesenteric artery arteriosclerotic disease. 40% stenosis of the distal aorta going into her iliacs. She does endorse a history of claudication. When abdominal pain occurs the patient will get severe hypertension in response to the pain. She has been placed in the ICU because of pain that was so severe she was crying out. Palpation resulted in screams. Severe hypertension. And needed to be on a temporary nicardipine drip to bring down her blood pressure. During that time she had elevation of cardiac enzymes that were significant and she was treated as an NSTEMI. She was on a temporary heparin drip. She also has chronic back pain and is already on medications for that before she was admitted. At 1 point during her stay, Dilaudid 2 mg every 2 hours as needed was ordered. The patient requested quite a bit of Dilaudid and before nursing realized the cumulative dosing, the patient had an episode of unresponsiveness. She woke up with Narcan. Also noted that she has been using quite a bit of opioids because of the November 20, December 13 and December 29 admissions. She has had 30 tablets of Dilaudid prescribed at the beginning of December. Her primary care provider started her on buprenorphine 12 mg during that time and had weaned herself down to 4 mg daily just prior to her admission here. I am advising that she be discharged on her buprenorphine from the [facility], not Dilaudid. Plan of Treatment: 1. She has become significantly deconditioned during her stays and now needs custodial facility for rehab. It is a temporary stay until her mobility and strengthening improve and she will return to her own home with family and caregivers. 2. She is due to get an upper and lower endoscopy with Dr. Smith at [facility]. She thinks that is scheduled January 29. I will be contacting his office today to let her know what workup we have done and what he may consider 3. her claudication is mainly with standing too long on her legs. Buttocks and thighs Will burn. This happens after 10 minutes. mask and her primary care provider to refer for vascular evaluation in a nonurgent fashion. However if she could Bloody diarrhea again, the differential of ischemic colitis must be considered in the consultation should occur more urgently. 4. Currently her epigastric pain that occurs with food is stable. She says that a GI cocktail works very well and she will be sent to the [facility] on qid as needed dosing. General surgery would like her to use sucralfate before meals. Care Goals: To get strong enough to be able to go home and be more independent. To have a final diagnosis for this epigastric and abdominal pain. Assessment: Patient is alert, oriented to person, place, time and situation. She actively participates in decision making for her care Discharged in stable condition. Abdominal pain only occurs when she eats and it is mild. Temperature is 36.6. Heart rate 91. Blood pressure 155/82. Res pirations 16. 96% on room air. She is 4 foot 10 inches tall, 72.5 kg. Short statured morbidly obese pleasant white female who looks older than stated age. Alert and oriented to person, place, time and situation. Neck is supple Lungs have diminished breath sounds at the bases but are clear with no increased respiratory effort Regular rate and rhythm Abdomen is soft, hypoactive bowel sounds, nontender. With all her episodes of abdominal pain, there is no rigidity or peritoneal findings during her stay regular extremities have trace edema skin has areas where she has bruising from IVs and blood draws Neurologically she is able to move all extremities, feed herself, follows coaching promptly. 30 minutes was spent coordinating discharge this document was made in part using voice recognition software. While efforts are made to proofread this document, sound alike and grammatical errors may occur. - ALLERGIES Allergies/Adverse Reactions: Allergies Allergy/AdvReac Type Severity Reaction Status Date / Time oxycodone Allergy Severe Hives Verified 12/30/23 12:53 Penicillins Allergy Severe Anaphylaxis Verified 12/30/23 12:53 garlic Allergy Unknown Verified 12/30/23 12:53 atenolol AdvReac Unknown Verified 12/30/23 12:53 lisinopril AdvReac Unknown Verified 12/30/23 12:53 - MEDICATIONS Home Medications: Ambulatory Orders Medication Instructions Recorded Confirmed Bismuth Subsalicylate 262 mg PO BID PRN 11/22/23 12/31/23 [Pepto-Bismol] Ondansetron Odt [Zofran Odt] 4 mg TL Q6HR PRN #20 tab 11/30/23 12/31/23 Acetaminophen [Tylenol] 650 mg PO Q4HR PRN tab 01/07/24 Aspirin EC [Ecotrin] 81 mg PO DAILY #0 01/07/24 12/31/23 DULoxetine [Cymbalta] 60 mg PO HS #0 01/07/24 12/31/23 Gi Cocktail 30 ml PO TIDWM each 01/07/24 HYDROmorphone [Dilaudid] 2 mg PO Q6HR PRN #15 tab 01/07/24 Metoprolol Tartrate [Lopressor] 100 mg PO BID #0 01/07/24 12/31/23 Mvn-Min75/Iron/Iron Ps/Om3/Dha 1 each PO DAILY #30 cap 01/07/24 12/31/23 [Wescap-C Dha Softgel] Nitroglycerin [Nitrostat] 0.4 mg SL [id number] PRN #0 01/07/24 12/31/23 Pantoprazole [Protonix] 40 mg PO QDAC #30 tab 01/07/24 12/31/23 Pravastatin Sodium 20 mg PO HS #0 01/07/24 12/31/23 cloNIDine [Catapres] 0.1 mg PO BID tab 01/07/24 tiZANidine [Zanaflex] 4 mg PO Q8H PRN #0 01/07/24 12/31/23 traZODone [Desyrel] 50 mg PO HS #30 tab 01/07/24 12/31/23 - LABS Result Diagrams: 01/07/24 06:25 01/07/24 06:25 - SEPSIS Current Stage of Sepsis: Resolved (Persistent leukocytosis, lactic acidosis and tachycardia resolved) Possible source of Sepsis: Unknown Sepsis Criteria: WBC count greater than 12,000 or less than 4000"
[2024-01-07 14:35] VITALS: BP 155/82; O2SAT 96
== END 2024-01-07 14:42 | DRG 871 ==
LOC: ED 12:48 → MS2 22:31 → ICU 01-02 13:32 → MS2 01-05 12:32
PROVIDERS: ADMIT Student in an Organized Health Care Education/Training Program; ATTEND Specialist
DX: A41.9 Sepsis, unspecified organism (principal); R65.10 Systemic inflammatory response syndrome (SIRS) of non-infectious origin without acute organ dysfunction; I21.4 Non-ST elevation (NSTEMI) myocardial infarction; R00.0 Tachycardia, unspecified; D72.829 Elevated white blood cell count, unspecified; N17.9 Acute kidney failure, unspecified; K92.1 Melena; E87.20 Acidosis, unspecified; K55.1 Chronic vascular disorders of intestine; R42 Dizziness and giddiness; E86.0 Dehydration; I95.9 Hypotension, unspecified; R19.7 Diarrhea, unspecified; I10 Essential (primary) hypertension; Z87.19 Personal history of other diseases of the digestive system; I16.0 Hypertensive urgency; E86.9 Volume depletion, unspecified; E87.8 Other disorders of electrolyte and fluid balance, not elsewhere classified; M54.9 Dorsalgia, unspecified; G89.29 Other chronic pain; K29.70 Gastritis, unspecified, without bleeding; I70.0 Atherosclerosis of aorta; I73.9 Peripheral vascular disease, unspecified; K21.9 Gastro-esophageal reflux disease without esophagitis; F32.A Depression, unspecified; R53.1 Weakness; J44.9 Chronic obstructive pulmonary disease, unspecified; Z90.49 Acquired absence of other specified parts of digestive tract; E78.5 Hyperlipidemia, unspecified; G47.33 Obstructive sleep apnea (adult) (pediatric); R10.13 Epigastric pain; E66.01 Morbid (severe) obesity due to excess calories; Z68.28 Body mass index [BMI] 28.0-28.9, adult; I25.2 Old myocardial infarction; Z88.0 Allergy status to penicillin; T40.2X1A Poisoning by other opioids, accidental (unintentional), initial encounter; R40.4 Transient alteration of awareness; Y92.230 Patient room in hospital as the place of occurrence of the external cause; R10.10 Upper abdominal pain, unspecified; R01.1 Cardiac murmur, unspecified; Z98.1 Arthrodesis status
CPT/HCPCS: 36415; 71045; 74174; 74176; 74181; 80048; 80053; 80076; 81001; 81003; 82150; 82272; 82330; 83605; 83690; 83735; 83993; 84100; 84132; 84145; 84484; 85014; 85018; 85025; 85027; 85651; 85730; 86140; 87040; 87150; 87493; 87633; 93005; 93307; 97163; 97166; 99284; 99285; A9270; J1170; J7040; Q9967; 87086

== ENCOUNTER 2024-02-22 15:28 | Outpatient (CLI) | payer MEDICARE ==
--- NOTE | 2024-02-22 18:14 | XRAY Report ---
PROCEDURE: Chest 2V INDICATIONS: DYSPNEA TECHNIQUE: 2 views of the chest were acquired. COMPARISON: CT abdomen and pelvis angiogram 01/03/2024, chest x-ray 12/30/2023 FINDINGS: Surgical changes and devices: Interspinous stimulator leads project over the mediastinum. Status pos t cholecystectomy. Lungs and pleura: New thickening of the right horizontal fissure, likely secondary to small amounts o f pleural fluid accumulation. No large pleural effusions or pneumothorax. Lungs are clear. Mediastinum: Aortic arch calcifications. Mild left atrial enlargement. Mediastinal contours appear no rmal. Heart size is normal. Bones and chest wall: Diffuse osseous demineralization. No suspicious bony lesions. Overlying soft tissues appear unremarkable. IMPRESSION: Mild thickening along the right horizontal fissure without a focal consolidation. Otherwise, no acute cardiothoracic process. Reviewed by: Adiel Morris MD on 02/22/2024 6:13 PM PDT Approved by: Adiel Morris MD on 02/22/2024 6:13 PM PDT Station ID: [id number]
== END 2024-02-22 15:29 | disposition home or self-care (01) ==
LOC: DI.S 15:28
DX: R06.00 Dyspnea, unspecified (principal)

== ENCOUNTER 2024-11-07 17:36 | Observation (INO) ==
[2024-11-07] MEDS: predniSONE 20 MG TABLET PO STA (18:08)
--- NOTE | 2024-11-07 18:09 | ED Physician Documentation ---
History of Present Illness Stated complaint Stated Complaint: HIGH BP/SOA Chief complaint Chief Complaint: Cardiac History obtained from History obtained from: Patient History of Present Illness Timing: Prior to arrival Additonal information Additional information: Patient is a 69-year-old female presenting to the emergency department with shortness of breath that has been going on over the last few days she feels symptoms actually started a month ago but worsened within the last week. She notes she is on metoprolol but her blood pressure has been significantly elevated without missing any doses. She notes she sleeps on 1 pillow at night no increase in weight no chest pain associated with her symptoms no unilateral leg swelling. No history of DVTs or PEs. She has been using her albuterol inhaler at home with some mild relief. She has no fevers or chills or cough associated with her symptoms. Meds/Allgy Home Medications Ambulatory Orders Medication Instructions Recorded Confirmed bismuth subsalicylate 262 mg 262 mg PO BID PRN Heartbu rn 11/22/23 10/15/24 chewable tablet (Pepto-Bismol) ondansetron 4 mg disintegrating 4 mg translingual Q6HR PRN Nausea 11/30/23 10/15/24 tablet / Vomiting #20 tabs Gi Cocktail 30 ml PO TIDWM epigastric pa in w 01/07/24 10/15/24 Held on 10/15/24. food Instructions: Per Patient acetaminophen 325 mg tablet 650 mg (2 x 325 mg) PO Q4H R PRN 01/07/24 10/15/24 Pain 1 to 4, or Fever aspirin 81 mg tablet,delayed 81 mg PO DAILY for 10/15/24 release arteriosclerosis ##0 clonidine HCl 0.1 mg tablet 0.1 mg PO BID hypertension 01/07/24 10/15/24 duloxetine 30 mg capsule,delayed 60 mg (2 x 30 mg) PO HS depression 01/07/24 10/15/24 release and anxiety ##0 hydromorphone 2 mg tablet 2 mg PO Q6HR PRN Severe Pain 01/07/24 10/15/24 (Level 7-10) #15 tabs metoprolol tartrate 100 mg tablet 100 mg PO BID hypert ension ##0 01/07/24 10/15/24 (Lopressor) mvn-min 75-iron 35 mg-folic acid 1 1 ea PO DAILY iron def anemia #30 01/07/24 10/15/24 mg-omega-3 200 mg-dha-epa capsule caps (WesCap-C DHA) nitroglycerin 0.4 mg sublingual 0.4 mg sublingual Q5MI NX3 PRN 01/07/24 10/15/24 tablet Chest Pain ##0 pantoprazole 40 mg tablet,delayed 40 mg PO QDAC gerd a nd gastritis 01/07/24 10/15/24 release #30 tabs pravastatin 20 mg tablet 20 mg PO HS hyperlipidemia # #0 01/07/24 10/15/24 tizanidine 4 mg tablet 4 mg PO Q8H PRN backpain ##0 01/07/24 10/15/24 trazodone 50 mg tablet 50 mg PO HS insomnia and 10/2510/15/24 depression #30 tabs hydrocodone 5 mg-acetaminophen 325 1 - 2 tab PO Q4H IN N pain #14 tabs 10/07/24 10/15/24 mg tablet prednisone 10 mg tablets in a dose See Rx Instructions PO .COMPLEX 10/07/24 10/15/24 pack #21 ea Held on 10/15/24. Instructions: Per Patient Allergies Allergies Allergy/AdvReac Type Severity Reaction Status Date / Time oxycodone Allergy Severe Hives Verified 11/07/24 18:06 Penicillins Allergy Severe Anaphylaxis Verified 11/07/24 18:06 garlic Allergy Unknown Verified 11/07/24 18:06 atenolol AdvReac Unknown Verified 11/07/24 18:06 lisinopril AdvReac Unknown Verified 11/07/24 18:06 [facility] Active Problems All Active Problems (Updated 11/07/24 @ 19:33 by Nanette Le PA-C) CHF (congestive heart failure) (Acute) Hypertensive emergency (Acute) Acute knee pain (Acute) Hypochloremia (Acute) NSTEMI (non-ST elevated myocardial infarction) (Acute) Opioid overdose (Acute) Generalized weakness (Acute) Chronic pain (Acute) Sepsis (Acute) SIRS (systemic inflammatory response syndrome) (Acute) Leukocytosis (Acute) Tachycardia (Acute) Volume depletion (Acute) Metabolic acidosis (Acute) Difficult intravenous access (Acute) Syncope due to orthostatic hypotension (Acute) Hyperlipidemia (Acute) Sepsis (Acute) Lactic acidosis (Acute) Positive blood culture (Acute) Chest pain (Acute) Hypertensive urgency (Acute) Non-ischemic myocardial injury (non-traumatic) (Acute) Sepsis (Acute) Hypomagnesemia (Acute) GERD (gastroesophageal reflux disease) (Acute) Hypertension (Acute) Hyperglycemia (Acute) SVT (supraventricular tachycardia) (Acute) Dehydration (Acute) Abdominal pain (Acute) Colitis (Acute) OMKAR (obstructive sleep apnea) (Acute) Gastroenteritis (Acute) AMS (altered mental status) (Acute) Hypotension (Acute) Hypokalemia (Acute) MILAGRO (acute kidney injury) (Acute) Dehydration, severe (Acute) Acute abdominal pain (Acute) Surgical History Surgical History H/O spinal fusion Social History Social History (Updated 11/07/24 @ 18:20 by Etta Merida, ERNESTO) Smoking Status: Former smoker If you are a former smoker, when did you quit? (Date/Year): 2016 Number of Years Smoked: 50 How many cigarettes a day do you smoke? (20 cigarettes=1 Pk): 20 Do you dip or chew tobacco?: No Do you vape?: No Patient requests smoking cessation consult: No Initiate information on smoking cessation: No Living arrangement: At home Marital Status: Single Living Condition: Alone Relationship: Level: Independent Do you feel safe in your home environment?: Yes Suffered physical, verbal, emotional, or financial abuse?: No History of Abuse: No ETOH Use: None POLST Patient has POLST: Yes Exam Exam Vital Signs: Vital Signs x48h Temp Pulse Resp BP Pulse Ox O2 Flow Rate 11/07/24 18:57 80 23 206/101 H 92 2 11/07/24 18:31 70 18 191/102 H 93 2 11/07/24 18:20 96 24 11/07/24 18:14 2 11/07/24 18:11 82 18 221/98 H 95 2 11/07/24 17:48 36.3 C L 84 30 H 221/98 H 92 Constitutional Patient appears dyspneic on examination speaking in short sentences on arrival. HENMT normocephalic and head/scalp atraumatic Eyes PERRL, EOMs intact bilaterally and conjunctivae normal Neck/C-Spine visual inspection normal Lymph no lymphadenopathy noted Chest inspection of chest normal Respiratory Diminished breath sounds on auscultation of the lungs no audible wheeze crackles or rails. Cardiovascular normal heart rate noted and regular rhythm noted Extremities No lower leg swelling. No pitting edema Results Vitals Vitals: Vital Signs - 24 hr 11/07/24 17:48 11/07/24 18:11 11/07/24 18:14 Temperature 36.3 C L Temperature Source Temporal Artery Scan Pulse Rate 84 82 Respiratory Rate 30 H 18 Blood Pressure 221/98 H 221/98 H O2 Saturation 92 95 Oxygen Delivery Method Nasal Cannula O2 Source Room air Nasal cannula If not protocol: Oxygen Flow, liters/minute 2 2 Pain Intensity 0 0 11/07/24 18:20 11/07/24 18:31 11/07/24 18:57 Temperature Temperature Source Pulse Rate 96 70 80 Respiratory Rate 24 18 23 Blood Pressure 191/102 H 206/101 H O2 Saturation 93 92 Oxygen Delivery Method O2 Source Nasal cannula Nasal cannula If not protocol: Oxygen Flow, liters/minute 2 2 Pain Intensity 0 Oxygen O2 Source Nasal cannula Labs Labs: Laboratory Tests 11/07/24 18:18 WBC 5.6 RBC 3.57 L Hgb 10.1 L Hct 33.0 L MCV 92.4 MCH 28.3 MCHC 30.6 L RDW 14.9 Plt Count 232 MPV 9.7 Neut # (Auto) 2.8 Lymph # (Auto) 1.8 [place]isle # (Auto) 0.6 Eos # (Auto) 0.3 Baso # (Auto) 0.0 Absolute Nucleated RBC 0.00 Nucleated RBC % 0.0 Sodium 139 Potassium 4.2 Chloride 104 Carbon Dioxide 29 Anion Gap 6.0 BUN 16 Creatinine 0.8 Estimated GFR (MDRD) 71 L Glucose 93 Calcium 8.8 Magnesium 2.0 Total Bilirubin 0.5 AST 17 ALT 11 Alkaline Phosphatase 77 Troponin I High Sens 3.6 B-Natriuretic Peptide 801 H Total Protein 6.3 L Albumin 4.0 Globulin 2.3 Albumin/Globulin Ratio 1.7 Procalcitonin Immunoas < 0.05 Rads (name of study) Chest X-ray: Relevant Findings:: Final report received and EMP independent interpretation of test Interpretation: Bilateral interstitial prominence is suspicious for mild edema versus an atypical or viral pneumonia. PD Medical Decision Making ED course Complexity details: reviewed old records and reviewed results ED course: Patient is a 69-year-old female presenting to the emergency department with increased shortness of breath difficulty breathing symptoms worsened about 1 week ago. She has been increasing her albuterol inhaler use some mild dry. She she gets up with the weight gain associated with her symptoms. She is on metoprolol but has increasing elevated blood pressures at home. Vitals here in the ED significant for blood pressure of 221/98 tachypneic to 30 afebrile saturating on room air on arrival. DuoNeb and prednisone were ordered here in the ED as she had diminished breath sounds on auscultation of the lungs no lower leg swelling or pain edema and crackles or rales on auscultation. Patient Had minimal improvement after DuoNeb persistently hypoxic started on 2 L nasal cannula. Chest x-ray concerning for findings of fluid overload with elevated BNP in the 800s. CBC shows no significant leukocytosis procalcitonin is negative and CMP shows stable GFR. Patient was started on Lasix here in the emergency department but began to develop some chest pain radiating to her back shortly after. TroponinReturned within normal range her EKG shows no signs of ST changes patient will be admitted to the floor with Days[facility] who accepts patient. Patient was given 1 dose of Lasix here in the ED with no improvement hypoxia she remains on 2 L at this time. Discharge Plan Discharge Patient Disposition: [facility] DC/Xfer Condition: Stable Clinical Impression: Hypertensive emergency, CHF (congestive heart failure) Prescriptions: No Action bismuth subsalicylate [Pepto-Bismol] 262 MG tablet,chewable 262 mg PO BID PRN (Reason: Heartburn) ondansetron 4 MG tablet,disintegrating 4 mg translingual Q6HR PRN (Reason: Nausea / Vomiting) Qty: 20 0RF clonidine HCl 0.1 MG tablet 0.1 mg PO BID 0RF acetaminophen 325 MG tablet 650 mg PO Q4HR PRN (Reason: Pain 1 to 4, or Fever) 0RF hydromorphone 2 MG tablet 2 mg PO Q6HR PRN (Reason: Severe Pain (Level 7-10)) Qty: 15 0RF Gi Cocktail 120 ML Bottle 30 ml PO TIDWM 0RF trazodone 50 MG tablet 50 mg PO HS Qty: 30 0RF metoprolol tartrate [Lopressor] 100 MG tablet 100 mg PO BID Qty: 0 0RF tizanidine 4 MG tablet 4 mg PO Q8H PRN (Reason: backpain) Qty: 0 0RF aspirin 81 MG tablet,delayed release (DR/EC) 81 mg PO DAILY Qty: 0 0RF pantoprazole 40 MG tablet,delayed release (DR/EC) 40 mg PO QDAC Qty: 30 0RF nitroglycerin 0.4 MG tablet, sublingual 0.4 mg sublingual [id number] PRN (Reason: Chest Pain) Qty: 0 0RF pravastatin 20 MG tablet 20 mg PO HS Qty: 0 0RF duloxetine 30 MG capsule,delayed release(DR/EC) 60 mg PO HS Qty: 0 0RF WesCap-C DHA 1 EACH capsule 1 ea PO DAILY Qty: 30 0RF hydrocodone-acetaminophen 5-325 mg tablet 1 - 2 tab PO Q4H PRN (Reason: pain) Qty: 14 0RF prednisone 10 mg tablets,dose pack See Rx Instructions PO .COMPLEX Qty: 21 0RF Rx Instructions: orally per package directions Print Language: Guatemalan
--- OUTSIDE RECORDS SUMMARY | 2024-11-07 18:16 | EXTERNAL MEDICAL SUMMARY RPT | Continuity of Care Document ---
Author Organization [facility] Address [address] [place] [address] Phone Problems date description facility 2024-08-11 19:50 [facility]24-[facility]-11 19:50 Pain in left hip [facility] 2024-08-11 19:50 Low back pain, unspecified [facility] [employer] 2024-09-23 08:07 Age-related osteopor osis without current pathological fracture [employer] 2024-09-23 08:11 Encounter for screen ing for malignant neoplasm of respiratory organs [employer] [facility] 2024-10-07 09:16 [facility]24-10-07 09:58 [facility] 2024-10-16 12:01 Pain in right lower leg [employer] [facility] 2024-10-17 14:23 Obstructive sleep apnea (adult) (pediatric) [employer] [facility] 2024-10-29 11:15 Encounter for screen ing [facility]ogram [email or web address] Social History date description facility
[2024-11-07] MEDS: IPRATROPIUM/ALBUTEROL 3 ML NEB INH STA (18:18)
[2024-11-07 18:22] LABS: BASOPHILS % (AUTO) 0.5 %; EOSINOPHILS # (AUTO) 0.3 10^3/uL (0.0-0.7); EOSINOPHILS % (AUTO) 5.9 %; HGB - HEMOGLOBIN 10.1 g/dL (12.0-16.0); LYMPHOCYTES # (AUTO) 1.8 10^3/uL (1.5-3.5); LYMPHOCYTES % (AUTO) 32.7 %; MEAN CORPUSCULAR HEMOGLOBIN 28.3 pg (27.0-31.0); MEAN CORPUSCULAR HGB CONC 30.6 g/dL (32.0-36.0); MEAN CORPUSCULAR VOLUME 92.4 fL (81.0-99.0); MEAN PLATELET VOLUME 9.7 fL (7.9-10.8); MONOCYTES # (AUTO) 0.6 10^3/uL (0.0-1.0); MONOCYTES % (AUTO) 10.4 %; NEUTROPHILS # (AUTO) 2.8 10^3/uL (1.5-6.6); NEUTROPHILS % (AUTO) 50.1 %; PLT - PLATELET COUNT 232 10^3/uL (130-450); RED BLOOD COUNT 3.57 10^6/uL (4.20-5.40); RED CELL DISTRIBUTION WIDTH 14.9 % (12.0-15.0); WHITE BLOOD COUNT 5.6 x10^3/uL (4.8-10.8)
--- NOTE | 2024-11-07 18:35 | XRAY Report ---
PROCEDURE: XR Chest 1V INDICATIONS: sob TECHNIQUE: One view of the chest was acquired. COMPARISON: Chest radiograph 02/22/2024. FINDINGS: Surgical changes and devices: Spinal stimulator leads project over the thoracic spine.. Lungs and pleura: No pleural effusions or pneumothorax. No consolidation. Bilateral interstitial prominence. Mediastinum: Mediastinal contours appear normal. Heart size is normal. Bones and chest wall: No suspicious bony lesions. Overlying soft tissues appear unremarkable. IMPRESSION: Bilateral interstitial prominence is suspicious for mild edema versus an atypical or viral pneumonia. Reviewed by: Richie Ventura MD on 11/07/2024 6:34 PM PDT Approved by: Richie Ventura MD on 11/07/2024 6:34 PM PDT Station ID: [id number]
[2024-11-07 18:41] LABS: ALBUMIN/GLOBULIN RATIO 1.7 (1.0-2.2); BILIRUBIN,TOTAL 0.5 mg/dL (0.2-1.0); CALCIUM 8.8 mg/dL (8.5-10.3); CREATININE 0.8 mg/dL (0.6-1.3); POTASSIUM 4.2 mmol/L (3.5-4.5); TOTAL PROTEIN 6.3 g/dL (6.4-8.9)
[2024-11-07] MEDS: FUROSEMIDE 20 MG/2 ML VIAL IVP STA (18:56)
[2024-11-07] MEDS: NITROGLYCERIN 2% PASTE TOP STA (19:12)
[2024-11-07] MEDS: METOPROLOL 5 MG/5 ML VIAL IVP STA (20:26)
--- NOTE | 2024-11-07 20:26 | HISTORY & PHYSICAL EXAMINATION ---
Chief Complaint Chief Complaint Chief Complaint: short of breath History of Present Illness History Obtained From Records Reviewed: past hospitaliations, echo about a year ago History obtained from: patient History of Present Illness HPI Comment/Other: 69-year-old female who presented to the ED today with complaints of shortness of breath. She has been feeling poorly for about a month with generalized difficulty breathing. She states she changed from her regular rescue inhaler to albuterol nebulizers about a month ago and felt like this helped some but she continues to have problems with dyspnea on exertion hard to do even simple activities. She states that although she has had her symptoms for about a month they have been worse for the last week. Today she took her blood pressure at home and when it measured over 200 she decided to come to the emergency department. She states she has not had any change in her diet. Has not been eating more processed foods. She states that she is not having difficulty laying flat in bed at night. She sleeps with about 1 pillow. She has not been coughing or running any fevers just has shortness of breath, dyspnea on exertion and decreased exercise tolerance. She has not had any chest pain with the exception of today right before she got Lasix she did have some chest pain. This went away immediately with the Lasix. Last January she had a heart attack. She sees at [facility] cardiology. She states she has had multiple echocardiograms. She denies a history of CHF. She does take an aspirin every day but does not take any blood thinners. She denies any history of stents in her heart. She wears a CPAP normally at night at home. She lives alone calls on friends for help. Her son is her medical decision-maker he lives in [place]. She does not smoke and she does not drink alcohol. She has a POLST on file and her CODE STATUS is full code. Siobhan Wood is her primary care provider Meds/Allgy Home Medications Ambulatory Orders Medication Instructions Recorded Confirmed bismuth subsalicylate 262 mg 262 mg PO BID PRN Heartbu rn 11/22/23 10/15/24 chewable tablet (Pepto-Bismol) ondansetron 4 mg disintegrating 4 mg translingual Q6HR PRN Nausea 11/30/23 10/15/24 tablet / Vomiting #20 tabs Gi Cocktail 30 ml PO TIDWM epigastric pa in w 01/07/24 10/15/24 Held on 10/15/24. food Instructions: Per Patient acetaminophen 325 mg tablet 650 mg (2 x 325 mg) PO Q4H R PRN 01/07/24 10/15/24 Pain 1 to 4, or Fever aspirin 81 mg tablet,delayed 81 mg PO DAILY for 10/15/24 release arteriosclerosis ##0 clonidine HCl 0.1 mg tablet 0.1 mg PO BID hypertension 01/07/24 10/15/24 duloxetine 30 mg capsule,delayed 60 mg (2 x 30 mg) PO HS depression 01/07/24 10/15/24 release and anxiety ##0 hydromorphone 2 mg tablet 2 mg PO Q6HR PRN Severe Pain 01/07/24 10/15/24 (Level 7-10) #15 tabs metoprolol tartrate 100 mg tablet 100 mg PO BID hypert ension ##0 01/07/24 10/15/24 (Lopressor) mvn-min 75-iron 35 mg-folic acid 1 1 ea PO DAILY iron def anemia #30 01/07/24 10/15/24 mg-omega-3 200 mg-dha-epa capsule caps (WesCap-C DHA) nitroglycerin 0.4 mg sublingual 0.4 mg sublingual Q5MI NX3 PRN 01/07/24 10/15/24 tablet Chest Pain ##0 pantoprazole 40 mg tablet,delayed 40 mg PO QDAC gerd a nd gastritis 01/07/24 10/15/24 release #30 tabs pravastatin 20 mg tablet 20 mg PO HS hyperlipidemia # #0 01/07/24 10/15/24 tizanidine 4 mg tablet 4 mg PO Q8H PRN backpain ##0 01/07/24 10/15/24 trazodone 50 mg tablet 50 mg PO HS insomnia and 10/2510/15/24 depression #30 tabs hydrocodone 5 mg-acetaminophen 325 1 - 2 tab PO Q4H OH N pain #14 tabs 10/07/24 10/15/24 mg tablet prednisone 10 mg tablets in a dose See Rx Instructions PO .COMPLEX 10/07/24 10/15/24 pack #21 ea Held on 10/15/24. Instructions: Per Patient Allergies Allergies Allergy/AdvReac Type Severity Reaction Status Date / Time oxycodone Allergy Severe Hives Verified 11/07/24 18:06 Penicillins Allergy Severe Anaphylaxis Verified 11/07/24 18:06 garlic Allergy Unknown Verified 11/07/24 18:06 atenolol AdvReac Unknown Verified 11/07/24 18:06 lisinopril AdvReac Unknown Verified 11/07/24 18:06 PFSH Active Problems All Active Problems (Updated 11/07/24 @ 20:53 by MARINO Boo) Acute hypoxic respiratory failure (Acute) CHF (congestive heart failure) (Acute) Hypertensive emergency (Acute) Acute knee pain (Acute) Hypochloremia (Acute) NSTEMI (non-ST elevated myocardial infarction) (Acute) Opioid overdose (Acute) Generalized weakness (Acute) Chronic pain (Acute) Sepsis (Acute) SIRS (systemic inflammatory response syndrome) (Acute) Leukocytosis (Acute) Tachycardia (Acute) Volume depletion (Acute) Metabolic acidosis (Acute) Difficult intravenous access (Acute) Syncope due to orthostatic hypotension (Acute) Hyperlipidemia (Acute) Sepsis (Acute) Lactic acidosis (Acute) Positive blood culture (Acute) Chest pain (Acute) Hypertensive urgency (Acute) Non-ischemic myocardial injury (non-traumatic) (Acute) Sepsis (Acute) Hypomagnesemia (Acute) GERD (gastroesophageal reflux disease) (Acute) Hypertension (Acute) Hyperglycemia (Acute) SVT (supraventricular tachycardia) (Acute) Dehydration (Acute) Abdominal pain (Acute) Colitis (Acute) OMKAR (obstructive sleep apnea) (Acute) Gastroenteritis (Acute) AMS (altered mental status) (Acute) Hypotension (Acute) Hypokalemia (Acute) MILAGRO (acute kidney injury) (Acute) Dehydration, severe (Acute) Acute abdominal pain (Acute) Surgical History Surgical History H/O spinal fusion Social History Social History (Updated 11/07/24 @ 18:20 by Etta Merida RN) Smoking Status: Former smoker If you are a former smoker, when did you quit? (Date/Year): 2016 Number of Years Smoked: 50 How many cigarettes a day do you smoke? (20 cigarettes=1 Pk): 20 Do you dip or chew tobacco?: No Do you vape?: No Patient requests smoking cessation consult: No Initiate information on smoking cessation: No Living arrangement: At home Marital Status: Single Living Condition: Alone Relationship: Level: Independent Do you feel safe in your home environment?: Yes Suffered physical, verbal, emotional, or financial abuse?: No History of Abuse: No ETOH Use: None POLST Patient has POLST: Yes POLST Status: Full Code Review of Systems Status of ROS: 10 or more systems reviewed and unremarkable except as noted in history and below Constitutional Reports: Fatigue; Denies: Fever or Chills Cardiovascular Reports: shortness of breath with exertion Respiratory Reports: Shortness of breath, Wheezing, SOB at rest and SOB with exertion; Denies: Cough, Sputum production or Orthopnea Gastrointestinal Denies: Abdominal pain, Abdominal distention, Nausea, Vomiting, Diarrhea, Constipation or Change in bowel habits Genitourinary Denies: Painful urination or Urinary frequency Musculoskeletal Denies: Extremity pain Integumentary/Breast Denies: Rash or Itching Neurological Denies: Headache Psychiatric Denies: Depression or Anxiety Endocrine Reports: Fatigue Hematologic/Lymphatic Denies: Anemia Allergic/Immunologic Reports: Wheezing Prior Level of Functionality: independent. lives alone, meets all of her own needs. Exam Exam Vital Signs: Vital Signs x48h Temp Pulse Resp BP Pulse Ox O2 Flow Rate 11/07/24 20:47 68 18 181/85 H 94 2 11/07/24 20:29 68 202/78 H 11/07/24 20:15 74 78 H 202/78 H 94 2 11/07/24 19:59 76 18 199/89 H 93 2 11/07/24 19:38 79 20 209/95 H 94 2 11/07/24 18:57 80 23 206/101 H 92 2 11/07/24 18:31 70 18 191/102 H 93 2 11/07/24 18:20 96 24 11/07/24 18:14 2 11/07/24 18:11 82 18 221/98 H 95 2 11/07/24 17:48 36.3 C L 84 30 H 221/98 H 92 Constitutional normal general appearance and no apparent distress well groomed HENMT hearing grossly normal bilaterally, external ears normal and oral mucous membranes normal Eyes conjunctivae normal Neck/C-Spine visual inspection normal Lymph no lymphadenopathy noted Chest inspection of chest normal Respiratory no wheezes, no retractions and no use of accessory muscles tachypeneic. bilat rales, L>R Cardiovascular normal heart rate noted and peripheral pulses 2+ throughout systolic ejection murmur, sinus rhythm. no pedal edema Gastrointestinal abdomen soft to palpation Extremities normal to inspection and normal to palpation R TKA scar Neurology no focal motor deficit noted, speech normal and GCS 15 Psychiatry mental status grossly normal, oriented x3, thought process normal and cooperative Skin skin color normal and no rash Conclusion/Plan Problem List (1) CHF (congestive heart failure): Plan: This is an acute CHF exacerbation. Due to hypertensive emergency. Discussed with MARINO Le in the ED and elected to admit this patient for aggressive control of her blood pressure and diuresis. Patient presents with RAO and decreased exercise tolerance. She denies history of diuretic use, or CHF. I have an echo 12/30/23 showing normal EF of the left ventricle without right sided heart failure. She has had worsening of her symptoms over the last week, and marked worseing over her symptoms today. She has a history of asthma, treated only with albuterol: nebulizer and inhalers. She presents to the ED with BP in the 200's. Her BNP >800, neg troponin and pulm edema evident on CXR. She has not been having lower extremity edema. I will admit her for agressive diuersis. I will monitor her oxygenation. there is no desatureation noted on room air, but she is satting in the mid 90's on 2L NC. She is not on diuretics at home. She has gotten 20mg LAsix in the ED and I will give her an additional 20mg at midnight approx 6 hours after first dose. I will monitor her renal function. Qualifiers: Heart failure chronicity: acute Heart failure type: unspecified Q ualified Code(s): I50.9 - Heart failure, unspecified (2) Hypertensive emergency: Plan: in the ED she has been treated w one inch of nitro paste, and lasix 20mg IV. Her blood pressure has remained elevated. I have added 5mg of metoprolol IV and had an immediate reduction. I will continue with PRN metoprolol and am also adding PRN hydralazine. I have restarted her home metoprolol, which is her only home antihypertensive, according to the patient. Selected Entries 11/07/24 17:48 11/07/24 18:11 11/07/24 18:31 Blood Pressure 221/98 H 221/98 H 191/102 H 11/07/24 18:57 11/07/24 19:38 11/07/24 19:59 Blood Pressure 206/101 H 209/95 H 199/89 H 11/07/24 20:15 11/07/24 20:29 11/07/24 20:47 Blood Pressure 202/78 H 202/78 H 181/85 H Plan This patient will be admitted to observation status for acute CHF exacerbation secondary to hypertensive emergency. Will work aggressively to control her blood pressure and diurese her. I will monitor electrolytes. I think that as her pulmonary edema decreases her oxygen requirement will decrease and she will wean down to room air quite quickly. I think it is likely we can get her blood pressure under control and get her out of the hospital within 24 hours. I have spent 80 minutes in the care of this patient today. This includes time [id number], review and ordering of diagnostic imaging and laboratory studies and consultation with other providers. Monitoring the patient's signs symptoms, evaluation of medication effectiveness and patient's response to treatment. Lab Results Lab results reviewed: Yes 11/07/24 18:18 11/07/24 18:18 Diagnostic Imaging Results Diagnostic Imaging Results: positive Final report reviewed Diagnostic Imaging Results Comments: reviewed image of CXR- pulm edema EKG Results EKG Findings: NSR @78 Core Measures Anticipated LOS I expect patient to be DC'd or transferred within 96 hours.: Yes Issues Hospital Issues and Management Plan: hypertensive crisis leading to pulm edema. DVT/VTE - Prophylaxis VTE/DVT Device ordered at admit?: Yes VTE/DVT Prophylaxis med ordered at admit?: Yes
[2024-11-07] MEDS ORDERED: METOPROLOL 5 MG/5 ML VIAL IVP PRN (21:19)
[2024-11-07] MEDS ORDERED: ONDANSETRON ODT 4 MG TABLET TL PRN (21:19)
[2024-11-07] MEDS: METOPROLOL TARTRATE 50 MG TABLET PO SCH (21:43)
[2024-11-07] MEDS: hydrALAZINE INJ 20 MG/ML VIAL IVP PRN (23:40)
[2024-11-07] MEDS: SODIUM CHLORIDE FLUSH 0.9% 10 ML SYRINGE IVP PRN (23:42)
[2024-11-08] MEDS: ACETAMINOPHEN 325 MG TABLET PO PRN (00:14)
[2024-11-08] MEDS: SODIUM CHLORIDE FLUSH 0.9% 10 ML SYRINGE IVP SCH (00:36)
[2024-11-08 05:05] LABS: BASOPHILS % (AUTO) 0.2 %; EOSINOPHILS % (AUTO) 0.3 %; HCT - HEMATOCRIT 34.4 % (37.0-47.0); HGB - HEMOGLOBIN 11.1 g/dL (12.0-16.0); LYMPHOCYTES # (AUTO) 0.7 10^3/uL (1.5-3.5); LYMPHOCYTES % (AUTO) 10.5 %; MEAN CORPUSCULAR HEMOGLOBIN 28.6 pg (27.0-31.0); MEAN CORPUSCULAR HGB CONC 32.3 g/dL (32.0-36.0); MEAN CORPUSCULAR VOLUME 88.7 fL (81.0-99.0); MEAN PLATELET VOLUME 9.6 fL (7.9-10.8); MONOCYTES # (AUTO) 0.1 10^3/uL (0.0-1.0); MONOCYTES % (AUTO) 2.1 %; NEUTROPHILS # (AUTO) 5.4 10^3/uL (1.5-6.6); NEUTROPHILS % (AUTO) 86.1 %; PLT - PLATELET COUNT 266 10^3/uL (130-450); RED BLOOD COUNT 3.88 10^6/uL (4.20-5.40); RED CELL DISTRIBUTION WIDTH 14.9 % (12.0-15.0); WHITE BLOOD COUNT 6.2 x10^3/uL (4.8-10.8)
[2024-11-08 05:25] LABS: CALCIUM 9.3 mg/dL (8.5-10.3); CREATININE 0.7 mg/dL (0.6-1.3); POTASSIUM 3.7 mmol/L (3.5-4.5)
[2024-11-08] MEDS: FUROSEMIDE 20 MG/2 ML VIAL IVP SCH (05:45)
[2024-11-08] MEDS: ENOXAPARIN 40 MG/0.4 ML SYRINGE SUBQ SCH (08:05)
--- NOTE | 2024-11-08 09:10 | PHARMACY PROGRESS NOTE ---
Best Possible Medication History Admit Date and Time: 11/07/242018 Home Medications Medication Instructions Recorded Confirmed Type bismuth subsalicylate 262 mg 262 mg PO BID PRN Heartbu rn 11/22/23 11/08/24 History chewable tablet (Pepto-Bismol) acetaminophen 325 mg tablet 650 mg (2 x 325 mg) PO Q4H R PRN 01/07/24 11/08/24 Rx Pain 1 to 4, or Fever aspirin 81 mg tablet,delayed 81 mg PO DAILY for 11/08/24 Rx release arteriosclerosis ##0 metoprolol tartrate 100 mg tablet 100 mg PO BID hypert ension ##0 01/07/24 11/08/24 Rx (Lopressor) nitroglycerin 0.4 mg sublingual 0.4 mg sublingual Q5MI NX3 PRN 01/07/24 11/08/24 Rx tablet Chest Pain ##0 pravastatin 20 mg tablet 20 mg PO HS hyperlipidemia # #0 01/07/24 11/08/24 Rx tizanidine 4 mg tablet 4 mg PO Q8H PRN backpain ##0 01/07/24 11/08/24 Rx trazodone 50 mg tablet 50 mg PO HS insomnia and 10/2511/08/24 Rx depression #30 tabs albuterol sulfate 2.5 mg/3 mL 2.5 mg inhalation TID KS N 11/08/24 11/08/24 History (0.083 %) solution for nebulization shortness of breat h or wheezing albuterol sulfate 90 mcg/actuation 2 inh inhalation TI D PRN shortness 11/08/24 11/08/24 History breath activated powder inhaler of breath or wheezing (ProAir RespiClick) alendronate 70 mg tablet 70 mg PO MENDEZ 11/08/24 5 History buprenorphine HCl 8 mg sublingual 12 mg sublingual BID 11/08/24 11/08/24 History tablet duloxetine 60 mg capsule,delayed 60 mg PO DAILY 11/08/24 History release montelukast 10 mg tablet 10 mg PO QPM 11/08/24 History pantoprazole 40 mg tablet,delayed 40 mg PO BIDAC gerd and gastritis 11/08/24 11/08/24 History release Processed by: Pharmacy Medications reviewed in ED?: No Medication History completed: Yes Secondary Source(s): Pharmacy records, Insurance records and Previous admit records [facility] Statement: As the person ultimately responsible for medication therapy, providers are able to order a medication from an existing home medication list in [facility] via the "Reconcile Routine" prior to Confirmation of that medication by computer technical support specialist. Such practice is discouraged except when the physician, in their clinical judgment, deems that a medical need exists for a medication without regard to previous use.
--- NOTE | 2024-11-08 11:50 | Discharge Summary ---
Discharge Summary Admit Date: 11/07/24 Discharge Date: 11/08/24 Discharging Provider: Carla Jane PA-C Primary Care Provider: MAURILIO Carlin Code Status: Attempt Resuscitation DIAGNOSES Discharge Diagnoses with Status of Each Condition: Flash pulmonary edema, resolved Hypertension, uncontrolled. HPI History of Present Illness: 69-year-old female who presented to the ED today with complaints of shortness of breath. She has been feeling poorly for about a month with generalized difficulty breathing. She states she changed from her regular rescue inhaler to albuterol nebulizers about a month ago and felt like this helped some but she continues to have problems with dyspnea on exertion hard to do even simple activities. She states that although she has had her symptoms for about a month they have been worse for the last week. Today she took her blood pressure at home and when it measured over 200 she decided to come to the emergency department. She states she has not had any change in her diet. Has not been eating more processed foods. She states that she is not having difficulty laying flat in bed at night. She sleeps with about 1 pillow. She has not been coughing or running any fevers just has shortness of breath, dyspnea on exertion and decreased exercise tolerance. She has not had any chest pain with the exception of today right before she got Lasix she did have some chest pain. This went away immediately with the Lasix. Last January she had a heart attack. She sees at [facility] cardiology. She states she has had multiple echocardiograms. She denies a history of CHF. She does take an aspirin every day but does not take any blood thinners. She denies any history of stents in her heart. She wears a CPAP normally at night at home. She lives alone calls on friends for help. Her son is her medical decision-maker he lives in [place]. She does not smoke and she does not drink alcohol. She has a POLST on file and her CODE STATUS is full code. Yeny Diallo is her primary care provider CONSULTS | PROCEDURES Procedures: CXR: Bilateral interstitial prominence suspicious for edema vs atypical or viral PNA HOSPITAL COURSE Hospital Course: 69-year-old female who presented to the emergency department with worsening shortness of breath. She has a history of hypertension but had been compliant with her antihypertensive medication at home. She has had increasing dyspnea on exertion. She has not had any difficulty lying flat. She states that her symptoms were much worse this afternoon. In the emergency department she was given 1 dose of prednisone and several nebulizer treatments without significant improvement of her symptomatology. She continued to be dyspneic with hypoxia on 2 L of oxygen via nasal cannula. Troponin was negative. She did have an elevated BNP in the 800s. CBC was negative for leukocytosis, procalcitonin was negative and CMP did not show any renal dysfunction. She was given 20 mg Lasix IV in the emergency department did have some symptomatic improvement her blood pressure was also over 200 mmHg on presentation. She was started on Nitropaste in the emergency department had some decrease in her blood pressure but remained in the 200s. When I saw her in the emergency department she was sitting up appearing comfortable there was a large amount of dilute urine in the pure wick. She was not dyspneic she was on 2 L of oxygen via nasal cannula. On lung exam she had bibasilar crackles. I immediately ordered 5 mg of metoprolol IV which decreased her blood pressure by approximately 30 points. I then transferred her to the floor and restarted her home metoprolol tartrate. We added losartan 50 mg daily in the morning. On exam of day of discharge she remained without pedal edema. Her lungs were clear to auscultation without wheezes rales rhonchi. She had a normal heart rate. In the hour prior to discharge she developed severe cramping abdominal pain after lunch. She was able to sit on the toilet and passed some gas with some improvement but continued to have some abdominal pain. She had mild abdominal tenderness. She was not diaphoretic. She was tachycardic. She had not had her chronic buprenorphine for about 4 days. I therefore gave her 8 mg of buprenorphine which did improve her symptoms. We obtained CT of the abdomen and pelvis. Results are pending at this time. However she felt much better and wanted to go home. I therefore discharged home and follow-up via telephone regarding CT results. She does have a history of chronic pain in her abdomen attributable to chronic colitis. I received CT abdomen and pelvis results. This patient had a cholecystectomy in 2020. CT of the abdomen and pelvis shows. Status postcholecystectomy and intrahepatic pneumobilia moderate fecal debris throughout the colon without obstruction. This patient has had multiple CTs. As far as I know this the first time we have seen pneumobilia on the CT. As mentioned above she had a cholecystectomy years ago. She has not been running any fever. She shows no elevation in her liver function tests she has normal active alk phos normal bilirubin. The pain that she had in her abdomen was transient, lasting less than an hour but quite severe according to the patient. That is why I obtained imaging. I was somewhat suspicious that it was narcotics withdrawal as it had been 4 days since her last dose of buprenorphine although she was not having any other symptoms. I discussed the results of the CT with the patient. When I mentioned the pneumobilia she said to me "I have had that before. "She saw her branch administrator who apparently did further tests and there was no needed intervention. Should the pain persist I would recommend referral to a general surgeon who does hepatobiliary procedures. I have instructed her to follow-up with her PCP this week. I have instructed her to take her blood pressure twice a day and if her blood pressure remains at or above 200 for the systolic reading she should seek care immediately. I had added losartan 50 mg a day to her antihypertensive regimen and would recommend further adjustments based on her blood pressure log and PCP visit later this week. ALLERGIES Allergies Allergy/AdvReac Type Severity Reaction Status Date / Time oxycodone Allergy Severe Hives Verified 11/07/24 18:06 Penicillins Allergy Severe Anaphylaxis Verified 11/07/24 18:06 garlic Allergy Unknown Verified 11/07/24 18:06 atenolol AdvReac Unknown Verified 11/07/24 18:06 lisinopril AdvReac Unknown Verified 11/07/24 18:06 MEDICATIONS Ambulatory Orders Medication Instructions Recorded Confirmed bismuth subsalicylate 262 mg 262 mg PO BID PRN Heartbu rn 11/22/23 11/08/24 chewable tablet (Pepto-Bismol) acetaminophen 325 mg tablet 650 mg (2 x 325 mg) PO Q4H R PRN 01/07/24 11/08/24 Pain 1 to 4, or Fever aspirin 81 mg tablet,delayed 81 mg PO DAILY for 11/08/24 release arteriosclerosis ##0 metoprolol tartrate 100 mg tablet 100 mg PO BID hypert ension ##0 01/07/24 11/08/24 (Lopressor) nitroglycerin 0.4 mg sublingual 0.4 mg sublingual Q5MI NX3 PRN 01/07/24 11/08/24 tablet Chest Pain ##0 pravastatin 20 mg tablet 20 mg PO HS hyperlipidemia # #0 01/07/24 11/08/24 tizanidine 4 mg tablet 4 mg PO Q8H PRN backpain ##0 01/07/24 11/08/24 trazodone 50 mg tablet 50 mg PO HS insomnia and 10/2511/08/24 depression #30 tabs albuterol sulfate 2.5 mg/3 mL 2.5 mg inhalation TID MD N 11/08/24 11/08/24 (0.083 %) solution for nebulization shortness of breat h or wheezing albuterol sulfate 90 mcg/actuation 2 inh inhalation TI D PRN shortness 11/08/24 11/08/24 breath activated powder inhaler of breath or wheezing (ProAir RespiClick) alendronate 70 mg tablet 70 mg PO MENDEZ 11/08/24 5 buprenorphine HCl 8 mg sublingual 12 mg sublingual BID 11/08/24 11/08/24 tablet duloxetine 60 mg capsule,delayed 60 mg PO DAILY 11/08/24 release losartan 50 mg tablet 50 mg PO DAILY #30 tabs 12/26 montelukast 10 mg tablet 10 mg PO QPM 11/08/24 pantoprazole 40 mg tablet,delayed 40 mg PO BIDAC gerd and gastritis 11/08/24 11/08/24 release PHYSICAL EXAM AT DISCHARGE Vital Signs: Vital Signs x48h Temp Pulse Resp BP Pulse Ox O2 Flow Rate 11/08/24 12:24 36.5 C 84 18 141/65 H 98 2 General Appearance: positive No acute distress and Alert Eyes Bilateral: positive Normal inspection ENT: positive ENT inspection nml Neck: positive Nml inspection Respiratory: positive Chest non-tender, No respiratory distress and Breath sounds nml Cardiovascular: positive Regular rate & rhythm Abdomen: positive Other (mild diffuse ttp, normal bowel tones) Back: positive Nml inspection Skin: positive Color nml Extremities: positive Non-tender and No pedal edema Neurologic/Psychiatric: positive Oriented x3 LABS 11/08/24 04:58 11/08/24 04:58 FOLLOW UP Follow Up: Israel Mccann ARNP TIME SPENT Time Spent in Discharge (Minutes): 35 Discharge Plan Discharge Patient Disposition: 01 Home, Self Care Condition: Stable Medically Cleared Comments:: Pt. free on ab pain, discharged home to self care Prescriptions: New losartan 50 mg tablet 50 mg PO DAILY Qty: 30 2RF Continued bismuth subsalicylate [Pepto-Bismol] 262 MG tablet,chewable 262 mg PO BID PRN (Reason: Heartburn) acetaminophen 325 MG tablet 650 mg PO Q4HR PRN (Reason: Pain 1 to 4, or Fever) 0RF trazodone 50 MG tablet 50 mg PO HS Qty: 30 0RF metoprolol tartrate [Lopressor] 100 MG tablet 100 mg PO BID Qty: 0 0RF tizanidine 4 MG tablet 4 mg PO Q8H PRN (Reason: backpain) Qty: 0 0RF aspirin 81 MG tablet,delayed release (DR/EC) 81 mg PO DAILY Qty: 0 0RF nitroglycerin 0.4 MG tablet, sublingual 0.4 mg sublingual [id number] PRN (Reason: Chest Pain) Qty: 0 0RF pravastatin 20 MG tablet 20 mg PO HS Qty: 0 0RF alendronate 70 mg tablet 70 mg PO MENDEZ buprenorphine HCl 8 mg tablet, sublingual 12 mg SUBLINGUAL BID duloxetine 60 mg capsule,delayed release(DR/EC) 60 mg PO DAILY montelukast 10 mg tablet 10 mg PO QPM ProAir RespiClick 90 mcg/actuation aerosol powdr breath activated 2 inh inhalation TID PRN (Reason: shortness of breath or wheezing) albuterol sulfate 2.5 mg /3 mL (0.083 %) solution for nebulization 2.5 mg inhalation TID PRN (Reason: shortness of breath or wheezing) pantoprazole 40 MG tablet,delayed release (DR/EC) 40 mg PO BIDAC Diet: Low Sodium Health Concerns: you came into the hospital with difficulty breathing, and blood pressure that was very high. The elevated blood pressure had caused fluid to back up in your lungs. you had so much fluid on your lungs that you needed oxygen. We have been able to get you off the oxygen by getting the fluid off your lungs. Since you have been here, we have given you medicine to get the fluid off your lungs, and you have urinated about 4 liters. I think that this is not going to be a chronic problem, but it is a problem that was caused by the elevated blood pressure. We checked to make sure that you were not having a heart attack, and you did not. I agree that you need to be on more blood pressure medicine. I am putting you on Losartan, which is a blood pressure medicine that helps the kidneys lower the blood pressure. you need to continue to take your metoprolol as well. I want you to check your blood pressure twice a day, and keep a log of what it is. If it gets up to 200 and stays there (on the top #) then you need to come to the hospital and be checked. By keeping your blood pressure lower, we can prevent what happened. you need to avoid salt and processed food in your diet. you need to take your medicine every day, which I know that you have been doing. I will follow the results of your CT scan and probably give you a call this afternoon (or tomorrow morning) about results. you need to see your PCP this week, with your blood pressure log, and let her review things and make sure that the medicines are working. Print Language: Mosotho Patient Instructions: ARBs, Blood Pressure Dc Follow-up Care: YENY DIALLO ARNP [Physician No Access] -
[2024-11-08 12:24] VITALS: TEMP 97.7
[2024-11-08 12:25] VITALS: BP 141/65; O2SAT 98
[2024-11-08] MEDS ORDERED: iohexoL-300 100 ML VIAL ONE (13:33)
[2024-11-08] MEDS ORDERED: DIATRIZOATE MEGLU/DIATRIZO SOD 30 ML BOTTLE PO ONE (13:33)
[2024-11-08] MEDS: BUPRENORPHINE/NALOXONE 8-2 MG TAB SL ONE (13:42)
[2024-11-08] MEDS: DIATRIZOATE MEGLU/DIATRIZO SOD 30 ML BOTTLE PO ONE (15:09)
[2024-11-08] MEDS: iohexoL-300 100 ML VIAL IVP ONE (15:10)
--- NOTE | 2024-11-08 16:42 | CT Report ---
PROCEDURE: CT Abdomen/Pelvis W INDICATIONS: abdominal pain CONTRAST: 100ml omni 300 TECHNIQUE: After the administration of intravenous contrast, a CT scan of the abdomen and pelvis was performed. Images were recorded and evaluated at appropriate window settings. Reformats: coronal and sagittal. For radiation dose reduction, the following was used: automated exposure control, adjustment of mA and/or kV according to patient size. COMPARISON: 01/03/2024 FINDINGS: Image quality: Diagnostic. Lower chest: Small bibasilar pleural effusions greater on the right. Liver: No solid mass. Gallbladder: Cholecystectomy Biliary tree: Intra and extrahepatic pneumobilia is new from the prior Spleen: No splenomegaly. Pancreas: No pancreatic ductal dilation. Adrenals: No adrenal nodule. Kidneys and ureters: No hydronephrosis. No renal cystic lesion which requires follow up. No solid mass. Stomach, bowel and peritoneum: Moderate fecal debris throughout the colon. No obstruction. No pathologic free fluid. Lymph nodes: No central or retroperitoneal adenopathy. Vessels: No infrarenal aortic aneurysm. Patent portal vein. Atherosclerotic calcification of the abdominal aorta without evidence of aneurysm. Epidural stimulator pulse generator noted in the right posterior subcutaneous tissue PELVIS Reproductive organs: Unremarkable. Hysterectomy Bladder: No abnormal wall thickening. Pelvic lymph nodes: No pelvic adenopathy by size criteria. Bones: No aggressive osseous abnormality. Instrumented L5-S1 discectomy and fusion. Other: No significant ventral or inguinal hernia. IMPRESSION: Cholecystectomy and intrahepatic pneumobilia. Moderate fecal debris throughout the colon. No obstruction. Reviewed by: Sheldon Rebolledo MD on 11/08/2024 3:41 PM AKELLIOT Approved by: Sheldon Rebolledo MD on 11/08/2024 3:41 PM AKDT Station ID: [id number]
== END 2024-11-08 15:23 | disposition home or self-care (01) ==
LOC: MS3 17:36 → ED 17:36 → MS3 21:14
PROVIDERS: ADMIT Physician Assistant Medical; ATTEND Physician Assistant Medical
DX: R10.9 Unspecified abdominal pain; K52.9 Noninfective gastroenteritis and colitis, unspecified; I25.2 Old myocardial infarction; R00.0 Tachycardia, unspecified; Z90.49 Acquired absence of other specified parts of digestive tract; R09.02 Hypoxemia; I11.0 Hypertensive heart disease with heart failure; I16.1 Hypertensive emergency; Z87.891 Personal history of nicotine dependence; I50.9 Heart failure, unspecified